=== PATIENT | male | born 1950 | race African-American/Black ===

== ENCOUNTER 2016-12-12 13:07 | Inpatient (IN) | payer OTHER ==
[2016-12-12 16:25] VITALS: BMI 21.7
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
[2016-12-12] MEDS ORDERED: P-EPHED 60MG/TRIPROLIDI 2.5MG TABLET PO PRN (17:59)
[2016-12-12] MEDS ORDERED: MAGNESIUM HYDROX 2400MG/30ML ORAL SUSPENSION 30 ML CUP PO PRN (17:59)
[2016-12-12] MEDS ORDERED: LOPERAMIDE HCL 2 MG CAPSULE PO PRN (17:59)
[2016-12-12] MEDS ORDERED: guaiFENesin/D-METHORPHAN HB 10 ML UNIT-DOSE CUPS PO PRN (17:59)
[2016-12-12] MEDS ORDERED: MAG HYDROX/AL HYDROX/SIMETH 30 ML UNIT-DOSE CUP PO PRN (17:59)
[2016-12-12] MEDS ORDERED: diphenhydrAMINE HCL 50 MG CAPSULE PO PRN (17:59)
[2016-12-12] MEDS ORDERED: MENTHOL/PHENOL 1 EACH UD MM PRN (17:59)
[2016-12-12] MEDS ORDERED: hydrOXYzine PAMOATE 50 MG CAPSULE (FP) PO PRN (17:59)
[2016-12-12] MEDS ORDERED: ACETAMINOPHEN 325 MG TABLET (FP) PO PRN (17:59)
[2016-12-12] MEDS ORDERED: IBUPROFEN 400 MG TABLET (FP) PO PRN (17:59)
[2016-12-12] MEDS ORDERED: MAGNESIUM CITRATE 300 ML BOTTLE PO PRN (17:59)
[2016-12-12] MEDS ORDERED: chlordiazePOXIDE HCL 25 MG CAPSULE PO ONE (18:30)
[2016-12-12] MEDS ORDERED: METHADONE HCL 10 MG TABLET (FOR DETOX USE ONLY) PO ONE ×2 (18:30→23:00)
[2016-12-12] MEDS: PANTOPRAZOLE 40 MG TABLET (FP) PO SCH (18:36)
[2016-12-12] MEDS: amLODIPine BESYLATE 10 MG TABLET (FP) PO SCH (18:36)
[2016-12-12] MEDS: LISINOPRIL 5 MG TABLET (FP) PO SCH (18:37)
[2016-12-12] MEDS: chlordiazePOXIDE HCL 25 MG CAPSULE PO SCH (22:46)
[2016-12-12] MEDS: PROPRANOLOL HCL 10 MG TABLET (FP) PO SCH (22:46)
[2016-12-12] MEDS: THIAMINE HCL 100 MG TABLET (FP) PO SCH (22:46)
[2016-12-12] MEDS: APIXABAN 5 MG TABLET PO SCH (22:47)
[2016-12-12 23:10] LABS: URINE APPEARANCE CLEAR; URINE BILIRUBIN NEGATIVE (NEGATIVE); URINE BLOOD NEGATIVE (NEGATIVE); URINE COLOR LT. YELLOW; URINE GLUCOSE (UA) NEGATIVE (NEGATIVE); URINE KETONE NEGATIVE (NEGATIVE); URINE LEUK ESTERASE NEGATIVE (NEGATIVE); URINE NITRITE NEGATIVE (NEGATIVE); URINE UROBILINOGEN 0.2 E.U/dl E.U./dl (0.2-1.0)
[2016-12-12 23:13] LABS: URINE PROTEIN 1+ (NEGATIVE)
[2016-12-12] MEDS: ATORVASTATIN CA 40 MG TABLET (FP) PO SCH (23:16)
[2016-12-13 00:09] LABS: URINE BACTERIA RARE /hpf (NONE SEEN); URINE MUCUS FEW; URINE RBC <1 /hpf (0-3); URINE WBC 2 /hpf (3-5)
[2016-12-13] MEDS: chlordiazePOXIDE HCL 25 MG CAPSULE PO SCH ×4 (05:48→22:35)
[2016-12-13] MEDS: PROPRANOLOL HCL 10 MG TABLET (FP) PO SCH ×3 (06:55→22:36)
[2016-12-13] MEDS ORDERED: METHADONE HCL 10 MG TABLET (FOR DETOX USE ONLY) PO SCH (10:00)
[2016-12-13] MEDS: PRENATAL VITAMINS W/ FOLIC ACID TABLET (FP) PO SCH (10:07)
[2016-12-13] MEDS: LISINOPRIL 5 MG TABLET (FP) PO SCH (10:08)
[2016-12-13] MEDS: APIXABAN 5 MG TABLET PO SCH ×2 (10:08→22:36)
[2016-12-13] MEDS: amLODIPine BESYLATE 10 MG TABLET (FP) PO SCH (10:08)
[2016-12-13] MEDS: PANTOPRAZOLE 40 MG TABLET (FP) PO SCH (10:08)
[2016-12-13 10:16] LABS: MCH 33.9 pg (25.7-33.7); MCHC 32.7 g/dl (32.0-35.9); MEAN CELL VOLUME 103.9 fl (80-96); MEAN PLT VOLUME 8.9 fl (7.5-11.1); PLATELET COUNT 175 K/MM3 (134-434); RDW 13.4 % (11.9-15.9)
[2016-12-13 10:44] LABS: ALBUMIN 4.1 g/dl (3.4-5.0); ALK PHOS 138 U/L (45-117); ANION GAP 10 (8-16); BILIRUBIN,TOTAL 0.5 mg/dL (0.2-1.0); CALCIUM 7.7 mg/dL (8.5-10.1); CO2 25 mmol/L (21-32); GLUCOSE,RANDOM 130 mg/dL (74-106); SGOT/AST 17 U/L (15-37); SGPT/ALT 14 U/L (12-78); TOT PROT 7.9 g/dl (6.4-8.2)
--- NOTE | 2016-12-13 12:30 | PN ---
[facility] CIWA - CIWA Score Nausea/Vomitin-No Nausea/No Vomiting Muscle Tremors: 4-Moderate,w/Arms Extend Anxiety: 3 Agitation: 4-Moderately Restless Paroxysmal Sweats: 3 Orientation: 0-Oriented Tacttile Disturbances: 0-None Auditory Disturbances: 0-None Visual Disturbances: 0-None Headache: 0-None Present CIWA-Ar Total Score: 14 S COWS - Scale Resting Pulse: 1= [place] 81-100 Sweatin=Flushed/Facial Moisture Restless Observation: 1= Difficult to Sit Still Pupil Size: 0= Normal to Room Light Bone or Joint Aches: 1= Mild Discomfort Runny Nose/ Eye Tearin= Runny Nose/Eyes GI Upset > 30mins: 1= Stomach Cramp Tremor Observation of Outstretched Hands: 2= Slight Tremor Visible Yawning Observation: 2= >3x During Session Anxiety or Irritability: 2=Irritable/Anxious Goose Flesh Skin: 0=Smooth Skin COWS Score: 14 S Progress Note (SOAP) Subjective: agitation anxiety irritable body aches sweats Objective: 12/13/16 12:29 Vital Signs Temperature 98.1 F 12/13/16 09:23 Pulse Rate 82 12/13/16 09:23 Respiratory Rate 20 12/13/16 09:23 Blood Pressure 123/77 12/13/16 09:23 O2 Sat by Pulse Oximetry (%) Laboratory Tests 12/12/16 12/13/16 12/13/16 22:05 06:00 06:00 WBC 5.0 D RBC 3.74 L Hgb 12.7 Hct 38.8 MCV 103.9 H MCHC 32.7 RDW 13.4 Plt Count 175 MPV 8.9 Sodium 141 Potassium 3.4 L Chloride 106 Carbon Dioxide 25 D Anion Gap 10 BUN 10 D Creatinine 1.0 Creat Clearance w eGFR > 60 Random Glucose 130 H D Calcium 7.7 L Total Bilirubin 0.5 AST 17 D ALT 14 Alkaline Phosphatase 138 H D Total Protein 7.9 D Albumin 4.1 D Urine Color Lt. yellow Urine Appearance Clear Urine pH 6.0 Ur Specific [place] 1.025 Urine Protein 1+ H Urine Glucose (UA) Negative Urine Ketones Negative Urine Blood Negative Urine Nitrite Negative Urine Bilirubin Negative Urine Urobilinogen 0.2 e.u/dl Ur Leukocyte Esterase Negative Urine RBC <1 Urine WBC 2 Ur Epithelial Cells Rare Urine Bacteria Rare Urine Mucus Few RPR Titer 12/13/16 06:00 WBC RBC Hgb Hct MCV MCHC RDW Plt Count MPV Sodium Potassium Chloride Carbon Dioxide Anion Gap BUN Creatinine Creat Clearance w eGFR Random Glucose Calcium Total Bilirubin AST ALT Alkaline Phosphatase Total Protein Albumin Urine Color Urine Appearance Urine pH Ur Specific [place] Urine Protein Urine Glucose (UA) Urine Ketones Urine Blood Urine Nitrite Urine Bilirubin Urine Urobilinogen Ur Leukocyte Esterase Urine RBC Urine WBC Ur Epithelial Cells Urine Bacteria Urine Mucus RPR Titer Nonreactive potassium 3.4; k-dur 40meq x 4 days awake/alert ambulating no acute distress Assessment: 12/13/16 12:30 withdrawal sx Plan: continue detox increase fluids k-dur 40meq
[2016-12-13] MEDS: POTASSIUM CHLORIDE TABS 20 MEQ TABLET.ER (FP) PO SCH (13:23)
[2016-12-13] MEDS: chlordiazePOXIDE HCL 25 MG CAPSULE PO PRN (13:25)
--- NOTE | 2016-12-13 16:17 | EKG ---
Test Reason : Blood Pressure : / mmHG Vent. Rate : 075 BPM Atrial Rate : 075 BPM P-R Int : 138 ms QRS Dur : 074 ms QT Int : 386 ms P-R-T Axes : 077 063 040 degrees QTc Int : 431 ms NORMAL SINUS RHYTHM POSSIBLE LEFT ATRIAL ENLARGEMENT LEFT VENTRICULAR HYPERTROPHY ABNORMAL ECG NO PREVIOUS ECGS AVAILABLE Confirmed by JANENE KHAN, CALLIE ([id number]) on 12/13/2016 4:17:07 PM Referred By: Confirmed By:CALLIE WATTERS MD
[2016-12-13] MEDS: ATORVASTATIN CA 40 MG TABLET (FP) PO SCH (22:36)
[2016-12-13] MEDS: QUEtiapine FUMARATE 100 MG TABLET (FP) PO SCH (22:36)
[2016-12-13] MEDS: THIAMINE HCL 100 MG TABLET (FP) PO SCH (22:36)
[2016-12-14] MEDS: chlordiazePOXIDE HCL 25 MG CAPSULE PO PRN (03:36)
[2016-12-14] MEDS: PROPRANOLOL HCL 10 MG TABLET (FP) PO SCH ×3 (05:32→22:25)
[2016-12-14] MEDS: chlordiazePOXIDE HCL 25 MG CAPSULE PO SCH ×3 (05:32→17:17)
[2016-12-14] MEDS: PRENATAL VITAMINS W/ FOLIC ACID TABLET (FP) PO SCH (10:17)
[2016-12-14] MEDS: APIXABAN 5 MG TABLET PO SCH ×2 (10:18→22:26)
[2016-12-14] MEDS: amLODIPine BESYLATE 10 MG TABLET (FP) PO SCH (10:18)
[2016-12-14] MEDS: POTASSIUM CHLORIDE TABS 20 MEQ TABLET.ER (FP) PO SCH (10:18)
[2016-12-14] MEDS: PANTOPRAZOLE 40 MG TABLET (FP) PO SCH (10:18)
[2016-12-14] MEDS: LISINOPRIL 5 MG TABLET (FP) PO SCH (10:20)
[2016-12-14] MEDS: METHADONE HCL 5 MG TABLET (FOR DETOX USE ONLY) PO SCH (10:23)
--- NOTE | 2016-12-14 10:55 | PN ---
S CIWA - CIWA Score Nausea/Vomitin-Mild Nausea/No Vomiting Muscle Tremors: 3 Anxiety: 3 Agitation: 2 Paroxysmal Sweats: 1-Minimal Palms Moist Orientation: 0-Oriented Tacttile Disturbances: 2-Mild Itch/Numbness/Burn Auditory Disturbances: 0-None Visual Disturbances: 2-Mild Sensitivity Headache: 1-Very Mild CIWA-Ar Total Score: 15 BHS COWS - Scale Resting Pulse: 1= [place] 81-100 Sweatin=Flushed/Facial Moisture Restless Observation: 1= Difficult to Sit Still Pupil Size: 2= Moderately Dilated Bone or Joint Aches: 1= Mild Discomfort Runny Nose/ Eye Tearin= Runny Nose/Eyes GI Upset > 30mins: 1= Stomach Cramp Tremor Observation of Outstretched Hands: 2= Slight Tremor Visible Yawning Observation: 0= None Anxiety or Irritability: 2=Irritable/Anxious Goose Flesh Skin: 0=Smooth Skin COWS Score: 14 S Progress Note (SOAP) Subjective: ACHY POOR SLEEP GI UPSET Objective: 12/14/16 10:54 Vital Signs - 24 hr 12/13/16 12/13/16 12/13/16 13:58 18:24 21:59 Temperature 99.3 F 97.6 F 96.3 F L Pulse Rate 82 76 70 Respiratory 18 18 18 Rate Blood Pressure 127/72 134/67 119/65 12/14/16 12/14/16 12/14/16 00:30 06:00 10:22 Temperature 97.5 F L 98 F Pulse Rate 90 80 Respiratory 18 18 20 Rate Blood Pressure 129/77 135/73 Laboratory Tests 12/12/16 12/13/16 12/13/16 22:05 06:00 06:00 WBC 5.0 D RBC 3.74 L Hgb 12.7 Hct 38.8 MCV 103.9 H MCHC 32.7 RDW 13.4 Plt Count 175 MPV 8.9 Sodium 141 Potassium 3.4 L Chloride 106 Carbon Dioxide 25 D Anion Gap 10 BUN 10 D Creatinine 1.0 Creat Clearance w eGFR > 60 Random Glucose 130 H D Calcium 7.7 L Total Bilirubin 0.5 AST 17 D ALT 14 Alkaline Phosphatase 138 H D Total Protein 7.9 D Albumin 4.1 D Urine Color Lt. yellow Urine Appearance Clear Urine pH 6.0 Ur Specific [place] 1.025 Urine Protein 1+ H Urine Glucose (UA) Negative Urine Ketones Negative Urine Blood Negative Urine Nitrite Negative Urine Bilirubin Negative Urine Urobilinogen 0.2 e.u/dl Ur Leukocyte Esterase Negative Urine RBC <1 Urine WBC 2 Ur Epithelial Cells Rare Urine Bacteria Rare Urine Mucus Few RPR Titer 12/13/16 06:00 WBC RBC Hgb Hct MCV MCHC RDW Plt Count MPV Sodium Potassium Chloride Carbon Dioxide Anion Gap BUN Creatinine Creat Clearance w eGFR Random Glucose Calcium Total Bilirubin AST ALT Alkaline Phosphatase Total Protein Albumin Urine Color Urine Appearance Urine pH Ur Specific [place] Urine Protein Urine Glucose (UA) Urine Ketones Urine Blood Urine Nitrite Urine Bilirubin Urine Urobilinogen Ur Leukocyte Esterase Urine RBC Urine WBC Ur Epithelial Cells Urine Bacteria Urine Mucus RPR Titer Nonreactive Assessment: 12/14/16 10:54 ONGOING WITHDRAWAL Plan: CONTINUE DETOX PROTOCOL
[2016-12-14] MEDS: THIAMINE HCL 100 MG TABLET (FP) PO SCH (22:25)
[2016-12-14] MEDS: QUEtiapine FUMARATE 100 MG TABLET (FP) PO SCH (22:26)
[2016-12-14] MEDS: chlordiazePOXIDE 5 MG CAPSULE PO SCH (22:26)
[2016-12-14] MEDS: ATORVASTATIN CA 40 MG TABLET (FP) PO SCH (22:26)
[2016-12-15] MEDS: chlordiazePOXIDE 5 MG CAPSULE PO SCH ×3 (05:25→17:44)
[2016-12-15] MEDS: PROPRANOLOL HCL 10 MG TABLET (FP) PO SCH ×3 (05:26→22:39)
[2016-12-15] MEDS: PRENATAL VITAMINS W/ FOLIC ACID TABLET (FP) PO SCH (10:15)
[2016-12-15] MEDS: METHADONE HCL 5 MG TABLET (FOR DETOX USE ONLY) PO SCH (10:15)
[2016-12-15] MEDS: LISINOPRIL 5 MG TABLET (FP) PO SCH (10:15)
[2016-12-15] MEDS: amLODIPine BESYLATE 10 MG TABLET (FP) PO SCH (10:15)
[2016-12-15] MEDS: POTASSIUM CHLORIDE TABS 20 MEQ TABLET.ER (FP) PO SCH (10:15)
[2016-12-15] MEDS: PANTOPRAZOLE 40 MG TABLET (FP) PO SCH (10:15)
[2016-12-15] MEDS: APIXABAN 5 MG TABLET PO SCH ×2 (10:16→22:39)
--- NOTE | 2016-12-15 11:06 | PN ---
S Progress Note (SOAP) Subjective: ALERT,IRRITABLE,INTERRUPTED SLEEP,TREMOR Objective: 12/15/16 11:05 Vital Signs Temperature 98.6 F 12/15/16 09:52 Pulse Rate 86 12/15/16 09:52 Respiratory Rate 18 12/15/16 09:52 Blood Pressure 127/71 12/15/16 09:52 O2 Sat by Pulse Oximetry (%) Assessment: 12/15/16 11:05 WITHDRAWAL SYMPTOM Plan: CONTINUE DETOX
[2016-12-15] MEDS: QUEtiapine FUMARATE 100 MG TABLET (FP) PO SCH (20:56)
[2016-12-15] MEDS: chlordiazePOXIDE HCL 10 MG CAPSULE PO SCH (22:39)
[2016-12-15] MEDS: THIAMINE HCL 100 MG TABLET (FP) PO SCH (22:39)
[2016-12-15] MEDS: ATORVASTATIN CA 40 MG TABLET (FP) PO SCH (22:39)
[2016-12-16] MEDS: PROPRANOLOL HCL 10 MG TABLET (FP) PO SCH ×3 (05:31→22:36)
[2016-12-16] MEDS: chlordiazePOXIDE HCL 10 MG CAPSULE PO SCH ×3 (05:31→17:51)
[2016-12-16] MEDS ORDERED: METHADONE HCL 10 MG TABLET (FOR DETOX USE ONLY) PO SCH (10:00)
[2016-12-16] MEDS: APIXABAN 5 MG TABLET PO SCH ×2 (10:08→22:36)
[2016-12-16] MEDS: PRENATAL VITAMINS W/ FOLIC ACID TABLET (FP) PO SCH (10:08)
[2016-12-16] MEDS: POTASSIUM CHLORIDE TABS 20 MEQ TABLET.ER (FP) PO SCH (10:08)
[2016-12-16] MEDS: PANTOPRAZOLE 40 MG TABLET (FP) PO SCH (10:08)
[2016-12-16] MEDS: amLODIPine BESYLATE 10 MG TABLET (FP) PO SCH (10:09)
[2016-12-16] MEDS: LISINOPRIL 5 MG TABLET (FP) PO SCH (10:09)
--- NOTE | 2016-12-16 11:35 | PN ---
S Progress Note (SOAP) Subjective: alert,irritable,anxious,interrupted sleep Objective: 12/16/16 11:34 Vital Signs Temperature 99.7 F H 12/16/16 09:30 Pulse Rate 98 H 12/16/16 09:30 Respiratory Rate 18 12/16/16 09:30 Blood Pressure 124/72 12/16/16 09:30 O2 Sat by Pulse Oximetry (%) Assessment: 12/16/16 11:34 withdrawal symptom Plan: continue detox,discharge in am
[2016-12-16] MEDS: QUEtiapine FUMARATE 100 MG TABLET (FP) PO SCH (19:54)
[2016-12-16] MEDS: THIAMINE HCL 100 MG TABLET (FP) PO SCH (22:36)
[2016-12-16] MEDS: ATORVASTATIN CA 40 MG TABLET (FP) PO SCH (22:36)
[2016-12-17] MEDS: PROPRANOLOL HCL 10 MG TABLET (FP) PO SCH (05:39)
[2016-12-17] MEDS ORDERED: METHADONE HCL 5 MG TABLET (FOR DETOX USE ONLY) PO SCH (06:00)
--- NOTE | 2016-12-17 08:14 | PN ---
S Progress Note (SOAP) Subjective: ALERT,NO COMPLAINT Objective: 12/17/16 08:13 Vital Signs Temperature 97.2 F L 12/17/16 06:36 Pulse Rate 88 12/17/16 06:36 Respiratory Rate 18 12/17/16 06:36 Blood Pressure 127/70 12/17/16 06:36 O2 Sat by Pulse Oximetry (%) Assessment: 12/17/16 08:14 DETOX COMPLETED,NO WITHDRAWAL SYMPTOM Plan: DISCHARGE TODAY,FOLLOW UP WITH AFTER CARE PROGRAM ARRANGEMENT AND PMD FOR MEDICAL PROBLEM
--- NOTE | 2016-12-17 08:21 | DS ---
[facility] Detox Discharge Summary Admission Date: 12/12/16 Discharge Date: 12/17/16 - History Present History: Alcohol Dependence, Opioid Dependence Additional Comments: FOLLOW UP WITH AFTER CARE PROGRAM ARRANGEMENT AND PMD FOR MEDICAL PROBLEM, PATIENT HAS ALL MEDICATIONS AT HOME Pertinent Past History: ESSENTIAL HYPERTENSION GERD DVT HISTORY OF PULMONARY EMBOLISM - Physical Exam Results Vital Signs: Vital Signs Temperature 97.2 F L 12/17/16 06:36 Pulse Rate 88 12/17/16 06:36 Respiratory Rate 18 12/17/16 06:36 Blood Pressure 127/70 12/17/16 06:36 O2 Sat by Pulse Oximetry (%) Pertinent Admission Physical Exam Findings: WITHDRAWAL SYMPTOM - Treatment Hospital Course: Detox Protocol Followed, Detoxed Safely, Responded well, Discharged Condition Good Patient has Accepted a Rehab Referral to: DECLINED - Medication Discharge Medications: Ambulatory Orders Esomeprazole Mag Trihydrate [Nexium] 40 mg PO DAILY 04/13/14 Amlodipine Besylate [Norvasc -] 10 mg PO DAILY #30 tablet 08/22/15 Atorvastatin Ca [Lipitor -] 40 mg PO HS 01/14/16 Lisinopril 5 mg PO DAILY 01/14/16 Apixaban [Eliquis -] 5 mg PO BID 12/12/16 Propranolol HCl [Inderal -] 10 mg PO TID 12/12/16 Quetiapine Fumarate [Seroquel] 100 mg PO HS #30 tablet 12/13/16 - Diagnosis (1) Alcohol dependence with uncomplicated withdrawal Current Visit: Yes Status: Acute (2) DVT (deep venous thrombosis) Current Visit: Yes Status: Acute (3) Essential hypertension Current Visit: Yes Status: Chronic (4) Gastroesophageal reflux disease Current Visit: Yes Status: Chronic Qualifiers: Esophagitis presence: without esophagitis Qualified Code(s): K21.9 - Gastro-esophageal reflux disease without esophagitis (5) Opioid dependence with withdrawal Current Visit: Yes Status: Chronic - AMA Did Patient Leave Against Medical Advice: No
[2016-12-17] MEDS: PRENATAL VITAMINS W/ FOLIC ACID TABLET (FP) PO SCH (09:16)
[2016-12-17] MEDS: POTASSIUM CHLORIDE TABS 20 MEQ TABLET.ER (FP) PO SCH (09:17)
[2016-12-17] MEDS: APIXABAN 5 MG TABLET PO SCH (09:17)
[2016-12-17] MEDS: PANTOPRAZOLE 40 MG TABLET (FP) PO SCH (09:17)
[2016-12-17] MEDS: LISINOPRIL 5 MG TABLET (FP) PO SCH (09:17)
[2016-12-17] MEDS: amLODIPine BESYLATE 10 MG TABLET (FP) PO SCH (09:17)
[2016-12-17 11:21] VITALS: BP 109/69; PULSE 96; TEMP 97.8
== END 2016-12-17 09:48 | disposition home or self-care (01) | DRG 897 ==
LOC: YASAS 13:07 → Y6N 17:52
PROVIDERS: ADMIT Internal Medicine Addiction Medicine; ATTEND Internal Medicine Addiction Medicine
PROC: HZ2ZZZZ Detoxification Services for Substance Abuse Treatment (ICD-10-PCS; principal; 2016-12-12)
DX: F11.23 Opioid dependence with withdrawal (principal); I82.409 Acute embolism and thrombosis of unspecified deep veins of unspecified lower extremity; F10.230 Alcohol dependence with withdrawal, uncomplicated; I10 Essential (primary) hypertension; K21.9 Gastro-esophageal reflux disease without esophagitis; Z79.01 Long term (current) use of anticoagulants; Z98.42 Cataract extraction status, left eye
CPT/HCPCS: 36415; 71020-TC; 80053; 81003; 81015; 85027; 86593; 93005; 93010

== ENCOUNTER 2017-01-20 12:21 | Inpatient (IN) | payer OTHER ==
[2017-01-20 12:56] VITALS: BMI 21.7
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
[2017-01-20] MEDS ORDERED: MAGNESIUM CITRATE 300 ML BOTTLE PO PRN (17:12)
[2017-01-20] MEDS ORDERED: chlordiazePOXIDE HCL 25 MG CAPSULE PO ONE (17:12)
[2017-01-20] MEDS ORDERED: METHADONE HCL 10 MG TABLET (FOR DETOX USE ONLY) PO ONE ×2 (17:12→23:00)
[2017-01-20] MEDS ORDERED: P-EPHED 60MG/TRIPROLIDI 2.5MG TABLET PO PRN (17:12)
[2017-01-20] MEDS ORDERED: guaiFENesin/D-METHORPHAN HB 10 ML UNIT-DOSE CUPS PO PRN (17:12)
[2017-01-20] MEDS ORDERED: MAGNESIUM HYDROX 2400MG/30ML ORAL SUSPENSION 30 ML CUP PO PRN (17:12)
[2017-01-20] MEDS ORDERED: ACETAMINOPHEN 325 MG TABLET (FP) PO PRN (17:12)
[2017-01-20] MEDS ORDERED: LOPERAMIDE HCL 2 MG CAPSULE PO PRN (17:12)
[2017-01-20] MEDS ORDERED: MENTHOL/PHENOL 1 EACH UD MM PRN (17:12)
[2017-01-20] MEDS ORDERED: hydrOXYzine PAMOATE 50 MG CAPSULE (FP) PO PRN (17:12)
[2017-01-20] MEDS ORDERED: chlordiazePOXIDE HCL 25 MG CAPSULE PO PRN (17:12)
[2017-01-20] MEDS ORDERED: IBUPROFEN 400 MG TABLET (FP) PO PRN (17:12)
[2017-01-20] MEDS ORDERED: MAG HYDROX/AL HYDROX/SIMETH 30 ML UNIT-DOSE CUP PO PRN (17:12)
[2017-01-20] MEDS ORDERED: PROPRANOLOL HCL 10 MG TABLET (FP) PO ONE (18:19)
[2017-01-20] MEDS: LISINOPRIL 10 MG TABLET (FP) PO SCH (18:59)
[2017-01-20] MEDS: chlordiazePOXIDE HCL 25 MG CAPSULE PO SCH (22:06)
[2017-01-20] MEDS: diphenhydrAMINE HCL 50 MG CAPSULE PO PRN (22:06)
[2017-01-20] MEDS: APIXABAN 5 MG TABLET PO SCH (22:06)
[2017-01-20] MEDS: PROPRANOLOL HCL 10 MG TABLET (FP) PO SCH (22:06)
[2017-01-20] MEDS: THIAMINE HCL 100 MG TABLET (FP) PO SCH (22:06)
[2017-01-21] MEDS: chlordiazePOXIDE HCL 25 MG CAPSULE PO SCH ×4 (05:28→22:22)
[2017-01-21] MEDS: PROPRANOLOL HCL 10 MG TABLET (FP) PO SCH ×3 (05:28→22:22)
[2017-01-21 09:59] LABS: MCH 33.7 pg (25.7-33.7); MCHC 32.5 g/dl (32.0-35.9); MEAN CELL VOLUME 103.7 fl (80-96); MEAN PLT VOLUME 8.5 fl (7.5-11.1); PLATELET COUNT 127 K/MM3 (134-434); RDW 14.5 % (11.9-15.9); WHITE BLOOD COUNT 3.1 K/mm3 (4.0-10.0)
[2017-01-21] MEDS ORDERED: METHADONE HCL 10 MG TABLET (FOR DETOX USE ONLY) PO SCH (10:00)
[2017-01-21] MEDS: APIXABAN 5 MG TABLET PO SCH ×2 (10:09→22:22)
[2017-01-21] MEDS: LISINOPRIL 10 MG TABLET (FP) PO SCH (10:09)
[2017-01-21] MEDS: PRENATAL VITAMINS W/ FOLIC ACID TABLET (FP) PO SCH (10:09)
[2017-01-21 10:31] LABS: ALBUMIN 3.4 g/dl (3.4-5.0); ALK PHOS 96 U/L (45-117); ANION GAP 9 (8-16); BILIRUBIN,TOTAL 0.7 mg/dL (0.2-1.0); CALCIUM 8.2 mg/dL (8.5-10.1); CO2 29 mmol/L (21-32); GLUCOSE,RANDOM 91 mg/dL (74-106); SGOT/AST 12 U/L (15-37); SGPT/ALT 13 U/L (12-78); TOT PROT 6.2 g/dl (6.4-8.2)
--- NOTE | 2017-01-21 10:42 | PN ---
[facility] CIWA - CIWA Score Nausea/Vomitin-Mild Nausea/No Vomiting Muscle Tremors: 4-Moderate,w/Arms Extend Anxiety: 4-Mod. Anxious/Guarded Agitation: 3 Paroxysmal Sweats: 3 Orientation: 0-Oriented Tacttile Disturbances: 1-Very Mild Itch/Numbness Auditory Disturbances: 0-None Visual Disturbances: 0-None Headache: 0-None Present CIWA-Ar Total Score: 16 BHS COWS - Scale Resting Pulse: 0= [place] 80 or Below Sweatin=Flushed/Facial Moisture Restless Observation: 1= Difficult to Sit Still Pupil Size: 0= Normal to Room Light Bone or Joint Aches: 2= Severe Diffuse Aches Runny Nose/ Eye Tearin= Runny Nose/Eyes GI Upset > 30mins: 2= Nausea/Diarrhea Tremor Observation of Outstretched Hands: 2= Slight Tremor Visible Yawning Observation: 1= 1-2x During Session Anxiety or Irritability: 2=Irritable/Anxious Goose Flesh Skin: 0=Smooth Skin COWS Score: 14 [facility] Progress Note (SOAP) Subjective: Anxiety,tremors,sweating,interrupted sleep,restless,muscle aches. Objective: 01/21/17 10:41 Vital Signs - 8 hr 01/21/17 01/21/17 01/21/17 03:30 06:19 10:31 Temperature 97.0 F L 98.1 F Pulse Rate 56 L 68 Respiratory 18 18 18 Rate Blood Pressure 157/79 148/83 Laboratory Last Values WBC 3.1 K/mm3 (4.0-10.0) L D 01/21/17 07:00 RBC 3.42 M/mm3 (4.00-5.60) L 01/21/17 07:00 Hgb 11.5 GM/dL (11.7-16.9) L 01/21/17 07:00 Hct 35.4 % (35.4-49) 01/21/17 07:00 MCV 103.7 fl (80-96) H 01/21/17 07:00 MCHC 32.5 g/dl (32.0-35.9) 01/21/17 07:00 RDW 14.5 % (11.9-15.9) 01/21/17 07:00 Plt Count 127 K/MM3 (134-434) L D 01/21/17 07:00 MPV 8.5 fl (7.5-11.1) 01/21/17 07:00 Sodium 144 mmol/L (136-145) 01/21/17 07:00 Potassium 3.6 mmol/L (3.5-5.1) 01/21/17 07:00 Chloride 106 mmol/L (98-107) 01/21/17 07:00 Carbon Dioxide 29 mmol/L (21-32) 01/21/17 07:00 Anion Gap 9 (8-16) 01/21/17 07:00 BUN 11 mg/dL (7-18) 01/21/17 07:00 Creatinine 1.0 mg/dL (0.7-1.3) 01/21/17 07:00 Creat Clearance w eGFR > 60 (>60) 01/21/17 07:00 Random Glucose 91 mg/dL (74-106) D 01/21/17 07:00 Calcium 8.2 mg/dL (8.5-10.1) L 01/21/17 07:00 Total Bilirubin 0.7 mg/dL (0.2-1.0) D 01/21/17 07:00 AST 12 U/L (15-37) L D 01/21/17 07:00 ALT 13 U/L (12-78) 01/21/17 07:00 Alkaline Phosphatase 96 U/L (45-117) D 01/21/17 07:00 Total Protein 6.2 g/dl (6.4-8.2) L D 01/21/17 07:00 Albumin 3.4 g/dl (3.4-5.0) 01/21/17 07:00 labs noted Assessment: 01/21/17 10:42 Withdrawal sx. DVT,chronic Plan: Continue detox
--- NOTE | 2017-01-21 12:42 | EKG ---
Test Reason : Blood Pressure : / mmHG Vent. Rate : 080 BPM Atrial Rate : 080 BPM P-R Int : 172 ms QRS Dur : 076 ms QT Int : 372 ms P-R-T Axes : 089 071 085 degrees QTc Int : 429 ms SINUS RHYTHM WITH PREMATURE SUPRAVENTRICULAR COMPLEXES BASELINE ARTIFACT VOLTAGE CRITERIA FOR LEFT VENTRICULAR HYPERTROPHY ST ELEVATION, CONSIDER EARLY REPOLARIZATION, PERICARDITIS, OR INJURY ABNORMAL ECG WHEN COMPARED WITH ECG OF 12-DEC-2016 18:27, PREMATURE SUPRAVENTRICULAR COMPLEXES ARE NOW PRESENT T WAVE VARIATION Confirmed by KEVIN MCCLAIN MD ([id number]) on 01/21/2017 12:42:07 PM Referred By: Confirmed By:KEVIN MCCLAIN MD
--- NOTE | 2017-01-21 13:07 | CONSULT ---
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 Substance Abuse History: - Smoking Cessation. Smoking history: Never smoked. Have you smoked in the past 12 months: No. Aproximately how many cigarettes per day: 0. Cigars Per Day: 0. Hx Chewing Tobacco Use: No. Initiated information on smoking cessation: No. - Substance & Tx. History. Hx Alcohol Use: Yes. Hx Substance Use: Yes. Substance Use Type: Alcohol, Heroin. Hx Substance Use Treatment: Yes (Detox). - Substances Abused. Heroin. Route: Inhalation. Frequency: Daily. Amount used: 4 bags. Age of first use: 21. Date of Last Use: 01/20/17. Alcohol. Route: Oral. Frequency: Daily. Amount used: janet/vodka 1/2 pint. Age of first use: 18. Date of Last Use: . Confirmed by patient. Medical History: Hypertension,DVT in the left leg,GERD.History of multiple surgeries (2013 : extraction of cataract in left eye and left inguinal herniorraphy in 2011). Psychiatric History: Patient denies. Physical/Sexual Abuse/Trauma History: Patient denies. Additional Comment: Urine Drug Screen Results: OPI-Opiates, BZO-Benzodiazepines , OXY-Oxycodone.Noted. Mental Status Exam - Mental Status Exam Alert and Oriented to: Time, Place, Person Cognitive Function: Good Patient Appearance: Well Groomed Mood: Hopeful, Euthymic Affect: Appropriate, Normal Range Patient Behavior: Fatigued, Appropriate, Cooperative Speech Pattern: Clear Voice Loudness: Normal Thought Process: Goal Oriented Hallucinations: Denies Suicidal Ideation: Denies Homicidal Ideation: Denies Insight/Judgement: Poor Sleep: Poorly, Difficulty falling asleep Appetite: Good Muscle strength/Tone: Normal Gait/Station: Normal Psychiatric Findings - Problem List ([place] 1, 2,3) (1) Alcohol dependence with uncomplicated withdrawal Current Visit: Yes Status: Acute (2) Opioid dependence with withdrawal Current Visit: Yes Status: Acute (3) Essential hypertension Current Visit: Yes Status: Chronic (4) DVT (deep venous thrombosis) Current Visit: Yes Status: Chronic (5) Gastroesophageal reflux disease Current Visit: Yes Status: Chronic Qualifiers: Esophagitis presence: without esophagitis Qualified Code(s): K21.9 - Gastro-esophageal reflux disease without esophagitis (6) Insomnia Current Visit: Yes Status: Acute - Initial Treatment Plan Initial Treatment Plan: Psychoeducation.Detoxification.Zolpidem 5 mg po hs prn.Patient is made aware of the risk for parasomnias.He consents to follow this careplan.Observation.
[2017-01-21 17:07] LABS: URINE APPEARANCE CLEAR; URINE BILIRUBIN NEGATIVE (NEGATIVE); URINE BLOOD NEGATIVE (NEGATIVE); URINE COLOR YELLOW; URINE GLUCOSE (UA) NEGATIVE (NEGATIVE); URINE KETONE NEGATIVE (NEGATIVE); URINE LEUK ESTERASE NEGATIVE (NEGATIVE); URINE NITRITE NEGATIVE (NEGATIVE); URINE PROTEIN NEGATIVE (NEGATIVE); URINE UROBILINOGEN NEGATIVE E.U./dl (0.2-1.0)
[2017-01-21] MEDS: THIAMINE HCL 100 MG TABLET (FP) PO SCH (22:22)
[2017-01-21] MEDS: ZOLPIDEM TARTRATE 5 MG TABLET PO PRN (22:28)
[2017-01-22] MEDS: chlordiazePOXIDE HCL 25 MG CAPSULE PO SCH ×3 (05:10→17:25)
[2017-01-22] MEDS: PROPRANOLOL HCL 10 MG TABLET (FP) PO SCH ×3 (05:10→22:16)
[2017-01-22] MEDS: METHADONE HCL 5 MG TABLET (FOR DETOX USE ONLY) PO SCH (10:11)
[2017-01-22] MEDS: LISINOPRIL 10 MG TABLET (FP) PO SCH (10:12)
[2017-01-22] MEDS: PRENATAL VITAMINS W/ FOLIC ACID TABLET (FP) PO SCH (10:12)
[2017-01-22] MEDS: APIXABAN 5 MG TABLET PO SCH ×2 (10:12→22:16)
--- NOTE | 2017-01-22 10:14 | PN ---
S CIWA - CIWA Score Nausea/Vomitin (DIARRHEA) Muscle Tremors: 4-Moderate,w/Arms Extend Anxiety: 4-Mod. Anxious/Guarded Agitation: 4-Moderately Restless Paroxysmal Sweats: 1-Minimal Palms Moist Orientation: 0-Oriented Tacttile Disturbances: 3-Moderate Itch/Numb/Burn Auditory Disturbances: 0-None Visual Disturbances: 0-None Headache: 0-None Present CIWA-Ar Total Score: 21 S COWS - Scale Resting Pulse: 0= [place] 80 or Below Sweatin= Chills/Flushing Restless Observation: 3= Extraneous Movement Pupil Size: 2= Moderately Dilated Bone or Joint Aches: 4=Acute Joint/Muscle Pain Runny Nose/ Eye Tearin= Nasal Congestion GI Upset > 30mins: 2= Nausea/Diarrhea Tremor Observation of Outstretched Hands: 2= Slight Tremor Visible Yawning Observation: 1= 1-2x During Session Anxiety or Irritability: 2=Irritable/Anxious Goose Flesh Skin: 0=Smooth Skin COWS Score: 18 S Progress Note (SOAP) Subjective: ANXIETY,TREMORS,BACKACHE/SPASMS,DIARRHEA. Objective: 01/22/17 10:13 Vital Signs Temperature 95.7 F L 01/22/17 06:08 Pulse Rate 79 01/22/17 06:08 Respiratory Rate 18 01/22/17 06:08 Blood Pressure 136/78 01/22/17 06:08 O2 Sat by Pulse Oximetry (%) Laboratory Last Values WBC 3.1 K/mm3 (4.0-10.0) L D 01/21/17 07:00 RBC 3.42 M/mm3 (4.00-5.60) L 01/21/17 07:00 Hgb 11.5 GM/dL (11.7-16.9) L 01/21/17 07:00 Hct 35.4 % (35.4-49) 01/21/17 07:00 MCV 103.7 fl (80-96) H 01/21/17 07:00 MCHC 32.5 g/dl (32.0-35.9) 01/21/17 07:00 RDW 14.5 % (11.9-15.9) 01/21/17 07:00 Plt Count 127 K/MM3 (134-434) L D 01/21/17 07:00 MPV 8.5 fl (7.5-11.1) 01/21/17 07:00 Sodium 144 mmol/L (136-145) 01/21/17 07:00 Potassium 3.6 mmol/L (3.5-5.1) 01/21/17 07:00 Chloride 106 mmol/L (98-107) 01/21/17 07:00 Carbon Dioxide 29 mmol/L (21-32) 01/21/17 07:00 Anion Gap 9 (8-16) 01/21/17 07:00 BUN 11 mg/dL (7-18) 01/21/17 07:00 Creatinine 1.0 mg/dL (0.7-1.3) 01/21/17 07:00 Creat Clearance w eGFR > 60 (>60) 01/21/17 07:00 Random Glucose 91 mg/dL (74-106) D 01/21/17 07:00 Calcium 8.2 mg/dL (8.5-10.1) L 01/21/17 07:00 Total Bilirubin 0.7 mg/dL (0.2-1.0) D 01/21/17 07:00 AST 12 U/L (15-37) L D 01/21/17 07:00 ALT 13 U/L (12-78) 01/21/17 07:00 Alkaline Phosphatase 96 U/L (45-117) D 01/21/17 07:00 Total Protein 6.2 g/dl (6.4-8.2) L D 01/21/17 07:00 Albumin 3.4 g/dl (3.4-5.0) 01/21/17 07:00 Urine Color Yellow 01/21/17 14:00 Urine Appearance Clear 01/21/17 14:00 Urine pH 5.0 (5.0-8.0) 01/21/17 14:00 Ur Specific [place] 1.017 (1.001-1.035) 01/21/17 14:00 Urine Protein Negative (NEGATIVE) 01/21/17 14:00 Urine Glucose (UA) Negative (NEGATIVE) 01/21/17 14:00 Urine Ketones Negative (NEGATIVE) 01/21/17 14:00 Urine Blood Negative (NEGATIVE) 01/21/17 14:00 Urine Nitrite Negative (NEGATIVE) 01/21/17 14:00 Urine Bilirubin Negative (NEGATIVE) 01/21/17 14:00 Urine Urobilinogen Negative E.U./dl (0.2-1.0) 01/21/17 14:00 Ur Leukocyte Esterase Negative (NEGATIVE) 01/21/17 14:00 RPR Titer Nonreactive (NONREACTIVE) 01/21/17 07:00 Assessment: 01/22/17 10:13 WITHDRAWAL SX Plan: CONTINUE DETOX
[2017-01-22] MEDS: CYCLOBENZAPRINE HCL 10 MG TABLET (FP) PO SCH ×2 (14:24→22:16)
[2017-01-22] MEDS: chlordiazePOXIDE 5 MG CAPSULE PO SCH (22:15)
[2017-01-22] MEDS: ZOLPIDEM TARTRATE 5 MG TABLET PO PRN (22:17)
[2017-01-22] MEDS: THIAMINE HCL 100 MG TABLET (FP) PO SCH (23:57)
[2017-01-23] MEDS: PROPRANOLOL HCL 10 MG TABLET (FP) PO SCH ×3 (05:42→22:13)
[2017-01-23] MEDS: chlordiazePOXIDE 5 MG CAPSULE PO SCH ×3 (05:42→17:31)
[2017-01-23] MEDS: CYCLOBENZAPRINE HCL 10 MG TABLET (FP) PO SCH ×3 (05:42→22:13)
[2017-01-23] MEDS: LISINOPRIL 10 MG TABLET (FP) PO SCH (10:23)
[2017-01-23] MEDS: APIXABAN 5 MG TABLET PO SCH ×2 (10:23→22:13)
[2017-01-23] MEDS: PRENATAL VITAMINS W/ FOLIC ACID TABLET (FP) PO SCH (10:23)
[2017-01-23] MEDS: METHADONE HCL 5 MG TABLET (FOR DETOX USE ONLY) PO SCH (10:24)
--- NOTE | 2017-01-23 11:35 | PN ---
S Progress Note (SOAP) Subjective: ANXIETY, SWEATS, FATIGUE. Objective: 01/23/17 11:34 Laboratory Last Values WBC 3.1 K/mm3 (4.0-10.0) L D 01/21/17 07:00 RBC 3.42 M/mm3 (4.00-5.60) L 01/21/17 07:00 Hgb 11.5 GM/dL (11.7-16.9) L 01/21/17 07:00 Hct 35.4 % (35.4-49) 01/21/17 07:00 MCV 103.7 fl (80-96) H 01/21/17 07:00 MCHC 32.5 g/dl (32.0-35.9) 01/21/17 07:00 RDW 14.5 % (11.9-15.9) 01/21/17 07:00 Plt Count 127 K/MM3 (134-434) L D 01/21/17 07:00 MPV 8.5 fl (7.5-11.1) 01/21/17 07:00 Sodium 144 mmol/L (136-145) 01/21/17 07:00 Potassium 3.6 mmol/L (3.5-5.1) 01/21/17 07:00 Chloride 106 mmol/L (98-107) 01/21/17 07:00 Carbon Dioxide 29 mmol/L (21-32) 01/21/17 07:00 Anion Gap 9 (8-16) 01/21/17 07:00 BUN 11 mg/dL (7-18) 01/21/17 07:00 Creatinine 1.0 mg/dL (0.7-1.3) 01/21/17 07:00 Creat Clearance w eGFR > 60 (>60) 01/21/17 07:00 Random Glucose 91 mg/dL (74-106) D 01/21/17 07:00 Calcium 8.2 mg/dL (8.5-10.1) L 01/21/17 07:00 Total Bilirubin 0.7 mg/dL (0.2-1.0) D 01/21/17 07:00 AST 12 U/L (15-37) L D 01/21/17 07:00 ALT 13 U/L (12-78) 01/21/17 07:00 Alkaline Phosphatase 96 U/L (45-117) D 01/21/17 07:00 Total Protein 6.2 g/dl (6.4-8.2) L D 01/21/17 07:00 Albumin 3.4 g/dl (3.4-5.0) 01/21/17 07:00 Urine Color Yellow 01/21/17 14:00 Urine Appearance Clear 01/21/17 14:00 Urine pH 5.0 (5.0-8.0) 01/21/17 14:00 Ur Specific [place] 1.017 (1.001-1.035) 01/21/17 14:00 Urine Protein Negative (NEGATIVE) 01/21/17 14:00 Urine Glucose (UA) Negative (NEGATIVE) 01/21/17 14:00 Urine Ketones Negative (NEGATIVE) 01/21/17 14:00 Urine Blood Negative (NEGATIVE) 01/21/17 14:00 Urine Nitrite Negative (NEGATIVE) 01/21/17 14:00 Urine Bilirubin Negative (NEGATIVE) 01/21/17 14:00 Urine Urobilinogen Negative E.U./dl (0.2-1.0) 01/21/17 14:00 Ur Leukocyte Esterase Negative (NEGATIVE) 01/21/17 14:00 RPR Titer Nonreactive (NONREACTIVE) 01/21/17 07:00 Assessment: 01/23/17 11:35 WITHDRAWAL SX Plan: CONTINUE DETOX
[2017-01-23] MEDS: THIAMINE HCL 100 MG TABLET (FP) PO SCH (22:13)
[2017-01-23] MEDS: chlordiazePOXIDE HCL 10 MG CAPSULE PO SCH (22:14)
[2017-01-23] MEDS: ZOLPIDEM TARTRATE 5 MG TABLET PO PRN (22:16)
[2017-01-24] MEDS: CYCLOBENZAPRINE HCL 10 MG TABLET (FP) PO SCH ×3 (05:40→22:26)
[2017-01-24] MEDS: chlordiazePOXIDE HCL 10 MG CAPSULE PO SCH ×3 (05:40→17:52)
[2017-01-24] MEDS: PROPRANOLOL HCL 10 MG TABLET (FP) PO SCH ×3 (05:40→22:26)
[2017-01-24] MEDS ORDERED: METHADONE HCL 10 MG TABLET (FOR DETOX USE ONLY) PO SCH (10:00)
[2017-01-24] MEDS: LISINOPRIL 10 MG TABLET (FP) PO SCH (10:14)
[2017-01-24] MEDS: PRENATAL VITAMINS W/ FOLIC ACID TABLET (FP) PO SCH (10:14)
[2017-01-24] MEDS: APIXABAN 5 MG TABLET PO SCH ×2 (10:14→22:26)
--- NOTE | 2017-01-24 10:53 | PN ---
B[facility] Progress Note (SOAP) Subjective: Sweating,interrupted sleep,restless Objective: 01/24/17 10:51 Vital Signs - 8 hr 01/24/17 01/24/17 01/24/17 03:56 06:37 09:23 Temperature 97.4 F L 95.6 F L Pulse Rate 89 88 Respiratory 18 18 18 Rate Blood Pressure 117/78 148/74 Laboratory Last Values WBC 3.1 K/mm3 (4.0-10.0) L D 01/21/17 07:00 RBC 3.42 M/mm3 (4.00-5.60) L 01/21/17 07:00 Hgb 11.5 GM/dL (11.7-16.9) L 01/21/17 07:00 Hct 35.4 % (35.4-49) 01/21/17 07:00 MCV 103.7 fl (80-96) H 01/21/17 07:00 MCHC 32.5 g/dl (32.0-35.9) 01/21/17 07:00 RDW 14.5 % (11.9-15.9) 01/21/17 07:00 Plt Count 127 K/MM3 (134-434) L D 01/21/17 07:00 MPV 8.5 fl (7.5-11.1) 01/21/17 07:00 Sodium 144 mmol/L (136-145) 01/21/17 07:00 Potassium 3.6 mmol/L (3.5-5.1) 01/21/17 07:00 Chloride 106 mmol/L (98-107) 01/21/17 07:00 Carbon Dioxide 29 mmol/L (21-32) 01/21/17 07:00 Anion Gap 9 (8-16) 01/21/17 07:00 BUN 11 mg/dL (7-18) 01/21/17 07:00 Creatinine 1.0 mg/dL (0.7-1.3) 01/21/17 07:00 Creat Clearance w eGFR > 60 (>60) 01/21/17 07:00 Random Glucose 91 mg/dL (74-106) D 01/21/17 07:00 Calcium 8.2 mg/dL (8.5-10.1) L 01/21/17 07:00 Total Bilirubin 0.7 mg/dL (0.2-1.0) D 01/21/17 07:00 AST 12 U/L (15-37) L D 01/21/17 07:00 ALT 13 U/L (12-78) 01/21/17 07:00 Alkaline Phosphatase 96 U/L (45-117) D 01/21/17 07:00 Total Protein 6.2 g/dl (6.4-8.2) L D 01/21/17 07:00 Albumin 3.4 g/dl (3.4-5.0) 01/21/17 07:00 Urine Color Yellow 01/21/17 14:00 Urine Appearance Clear 01/21/17 14:00 Urine pH 5.0 (5.0-8.0) 01/21/17 14:00 Ur Specific [place] 1.017 (1.001-1.035) 01/21/17 14:00 Urine Protein Negative (NEGATIVE) 01/21/17 14:00 Urine Glucose (UA) Negative (NEGATIVE) 01/21/17 14:00 Urine Ketones Negative (NEGATIVE) 01/21/17 14:00 Urine Blood Negative (NEGATIVE) 01/21/17 14:00 Urine Nitrite Negative (NEGATIVE) 01/21/17 14:00 Urine Bilirubin Negative (NEGATIVE) 01/21/17 14:00 Urine Urobilinogen Negative E.U./dl (0.2-1.0) 01/21/17 14:00 Ur Leukocyte Esterase Negative (NEGATIVE) 01/21/17 14:00 RPR Titer Nonreactive (NONREACTIVE) 01/21/17 07:00 labs noted Assessment: 01/24/17 10:53 Withdrawal sx. Plan: Continue detox
--- NOTE | 2017-01-24 12:34 | EKG ---
Test Reason : Blood Pressure : / mmHG Vent. Rate : 071 BPM Atrial Rate : 071 BPM P-R Int : 154 ms QRS Dur : 076 ms QT Int : 374 ms P-R-T Axes : 074 049 028 degrees QTc Int : 406 ms NORMAL SINUS RHYTHM MINIMAL VOLTAGE CRITERIA FOR LVH, MAY BE NORMAL VARIANT ST ELEVATION, CONSIDER EARLY REPOLARIZATION BORDERLINE ECG WHEN COMPARED WITH ECG OF 20-JAN-2017 17:16, PREMATURE SUPRAVENTRICULAR COMPLEXES ARE NO LONGER PRESENT NON-SPECIFIC CHANGE IN ST SEGMENT IN INFERIOR LEADS ST ELEVATION NOW PRESENT IN LATERAL LEADS NONSPECIFIC T WAVE ABNORMALITY HAS REPLACED INVERTED T WAVES IN INFERIOR LEADS NONSPECIFIC T WAVE ABNORMALITY, IMPROVED IN LATERAL LEADS Confirmed by CALLIE WATTERS MD ([id number]) on 01/24/2017 12:34:29 PM Referred By: Confirmed By:CALLIE WATTERS MD
[2017-01-24] MEDS: THIAMINE HCL 100 MG TABLET (FP) PO SCH (22:26)
[2017-01-24] MEDS: diphenhydrAMINE HCL 50 MG CAPSULE PO PRN (22:27)
[2017-01-25] MEDS: PROPRANOLOL HCL 10 MG TABLET (FP) PO SCH (05:19)
[2017-01-25] MEDS: CYCLOBENZAPRINE HCL 10 MG TABLET (FP) PO SCH (05:19)
[2017-01-25] MEDS ORDERED: METHADONE HCL 5 MG TABLET (FOR DETOX USE ONLY) PO SCH (06:00)
[2017-01-25 06:36] VITALS: BP 156/91; PULSE 84; TEMP 97.3
--- NOTE | 2017-01-25 13:27 | DS ---
[facility] Detox Discharge Summary Admission Date: 01/20/17 Discharge Date: 01/25/17 - History Present History: Alcohol Dependence, Opioid Dependence Additional Comments: ADVISED PATIENT TO FOLLOW-UP WITH [facility] / REHAB MEDICAL PROVIDER AFTER DISCHARGE FROM DETOX FOR GENERAL MEDICAL ASSESSMENT AND FOR ANY ABNORMAL ADMISSION LAB VALUES. Pertinent Past History: HTN, Depression. - Physical Exam Results Vital Signs: Vital Signs Temperature 97.3 F L 01/25/17 06:35 Pulse Rate 84 01/25/17 06:35 Respiratory Rate 18 01/25/17 06:35 Blood Pressure 156/91 01/25/17 06:35 O2 Sat by Pulse Oximetry (%) Pertinent Admission Physical Exam Findings: WITHDRAWAL SYMPTOMS. Laboratory Last Values WBC 3.1 K/mm3 (4.0-10.0) L D 01/21/17 07:00 RBC 3.42 M/mm3 (4.00-5.60) L 01/21/17 07:00 Hgb 11.5 GM/dL (11.7-16.9) L 01/21/17 07:00 Hct 35.4 % (35.4-49) 01/21/17 07:00 MCV 103.7 fl (80-96) H 01/21/17 07:00 MCHC 32.5 g/dl (32.0-35.9) 01/21/17 07:00 RDW 14.5 % (11.9-15.9) 01/21/17 07:00 Plt Count 127 K/MM3 (134-434) L D 01/21/17 07:00 MPV 8.5 fl (7.5-11.1) 01/21/17 07:00 Sodium 144 mmol/L (136-145) 01/21/17 07:00 Potassium 3.6 mmol/L (3.5-5.1) 01/21/17 07:00 Chloride 106 mmol/L (98-107) 01/21/17 07:00 Carbon Dioxide 29 mmol/L (21-32) 01/21/17 07:00 Anion Gap 9 (8-16) 01/21/17 07:00 BUN 11 mg/dL (7-18) 01/21/17 07:00 Creatinine 1.0 mg/dL (0.7-1.3) 01/21/17 07:00 Creat Clearance w eGFR > 60 (>60) 01/21/17 07:00 Random Glucose 91 mg/dL (74-106) D 01/21/17 07:00 Calcium 8.2 mg/dL (8.5-10.1) L 01/21/17 07:00 Total Bilirubin 0.7 mg/dL (0.2-1.0) D 01/21/17 07:00 AST 12 U/L (15-37) L D 01/21/17 07:00 ALT 13 U/L (12-78) 01/21/17 07:00 Alkaline Phosphatase 96 U/L (45-117) D 01/21/17 07:00 Total Protein 6.2 g/dl (6.4-8.2) L D 01/21/17 07:00 Albumin 3.4 g/dl (3.4-5.0) 01/21/17 07:00 Urine Color Yellow 01/21/17 14:00 Urine Appearance Clear 01/21/17 14:00 Urine pH 5.0 (5.0-8.0) 01/21/17 14:00 Ur Specific [place] 1.017 (1.001-1.035) 01/21/17 14:00 Urine Protein Negative (NEGATIVE) 01/21/17 14:00 Urine Glucose (UA) Negative (NEGATIVE) 01/21/17 14:00 Urine Ketones Negative (NEGATIVE) 01/21/17 14:00 Urine Blood Negative (NEGATIVE) 01/21/17 14:00 Urine Nitrite Negative (NEGATIVE) 01/21/17 14:00 Urine Bilirubin Negative (NEGATIVE) 01/21/17 14:00 Urine Urobilinogen Negative E.U./dl (0.2-1.0) 01/21/17 14:00 Ur Leukocyte Esterase Negative (NEGATIVE) 01/21/17 14:00 RPR Titer Nonreactive (NONREACTIVE) 01/21/17 07:00 LABS NOTED. - Treatment Hospital Course: Detox Protocol Followed, Detoxed Safely, Responded well, Discharged Condition Good Patient has Accepted a Rehab Referral to: NO- PT. ELECTING TO GO HOME AT THIS TIME. 12-STEP / AA PROGRAM RECOMMENDED. - Medication Discharge Medications: Ambulatory Orders Lisinopril 5 mg PO DAILY 01/14/16 Apixaban [Eliquis -] 5 mg PO BID 12/12/16 Propranolol HCl [Inderal -] 10 mg PO TID 12/12/16 Quetiapine Fumarate [Seroquel] 100 mg PO HS #30 tablet 12/13/16 - Diagnosis (1) Alcohol dependence with uncomplicated withdrawal Status: Acute (2) Insomnia Status: Acute Qualifiers: Insomnia type: unspecified Qualified Code(s): G47.00 - Insomnia, unspecified (3) Opioid dependence with withdrawal Status: Acute (4) DVT (deep venous thrombosis) Status: Chronic Qualifiers: DVT location: lower extremity Affected thrombotic vein of extremity: unspecified vein of extremity Laterality: unspecified laterality Chronicity: unspecified Qualified Code(s): I82.409 - Acute embolism and thrombosis of unspecified deep veins of unspecified lower extremity (5) Essential hypertension Status: Chronic (6) Gastroesophageal reflux disease Status: Chronic Qualifiers: Esophagitis presence: without esophagitis Qualified Code(s): K21.9 - Gastro-esophageal reflux disease without esophagitis - AMA Did Patient Leave Against Medical Advice: No
== END 2017-01-25 09:10 | disposition home or self-care (01) | DRG 897 ==
LOC: YASAS 12:21 → Y3N 15:43
PROVIDERS: ADMIT Internal Medicine; ATTEND Internal Medicine
PROC: HZ2ZZZZ Detoxification Services for Substance Abuse Treatment (ICD-10-PCS; principal; 2017-01-20)
DX: F11.23 Opioid dependence with withdrawal (principal); I82.409 Acute embolism and thrombosis of unspecified deep veins of unspecified lower extremity; F10.230 Alcohol dependence with withdrawal, uncomplicated; G47.00 Insomnia, unspecified; I10 Essential (primary) hypertension; K21.9 Gastro-esophageal reflux disease without esophagitis; Z79.01 Long term (current) use of anticoagulants; Z95.828 Presence of other vascular implants and grafts; Z98.42 Cataract extraction status, left eye
CPT/HCPCS: 36415; 80053; 81003; 85027; 86593; 93005; 93010

== ENCOUNTER 2017-04-07 10:20 | Inpatient (IN) | payer OTHER ==
[2017-04-07 10:54] VITALS: BMI 22.3
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
[2017-04-07] MEDS ORDERED: ACETAMINOPHEN 325 MG TABLET (FP) PO PRN (13:00)
[2017-04-07] MEDS ORDERED: MENTHOL/PHENOL 1 EACH UD MM PRN (13:00)
[2017-04-07] MEDS ORDERED: IBUPROFEN 400 MG TABLET (FP) PO PRN (13:00)
[2017-04-07] MEDS ORDERED: MAGNESIUM CITRATE 300 ML BOTTLE PO PRN (13:00)
[2017-04-07] MEDS ORDERED: MAG HYDROX/AL HYDROX/SIMETH 30 ML UNIT-DOSE CUP PO PRN (13:00)
[2017-04-07] MEDS ORDERED: guaiFENesin/D-METHORPHAN HB 10 ML UNIT-DOSE CUPS PO PRN (13:00)
[2017-04-07] MEDS ORDERED: MAGNESIUM HYDROX 2400MG/30ML ORAL SUSPENSION 30 ML CUP PO PRN (13:00)
[2017-04-07] MEDS ORDERED: P-EPHED 60MG/TRIPROLIDI 2.5MG TABLET PO PRN (13:00)
[2017-04-07] MEDS ORDERED: LOPERAMIDE HCL 2 MG CAPSULE PO PRN (13:00)
[2017-04-07] MEDS ORDERED: chlordiazePOXIDE HCL 25 MG CAPSULE PO PRN (13:03)
[2017-04-07] MEDS ORDERED: chlordiazePOXIDE HCL 25 MG CAPSULE PO ONE (13:03)
[2017-04-07] MEDS ORDERED: METHADONE HCL 10 MG TABLET (FOR DETOX USE ONLY) PO ONE ×2 (13:03→23:00)
[2017-04-07] MEDS: chlordiazePOXIDE HCL 25 MG CAPSULE PO SCH ×2 (17:25→22:31)
[2017-04-07 17:48] LABS: URINE APPEARANCE CLEAR; URINE BILIRUBIN NEGATIVE (NEGATIVE); URINE BLOOD NEGATIVE (NEGATIVE); URINE COLOR LTYELLOW; URINE GLUCOSE (UA) NEGATIVE (NEGATIVE); URINE KETONE NEGATIVE (NEGATIVE); URINE LEUK ESTERASE NEGATIVE (NEGATIVE); URINE NITRITE NEGATIVE (NEGATIVE); URINE PROTEIN NEGATIVE (NEGATIVE); URINE UROBILINOGEN NEGATIVE E.U./dl (0.2-1.0)
[2017-04-07] MEDS: diphenhydrAMINE HCL 50 MG CAPSULE PO PRN (22:32)
[2017-04-07] MEDS: PROPRANOLOL HCL 10 MG TABLET (FP) PO SCH (22:32)
[2017-04-07] MEDS: THIAMINE HCL 100 MG TABLET (FP) PO SCH (22:32)
[2017-04-07] MEDS: APIXABAN 5 MG TABLET PO SCH (22:32)
[2017-04-08] MEDS: chlordiazePOXIDE HCL 25 MG CAPSULE PO SCH ×4 (05:21→22:40)
[2017-04-08] MEDS ORDERED: METHADONE HCL 10 MG TABLET (FOR DETOX USE ONLY) PO SCH (10:00)
[2017-04-08 10:08] LABS: MCH 33.9 pg (25.7-33.7); MCHC 32.8 g/dl (32.0-35.9); MEAN CELL VOLUME 103.2 fl (80-96); MEAN PLT VOLUME 8.3 fl (7.5-11.1); PLATELET COUNT 147 K/MM3 (134-434); RDW 15.2 % (11.9-15.9); WHITE BLOOD COUNT 3.4 K/mm3 (4.0-10.0)
--- NOTE | 2017-04-08 10:15 | PN ---
S CIWA - CIWA Score Nausea/Vomitin Muscle Tremors: 3 Anxiety: 3 Agitation: 2 Paroxysmal Sweats: 2 Orientation: 0-Oriented Tacttile Disturbances: 1-Very Mild Itch/Numbness Auditory Disturbances: 1-Very Mild Visual Disturbances: 1-Very Mild Sensitivity Headache: 2-Mild CIWA-Ar Total Score: 18 BHS COWS - Scale Resting Pulse: 0= [place] 80 or Below Sweatin= Chills/Flushing Restless Observation: 3= Extraneous Movement Pupil Size: 1= Pupils >than Normal Bone or Joint Aches: 2= Severe Diffuse Aches Runny Nose/ Eye Tearin= Nasal Congestion GI Upset > 30mins: 2= Nausea/Diarrhea Tremor Observation of Outstretched Hands: 2= Slight Tremor Visible Yawning Observation: 1= 1-2x During Session Anxiety or Irritability: 2=Irritable/Anxious Goose Flesh Skin: 0=Smooth Skin COWS Score: 15 BHS Progress Note (SOAP) Subjective: ALERT,IRRITABLE,ANXIOUS,INTERRUPTED SLEEP,TREMOR,PAIN IN THE BODY AND BACK Objective: 04/08/17 10:14 Vital Signs Temperature 98.1 F 04/08/17 09:57 Pulse Rate 77 04/08/17 09:57 Respiratory Rate 16 04/08/17 09:57 Blood Pressure 135/75 04/08/17 09:57 O2 Sat by Pulse Oximetry (%) EKG NSR NO CHEST PAIN,NO SOB,NO DIZZINESS Laboratory Last Values Urine Color L[place] 04/07/17 17:24 Urine Appearance Clear 04/07/17 17:24 Urine pH 5.0 (5.0-8.0) 04/07/17 17:24 Ur Specific [place] 1.025 (1.005-1.025) 04/07/17 17:24 Urine Protein Negative (NEGATIVE) 04/07/17 17:24 Urine Glucose (UA) Negative (NEGATIVE) 04/07/17 17:24 Urine Ketones Negative (NEGATIVE) 04/07/17 17:24 Urine Blood Negative (NEGATIVE) 04/07/17 17:24 Urine Nitrite Negative (NEGATIVE) 04/07/17 17:24 Urine Bilirubin Negative (NEGATIVE) 04/07/17 17:24 Urine Urobilinogen Negative E.U./dl (0.2-1.0) 04/07/17 17:24 Ur Leukocyte Esterase Negative (NEGATIVE) 04/07/17 17:24 LABS PENDING Assessment: 04/08/17 10:15 WITHDRAWAL SYMPTOM Plan: CONTINUE DETOX
[2017-04-08 10:21] LABS: ALBUMIN 3.4 g/dl (3.4-5.0); ALK PHOS 104 U/L (45-117); ANION GAP 7 (8-16); BILIRUBIN,TOTAL 0.4 mg/dL (0.2-1.0); CALCIUM 8.1 mg/dL (8.5-10.1); CO2 32 mmol/L (21-32); COCKROFT - GAULT 82.87; CREATININE 0.9 mg/dL (0.7-1.3); GLUCOSE,RANDOM 97 mg/dL (74-106); SGOT/AST 41 U/L (15-37); SGPT/ALT 52 U/L (12-78); TOT PROT 6.2 g/dl (6.4-8.2)
[2017-04-08] MEDS: PROPRANOLOL HCL 10 MG TABLET (FP) PO SCH ×2 (10:45→22:40)
[2017-04-08] MEDS: LISINOPRIL 5 MG TABLET (FP) PO SCH (10:45)
[2017-04-08] MEDS: PRENATAL VITAMINS W/ FOLIC ACID TABLET (FP) PO SCH (10:45)
[2017-04-08] MEDS: APIXABAN 5 MG TABLET PO SCH ×2 (10:46→22:40)
--- NOTE | 2017-04-08 11:46 | CONSULT ---
[facility] Psychiatric Consult - Data Date of interview: 04/08/17 Admission source: [facility] Identifying data: This is 66 years old male with no psychiatric hospitalization history intoxicated with: Alvcohol and Opioids Substance Abuse History: - Smoking Cessation. Smoking history: Never smoked. Have you smoked in the past 12 months: No. Aproximately how many cigarettes per day: 0. Cigars Per Day: 0. Hx Chewing Tobacco Use: No. - Substance & Tx. History. Hx Alcohol Use: Yes. Hx Substance Use: Yes. Substance Use Type: Alcohol, Heroin. Hx Substance Use Treatment: Yes ([facility] 01/20/17 TO 01/25/17). - Substances Abused. Heroin. Route: Inhalation. Frequency: 3-6 times per week. Amount used: 3-4 bags. Age of first use: 21. Date of Last Use: . Alcohol. Route: Oral. Frequency: Daily. Amount used: rum(1/2pint) or vodka(1/2 pint). Age of first use: 18. Date of Last Use: 04/07/17 Medical History: HTN, DVT, PA, IVC, WQeight loss history, GERD Psychiatric History: PATOIENT REPROTS SEVERE INSOMNIA, ASKING FOR AMBIEN 120MG PO QHS Physical/Sexual Abuse/Trauma History: Denies Additional Comment: AMBIEN 120MG PO QHS Mental Status Exam - Mental Status Exam Alert and Oriented to: Person Cognitive Function: Fair Patient Appearance: Unkempt Mood: Sad Affect: Flat Patient Behavior: Sedated Speech Pattern: Delayed Voice Loudness: Mildly Soft/Quiet Thought Process: Circumstantial Thought Disorder: Being Controlled Hallucinations: Denies Suicidal Ideation: Denies Homicidal Ideation: Denies Insight/Judgement: Fair Sleep: Difficulty falling asleep Appetite: Weight loss Muscle strength/Tone: Mild Hypotonicity Gait/Station: Shuffling Additional Comments: AMBIEN 120MG PO QHS Psychiatric Findings - Problem List ([place] 1, 2,3) (1) Alcohol dependence with uncomplicated withdrawal Current Visit: No Status: Acute (2) Insomnia Current Visit: No Status: Acute Qualifiers: Insomnia type: unspecified Qualified Code(s): G47.00 - Insomnia, unspecified (3) Opioid dependence with withdrawal Current Visit: No Status: Acute (4) Alcohol induced insomnia Current Visit: Yes Status: Acute - Initial Treatment Plan Initial Treatment Plan: AMBIEN 120MG PO QHS
[2017-04-08 12:38] LABS: HIV 1 & 2 AB NEGATIVE; HIV 1 AGp24 NEGATIVE
--- NOTE | 2017-04-08 14:13 | EKG ---
Test Reason : Blood Pressure : / mmHG Vent. Rate : 067 BPM Atrial Rate : 067 BPM P-R Int : 138 ms QRS Dur : 076 ms QT Int : 402 ms P-R-T Axes : 084 061 057 degrees QTc Int : 424 ms NORMAL SINUS RHYTHM ST ELEVATION, CONSIDER EARLY REPOLARIZATION BORDERLINE ECG WHEN COMPARED WITH ECG OF 24-JAN-2017 10:13, Confirmed by KEVIN MCCLAIN MD ([id number]) on 04/08/2017 2:12:32 PM Referred By: Confirmed By:KEVIN MCCLAIN MD
[2017-04-08] MEDS: ZOLPIDEM TARTRATE 5 MG TABLET PO PRN (22:40)
[2017-04-08] MEDS: THIAMINE HCL 100 MG TABLET (FP) PO SCH (22:40)
[2017-04-09] MEDS: chlordiazePOXIDE HCL 25 MG CAPSULE PO SCH ×2 (05:43→10:35)
[2017-04-09] MEDS: PROPRANOLOL HCL 10 MG TABLET (FP) PO SCH ×2 (10:34→22:15)
[2017-04-09] MEDS: PRENATAL VITAMINS W/ FOLIC ACID TABLET (FP) PO SCH (10:34)
[2017-04-09] MEDS: APIXABAN 5 MG TABLET PO SCH ×2 (10:34→22:15)
[2017-04-09] MEDS: METHADONE HCL 5 MG TABLET (FOR DETOX USE ONLY) PO SCH (10:34)
[2017-04-09] MEDS: LISINOPRIL 5 MG TABLET (FP) PO SCH (10:36)
--- NOTE | 2017-04-09 10:51 | PN ---
[facility] CIWA - CIWA Score Nausea/Vomitin Muscle Tremors: 3 Anxiety: 3 Agitation: 2 Paroxysmal Sweats: 1-Minimal Palms Moist Orientation: 0-Oriented Tacttile Disturbances: 1-Very Mild Itch/Numbness Auditory Disturbances: 1-Very Mild Visual Disturbances: 1-Very Mild Sensitivity Headache: 2-Mild CIWA-Ar Total Score: 17 BHS COWS - Scale Resting Pulse: 0= [place] 80 or Below Sweatin= Chills/Flushing Restless Observation: 3= Extraneous Movement Pupil Size: 1= Pupils >than Normal Bone or Joint Aches: 2= Severe Diffuse Aches Runny Nose/ Eye Tearin= Runny Nose/Eyes GI Upset > 30mins: 2= Nausea/Diarrhea Tremor Observation of Outstretched Hands: 2= Slight Tremor Visible Yawning Observation: 1= 1-2x During Session Anxiety or Irritability: 2=Irritable/Anxious Goose Flesh Skin: 0=Smooth Skin COWS Score: 16 S Progress Note (SOAP) Subjective: ALERT,IRRITABLE,ANXIOUS,INTERRUPTED SLEEP,TREMOR,JEFFERS IN THE BODY AND BACK Objective: 04/09/17 10:50 Vital Signs Temperature 97.7 F 04/09/17 09:43 Pulse Rate 93 H 04/09/17 09:43 Respiratory Rate 20 04/09/17 09:43 Blood Pressure 134/75 04/09/17 09:43 O2 Sat by Pulse Oximetry (%) Laboratory Last Values WBC 3.4 K/mm3 (4.0-10.0) L 04/08/17 07:00 RBC 3.34 M/mm3 (4.00-5.60) L 04/08/17 07:00 Hgb 11.3 GM/dL (11.7-16.9) L 04/08/17 07:00 Hct 34.5 % (35.4-49) L 04/08/17 07:00 MCV 103.2 fl (80-96) H 04/08/17 07:00 MCHC 32.8 g/dl (32.0-35.9) 04/08/17 07:00 RDW 15.2 % (11.9-15.9) 04/08/17 07:00 Plt Count 147 K/MM3 (134-434) 04/08/17 07:00 MPV 8.3 fl (7.5-11.1) 04/08/17 07:00 Sodium 142 mmol/L (136-145) 04/08/17 07:00 Potassium 4.0 mmol/L (3.5-5.1) 04/08/17 07:00 Chloride 103 mmol/L (98-107) 04/08/17 07:00 Carbon Dioxide 32 mmol/L (21-32) 04/08/17 07:00 Anion Gap 7 (8-16) L 04/08/17 07:00 BUN 13 mg/dL (7-18) 04/08/17 07:00 Creatinine 0.9 mg/dL (0.7-1.3) 04/08/17 07:00 Creat Clearance w eGFR > 60 (>60) 04/08/17 07:00 Random Glucose 97 mg/dL (74-106) 04/08/17 07:00 Calcium 8.1 mg/dL (8.5-10.1) L 04/08/17 07:00 Total Bilirubin 0.4 mg/dL (0.2-1.0) D 04/08/17 07:00 AST 41 U/L (15-37) H D 04/08/17 07:00 ALT 52 U/L (12-78) D 04/08/17 07:00 Alkaline Phosphatase 104 U/L (45-117) 04/08/17 07:00 Total Protein 6.2 g/dl (6.4-8.2) L 04/08/17 07:00 Albumin 3.4 g/dl (3.4-5.0) 04/08/17 07:00 Urine Color Ltyellow 04/07/17 17:24 Urine Appearance Clear 04/07/17 17:24 Urine pH 5.0 (5.0-8.0) 04/07/17 17:24 Ur Specific [place] 1.025 (1.005-1.025) 04/07/17 17:24 Urine Protein Negative (NEGATIVE) 04/07/17 17:24 Urine Glucose (UA) Negative (NEGATIVE) 04/07/17 17:24 Urine Ketones Negative (NEGATIVE) 04/07/17 17:24 Urine Blood Negative (NEGATIVE) 04/07/17 17:24 Urine Nitrite Negative (NEGATIVE) 04/07/17 17:24 Urine Bilirubin Negative (NEGATIVE) 04/07/17 17:24 Urine Urobilinogen Negative E.U./dl (0.2-1.0) 04/07/17 17:24 Ur Leukocyte Esterase Negative (NEGATIVE) 04/07/17 17:24 RPR Titer Nonreactive (NONREACTIVE) 04/08/17 07:00 HIV 1&2 Antibody Screen Negative 04/08/17 07:00 HIV P24 Antigen Negative 04/08/17 07:00 Assessment: 04/09/17 10:51 WITHDRAWAL SYMPTOM Plan: CONTINUE DETOX
[2017-04-09] MEDS: chlordiazePOXIDE 5 MG CAPSULE PO SCH ×2 (17:21→22:15)
[2017-04-09] MEDS: THIAMINE HCL 100 MG TABLET (FP) PO SCH (22:15)
[2017-04-09] MEDS: ZOLPIDEM TARTRATE 5 MG TABLET PO PRN (22:15)
[2017-04-10] MEDS: diphenhydrAMINE HCL 50 MG CAPSULE PO PRN (00:53)
[2017-04-10] MEDS: chlordiazePOXIDE 5 MG CAPSULE PO SCH ×2 (05:39→10:50)
[2017-04-10] MEDS: PRENATAL VITAMINS W/ FOLIC ACID TABLET (FP) PO SCH (10:49)
[2017-04-10] MEDS: METHADONE HCL 5 MG TABLET (FOR DETOX USE ONLY) PO SCH (10:50)
[2017-04-10] MEDS: APIXABAN 5 MG TABLET PO SCH ×2 (10:50→22:17)
[2017-04-10] MEDS: PROPRANOLOL HCL 10 MG TABLET (FP) PO SCH ×2 (10:50→22:17)
[2017-04-10] MEDS: LISINOPRIL 5 MG TABLET (FP) PO SCH (10:50)
--- NOTE | 2017-04-10 11:33 | PN ---
S Progress Note (SOAP) Subjective: alert,irritable,anxious,interrupted sleep Objective: 04/10/17 11:32 Vital Signs Temperature 98.1 F 04/10/17 09:50 Pulse Rate 77 04/10/17 09:50 Respiratory Rate 18 04/10/17 09:50 Blood Pressure 136/77 04/10/17 09:50 O2 Sat by Pulse Oximetry (%) Assessment: 04/10/17 11:33 withdrawal symptom Plan: continue detox
[2017-04-10] MEDS: hydrOXYzine PAMOATE 25 MG CAPSULE (FP) PO PRN (14:40)
[2017-04-10] MEDS: chlordiazePOXIDE HCL 10 MG CAPSULE PO SCH ×2 (17:39→22:17)
[2017-04-10] MEDS: THIAMINE HCL 100 MG TABLET (FP) PO SCH (22:17)
[2017-04-10] MEDS: ZOLPIDEM TARTRATE 5 MG TABLET PO PRN (22:17)
[2017-04-11] MEDS: chlordiazePOXIDE HCL 10 MG CAPSULE PO SCH ×2 (05:23→10:34)
[2017-04-11] MEDS ORDERED: METHADONE HCL 10 MG TABLET (FOR DETOX USE ONLY) PO SCH (10:00)
[2017-04-11] MEDS: PRENATAL VITAMINS W/ FOLIC ACID TABLET (FP) PO SCH (10:34)
[2017-04-11] MEDS: APIXABAN 5 MG TABLET PO SCH ×2 (10:34→22:52)
[2017-04-11] MEDS: LISINOPRIL 5 MG TABLET (FP) PO SCH (10:34)
[2017-04-11] MEDS: PROPRANOLOL HCL 10 MG TABLET (FP) PO SCH ×2 (10:34→22:52)
[2017-04-11] MEDS: ZOLPIDEM TARTRATE 5 MG TABLET PO PRN (22:52)
[2017-04-11] MEDS: THIAMINE HCL 100 MG TABLET (FP) PO SCH (22:52)
[2017-04-12] MEDS: diphenhydrAMINE HCL 50 MG CAPSULE PO PRN (01:21)
[2017-04-12] MEDS: hydrOXYzine PAMOATE 25 MG CAPSULE (FP) PO PRN (05:46)
[2017-04-12] MEDS ORDERED: METHADONE HCL 5 MG TABLET (FOR DETOX USE ONLY) PO SCH (06:00)
--- NOTE | 2017-04-12 08:16 | PN ---
S Progress Note (SOAP) Subjective: alert,irritable,interrupted sleep Objective: 04/11/17 08:16 Vital Signs Temperature 97.5 F L 04/12/17 07:26 Pulse Rate 71 04/12/17 07:26 Respiratory Rate 18 04/12/17 07:26 Blood Pressure 148/78 04/12/17 07:26 O2 Sat by Pulse Oximetry (%) Assessment: 04/11/17 08:16 withdrawal symptom Plan: continue detox
--- NOTE | 2017-04-12 08:24 | PN ---
S Progress Note (SOAP) Subjective: alert,no complaint Objective: 04/12/17 08:22 Vital Signs Temperature 97.5 F L 04/12/17 07:26 Pulse Rate 71 04/12/17 07:26 Respiratory Rate 18 04/12/17 07:26 Blood Pressure 148/78 04/12/17 07:26 O2 Sat by Pulse Oximetry (%) Assessment: 04/12/17 08:22 detox completed,no withdrawal symptom Plan: discharge today,follow up with after care program as arrangement
--- NOTE | 2017-04-12 08:29 | DS ---
[facility] Detox Discharge Summary Admission Date: 04/07/17 Discharge Date: 04/12/17 - History Present History: Alcohol Dependence, Opioid Dependence Additional Comments: follow up with after [facility] program as arrangement and pmd for medical problem Pertinent Past History: essential hypertension gerd insomnia history of dvt left leg history of pulmonary embolism s/p ivc filter weight loss - Physical Exam Results Vital Signs: Vital Signs Temperature 97.5 F L 04/12/17 07:26 Pulse Rate 71 04/12/17 07:26 Respiratory Rate 18 04/12/17 07:26 Blood Pressure 148/78 04/12/17 07:26 O2 Sat by Pulse Oximetry (%) Pertinent Admission Physical Exam Findings: withdrawal symptom - Treatment Hospital Course: Detox Protocol Followed, Detoxed Safely, Responded well, Discharged Condition Good Patient has Accepted a Rehab Referral to: declined - Medication Discharge Medications: Ambulatory Orders Lisinopril 5 mg PO DAILY 01/14/16 Apixaban [Eliquis -] 5 mg PO BID 12/12/16 Propranolol HCl [Inderal -] 10 mg PO BID 04/07/17 - Diagnosis (1) Alcohol dependence with uncomplicated withdrawal Current Visit: No Status: Acute (2) Insomnia Current Visit: No Status: Acute Qualifiers: Insomnia type: unspecified Qualified Code(s): G47.00 - Insomnia, unspecified (3) Opioid dependence with withdrawal Current Visit: No Status: Acute (4) DVT (deep venous thrombosis) Current Visit: No Status: Chronic Qualifiers: DVT location: lower extremity Affected thrombotic vein of extremity: unspecified vein of extremity Chronicity: unspecified Laterality: unspecified laterality Qualified Code(s): I82.409 - Acute embolism and thrombosis of unspecified deep veins of unspecified lower extremity (5) Essential hypertension Current Visit: No Status: Chronic (6) Gastroesophageal reflux disease Current Visit: No Status: Chronic Qualifiers: Esophagitis presence: without esophagitis Qualified Code(s): K21.9 - Gastro-esophageal reflux disease without esophagitis (7) History of deep venous thrombosis (DVT) of distal vein of left lower extremity Current Visit: Yes Status: Acute (8) History of pulmonary embolism Current Visit: Yes Status: Acute (9) S/P IVC filter Current Visit: Yes Status: Acute (10) Weight loss Current Visit: Yes Status: Acute - AMA Did Patient Leave Against Medical Advice: No
[2017-04-12 10:56] VITALS: BP 124/62; PULSE 85; TEMP 97.7
== END 2017-04-12 09:32 | disposition home or self-care (01) | DRG 897 ==
LOC: YASAS 10:20 → Y6N 13:02
PROVIDERS: ADMIT Internal Medicine; ATTEND Internal Medicine
PROC: HZ2ZZZZ Detoxification Services for Substance Abuse Treatment (ICD-10-PCS; principal; 2017-04-07)
DX: F11.23 Opioid dependence with withdrawal (principal); I82.409 Acute embolism and thrombosis of unspecified deep veins of unspecified lower extremity; F10.230 Alcohol dependence with withdrawal, uncomplicated; F10.282 Alcohol dependence with alcohol-induced sleep disorder; G47.00 Insomnia, unspecified; I10 Essential (primary) hypertension; K21.9 Gastro-esophageal reflux disease without esophagitis; Z86.711 Personal history of pulmonary embolism; Z95.828 Presence of other vascular implants and grafts; Z87.898 Personal history of other specified conditions; Z79.01 Long term (current) use of anticoagulants
CPT/HCPCS: 36415; 80053; 81003; 85027; 86593; 87389; 93005; 93010

== ENCOUNTER 2017-11-18 11:17 | Inpatient (IN) | payer OTHER ==
[2017-11-18 13:57] VITALS: BMI 21.4
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
[2017-11-18] MEDS ORDERED: MAGNESIUM HYDROX 2400MG/30ML ORAL SUSPENSION 30 ML CUP PO PRN (17:36)
[2017-11-18] MEDS ORDERED: P-EPHED 60MG/TRIPROLIDI 2.5MG TABLET PO PRN (17:36)
[2017-11-18] MEDS ORDERED: MENTHOL/PHENOL 1 EACH UD MM PRN (17:36)
[2017-11-18] MEDS ORDERED: guaiFENesin/D-METHORPHAN HB 10 ML UNIT-DOSE CUPS PO PRN (17:36)
[2017-11-18] MEDS ORDERED: MAG HYDROX/AL HYDROX/SIMETH 30 ML UNIT-DOSE CUP PO PRN (17:36)
[2017-11-18] MEDS ORDERED: IBUPROFEN 400 MG TABLET (FP) PO PRN (17:36)
[2017-11-18] MEDS ORDERED: MAGNESIUM CITRATE 300 ML BOTTLE PO PRN (17:36)
[2017-11-18] MEDS ORDERED: METHADONE HCL 10 MG TABLET (FOR DETOX USE ONLY) PO ONE ×2 (18:30→23:00)
[2017-11-18] MEDS ORDERED: chlordiazePOXIDE HCL 25 MG CAPSULE PO ONE (18:30)
[2017-11-18] MEDS ORDERED: PROPRANOLOL HCL 10 MG TABLET (FP) PO SCH (22:00)
[2017-11-18] MEDS: APIXABAN 5 MG TABLET PO SCH (22:04)
[2017-11-18] MEDS: chlordiazePOXIDE HCL 25 MG CAPSULE PO SCH (22:04)
[2017-11-18] MEDS: THIAMINE HCL 100 MG TABLET (FP) PO SCH (22:04)
[2017-11-18] MEDS: hydrOXYzine PAMOATE 50 MG CAPSULE (FP) PO PRN (22:07)
[2017-11-18 22:56] LABS: URINE APPEARANCE CLEAR; URINE BILIRUBIN NEGATIVE (NEGATIVE); URINE BLOOD 1+ (NEGATIVE); URINE COLOR LTYELLOW; URINE GLUCOSE (UA) NEGATIVE (NEGATIVE); URINE KETONE NEGATIVE (NEGATIVE); URINE NITRITE NEGATIVE (NEGATIVE); URINE PROTEIN NEGATIVE (NEGATIVE); URINE UROBILINOGEN NEGATIVE mg/dL (0.2-1.0)
[2017-11-18 23:10] LABS: URINE LEUK ESTERASE 1+ (NEGATIVE)
[2017-11-18 23:13] LABS: EPI CELLS RARE /HPF (FEW)
[2017-11-18] MEDS: PROPRANOLOL HCL 10 MG TABLET (FP) PO SCH (23:25)
[2017-11-19] MEDS: chlordiazePOXIDE HCL 25 MG CAPSULE PO SCH ×4 (05:23→22:05)
[2017-11-19] MEDS: LOPERAMIDE HCL 2 MG CAPSULE PO PRN ×3 (05:24→20:25)
--- NOTE | 2017-11-19 09:14 | CONSULT ---
[facility] Psychiatric Consult - Data Date of interview: 11/19/17 Admission source: [facility] Identifying data: Pt. is a 67 year old male, single, father of five, and retired. This is one of multiple admissions for patient. Pt. admitted to for alcohol and heroin dependence. Substance Abuse History: - Substances Abused. Alcohol. Route: Oral. Frequency: Daily. Amount used: vodka(1 pint). Age of first use: 18. Date of Last Use: 11/18/17. Heroin. Route: Inhalation. Frequency: Daily. Amount used: 4-5 bags. Age of first use: 21. Date of Last Use: 11/18/17 Medical History: Hypertension, Cataract sx, left eye, 09/2014, right eye, 04/2017 Psychiatric History: Pt. denies h/o psychatric hospitalizations, OPC, and suicide attempts. Pt. reports h/o insomnia. Physical/Sexual Abuse/Trauma History: Denies. Mental Status Exam - Mental Status Exam Alert and Oriented to: Time, Place, Person Cognitive Function: Good Patient Appearance: Unkempt Mood: Sad Affect: Flat Patient Behavior: Appropriate, Cooperative Speech Pattern: Appropriate Voice Loudness: Normal Thought Process: Goal Oriented Thought Disorder: Not Present Hallucinations: Denies Suicidal Ideation: Denies Homicidal Ideation: Denies Insight/Judgement: Poor Sleep: Poorly Appetite: Fair Muscle strength/Tone: Normal Gait/Station: Normal Psychiatric Findings - Problem List ([place] 1, 2,3) (1) Alcohol dependence with uncomplicated withdrawal Current Visit: Yes Status: Acute (2) Opioid dependence with withdrawal Current Visit: Yes Status: Acute (3) Insomnia Current Visit: Yes Status: Acute Qualifiers: Insomnia type: unspecified Qualified Code(s): G47.00 - Insomnia, unspecified - Initial Treatment Plan Initial Treatment Plan: Psychoeducation provided. Detoxification in progress. Ambien 5mg qhs ordered for insomnia. Pt. reports favorable effect from previously taking ambien. Benefits and side effects (sleep walking) discussed. Will continue to monitor patient.
[2017-11-19] MEDS ORDERED: METHADONE HCL 10 MG TABLET (FOR DETOX USE ONLY) PO SCH (10:00)
[2017-11-19 10:02] LABS: HEMATOCRIT 37.6 % (35.4-49); HEMOGLOBIN 12.1 GM/dL (11.7-16.9); MCH 34.7 pg (25.7-33.7); MCHC 32.1 g/dl (32.0-35.9); MEAN CELL VOLUME 108.1 fl (80-96); MEAN PLT VOLUME 8.8 fl (7.5-11.1); PLATELET COUNT 162 K/MM3 (134-434); RBC 3.48 M/mm3 (4.00-5.60); RDW 14.8 % (11.9-15.9)
[2017-11-19] MEDS: APIXABAN 5 MG TABLET PO SCH ×2 (10:18→22:05)
[2017-11-19] MEDS: PROPRANOLOL HCL 10 MG TABLET (FP) PO SCH ×2 (10:18→22:04)
[2017-11-19] MEDS: PRENATAL VITAMINS W/ FOLIC ACID TABLET (FP) PO SCH (10:18)
[2017-11-19] MEDS: LISINOPRIL 10 MG TABLET (FP) PO SCH (10:18)
[2017-11-19] MEDS: ACETAMINOPHEN 325 MG TABLET (FP) PO PRN (10:22)
[2017-11-19 11:34] LABS: CHLORIDE 107 mmol/L (98-107); POTASSIUM 4.2 mmol/L (3.5-5.1); SODIUM 143 mmol/L (136-145)
[2017-11-19 11:55] LABS: ALBUMIN 3.8 g/dl (3.4-5.0); ALK PHOS 91 U/L (45-117); ANION GAP 12 (8-16); BILIRUBIN,TOTAL 0.4 mg/dL (0.2-1.0); BLOOD UREA NITROGEN 24 mg/dL (7-18); CALCIUM 8.6 mg/dL (8.5-10.1); CO2 24 mmol/L (21-32); CREATININE 1.2 mg/dL (0.7-1.3); GLUCOSE,RANDOM 80 mg/dL (74-106); SGOT/AST 27 U/L (15-37); SGPT/ALT 31 U/L (12-78); TOT PROT 7.3 g/dl (6.4-8.2)
[2017-11-19] MEDS ORDERED: FLU VACCINE QUAD 60 MCG/0.5 ML (MDV 17-18) IM ONE (12:00)
[2017-11-19] MEDS ORDERED: ZOLPIDEM TARTRATE 5 MG TABLET PO PRN ×2 (22:00)
[2017-11-19] MEDS: THIAMINE HCL 100 MG TABLET (FP) PO SCH (22:05)
[2017-11-20] MEDS: chlordiazePOXIDE HCL 25 MG CAPSULE PO SCH ×3 (05:54→17:32)
--- NOTE | 2017-11-20 07:56 | EKG ---
Test Reason : Blood Pressure : / mmHG Vent. Rate : 076 BPM Atrial Rate : 076 BPM P-R Int : 148 ms QRS Dur : 076 ms QT Int : 392 ms P-R-T Axes : 086 064 054 degrees QTc Int : 441 ms NORMAL SINUS RHYTHM POSSIBLE LEFT ATRIAL ENLARGEMENT LEFT VENTRICULAR HYPERTROPHY CANNOT RULE OUT SEPTAL INFARCT , AGE UNDETERMINED ABNORMAL ECG WHEN COMPARED WITH ECG OF 23-JUL-2017 18:15, MINIMAL CRITERIA FOR SEPTAL INFARCT ARE NOW PRESENT Confirmed by UBALDO GARCIA MD ([id number]) on 11/20/2017 7:55:57 AM Referred By: Confirmed By:UBALDO GARCIA MD
[2017-11-20] MEDS: APIXABAN 5 MG TABLET PO SCH ×2 (10:28→22:06)
[2017-11-20] MEDS: PROPRANOLOL HCL 10 MG TABLET (FP) PO SCH ×2 (10:28→22:06)
[2017-11-20] MEDS: PRENATAL VITAMINS W/ FOLIC ACID TABLET (FP) PO SCH (10:28)
[2017-11-20] MEDS: LISINOPRIL 10 MG TABLET (FP) PO SCH (10:28)
[2017-11-20] MEDS: METHADONE HCL 5 MG TABLET (FOR DETOX USE ONLY) PO SCH (10:30)
--- NOTE | 2017-11-20 12:09 | PN ---
[facility] CIWA - CIWA Score Nausea/Vomitin Muscle Tremors: 2 Anxiety: 2 Agitation: 2 Paroxysmal Sweats: 3 Orientation: 0-Oriented Tacttile Disturbances: 1-Very Mild Itch/Numbness Auditory Disturbances: 0-None Visual Disturbances: 0-None Headache: 0-None Present CIWA-Ar Total Score: 12 BHS COWS - Scale Resting Pulse: 1= [place] 81-100 Sweatin= Chills/Flushing Restless Observation: 1= Difficult to Sit Still Pupil Size: 1= Pupils >than Normal Bone or Joint Aches: 1= Mild Discomfort Runny Nose/ Eye Tearin= Nasal Congestion GI Upset > 30mins: 1= Stomach Cramp Tremor Observation of Outstretched Hands: 2= Slight Tremor Visible Yawning Observation: 0= None Anxiety or Irritability: 1=Feels Anxious/Irritable Goose Flesh Skin: 0=Smooth Skin COWS Score: 10 BHS Progress Note (SOAP) Subjective: interrupted sleep, sweats, shakes Objective: 11/20/17 12:07 Vital Signs Temperature 97.7 F 11/20/17 10:34 Pulse Rate 82 11/20/17 10:34 Respiratory Rate 18 11/20/17 10:34 Blood Pressure 129/77 11/20/17 10:34 O2 Sat by Pulse Oximetry (%) Laboratory Tests 11/18/17 11/18/17 11/19/17 15:30 22:40 06:00 WBC 4.0 RBC 3.48 L Hgb 12.1 Hct 37.6 MCV 108.1 H MCH 34.7 H MCHC 32.1 RDW 14.8 Plt Count 162 D MPV 8.8 Sodium Potassium Chloride Carbon Dioxide Anion Gap BUN Creatinine Creat Clearance w eGFR Random Glucose Calcium Total Bilirubin AST ALT Alkaline Phosphatase Total Protein Albumin Urine Color Ltyellow Urine Appearance Clear Urine pH 5.0 D Ur Specific [place] 1.012 Urine Protein Negative Urine Glucose (UA) Negative Urine Ketones Negative Urine Blood 1+ H Urine Nitrite Negative Urine Bilirubin Negative Urine Urobilinogen Negative Ur Leukocyte Esterase 1+ H Urine WBC (Auto) 4 Urine RBC (Auto) <1 Ur Epithelial Cells Rare RPR Titer HIV 1&2 Antibody Screen Negative HIV P24 Antigen Negative 11/19/17 11/19/17 06:00 06:00 WBC RBC Hgb Hct MCV MCH MCHC RDW Plt Count MPV Sodium 143 Potassium 4.2 Chloride 107 Carbon Dioxide 24 Anion Gap 12 BUN 24 H D Creatinine 1.2 D Creat Clearance w eGFR > 60 Random Glucose 80 D Calcium 8.6 Total Bilirubin 0.4 D AST 27 ALT 31 Alkaline Phosphatase 91 Total Protein 7.3 Albumin 3.8 Urine Color Urine Appearance Urine pH Ur Specific [place] Urine Protein Urine Glucose (UA) Urine Ketones Urine Blood Urine Nitrite Urine Bilirubin Urine Urobilinogen Ur Leukocyte Esterase Urine WBC (Auto) Urine RBC (Auto) Ur Epithelial Cells RPR Titer Nonreactive HIV 1&2 Antibody Screen HIV P24 Antigen pt aox3 in nad ambulating Assessment: 11/20/17 12:08 withdrawal sx;s Plan: cont. detox increase fluids
[2017-11-20] MEDS ORDERED: ZOLPIDEM TARTRATE 5 MG TABLET PO PRN (12:14)
[2017-11-20] MEDS: chlordiazePOXIDE HCL 25 MG CAPSULE PO PRN (14:07)
[2017-11-20] MEDS: chlordiazePOXIDE 5 MG CAPSULE PO SCH (22:06)
[2017-11-20] MEDS: THIAMINE HCL 100 MG TABLET (FP) PO SCH (22:06)
[2017-11-21] MEDS: chlordiazePOXIDE 5 MG CAPSULE PO SCH ×3 (05:46→17:27)
[2017-11-21] MEDS ORDERED: ZOLPIDEM TARTRATE 5 MG TABLET PO PRN (09:28)
[2017-11-21] MEDS: PROPRANOLOL HCL 10 MG TABLET (FP) PO SCH ×2 (10:39→22:07)
[2017-11-21] MEDS: LISINOPRIL 10 MG TABLET (FP) PO SCH (10:39)
[2017-11-21] MEDS: APIXABAN 5 MG TABLET PO SCH ×2 (10:39→22:07)
[2017-11-21] MEDS: PRENATAL VITAMINS W/ FOLIC ACID TABLET (FP) PO SCH (10:39)
[2017-11-21] MEDS: METHADONE HCL 5 MG TABLET (FOR DETOX USE ONLY) PO SCH (10:39)
[2017-11-21] MEDS: LIDOCAINE 5% TOPICAL PATCH TP SCH (13:37)
--- NOTE | 2017-11-21 14:17 | PN ---
[facility] CIWA - CIWA Score Nausea/Vomitin-No Nausea/No Vomiting Muscle Tremors: 2 Anxiety: 2 Agitation: 2 Paroxysmal Sweats: 1-Minimal Palms Moist Orientation: 0-Oriented Tacttile Disturbances: 1-Very Mild Itch/Numbness Auditory Disturbances: 0-None Visual Disturbances: 0-None Headache: 0-None Present CIWA-Ar Total Score: 8 [facility] COWS - Scale Resting Pulse: 1= [place] 81-100 Sweatin= Chills/Flushing Restless Observation: 1= Difficult to Sit Still Pupil Size: 0= Normal to Room Light Bone or Joint Aches: 1= Mild Discomfort Runny Nose/ Eye Tearin= Nasal Congestion GI Upset > 30mins: 1= Stomach Cramp Tremor Observation of Outstretched Hands: 1= Tremor [place], Not Seen Yawning Observation: 1= 1-2x During Session Anxiety or Irritability: 1=Feels Anxious/Irritable Goose Flesh Skin: 0=Smooth Skin COWS Score: 9 [facility] Progress Note (SOAP) Subjective: body ache joints pain GI distress sweat irritable anxiety Objective: 11/21/17 14:20 Vital Signs Temperature 97.9 F 11/21/17 13:43 Pulse Rate 84 11/21/17 13:43 Respiratory Rate 18 11/21/17 13:43 Blood Pressure 133/72 11/21/17 13:43 O2 Sat by Pulse Oximetry (%) Laboratory Last Values WBC 4.0 K/mm3 (4.0-10.0) 11/19/17 06:00 RBC 3.48 M/mm3 (4.00-5.60) L 11/19/17 06:00 Hgb 12.1 GM/dL (11.7-16.9) 11/19/17 06:00 Hct 37.6 % (35.4-49) 11/19/17 06:00 MCV 108.1 fl (80-96) H 11/19/17 06:00 MCH 34.7 pg (25.7-33.7) H 11/19/17 06:00 MCHC 32.1 g/dl (32.0-35.9) 11/19/17 06:00 RDW 14.8 % (11.9-15.9) 11/19/17 06:00 Plt Count 162 K/MM3 (134-434) D 11/19/17 06:00 MPV 8.8 fl (7.5-11.1) 11/19/17 06:00 Sodium 143 mmol/L (136-145) 11/19/17 06:00 Potassium 4.2 mmol/L (3.5-5.1) 11/19/17 06:00 Chloride 107 mmol/L (98-107) 11/19/17 06:00 Carbon Dioxide 24 mmol/L (21-32) 11/19/17 06:00 Anion Gap 12 (8-16) 11/19/17 06:00 BUN 24 mg/dL (7-18) H D 11/19/17 06:00 Creatinine 1.2 mg/dL (0.7-1.3) D 11/19/17 06:00 Creat Clearance w eGFR > 60 (>60) 11/19/17 06:00 Random Glucose 80 mg/dL (74-106) D 11/19/17 06:00 Calcium 8.6 mg/dL (8.5-10.1) 11/19/17 06:00 Total Bilirubin 0.4 mg/dL (0.2-1.0) D 11/19/17 06:00 AST 27 U/L (15-37) 11/19/17 06:00 ALT 31 U/L (12-78) 11/19/17 06:00 Alkaline Phosphatase 91 U/L (45-117) 11/19/17 06:00 Total Protein 7.3 g/dl (6.4-8.2) 11/19/17 06:00 Albumin 3.8 g/dl (3.4-5.0) 11/19/17 06:00 Urine Color Ltyellow 11/18/17 22:40 Urine Appearance Clear 11/18/17 22:40 Urine pH 5.0 (5.0-8.0) D 11/18/17 22:40 Ur Specific [place] 1.012 (1.001-1.035) 11/18/17 22:40 Urine Protein Negative (NEGATIVE) 11/18/17 22:40 Urine Glucose (UA) Negative (NEGATIVE) 11/18/17 22:40 Urine Ketones Negative (NEGATIVE) 11/18/17 22:40 Urine Blood 1+ (NEGATIVE) H 11/18/17 22:40 Urine Nitrite Negative (NEGATIVE) 11/18/17 22:40 Urine Bilirubin Negative (NEGATIVE) 11/18/17 22:40 Urine Urobilinogen Negative mg/dL (0.2-1.0) 11/18/17 22:40 Ur Leukocyte Esterase 1+ (NEGATIVE) H 11/18/17 22:40 Urine WBC (Auto) 4 /hpf (3-5) 11/18/17 22:40 Urine RBC (Auto) <1 /hpf (0-3) 11/18/17 22:40 Ur Epithelial Cells Rare /HPF (FEW) 11/18/17 22:40 RPR Titer Nonreactive (NONREACTIVE) 11/19/17 06:00 HIV 1&2 Antibody Screen Negative 11/18/17 15:30 HIV P24 Antigen Negative 11/18/17 15:30 lab noted Assessment: 11/21/17 14:20 withdrawal sx Plan: continue detox
[2017-11-21] MEDS: chlordiazePOXIDE HCL 25 MG CAPSULE PO PRN (14:48)
[2017-11-21] MEDS: QUEtiapine FUMARATE 50 MG TABLET PO SCH (22:07)
[2017-11-21] MEDS: THIAMINE HCL 100 MG TABLET (FP) PO SCH (22:07)
[2017-11-21] MEDS: chlordiazePOXIDE HCL 10 MG CAPSULE PO SCH (22:07)
[2017-11-21] MEDS: LIDOCAINE PATCH REMOVAL MC SCH (22:08)
[2017-11-22] MEDS: chlordiazePOXIDE HCL 10 MG CAPSULE PO SCH ×3 (05:17→18:25)
[2017-11-22] MEDS ORDERED: METHADONE HCL 10 MG TABLET (FOR DETOX USE ONLY) PO SCH (10:00)
[2017-11-22] MEDS: LISINOPRIL 10 MG TABLET (FP) PO SCH (10:23)
[2017-11-22] MEDS: PROPRANOLOL HCL 10 MG TABLET (FP) PO SCH ×2 (10:23→22:18)
[2017-11-22] MEDS: APIXABAN 5 MG TABLET PO SCH ×2 (10:23→22:18)
[2017-11-22] MEDS: PRENATAL VITAMINS W/ FOLIC ACID TABLET (FP) PO SCH (10:23)
[2017-11-22] MEDS: LIDOCAINE 5% TOPICAL PATCH TP SCH (10:25)
--- NOTE | 2017-11-22 11:58 | PN ---
[facility] Progress Note (SOAP) Subjective: Sweating,interrupted sleep,restless Objective: 11/22/17 11:57 Vital Signs - 8 hr 11/22/17 11/22/17 07:37 09:37 Temperature 97.7 F 96.8 F L Pulse Rate 74 102 H Respiratory 18 20 Rate Blood Pressure 125/69 135/75 Laboratory Tests 11/18/17 11/18/17 11/19/17 15:30 22:40 06:00 WBC 4.0 RBC 3.48 L Hgb 12.1 Hct 37.6 MCV 108.1 H MCH 34.7 H MCHC 32.1 RDW 14.8 Plt Count 162 D MPV 8.8 Sodium Potassium Chloride Carbon Dioxide Anion Gap BUN Creatinine Creat Clearance w eGFR Random Glucose Calcium Total Bilirubin AST ALT Alkaline Phosphatase Total Protein Albumin Urine Color Ltyellow Urine Appearance Clear Urine pH 5.0 D Ur Specific [place] 1.012 Urine Protein Negative Urine Glucose (UA) Negative Urine Ketones Negative Urine Blood 1+ H Urine Nitrite Negative Urine Bilirubin Negative Urine Urobilinogen Negative Ur Leukocyte Esterase 1+ H Urine WBC (Auto) 4 Urine RBC (Auto) <1 Ur Epithelial Cells Rare RPR Titer HIV 1&2 Antibody Screen Negative HIV P24 Antigen Negative 11/19/17 11/19/17 06:00 06:00 WBC RBC Hgb Hct MCV MCH MCHC RDW Plt Count MPV Sodium 143 Potassium 4.2 Chloride 107 Carbon Dioxide 24 Anion Gap 12 BUN 24 H D Creatinine 1.2 D Creat Clearance w eGFR > 60 Random Glucose 80 D Calcium 8.6 Total Bilirubin 0.4 D AST 27 ALT 31 Alkaline Phosphatase 91 Total Protein 7.3 Albumin 3.8 Urine Color Urine Appearance Urine pH Ur Specific [place] Urine Protein Urine Glucose (UA) Urine Ketones Urine Blood Urine Nitrite Urine Bilirubin Urine Urobilinogen Ur Leukocyte Esterase Urine WBC (Auto) Urine RBC (Auto) Ur Epithelial Cells RPR Titer Nonreactive HIV 1&2 Antibody Screen HIV P24 Antigen labs noted Assessment: 11/22/17 11:57 Withdrawal sx. Plan: Continue detox
[2017-11-22] MEDS: hydrOXYzine PAMOATE 50 MG CAPSULE (FP) PO PRN ×2 (14:42→22:19)
[2017-11-22] MEDS: QUEtiapine FUMARATE 50 MG TABLET PO SCH (22:18)
[2017-11-22] MEDS: THIAMINE HCL 100 MG TABLET (FP) PO SCH (22:18)
[2017-11-22] MEDS: LIDOCAINE PATCH REMOVAL MC SCH (23:21)
[2017-11-23] MEDS: ACETAMINOPHEN 325 MG TABLET (FP) PO PRN
[2017-11-23] MEDS ORDERED: METHADONE HCL 5 MG TABLET (FOR DETOX USE ONLY) PO SCH (06:00)
[2017-11-23 06:52] VITALS: BP 146/79; PULSE 78; TEMP 97.2
--- NOTE | 2017-11-23 09:07 | DS ---
[facility] Detox Discharge Summary Admission Date: 11/18/17 Discharge Date: 11/23/17 - History Present History: Alcohol Dependence, Opioid Dependence Pertinent Past History: HTN DVT & PE by hx. S/P IVC filter - Physical Exam Results Vital Signs: Vital Signs Temperature 97.2 F L 11/23/17 06:00 Pulse Rate 78 11/23/17 06:00 Respiratory Rate 16 11/23/17 06:00 Blood Pressure 146/79 11/23/17 06:00 O2 Sat by Pulse Oximetry (%) Pertinent Admission Physical Exam Findings: Withdrawal sx. Laboratory Last Values WBC 4.0 K/mm3 (4.0-10.0) 11/19/17 06:00 RBC 3.48 M/mm3 (4.00-5.60) L 11/19/17 06:00 Hgb 12.1 GM/dL (11.7-16.9) 11/19/17 06:00 Hct 37.6 % (35.4-49) 11/19/17 06:00 MCV 108.1 fl (80-96) H 11/19/17 06:00 MCH 34.7 pg (25.7-33.7) H 11/19/17 06:00 MCHC 32.1 g/dl (32.0-35.9) 11/19/17 06:00 RDW 14.8 % (11.9-15.9) 11/19/17 06:00 Plt Count 162 K/MM3 (134-434) D 11/19/17 06:00 MPV 8.8 fl (7.5-11.1) 11/19/17 06:00 Sodium 143 mmol/L (136-145) 11/19/17 06:00 Potassium 4.2 mmol/L (3.5-5.1) 11/19/17 06:00 Chloride 107 mmol/L (98-107) 11/19/17 06:00 Carbon Dioxide 24 mmol/L (21-32) 11/19/17 06:00 Anion Gap 12 (8-16) 11/19/17 06:00 BUN 24 mg/dL (7-18) H D 11/19/17 06:00 Creatinine 1.2 mg/dL (0.7-1.3) D 11/19/17 06:00 Creat Clearance w eGFR > 60 (>60) 11/19/17 06:00 Random Glucose 80 mg/dL (74-106) D 11/19/17 06:00 Calcium 8.6 mg/dL (8.5-10.1) 11/19/17 06:00 Total Bilirubin 0.4 mg/dL (0.2-1.0) D 11/19/17 06:00 AST 27 U/L (15-37) 11/19/17 06:00 ALT 31 U/L (12-78) 11/19/17 06:00 Alkaline Phosphatase 91 U/L (45-117) 11/19/17 06:00 Total Protein 7.3 g/dl (6.4-8.2) 11/19/17 06:00 Albumin 3.8 g/dl (3.4-5.0) 11/19/17 06:00 Urine Color Ltyellow 11/18/17 22:40 Urine Appearance Clear 11/18/17 22:40 Urine pH 5.0 (5.0-8.0) D 11/18/17 22:40 Ur Specific [place] 1.012 (1.001-1.035) 11/18/17 22:40 Urine Protein Negative (NEGATIVE) 11/18/17 22:40 Urine Glucose (UA) Negative (NEGATIVE) 11/18/17 22:40 Urine Ketones Negative (NEGATIVE) 11/18/17 22:40 Urine Blood 1+ (NEGATIVE) H 11/18/17 22:40 Urine Nitrite Negative (NEGATIVE) 11/18/17 22:40 Urine Bilirubin Negative (NEGATIVE) 11/18/17 22:40 Urine Urobilinogen Negative mg/dL (0.2-1.0) 11/18/17 22:40 Ur Leukocyte Esterase 1+ (NEGATIVE) H 11/18/17 22:40 Urine WBC (Auto) 4 /hpf (3-5) 11/18/17 22:40 Urine RBC (Auto) <1 /hpf (0-3) 11/18/17 22:40 Ur Epithelial Cells Rare /HPF (FEW) 11/18/17 22:40 RPR Titer Nonreactive (NONREACTIVE) 11/19/17 06:00 HIV 1&2 Antibody Screen Negative 11/18/17 15:30 HIV P24 Antigen Negative 11/18/17 15:30 labs noted - Treatment Hospital Course: Detox Protocol Followed, Detoxed Safely, Responded well, Discharged Condition Good, Rehab Referral Accepted Patient has Accepted a Rehab Referral to: [facility] Rehab in [place] after neurology clinic melissa't on 11/27/17 - Medication Discharge Medications: Ambulatory Orders Lisinopril 10 mg PO DAILY 01/14/16 Apixaban [Eliquis -] 5 mg PO BID 12/12/16 Propranolol HCl [Inderal -] 10 mg PO BID 04/07/17 Quetiapine Fumarate [Quetiapine Fumarate ER] 150 mg PO HS #30 tab.er.24h - Diagnosis (1) Alcohol dependence with uncomplicated withdrawal Current Visit: Yes Status: Chronic (2) Essential hypertension Current Visit: Yes Status: Chronic (3) History of deep venous thrombosis (DVT) of distal vein of left lower extremity Current Visit: Yes Status: Chronic (4) Opioid dependence with withdrawal Current Visit: Yes Status: Chronic (5) DVT (deep venous thrombosis) Current Visit: No Status: Chronic Qualifiers: DVT location: lower extremity Affected thrombotic vein of extremity: unspecified vein of extremity Chronicity: unspecified Laterality: unspecified laterality Qualified Code(s): I82.409 - Acute embolism and thrombosis of unspecified deep veins of unspecified lower extremity (6) Insomnia Current Visit: Yes Status: Acute Qualifiers: Insomnia type: unspecified Qualified Code(s): G47.00 - Insomnia, unspecified - AMA Did Patient Leave Against Medical Advice: No
== END 2017-11-23 09:52 | disposition home or self-care (01) | DRG 897 ==
LOC: YASAS 11:17 → Y6N 15:27
PROVIDERS: ADMIT Internal Medicine; ATTEND Internal Medicine
PROC: HZ2ZZZZ Detoxification Services for Substance Abuse Treatment (ICD-10-PCS; principal; 2017-11-18)
DX: F11.23 Opioid dependence with withdrawal (principal); I82.409 Acute embolism and thrombosis of unspecified deep veins of unspecified lower extremity; F10.230 Alcohol dependence with withdrawal, uncomplicated; G47.00 Insomnia, unspecified; I10 Essential (primary) hypertension; Z79.01 Long term (current) use of anticoagulants
CPT/HCPCS: 36415; 80053; 81003; 81015; 85027; 86593; 87389; 90688; 93005; 93010

== ENCOUNTER 2018-02-19 10:34 | Inpatient (IN) | payer OTHER | END 2018-02-24 09:29 | disposition home or self-care (01) | DRG 897 | LOC: YASAS 10:34 → Y3N 12:42 | PROVIDERS: ADMIT Internal Medicine | PROC: HZ2ZZZZ Detoxification Services for Substance Abuse Treatment (ICD-10-PCS; principal; 2018-02-19) | CPT/HCPCS: 36415; 71046-TC-FY; 80053; 81003; 81015; 85027; 86593; 93005; 93010; J0735 ==

== ENCOUNTER 2018-04-01 12:57 | Inpatient (IN) | payer OTHER ==
[2018-04-01 13:59] VITALS: BMI 20.9
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
[2018-04-01] MEDS ORDERED: MAG HYDROX/AL HYDROX/SIMETH 30 ML UNIT-DOSE CUP PO PRN (15:03)
[2018-04-01] MEDS ORDERED: ACETAMINOPHEN 325 MG TABLET (FP) PO PRN (15:03)
[2018-04-01] MEDS ORDERED: MAGNESIUM HYDROX 2400MG/30ML ORAL SUSPENSION 30 ML CUP PO PRN (15:03)
[2018-04-01] MEDS ORDERED: MAGNESIUM CITRATE 300 ML BOTTLE PO PRN (15:03)
[2018-04-01] MEDS ORDERED: LOPERAMIDE HCL 2 MG CAPSULE PO PRN (15:03)
[2018-04-01] MEDS ORDERED: chlordiazePOXIDE HCL 25 MG CAPSULE PO PRN (15:03)
[2018-04-01] MEDS ORDERED: P-EPHED 60MG/TRIPROLIDI 2.5MG TABLET PO PRN (15:03)
[2018-04-01] MEDS ORDERED: guaiFENesin/D-METHORPHAN HB 10 ML UNIT-DOSE CUPS PO PRN (15:03)
[2018-04-01] MEDS ORDERED: MENTHOL/PHENOL 1 EACH UD MM PRN (15:03)
[2018-04-01] MEDS ORDERED: cloNIDine HCL 0.1 MG TABLET PO PRN (15:06)
[2018-04-01] MEDS ORDERED: METHADONE HCL 10 MG TABLET (FOR DETOX USE ONLY) PO ONE ×2 (15:35→23:00)
[2018-04-01] MEDS ORDERED: METHADONE HCL 10 MG TABLET (FOR DETOX USE ONLY) ONE (18:30)
[2018-04-01] MEDS: chlordiazePOXIDE HCL 25 MG CAPSULE PO SCH ×2 (18:36→22:24)
[2018-04-01] MEDS ORDERED: MELATONIN 5 MG TABLETS PO PRN (22:00)
[2018-04-01] MEDS: THIAMINE HCL 100 MG TABLET (FP) PO SCH (22:23)
[2018-04-01] MEDS: APIXABAN 5 MG TABLET PO SCH (22:23)
[2018-04-02] MEDS: chlordiazePOXIDE HCL 25 MG CAPSULE PO SCH ×4 (05:27→22:14)
--- NOTE | 2018-04-02 07:38 | CONSULT ---
[facility] Psychiatric Consult - Data Date of interview: 04/02/18 Admission source: [facility] Identifying data: This is 67 years old male, , father of three, living with family, on pension, with no psychiatric hospitalization history, with long history of Alcohol dependence, opioids, cocaine abuse /dependence as well, is here for detox reporting withdrawal symptoms. Substance Abuse History: Urine Drug Screen Results: [place]ORD-Cocaine, OPI-Opiates, BZO-Benzodiazepines, MTD-Methadone. Smoking history: Current every day smoker. Have you smoked in the past 12 months: Yes. Aproximately how many cigarettes per day: 7. Cigars Per Day: 0. Hx Chewing Tobacco Use: No. Initiated information on smoking cessation: Yes. 'Breaking Loose' booklet given: . - Substance & Tx. History. Hx Alcohol Use: Yes. Hx Substance Use: Yes. Substance Use Type: Alcohol. Hx Substance Use Treatment: Yes ([facility] 01/14/18 -). - Substances Abused. Cocaine. Route: Inhalation. Frequency: 1-2 times per week. Amount used: $100-150. Age of first use: 16. Date of Last Use : 03/31/18. Alcohol-vodka/beer. Route: Oral. Frequency: Daily. Amount used: 2 pts./2-6 pks. Age of first use: 16. Date of Last Use: 04/01/18 Medical History: HTN, DVT, Weight loss, history of PPD+, history of MMTP 80mg per day d'c on about 1,5 years ago. Psychiatric History: Patient reports history of anxiety and depression, reports taking prior to admission: Seroquel 150mg po qhs Physical/Sexual Abuse/Trauma History: Denies Additional Comment: Urine Drug Screen Results: SANFORD-Cocaine, OPI-Opiates, BZO- Benzodiazepines, MTD-Methadone. Seroquel 150mg po qhs Mental Status Exam - Mental Status Exam Alert and Oriented to: Person Cognitive Function: Fair Patient Appearance: Unkempt Mood: Anxious Patient Behavior: Cooperative Speech Pattern: Appropriate Voice Loudness: Mildly Soft/Quiet Thought Process: Goal Oriented Thought Disorder: Being Controlled Hallucinations: Denies Suicidal Ideation: Denies Homicidal Ideation: Denies Insight/Judgement: Fair Sleep: Difficulty falling asleep Appetite: Weight loss Muscle strength/Tone: Mild Hypotonicity Gait/Station: Shuffling Additional Comments: Seroquel 150mg po qhs Psychiatric Findings - Problem List ([place] 1, 2,3) (1) Drug-induced mood disorder Current Visit: Yes Status: Acute (2) Alcohol dependence with uncomplicated withdrawal Current Visit: Yes Status: Acute (3) Opioid dependence with withdrawal Current Visit: Yes Status: Acute (4) Anxiety with depression Current Visit: Yes Status: Suspected (5) Alcohol induced insomnia Current Visit: No Status: Acute - Initial Treatment Plan Initial Treatment Plan: Seroquel 150mg po qhs
--- NOTE | 2018-04-02 09:46 | PN ---
[facility] CIWA - CIWA Score Nausea/Vomitin-Mild Nausea/No Vomiting Muscle Tremors: 3 Anxiety: 2 Agitation: 2 Paroxysmal Sweats: 1-Minimal Palms Moist Orientation: 0-Oriented Tacttile Disturbances: 1-Very Mild Itch/Numbness Auditory Disturbances: 0-None Visual Disturbances: 0-None Headache: 2-Mild CIWA-Ar Total Score: 12 [facility] COWS - Scale Resting Pulse: 0= [place] 80 or Below Sweatin= Chills/Flushing Restless Observation: 1= Difficult to Sit Still Pupil Size: 0= Normal to Room Light Bone or Joint Aches: 1= Mild Discomfort Runny Nose/ Eye Tearin= Runny Nose/Eyes GI Upset > 30mins: 2= Nausea/Diarrhea Tremor Observation of Outstretched Hands: 2= Slight Tremor Visible Yawning Observation: 1= 1-2x During Session Anxiety or Irritability: 2=Irritable/Anxious Goose Flesh Skin: 0=Smooth Skin COWS Score: 12 [facility] Progress Note (SOAP) Subjective: running nose headache tremor sweat restlessness anxiety Objective: 04/02/18 09:49 Vital Signs Temperature 97.9 F 04/02/18 06:25 Pulse Rate 61 04/02/18 06:25 Respiratory Rate 16 04/02/18 06:25 Blood Pressure 143/80 04/02/18 06:25 O2 Sat by Pulse Oximetry (%) lab not available at this time 04/02/18 09:49 admission lab / us routine ordered Assessment: 04/02/18 09:50 withdrawal sx hypertension Plan: continue detox amlodopine + propanolol tid
[2018-04-02] MEDS ORDERED: METHADONE HCL 10 MG TABLET (FOR DETOX USE ONLY) PO SCH (10:00)
--- NOTE | 2018-04-02 10:07 | CONSULT ---
[facility] Psychiatric Consult - Data Date of interview: 04/02/18 Admission source: [facility] Identifying data: 67 YEARS OLD MALE WITH LONG HISTORY OF ALCOHOL OPIATE DEPENDENCE HAS HYPERTENSION TREMOR. BLOOD CLOT FILTER RIGHT JAGULAR 2011 PLACEMENT, FILTER REMOVED 2017
[2018-04-02] MEDS: LISINOPRIL 10 MG TABLET (FP) PO SCH (10:13)
[2018-04-02] MEDS: APIXABAN 5 MG TABLET PO SCH ×2 (10:13→22:14)
[2018-04-02] MEDS: PRENATAL VITAMINS W/ FOLIC ACID TABLET (FP) PO SCH (10:13)
[2018-04-02] MEDS: amLODIPine BESYLATE 10 MG TABLET (FP) PO SCH (10:14)
[2018-04-02 10:16] LABS: HEMATOCRIT 38.3 % (35.4-49); HEMOGLOBIN 12.7 GM/dL (11.7-16.9); MCH 33.9 pg (25.7-33.7); MEAN CELL VOLUME 102.7 fl (80-96); MEAN PLT VOLUME 9.1 fl (7.5-11.1); PLATELET COUNT 191 K/MM3 (134-434); RBC 3.73 M/mm3 (4.00-5.60); RDW 15.7 % (11.9-15.9); WHITE BLOOD COUNT 5.3 K/mm3 (4.0-10.0)
[2018-04-02 10:54] LABS: CHLORIDE 108 mmol/L (98-107); POTASSIUM 4.1 mmol/L (3.5-5.1); SODIUM 144 mmol/L (136-145)
[2018-04-02 11:15] LABS: ALBUMIN 3.9 g/dl (3.4-5.0); ALK PHOS 117 U/L (45-117); ANION GAP 9 (8-16); BILIRUBIN,TOTAL 0.3 mg/dL (0.2-1.0); BLOOD UREA NITROGEN 14 mg/dL (7-18); CO2 27 mmol/L (21-32); CREATININE 1.1 mg/dL (0.7-1.3); GLUCOSE,RANDOM 104 mg/dL (74-106); SGOT/AST 19 U/L (15-37); SGPT/ALT 15 U/L (12-78); TOT PROT 7.9 g/dl (6.4-8.2)
--- NOTE | 2018-04-02 11:54 | EKG ---
Test Reason : Blood Pressure : / mmHG Vent. Rate : 098 BPM Atrial Rate : 098 BPM P-R Int : 136 ms QRS Dur : 070 ms QT Int : 332 ms P-R-T Axes : 080 073 070 degrees QTc Int : 423 ms NORMAL SINUS RHYTHM POSSIBLE LEFT ATRIAL ENLARGEMENT BORDERLINE ECG WHEN COMPARED WITH ECG OF 19-FEB-2018 14:37, NO SIGNIFICANT CHANGE WAS FOUND Confirmed by JOSE KHAN, UBALDO ([id number]) on 04/02/2018 11:54:22 AM Referred By: Confirmed By:UBALDO GARCIA MD
[2018-04-02] MEDS: SODIUM CHLORIDE NASAL SPRAY 44 ML BOTTLE NS SCH ×2 (14:53→22:15)
[2018-04-02] MEDS: THIAMINE HCL 100 MG TABLET (FP) PO SCH (22:14)
[2018-04-03] MEDS: chlordiazePOXIDE HCL 25 MG CAPSULE PO SCH ×2 (05:23→10:05)
[2018-04-03] MEDS: SODIUM CHLORIDE NASAL SPRAY 44 ML BOTTLE NS SCH ×3 (07:35→22:23)
[2018-04-03] MEDS: LISINOPRIL 10 MG TABLET (FP) PO SCH (10:04)
[2018-04-03] MEDS: METHADONE HCL 5 MG TABLET (FOR DETOX USE ONLY) PO SCH (10:04)
[2018-04-03] MEDS: amLODIPine BESYLATE 10 MG TABLET (FP) PO SCH (10:05)
[2018-04-03] MEDS: PRENATAL VITAMINS W/ FOLIC ACID TABLET (FP) PO SCH (10:05)
[2018-04-03] MEDS: APIXABAN 5 MG TABLET PO SCH ×2 (11:09→22:23)
--- NOTE | 2018-04-03 11:55 | PN ---
[facility] CIWA - CIWA Score Nausea/Vomitin-Mild Nausea/No Vomiting Muscle Tremors: 4-Moderate,w/Arms Extend Anxiety: 2 Agitation: 2 Paroxysmal Sweats: 1-Minimal Palms Moist Orientation: 0-Oriented Tacttile Disturbances: 0-None Auditory Disturbances: 0-None Visual Disturbances: 0-None Headache: 0-None Present CIWA-Ar Total Score: 10 S COWS - Scale Resting Pulse: 0= [place] 80 or Below Sweatin= Chills/Flushing Restless Observation: 3= Extraneous Movement Pupil Size: 0= Normal to Room Light Bone or Joint Aches: 1= Mild Discomfort Runny Nose/ Eye Tearin= Nasal Congestion GI Upset > 30mins: 1= Stomach Cramp Tremor Observation of Outstretched Hands: 2= Slight Tremor Visible Yawning Observation: 1= 1-2x During Session Anxiety or Irritability: 2=Irritable/Anxious Goose Flesh Skin: 0=Smooth Skin COWS Score: 12 S Progress Note (SOAP) Subjective: joint pain body ache tremor sweat trouble sleep at night report tremor since "child" treated with propranolol Objective: 04/03/18 11:52 Vital Signs Temperature 97.5 F L 04/03/18 09:04 Pulse Rate 91 H 04/03/18 09:04 Respiratory Rate 18 04/03/18 09:04 Blood Pressure 142/86 04/03/18 09:04 O2 Sat by Pulse Oximetry (%) Laboratory Last Values WBC 5.3 K/mm3 (4.0-10.0) D 04/02/18 06:00 RBC 3.73 M/mm3 (4.00-5.60) L 04/02/18 06:00 Hgb 12.7 GM/dL (11.7-16.9) 04/02/18 06:00 Hct 38.3 % (35.4-49) 04/02/18 06:00 MCV 102.7 fl (80-96) H 04/02/18 06:00 MCH 33.9 pg (25.7-33.7) H 04/02/18 06:00 MCHC 33.0 g/dl (32.0-35.9) 04/02/18 06:00 RDW 15.7 % (11.9-15.9) D 04/02/18 06:00 Plt Count 191 K/MM3 (134-434) D 04/02/18 06:00 MPV 9.1 fl (7.5-11.1) 04/02/18 06:00 Sodium 144 mmol/L (136-145) 04/02/18 06:00 Potassium 4.1 mmol/L (3.5-5.1) 04/02/18 06:00 Chloride 108 mmol/L (98-107) H 04/02/18 06:00 Carbon Dioxide 27 mmol/L (21-32) 04/02/18 06:00 Anion Gap 9 (8-16) 04/02/18 06:00 BUN 14 mg/dL (7-18) 04/02/18 06:00 Creatinine 1.1 mg/dL (0.7-1.3) 04/02/18 06:00 Creat Clearance w eGFR > 60 (>60) 04/02/18 06:00 Random Glucose 104 mg/dL (74-106) 04/02/18 06:00 Calcium 9.0 mg/dL (8.5-10.1) 04/02/18 06:00 Total Bilirubin 0.3 mg/dL (0.2-1.0) D 04/02/18 06:00 AST 19 U/L (15-37) D 04/02/18 06:00 ALT 15 U/L (12-78) D 04/02/18 06:00 Alkaline Phosphatase 117 U/L (45-117) D 04/02/18 06:00 Total Protein 7.9 g/dl (6.4-8.2) 04/02/18 06:00 Albumin 3.9 g/dl (3.4-5.0) 04/02/18 06:00 RPR Titer Nonreactive (NONREACTIVE) 04/02/18 06:00 lab noted alert oriented x 3 CN II-VII grossly intact steady gait 04/03/18 11:54 Assessment: 04/03/18 11:53 withdrawal sx tremor unknown origin Plan: continue detox encourage discuss with neurologist for further tremor evaluation that as per patient "getting more frequent"
[2018-04-03] MEDS: chlordiazePOXIDE 5 MG CAPSULE PO SCH ×2 (17:20→22:23)
[2018-04-03] MEDS: THIAMINE HCL 100 MG TABLET (FP) PO SCH (22:23)
[2018-04-04] MEDS: chlordiazePOXIDE 5 MG CAPSULE PO SCH ×2 (05:45→10:57)
[2018-04-04] MEDS: SODIUM CHLORIDE NASAL SPRAY 44 ML BOTTLE NS SCH ×3 (06:11→22:29)
[2018-04-04] MEDS: METHADONE HCL 5 MG TABLET (FOR DETOX USE ONLY) PO SCH (10:57)
[2018-04-04] MEDS: amLODIPine BESYLATE 10 MG TABLET (FP) PO SCH (10:57)
[2018-04-04] MEDS: PRENATAL VITAMINS W/ FOLIC ACID TABLET (FP) PO SCH (10:57)
[2018-04-04] MEDS: APIXABAN 5 MG TABLET PO SCH ×2 (10:57→22:29)
[2018-04-04] MEDS: LISINOPRIL 10 MG TABLET (FP) PO SCH (10:58)
--- NOTE | 2018-04-04 13:33 | PN ---
S Progress Note (SOAP) Subjective: alert,irritable,anxious,interrupted sleep,tremor Objective: 04/04/18 13:30 Vital Signs Temperature 98.1 F 04/04/18 11:21 Pulse Rate 90 04/04/18 11:21 Respiratory Rate 16 04/04/18 11:21 Blood Pressure 139/76 04/04/18 11:21 O2 Sat by Pulse Oximetry (%) Laboratory Last Values WBC 5.3 K/mm3 (4.0-10.0) D 04/02/18 06:00 RBC 3.73 M/mm3 (4.00-5.60) L 04/02/18 06:00 Hgb 12.7 GM/dL (11.7-16.9) 04/02/18 06:00 Hct 38.3 % (35.4-49) 04/02/18 06:00 MCV 102.7 fl (80-96) H 04/02/18 06:00 MCH 33.9 pg (25.7-33.7) H 04/02/18 06:00 MCHC 33.0 g/dl (32.0-35.9) 04/02/18 06:00 RDW 15.7 % (11.9-15.9) D 04/02/18 06:00 Plt Count 191 K/MM3 (134-434) D 04/02/18 06:00 MPV 9.1 fl (7.5-11.1) 04/02/18 06:00 Sodium 144 mmol/L (136-145) 04/02/18 06:00 Potassium 4.1 mmol/L (3.5-5.1) 04/02/18 06:00 Chloride 108 mmol/L (98-107) H 04/02/18 06:00 Carbon Dioxide 27 mmol/L (21-32) 04/02/18 06:00 Anion Gap 9 (8-16) 04/02/18 06:00 BUN 14 mg/dL (7-18) 04/02/18 06:00 Creatinine 1.1 mg/dL (0.7-1.3) 04/02/18 06:00 Creat Clearance w eGFR > 60 (>60) 04/02/18 06:00 Random Glucose 104 mg/dL (74-106) 04/02/18 06:00 Calcium 9.0 mg/dL (8.5-10.1) 04/02/18 06:00 Total Bilirubin 0.3 mg/dL (0.2-1.0) D 04/02/18 06:00 AST 19 U/L (15-37) D 04/02/18 06:00 ALT 15 U/L (12-78) D 04/02/18 06:00 Alkaline Phosphatase 117 U/L (45-117) D 04/02/18 06:00 Total Protein 7.9 g/dl (6.4-8.2) 04/02/18 06:00 Albumin 3.9 g/dl (3.4-5.0) 04/02/18 06:00 RPR Titer Nonreactive (NONREACTIVE) 04/02/18 06:00 Assessment: 04/04/18 13:32 withdrawal symptom Plan: continue detox
[2018-04-04 14:54] LABS: URINE APPEARANCE CLEAR; URINE BILIRUBIN NEGATIVE (<2.0 mg/dL); URINE BLOOD NEGATIVE (NEGATIVE); URINE COLOR STRAW; URINE GLUCOSE (UA) NEGATIVE (NEGATIVE); URINE KETONE NEGATIVE (NEGATIVE); URINE LEUK ESTERASE NEGATIVE (NEGATIVE); URINE NITRITE NEGATIVE (NEGATIVE); URINE PROTEIN NEGATIVE (NEGATIVE); URINE UROBILINOGEN NEGATIVE mg/dL (0.2-1.0)
[2018-04-04] MEDS: chlordiazePOXIDE HCL 10 MG CAPSULE PO SCH ×2 (17:57→22:28)
[2018-04-04] MEDS: THIAMINE HCL 100 MG TABLET (FP) PO SCH (22:29)
[2018-04-05] MEDS: chlordiazePOXIDE HCL 10 MG CAPSULE PO SCH ×2 (05:40→10:07)
[2018-04-05] MEDS: SODIUM CHLORIDE NASAL SPRAY 44 ML BOTTLE NS SCH ×3 (05:41→22:14)
[2018-04-05] MEDS ORDERED: METHADONE HCL 10 MG TABLET (FOR DETOX USE ONLY) PO SCH (10:00)
[2018-04-05] MEDS: PRENATAL VITAMINS W/ FOLIC ACID TABLET (FP) PO SCH (10:07)
[2018-04-05] MEDS: LISINOPRIL 10 MG TABLET (FP) PO SCH (10:07)
[2018-04-05] MEDS: APIXABAN 5 MG TABLET PO SCH ×2 (10:07→22:12)
[2018-04-05] MEDS: amLODIPine BESYLATE 10 MG TABLET (FP) PO SCH (10:07)
--- NOTE | 2018-04-05 13:23 | PN ---
S Progress Note (SOAP) Subjective: alert,irritable,anxious,interrupted sleep Objective: 04/05/18 13:22 Vital Signs Temperature 97.7 F 04/05/18 10:44 Pulse Rate 91 H 04/05/18 10:44 Respiratory Rate 18 04/05/18 10:44 Blood Pressure 144/86 04/05/18 10:44 O2 Sat by Pulse Oximetry (%) Assessment: 04/05/18 13:23 withdrawal symptom Plan: continue detox,discharge in am
[2018-04-05] MEDS: THIAMINE HCL 100 MG TABLET (FP) PO SCH (22:12)
[2018-04-06] MEDS: SODIUM CHLORIDE NASAL SPRAY 44 ML BOTTLE NS SCH (05:08)
[2018-04-06] MEDS ORDERED: METHADONE HCL 5 MG TABLET (FOR DETOX USE ONLY) PO SCH (06:00)
[2018-04-06 07:21] VITALS: BP 112/57; PULSE 87; TEMP 97.5
--- NOTE | 2018-04-06 09:19 | DS ---
[facility] Detox Discharge Summary Admission Date: 04/01/18 Discharge Date: 04/06/18 - History Present History: Alcohol Dependence, Opioid Dependence Additional Comments: 67 years old male admitted 04/01/18 for alcohol and opiate withdrawal sx completed alcohol and opiate detox regimen tolerate well denies alcohol and opiate withdrawal sx anxious about the next step or recovery toward recovery - Physical Exam Results Vital Signs: Vital Signs Temperature 97.5 F L 04/06/18 07:19 Pulse Rate 87 04/06/18 07:19 Respiratory Rate 18 04/06/18 07:19 Blood Pressure 112/57 04/06/18 07:19 O2 Sat by Pulse Oximetry (%) Pertinent Admission Physical Exam Findings: opiate and alcohol withdrawal sx Vital Signs Temperature 97.5 F L 04/06/18 07:19 Pulse Rate 87 04/06/18 07:19 Respiratory Rate 18 04/06/18 07:19 Blood Pressure 112/57 04/06/18 07:19 O2 Sat by Pulse Oximetry (%) Laboratory Last Values WBC 5.3 K/mm3 (4.0-10.0) D 04/02/18 06:00 RBC 3.73 M/mm3 (4.00-5.60) L 04/02/18 06:00 Hgb 12.7 GM/dL (11.7-16.9) 04/02/18 06:00 Hct 38.3 % (35.4-49) 04/02/18 06:00 MCV 102.7 fl (80-96) H 04/02/18 06:00 MCH 33.9 pg (25.7-33.7) H 04/02/18 06:00 MCHC 33.0 g/dl (32.0-35.9) 04/02/18 06:00 RDW 15.7 % (11.9-15.9) D 04/02/18 06:00 Plt Count 191 K/MM3 (134-434) D 04/02/18 06:00 MPV 9.1 fl (7.5-11.1) 04/02/18 06:00 Sodium 144 mmol/L (136-145) 04/02/18 06:00 Potassium 4.1 mmol/L (3.5-5.1) 04/02/18 06:00 Chloride 108 mmol/L (98-107) H 04/02/18 06:00 Carbon Dioxide 27 mmol/L (21-32) 04/02/18 06:00 Anion Gap 9 (8-16) 04/02/18 06:00 BUN 14 mg/dL (7-18) 04/02/18 06:00 Creatinine 1.1 mg/dL (0.7-1.3) 04/02/18 06:00 Creat Clearance w eGFR > 60 (>60) 04/02/18 06:00 Random Glucose 104 mg/dL (74-106) 04/02/18 06:00 Calcium 9.0 mg/dL (8.5-10.1) 04/02/18 06:00 Total Bilirubin 0.3 mg/dL (0.2-1.0) D 04/02/18 06:00 AST 19 U/L (15-37) D 04/02/18 06:00 ALT 15 U/L (12-78) D 04/02/18 06:00 Alkaline Phosphatase 117 U/L (45-117) D 04/02/18 06:00 Total Protein 7.9 g/dl (6.4-8.2) 04/02/18 06:00 Albumin 3.9 g/dl (3.4-5.0) 04/02/18 06:00 Urine Color Straw 04/04/18 10:15 Urine Appearance Clear 04/04/18 10:15 Urine pH 5.0 (5.0-8.0) 04/04/18 10:15 Ur Specific [place] 1.011 (1.001-1.035) 04/04/18 10:15 Urine Protein Negative (NEGATIVE) 04/04/18 10:15 Urine Glucose (UA) Negative (NEGATIVE) 04/04/18 10:15 Urine Ketones Negative (NEGATIVE) 04/04/18 10:15 Urine Blood Negative (NEGATIVE) 04/04/18 10:15 Urine Nitrite Negative (NEGATIVE) 04/04/18 10:15 Urine Bilirubin Negative (<2.0 mg/dL) 04/04/18 10:15 Urine Urobilinogen Negative mg/dL (0.2-1.0) 04/04/18 10:15 Ur Leukocyte Esterase Negative (NEGATIVE) 04/04/18 10:15 RPR Titer Nonreactive (NONREACTIVE) 04/02/18 06:00 lab noted - Treatment Hospital Course: Detox Protocol Followed, Detoxed Safely, Responded well, Discharged Condition Good, Rehab Referral Accepted Patient has Accepted a Rehab Referral to: [facility] - Medication Discharge Medications: Ambulatory Orders Quetiapine Fumarate "Xr" [Seroquel XR] 150 mg PO HS #30 tablet 04/02/18 Apixaban [Eliquis -] 5 mg PO BID 15 Days #20 tablet 04/06/18 Lisinopril 10 mg PO DAILY 30 Days #30 tablet 04/06/18 propRANOLol HCL [Inderal -] 10 mg PO BID 15 Days #30 tablet 04/06/18 - Diagnosis (1) Anxiety with depression Current Visit: Yes Status: Suspected (2) Essential hypertension Current Visit: Yes Status: Chronic (3) Alcohol dependence with uncomplicated withdrawal Current Visit: Yes Status: Acute (4) Opioid dependence with withdrawal Current Visit: Yes Status: Acute (5) DVT (deep venous thrombosis) Current Visit: Yes Status: Chronic Qualifiers: DVT location: lower extremity Affected thrombotic vein of extremity: unspecified vein of extremity Chronicity: unspecified Laterality: unspecified laterality Qualified Code(s): I82.409 - Acute embolism and thrombosis of unspecified deep veins of unspecified lower extremity (6) Weight loss Current Visit: Yes Status: Acute (7) PPD positive Current Visit: No Status: Resolved (8) Involuntary trembling Current Visit: Yes Status: Chronic - AMA Did Patient Leave Against Medical Advice: No
[2018-04-06] MEDS ORDERED: hydrOXYzine PAMOATE 50 MG CAPSULE (FP) PO ONE (09:50)
[2018-04-06] MEDS: amLODIPine BESYLATE 10 MG TABLET (FP) PO SCH (10:16)
[2018-04-06] MEDS: PRENATAL VITAMINS W/ FOLIC ACID TABLET (FP) PO SCH (10:16)
[2018-04-06] MEDS: LISINOPRIL 10 MG TABLET (FP) PO SCH (10:16)
[2018-04-06] MEDS: APIXABAN 5 MG TABLET PO SCH (10:16)
== END 2018-04-06 10:22 | disposition home or self-care (01) | DRG 897 ==
LOC: YASAS 12:57 → Y6N 15:20
PROVIDERS: ADMIT Surgery; ATTEND Surgery
PROC: HZ2ZZZZ Detoxification Services for Substance Abuse Treatment (ICD-10-PCS; principal; 2018-04-01)
DX: F11.23 Opioid dependence with withdrawal (principal); I82.409 Acute embolism and thrombosis of unspecified deep veins of unspecified lower extremity; F10.230 Alcohol dependence with withdrawal, uncomplicated; F10.282 Alcohol dependence with alcohol-induced sleep disorder; F41.8 Other specified anxiety disorders; F19.24 Other psychoactive substance dependence with psychoactive substance-induced mood disorder; I10 Essential (primary) hypertension; R01.1 Cardiac murmur, unspecified; R00.0 Tachycardia, unspecified; R76.11 Nonspecific reaction to tuberculin skin test without active tuberculosis; R26.81 Unsteadiness on feet; R25.1 Tremor, unspecified; Z86.69 Personal history of other diseases of the nervous system and sense organs; Z79.01 Long term (current) use of anticoagulants; Z87.898 Personal history of other specified conditions
CPT/HCPCS: 36415; 80053; 81003; 85027; 86593; 93005; 93010; J0735

== ENCOUNTER 2018-04-07 10:31 | Inpatient (IN) | payer OTHER ==
[2018-04-07 10:54] VITALS: BMI 21.7
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
[2018-04-07] MEDS ORDERED: ACETAMINOPHEN 325 MG TABLET (FP) PO PRN (11:32)
[2018-04-07] MEDS ORDERED: MAGNESIUM CITRATE 300 ML BOTTLE PO PRN (11:32)
[2018-04-07] MEDS ORDERED: MAGNESIUM HYDROX 2400MG/30ML ORAL SUSPENSION 30 ML CUP PO PRN (11:32)
[2018-04-07] MEDS ORDERED: LOPERAMIDE HCL 2 MG CAPSULE PO PRN (11:32)
[2018-04-07] MEDS ORDERED: guaiFENesin/D-METHORPHAN HB 10 ML UNIT-DOSE CUPS PO PRN (11:32)
[2018-04-07] MEDS ORDERED: MENTHOL/PHENOL 1 EACH UD MM PRN (11:32)
[2018-04-07] MEDS ORDERED: IBUPROFEN 400 MG TABLET (FP) PO PRN (11:32)
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
[2018-04-07] MEDS: hydrOXYzine PAMOATE 50 MG CAPSULE (FP) PO PRN ×2 (14:46→21:44)
[2018-04-07] MEDS: MELATONIN 5 MG TABLETS PO PRN (21:43)
[2018-04-07] MEDS: THIAMINE HCL 100 MG TABLET (FP) PO SCH (21:43)
[2018-04-07] MEDS: APIXABAN 5 MG TABLET PO SCH (21:43)
[2018-04-07] MEDS ORDERED: SUVOREXANT 10 MG TABLET PO PRN (22:00)
[2018-04-08] MEDS: APIXABAN 5 MG TABLET PO SCH ×2 (09:24→21:35)
[2018-04-08] MEDS: PRENATAL VITAMINS W/ FOLIC ACID TABLET (FP) PO SCH (09:24)
[2018-04-08] MEDS: LISINOPRIL 10 MG TABLET (FP) PO SCH (09:24)
--- NOTE | 2018-04-08 12:23 | EKG ---
Test Reason : Blood Pressure : / mmHG Vent. Rate : 085 BPM Atrial Rate : 085 BPM P-R Int : 150 ms QRS Dur : 072 ms QT Int : 380 ms P-R-T Axes : 075 071 062 degrees QTc Int : 452 ms NORMAL SINUS RHYTHM POSSIBLE LEFT ATRIAL ENLARGEMENT ST ELEVATION, CONSIDER EARLY REPOLARIZATION, PERICARDITIS, OR INJURY BORDERLINE ECG Confirmed by MD ZACARIAS, MARY GRACE ([id number]) on 04/08/2018 12:23:06 PM Referred By: Confirmed By:MARY GRACE ADAMES MD
--- NOTE | 2018-04-08 14:29 | PN ---
S Progress Note Note: 67 yo with chronic alcohol dependence. C/O tremors on both upper extremities x 15 years, improves with librium, worsen with alcohol withdrawal. Reports causes difficulty with writing. Vital Signs Temperature 98.0 F 04/08/18 06:46 Pulse Rate 91 H 04/08/18 10:00 Respiratory Rate 18 04/08/18 10:00 Blood Pressure 130/70 04/08/18 10:00 O2 Sat by Pulse Oximetry (%) A/P Patient AOx3 no distress s1, s2, no JVD no adventitious breath sounds + tremors upper extremities - Tremors secondary to chronic alcoholism, but patient should follow up with neuro Plan: Baclofen BID continue to monitor Follow up with PCP and Neuro upon d/c
[2018-04-08] MEDS: P-EPHED 60MG/TRIPROLIDI 2.5MG TABLET PO PRN ×2 (14:32→21:36)
[2018-04-08] MEDS: BACLOFEN 10 MG TABLET (FP) PO SCH (21:35)
[2018-04-08] MEDS: THIAMINE HCL 100 MG TABLET (FP) PO SCH (21:35)
[2018-04-08] MEDS: MELATONIN 5 MG TABLETS PO PRN (21:37)
[2018-04-09] MEDS: LISINOPRIL 10 MG TABLET (FP) PO SCH (09:26)
[2018-04-09] MEDS: BACLOFEN 10 MG TABLET (FP) PO SCH ×2 (09:26→21:05)
[2018-04-09] MEDS: PRENATAL VITAMINS W/ FOLIC ACID TABLET (FP) PO SCH (09:26)
[2018-04-09] MEDS: APIXABAN 5 MG TABLET PO SCH ×2 (09:27→21:05)
[2018-04-09] MEDS: hydrOXYzine PAMOATE 50 MG CAPSULE (FP) PO PRN ×2 (09:28→21:04)
--- NOTE | 2018-04-09 14:02 | PN ---
[facility] Progress Note Note: PATIENT C/O NASAL CONGESTION NOT RELIEVED WITH ACTIFED. PATIENT DENIES FEVER, COUGH AND SORE THROAT. MEDICALLY STABLE. ALERT AND ORIENTED X 3. WILL D/C ACTIFED AND ORDER CLARITIN 10MG DAILY AND CONTINUE TO MONITOR. Vital Signs Temperature 97.9 F 04/09/18 06:54 Pulse Rate 105 H 04/09/18 10:00 Respiratory Rate 18 04/09/18 10:00 Blood Pressure 116/73 04/09/18 10:00 O2 Sat by Pulse Oximetry (%)
[2018-04-09] MEDS ORDERED: LORATADINE 10 MG TABLET PO ONE (15:34)
[2018-04-09] MEDS: MELATONIN 5 MG TABLETS PO PRN (21:04)
[2018-04-09] MEDS: THIAMINE HCL 100 MG TABLET (FP) PO SCH (21:04)
[2018-04-10] MEDS: LISINOPRIL 10 MG TABLET (FP) PO SCH (09:48)
[2018-04-10] MEDS: PRENATAL VITAMINS W/ FOLIC ACID TABLET (FP) PO SCH (09:48)
[2018-04-10] MEDS: LORATADINE 10 MG TABLET PO SCH (09:48)
[2018-04-10] MEDS: hydrOXYzine PAMOATE 50 MG CAPSULE (FP) PO PRN ×2 (09:48→21:26)
[2018-04-10] MEDS: BACLOFEN 10 MG TABLET (FP) PO SCH ×2 (09:48→21:24)
[2018-04-10] MEDS: APIXABAN 5 MG TABLET PO SCH ×2 (09:48→21:24)
--- NOTE | 2018-04-10 12:37 | PN ---
Psychiatric Progress Note Vital Signs: Vital Signs Period Temp Pulse Resp BP Sys/Mejias Pulse Ox Last 24 Hr 99-103 18-18 126-128/68-73 Date of Session: 04/10/18 Chief Complaint:: Insomnia HPI: Patient addessing Alcohol and Opioid Dependence comorbid with Substance- Induced Sleep Disorder ROS: GERD, DVT Current Medications: Active Medications Generic Name Dose Route Start Last Admin Trade Name Freq PRN Reason Stop Dose Admin Acetaminophen 650 mg 04/07/18 11:32 Tylenol - PO Q4H PRN FEVER Al Hydroxide/Mg Hydroxide 30 ml 04/07/18 11:32 Mylanta Oral Suspension - PO Q6H PRN DYSPEPSIA Apixaban 5 mg 04/07/18 22:00 04/10/18 09:48 Eliquis - PO 5 mg BID DI Administration Baclofen 10 mg 04/08/18 22:00 04/10/18 09:48 Lioresal - PO 10 mg BID DI Administration Eucalyptus/Menthol/Phenol/Sorbitol 1 each 04/07/18 11:32 Cepastat Lozenge - MM Q4H PRN SORE THROAT Guaifenesin 10 ml 04/07/18 11:32 Robitussin Dm - PO Q6H PRN COUGH Hydroxyzine Pamoate 50 mg 04/07/18 11:32 04/10/18 09:48 Vistaril - PO 50 mg Q4H PRN Administration AGITATION Lisinopril 10 mg 04/08/18 10:00 04/10/18 09:48 Prinivil PO 10 mg DAILY DI Administration Loperamide HCl 4 mg 04/07/18 11:32 Imodium - PO Q6H PRN DIARRHEA Loratadine 10 mg 04/10/18 10:00 04/10/18 09:48 Claritin - PO 10 mg DAILY DI Administration Magnesium Citrate 300 ml 04/07/18 11:32 Citroma - PO Q48H PRN CONSTIPATION Magnesium Hydroxide 30 ml 04/07/18 11:32 Milk Of Magnesia - PO DAILY PRN CONSTIPATION Melatonin 5 mg 04/07/18 22:00 04/09/18 21:04 Melatonin PO 5 mg HS PRN Administration INSOMNIA Multivit/Folic Acid/Iron 1 tab 04/08/18 10:00 04/10/18 09:48 Vitamins (Sjr) - PO 1 tab DAILY ID Administration Propranolol HCl 10 mg 04/07/18 22:00 04/10/18 09:48 Inderal - PO 10 mg BID DI Administration Suvorexant 15 mg 04/10/18 22:00 Belsomra PO HS PRN INSOMNIA Thiamine HCl 100 mg 04/07/18 22:00 04/09/18 21:04 Vitamin B1 - PO 100 mg HS DI Administration GERD, DVT Medication(s) Change(s): Increase Belsomra dosage to 15 mg po HS prn for insomnia Current Side Effect: No Lab tests ordered: Yes Lab tests reviewed: Yes Provider note:: Patient reports experiencing difficulty to sleep despite taking Belsomra 10 mg at bedtime. Requests that medication dosage be increased Total face to face time:: 15 Mental Status Exam - Mental Status Exam Alert and Oriented to: Time, Place, Person Cognitive Function: Fair Patient Appearance: Well Groomed Mood: Hopeful, Euthymic Affect: Appropriate Patient Behavior: Cooperative Speech Pattern: Clear Voice Loudness: Normal Thought Process: Intact, Goal Oriented Thought Disorder: Not Present Hallucinations: Denies Suicidal Ideation: Denies Homicidal Ideation: Denies Insight/Judgement: Fair Sleep: Poorly Appetite: Good Muscle strength/Tone: Normal Gait/Station: Normal Psychiatric Treatment Plan - Problem List (1) Alcohol dependence Current Visit: Yes Qualifiers: Substance use status: uncomplicated Qualified Code(s): F10.20 - Alcohol dependence, uncomplicated (2) Opioid dependence Current Visit: Yes Qualifiers: Substance use status: uncomplicated Qualified Code(s): F11.20 - Opioid dependence, uncomplicated (3) Substance-induced sleep disorder Current Visit: Yes (4) Gastroesophageal reflux disease Current Visit: Yes Qualifiers: Esophagitis presence: esophagitis presence not specified Qualified Code(s) : K21.9 - Gastro-esophageal reflux disease without esophagitis (5) DVT (deep venous thrombosis) Current Visit: No Qualifiers: DVT location: lower extremity Affected thrombotic vein of extremity: unspecified vein of extremity Chronicity: unspecified Laterality: unspecified laterality Qualified Code(s): I82.409 - Acute embolism and thrombosis of unspecified deep veins of unspecified lower extremity Comment: FILTER REMOVAL 2018 [place] (6) Essential hypertension Current Visit: No (7) PPD positive Current Visit: Yes Initial treatment plan: 1) Discontinue Belsomra as currently ordered. 2) Start Belsomra 15 mg po HS prn for insomnia. 3) Monitor progress
[2018-04-10] MEDS: THIAMINE HCL 100 MG TABLET (FP) PO SCH (21:24)
[2018-04-10] MEDS ORDERED: SUVOREXANT 10 MG TABLET PO PRN (22:00)
[2018-04-10] MEDS ORDERED: SUVOREXANT 15 MG TABLET PO PRN (22:00)
[2018-04-11] MEDS: PRENATAL VITAMINS W/ FOLIC ACID TABLET (FP) PO SCH (09:21)
[2018-04-11] MEDS: BACLOFEN 10 MG TABLET (FP) PO SCH ×2 (09:21→21:06)
[2018-04-11] MEDS: LORATADINE 10 MG TABLET PO SCH (09:21)
[2018-04-11] MEDS: LISINOPRIL 10 MG TABLET (FP) PO SCH (09:21)
[2018-04-11] MEDS: APIXABAN 5 MG TABLET PO SCH ×2 (09:21→21:06)
[2018-04-11] MEDS: hydrOXYzine PAMOATE 50 MG CAPSULE (FP) PO PRN ×2 (09:22→21:09)
[2018-04-11] MEDS: THIAMINE HCL 100 MG TABLET (FP) PO SCH (21:06)
[2018-04-11] MEDS: MELATONIN 5 MG TABLETS PO PRN (21:10)
[2018-04-12] MEDS: PRENATAL VITAMINS W/ FOLIC ACID TABLET (FP) PO SCH (09:13)
[2018-04-12] MEDS: APIXABAN 5 MG TABLET PO SCH ×2 (09:13→23:10)
[2018-04-12] MEDS: BACLOFEN 10 MG TABLET (FP) PO SCH ×2 (09:13→21:02)
[2018-04-12] MEDS: LORATADINE 10 MG TABLET PO SCH (09:13)
[2018-04-12] MEDS: LISINOPRIL 10 MG TABLET (FP) PO SCH (09:13)
[2018-04-12] MEDS: hydrOXYzine PAMOATE 50 MG CAPSULE (FP) PO PRN ×2 (09:16→21:02)
[2018-04-12] MEDS: THIAMINE HCL 100 MG TABLET (FP) PO SCH (21:02)
[2018-04-13] MEDS: hydrOXYzine PAMOATE 50 MG CAPSULE (FP) PO PRN ×3 (06:53→21:19)
[2018-04-13] MEDS: LISINOPRIL 10 MG TABLET (FP) PO SCH (09:31)
[2018-04-13] MEDS: APIXABAN 5 MG TABLET PO SCH ×2 (09:31→21:18)
[2018-04-13] MEDS: LORATADINE 10 MG TABLET PO SCH (09:31)
[2018-04-13] MEDS: PRENATAL VITAMINS W/ FOLIC ACID TABLET (FP) PO SCH (09:32)
[2018-04-13] MEDS: BACLOFEN 10 MG TABLET (FP) PO SCH ×2 (09:32→21:18)
[2018-04-13] MEDS ORDERED: PT OWN MED DRAWER 7, Y5N ONE ×2 (14:39→14:40)
[2018-04-13] MEDS: THIAMINE HCL 100 MG TABLET (FP) PO SCH (21:18)
[2018-04-13] MEDS ORDERED: SUVOREXANT 10 MG TABLET PO PRN (22:00)
[2018-04-14] MEDS: hydrOXYzine PAMOATE 50 MG CAPSULE (FP) PO PRN ×3 (06:15→17:04)
[2018-04-14] MEDS: LORATADINE 10 MG TABLET PO SCH (09:50)
[2018-04-14] MEDS: BACLOFEN 10 MG TABLET (FP) PO SCH ×2 (09:50→21:05)
[2018-04-14] MEDS: LISINOPRIL 10 MG TABLET (FP) PO SCH (09:50)
[2018-04-14] MEDS: APIXABAN 5 MG TABLET PO SCH ×2 (09:50→21:05)
[2018-04-14] MEDS: PRENATAL VITAMINS W/ FOLIC ACID TABLET (FP) PO SCH (09:51)
--- NOTE | 2018-04-14 14:46 | PN ---
[facility] Progress Note Note: PATIENT PRESENTS WITH C/O FREQUENT URINATION AT NIGHT. DENIES BURNING UPON URINATION. AFEBRILE. MEDICALLY STABLE. Vital Signs Temperature 98.2 F 04/14/18 09:30 Pulse Rate 100 H 04/14/18 09:30 Respiratory Rate 20 04/14/18 09:30 Blood Pressure 138/75 04/14/18 09:30 O2 Sat by Pulse Oximetry (%) PATIENT CONCERNED ABOUT PROSTATE AND WOULD LIKE TO HAVE PSA CHECKED.WILL ORDER PSA LEVEL AND CONTINUE TO MONITOR CLINICALLY.
--- NOTE | 2018-04-14 19:54 | PN ---
Psychiatric Progress Note Vital Signs: Vital Signs Period Temp Pulse Resp BP Sys/Mejias Pulse Ox Last 24 Hr 97.8 F-98.2 F 90-100 18-20 138-143/70-75 Date of Session: 04/14/18 Chief Complaint:: Discharge Note HPI: Patient addressing Alcohol and Opioid Dependence comorbid with Substance- Induced Sleep Disorder ROS: GERD, HTN, DVT, PPD+ were medically managed Current Medications: Active Medications Generic Name Dose Route Start Last Admin Trade Name Freq PRN Reason Stop Dose Admin Acetaminophen 650 mg 04/07/18 11:32 Tylenol - PO Q4H PRN FEVER Al Hydroxide/Mg Hydroxide 30 ml 04/07/18 11:32 Mylanta Oral Suspension - PO Q6H PRN DYSPEPSIA Apixaban 5 mg 04/07/18 22:00 04/14/18 09:50 Eliquis - PO 5 mg BID DI Administration Baclofen 10 mg 04/08/18 22:00 04/14/18 09:50 Lioresal - PO 10 mg BID DI Administration Eucalyptus/Menthol/Phenol/Sorbitol 1 each 04/07/18 11:32 Cepastat Lozenge - MM Q4H PRN SORE THROAT Guaifenesin 10 ml 04/07/18 11:32 Robitussin Dm - PO Q6H PRN COUGH Hydroxyzine Pamoate 50 mg 04/07/18 11:32 04/14/18 17:04 Vistaril - PO 50 mg Q4H PRN Administration AGITATION Lisinopril 10 mg 04/08/18 10:00 04/14/18 09:50 Prinivil PO 10 mg DAILY DI Administration Loperamide HCl 4 mg 04/07/18 11:32 Imodium - PO Q6H PRN DIARRHEA Loratadine 10 mg 04/10/18 10:00 04/14/18 09:50 Claritin - PO 10 mg DAILY DI Administration Magnesium Citrate 300 ml 04/07/18 11:32 Citroma - PO Q48H PRN CONSTIPATION Magnesium Hydroxide 30 ml 04/07/18 11:32 Milk Of Magnesia - PO DAILY PRN CONSTIPATION Melatonin 5 mg 04/07/18 22:00 04/11/18 21:10 Melatonin PO 5 mg HS PRN Administration INSOMNIA Multivit/Folic Acid/Iron 1 tab 04/08/18 10:00 04/14/18 09:51 Vitamins (Sjr) - PO 1 tab DAILY DI Administration Propranolol HCl 10 mg 04/07/18 22:00 04/14/18 09:50 Inderal - PO 10 mg BID DI Administration Suvorexant 15 mg 04/13/18 22:00 Belsomra PO HS PRN INSOMNIA Thiamine HCl 100 mg 04/07/18 22:00 04/13/18 21:18 Vitamin B1 - PO 100 mg HS DI Administration Current Side Effect: No Lab tests ordered: Yes Lab tests reviewed: Yes Provider note:: Patient will complete this program on 04/15/18. He has met his treatment goals and will continue to address his issues in outpatient [facility] at. He responded well to Belsomra for sleep. He is stable for dischage on 04/15/18 Total face to face time:: 35 Mental Status Exam - Mental Status Exam Alert and Oriented to: Time, Place, Person Cognitive Function: Fair Patient Appearance: Well Groomed Mood: Hopeful, Euthymic Affect: Appropriate Patient Behavior: Cooperative Speech Pattern: Clear Voice Loudness: Normal Thought Process: Intact Thought Disorder: Not Present Hallucinations: Denies Suicidal Ideation: Denies Homicidal Ideation: Denies Insight/Judgement: Fair Sleep: Fair Appetite: Good Muscle strength/Tone: Normal Gait/Station: Normal Psychiatric Treatment Plan - Problem List (1) Alcohol dependence Current Visit: Yes Qualifiers: Substance use status: uncomplicated Qualified Code(s): F10.20 - Alcohol dependence, uncomplicated (2) Opioid dependence Current Visit: Yes Qualifiers: Substance use status: uncomplicated Qualified Code(s): F11.20 - Opioid dependence, uncomplicated (3) Substance-induced sleep disorder Current Visit: Yes (4) Gastroesophageal reflux disease Current Visit: Yes Qualifiers: Esophagitis presence: esophagitis presence not specified Qualified Code(s) : K21.9 - Gastro-esophageal reflux disease without esophagitis (5) DVT (deep venous thrombosis) Current Visit: No Qualifiers: DVT location: lower extremity Affected thrombotic vein of extremity: unspecified vein of extremity Chronicity: unspecified Laterality: unspecified laterality Qualified Code(s): I82.409 - Acute embolism and thrombosis of unspecified deep veins of unspecified lower extremity Comment: FILTER REMOVAL 2018 [place] (6) Essential hypertension Current Visit: No (7) PPD positive Current Visit: Yes Initial treatment plan: Patient will be discharged tomorrow and referred to for outpatient treatment
[2018-04-14] MEDS: THIAMINE HCL 100 MG TABLET (FP) PO SCH (21:05)
[2018-04-14] MEDS: MAG HYDROX/AL HYDROX/SIMETH 30 ML UNIT-DOSE CUP PO PRN (21:06)
[2018-04-15] MEDS: hydrOXYzine PAMOATE 50 MG CAPSULE (FP) PO PRN ×4 (03:16→21:02)
[2018-04-15] MEDS: LORATADINE 10 MG TABLET PO SCH (09:45)
[2018-04-15] MEDS: APIXABAN 5 MG TABLET PO SCH ×2 (09:45→21:02)
[2018-04-15] MEDS: PRENATAL VITAMINS W/ FOLIC ACID TABLET (FP) PO SCH (09:45)
[2018-04-15] MEDS: BACLOFEN 10 MG TABLET (FP) PO SCH ×2 (09:45→21:02)
[2018-04-15] MEDS: MAG HYDROX/AL HYDROX/SIMETH 30 ML UNIT-DOSE CUP PO PRN ×2 (09:46→14:49)
[2018-04-15] MEDS: LISINOPRIL 10 MG TABLET (FP) PO SCH (10:56)
[2018-04-15] MEDS: THIAMINE HCL 100 MG TABLET (FP) PO SCH (21:02)
[2018-04-15] MEDS ORDERED: SUVOREXANT 15 MG TABLET PO PRN (22:00)
[2018-04-16] MEDS: hydrOXYzine PAMOATE 50 MG CAPSULE (FP) PO PRN ×3 (06:25→21:14)
[2018-04-16] MEDS: APIXABAN 5 MG TABLET PO SCH ×2 (09:33→21:14)
[2018-04-16] MEDS: LORATADINE 10 MG TABLET PO SCH (09:34)
[2018-04-16] MEDS: PRENATAL VITAMINS W/ FOLIC ACID TABLET (FP) PO SCH (09:34)
[2018-04-16] MEDS: BACLOFEN 10 MG TABLET (FP) PO SCH ×2 (09:34→21:14)
[2018-04-16] MEDS: LISINOPRIL 10 MG TABLET (FP) PO SCH (09:35)
[2018-04-16] MEDS: THIAMINE HCL 100 MG TABLET (FP) PO SCH (21:14)
[2018-04-16] MEDS: MELATONIN 5 MG TABLETS PO PRN (21:15)
[2018-04-16] MEDS ORDERED: SUVOREXANT 15 MG TABLET PO PRN (22:00)
[2018-04-17] MEDS: hydrOXYzine PAMOATE 50 MG CAPSULE (FP) PO PRN (06:43)
[2018-04-17 06:44] VITALS: BP 140/79; PULSE 90; TEMP 98
[2018-04-17] MEDS ORDERED: TAMSULOSIN HCL 0.4 MG CAP.ER.24H (FP) PO SCH (08:30)
[2018-04-17] MEDS: APIXABAN 5 MG TABLET PO SCH (09:23)
[2018-04-17] MEDS: BACLOFEN 10 MG TABLET (FP) PO SCH (09:23)
[2018-04-17] MEDS: LORATADINE 10 MG TABLET PO SCH (09:23)
[2018-04-17] MEDS: LISINOPRIL 10 MG TABLET (FP) PO SCH (09:24)
[2018-04-17] MEDS: PRENATAL VITAMINS W/ FOLIC ACID TABLET (FP) PO SCH (09:24)
--- NOTE | 2018-04-17 09:43 | PN ---
Psychiatric Progress Note Vital Signs: Vital Signs Period Temp Pulse Resp BP Sys/Mejias Pulse Ox Last 24 Hr 98.0 F 90-118 18-18 132-147/71-89 Date of Session: 04/17/18 Chief Complaint:: Discharge Note HPI: Patient addressing Alcohol and Opioid Dependence comorbid with Substance- Induced Sleep Disorder ROS: GERD, HTN, DVT, PPD+ were medically managed Current Medications: Active Medications Generic Name Dose Route Start Last Admin Trade Name Freq PRN Reason Stop Dose Admin Acetaminophen 650 mg 04/07/18 11:32 Tylenol - PO Q4H PRN FEVER Al Hydroxide/Mg Hydroxide 30 ml 04/07/18 11:32 04/15/18 14:49 Mylanta Oral Suspension - PO 30 ml Q6H PRN Administration DYSPEPSIA Apixaban 5 mg 04/07/18 22:00 04/17/18 09:23 Eliquis - PO 5 mg BID DI Administration Baclofen 10 mg 04/08/18 22:00 04/17/18 09:23 Lioresal - PO 10 mg BID DI Administration Eucalyptus/Menthol/Phenol/Sorbitol 1 each 04/07/18 11:32 Cepastat Lozenge - MM Q4H PRN SORE THROAT Guaifenesin 10 ml 04/07/18 11:32 Robitussin Dm - PO Q6H PRN COUGH Hydroxyzine Pamoate 50 mg 04/07/18 11:32 04/17/18 06:43 Vistaril - PO 50 mg Q4H PRN Administration AGITATION Lisinopril 10 mg 04/08/18 10:00 04/17/18 09:24 Prinivil PO 10 mg DAILY DI Administration Loperamide HCl 4 mg 04/07/18 11:32 Imodium - PO Q6H PRN DIARRHEA Loratadine 10 mg 04/10/18 10:00 04/17/18 09:23 Claritin - PO 10 mg DAILY DI Administration Magnesium Citrate 300 ml 04/07/18 11:32 Citroma - PO Q48H PRN CONSTIPATION Magnesium Hydroxide 30 ml 04/07/18 11:32 Milk Of Magnesia - PO DAILY PRN CONSTIPATION Melatonin 5 mg 04/07/18 22:00 04/16/18 21:15 Melatonin PO 5 mg HS PRN Administration INSOMNIA Multivit/Folic Acid/Iron 1 tab 04/08/18 10:00 04/17/18 09:24 Vitamins (Sjr) - PO 1 tab DAILY DI Administration Propranolol HCl 10 mg 04/07/18 22:00 04/17/18 09:23 Inderal - PO 10 mg BID DI Administration Suvorexant 15 mg 04/16/18 22:00 04/16/18 21:16 Belsomra PO 04/19/18 21:59 15 mg HS PRN Administration INSOMNIA Tamsulosin HCl 0.4 mg 04/17/18 08:30 04/17/18 07:56 Flomax - PO 0.4 mg DAILY@0830 DI Administration Thiamine HCl 100 mg 04/07/18 22:00 04/16/18 21:14 Vitamin B1 - PO 100 mg HS DI Administration Current Side Effect: No Lab tests ordered: Yes Lab tests reviewed: Yes Provider note:: Patient has completed this program today. He has met his treatment goals and will continue to address his issues in outpatient treatment at [facility]. Told development writer that from his participation in this program, he has learned to manage his anger and his medical issues. He responded well to Belsomra for sleep. He is stable for dischage today Total face to face time:: 35 Mental Status Exam - Mental Status Exam Alert and Oriented to: Time, Place, Person Cognitive Function: Fair Patient Appearance: Well Groomed Mood: Hopeful, Euthymic Affect: Appropriate Patient Behavior: Cooperative Speech Pattern: Clear Voice Loudness: Normal Thought Process: Intact, Goal Oriented Thought Disorder: Not Present Hallucinations: Denies Suicidal Ideation: Denies Homicidal Ideation: Denies Insight/Judgement: Fair Sleep: Fair Appetite: Good Muscle strength/Tone: Normal Gait/Station: Normal Psychiatric Treatment Plan - Problem List (1) Alcohol dependence Current Visit: Yes Qualifiers: Substance use status: uncomplicated Qualified Code(s): F10.20 - Alcohol dependence, uncomplicated (2) Opioid dependence Current Visit: Yes Qualifiers: Substance use status: uncomplicated Qualified Code(s): F11.20 - Opioid dependence, uncomplicated (3) Substance-induced sleep disorder Current Visit: Yes (4) Gastroesophageal reflux disease Current Visit: Yes Qualifiers: Esophagitis presence: esophagitis presence not specified Qualified Code(s) : K21.9 - Gastro-esophageal reflux disease without esophagitis (5) DVT (deep venous thrombosis) Current Visit: No Qualifiers: DVT location: lower extremity Affected thrombotic vein of extremity: unspecified vein of extremity Chronicity: unspecified Laterality: unspecified laterality Qualified Code(s): I82.409 - Acute embolism and thrombosis of unspecified deep veins of unspecified lower extremity Comment: FILTER REMOVAL 2018 [place] (6) Essential hypertension Current Visit: No (7) PPD positive Current Visit: Yes Initial treatment plan: Patient is discharged today and referred to [facility] for outpatient treatment
== END 2018-04-17 10:03 | disposition home or self-care (01) | DRG 895 ==
LOC: YASAS 10:31 → Y3W 11:14
PROVIDERS: ADMIT Psychiatry & Neurology Psychiatry; ATTEND Psychiatry & Neurology Psychiatry
PROC: HZ42ZZZ Group Counseling for Substance Abuse Treatment, Cognitive-Behavioral (ICD-10-PCS; principal; 2018-04-07)
DX: F10.20 Alcohol dependence, uncomplicated (principal); F19.282 Other psychoactive substance dependence with psychoactive substance-induced sleep disorder; I82.401 Acute embolism and thrombosis of unspecified deep veins of right lower extremity; F41.8 Other specified anxiety disorders; I10 Essential (primary) hypertension; K21.9 Gastro-esophageal reflux disease without esophagitis; Z79.01 Long term (current) use of anticoagulants; R76.11 Nonspecific reaction to tuberculin skin test without active tuberculosis; R35.0 Frequency of micturition; R25.1 Tremor, unspecified; R01.1 Cardiac murmur, unspecified
CPT/HCPCS: 36415; 84153; 93005; 93010; J0475

== ENCOUNTER 2018-07-19 10:21 | Inpatient (IN) | payer OTHER ==
[2018-07-19 10:52] VITALS: BMI 21.4
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
[2018-07-19] MEDS ORDERED: P-EPHED 60MG/TRIPROLIDI 2.5MG TABLET PO PRN (11:23)
[2018-07-19] MEDS ORDERED: MAG HYDROX/AL HYDROX/SIMETH 30 ML UNIT-DOSE CUP PO PRN (11:23)
[2018-07-19] MEDS ORDERED: guaiFENesin/D-METHORPHAN HB 10 ML UNIT-DOSE CUPS PO PRN (11:23)
[2018-07-19] MEDS ORDERED: METHADONE HCL 10 MG TABLET (FOR DETOX USE ONLY) PO ONE ×2 (11:23→23:00)
[2018-07-19] MEDS ORDERED: ACETAMINOPHEN 325 MG TABLET (FP) PO PRN (11:23)
[2018-07-19] MEDS ORDERED: MAGNESIUM CITRATE 300 ML BOTTLE PO PRN (11:23)
[2018-07-19] MEDS ORDERED: LOPERAMIDE HCL 2 MG CAPSULE PO PRN (11:23)
[2018-07-19] MEDS ORDERED: MAGNESIUM HYDROX 2400MG/30ML ORAL SUSPENSION 30 ML CUP PO PRN (11:23)
[2018-07-19] MEDS ORDERED: MENTHOL/PHENOL 1 EACH UD MM PRN (11:23)
[2018-07-19] MEDS ORDERED: chlordiazePOXIDE HCL 25 MG CAPSULE PO ONE (11:30)
--- NOTE | 2018-07-19 15:41 | EKG ---
Test Reason : Blood Pressure : / mmHG Vent. Rate : 080 BPM Atrial Rate : 080 BPM P-R Int : 144 ms QRS Dur : 074 ms QT Int : 368 ms P-R-T Axes : 080 065 069 degrees QTc Int : 424 ms NORMAL SINUS RHYTHM POSSIBLE LEFT ATRIAL ENLARGEMENT LEFT VENTRICULAR HYPERTROPHY ABNORMAL ECG WHEN COMPARED WITH ECG OF 07-APR-2018 23:23, NO SIGNIFICANT CHANGE WAS FOUND Confirmed by MD Costa, Elian ([id number]) on 07/19/2018 3:40:43 PM Referred By: Confirmed By:Elian Skelton MD
[2018-07-19] MEDS: chlordiazePOXIDE HCL 25 MG CAPSULE PO SCH ×2 (17:08→22:07)
[2018-07-19 18:32] LABS: URINE APPEARANCE SLCLOUDY; URINE BILIRUBIN NEGATIVE (<2.0 mg/dL); URINE COLOR YELLOW; URINE GLUCOSE (UA) NEGATIVE (NEGATIVE); URINE KETONE NEGATIVE (NEGATIVE); URINE NITRITE NEGATIVE (NEGATIVE); URINE PROTEIN NEGATIVE (NEGATIVE); URINE UROBILINOGEN NEGATIVE mg/dL (0.2-1.0)
[2018-07-19 18:42] LABS: URINE LEUK ESTERASE 2+ (NEGATIVE)
[2018-07-19 18:45] LABS: EPI CELLS RARE /HPF (FEW); URINE BACTERIA MANY /hpf (NONE SEEN); URINE HYALINE CAST 3 /lpf; URINE MUCUS RARE
[2018-07-19] MEDS ORDERED: MELATONIN 5 MG TABLETS PO PRN (22:00)
[2018-07-19] MEDS: THIAMINE HCL 100 MG TABLET (FP) PO SCH (22:06)
[2018-07-19] MEDS: APIXABAN 5 MG TABLET PO SCH (22:07)
[2018-07-20] MEDS: chlordiazePOXIDE HCL 25 MG CAPSULE PO SCH ×4 (05:11→22:02)
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
[2018-07-20] MEDS ORDERED: amLODIPine BESYLATE 2.5 MG TABLET (FP) PO SCH ×2 (10:00→11:25)
[2018-07-20] MEDS ORDERED: METHADONE HCL 10 MG TABLET (FOR DETOX USE ONLY) PO SCH (10:00)
[2018-07-20] MEDS: APIXABAN 5 MG TABLET PO SCH ×2 (10:11→22:02)
[2018-07-20] MEDS: PRENATAL VITAMINS W/ FOLIC ACID TABLET (FP) PO SCH (10:11)
[2018-07-20 10:18] LABS: HEMATOCRIT 34.3 % (35.4-49); HEMOGLOBIN 11.4 GM/dL (11.7-16.9); MCH 33.2 pg (25.7-33.7); MCHC 33.1 g/dl (32.0-35.9); MEAN CELL VOLUME 100.4 fl (80-96); PLATELET COUNT 155 K/MM3 (134-434); RBC 3.42 M/mm3 (4.00-5.60); RDW 17.1 % (11.9-15.9); WHITE BLOOD COUNT 2.8 K/mm3 (4.0-10.0)
[2018-07-20 10:37] LABS: ALBUMIN 3.2 g/dl (3.4-5.0); ALK PHOS 112 U/L (45-117); ANION GAP 7 MMOL/L (8-16); BILIRUBIN,TOTAL 0.6 mg/dL (0.2-1); BLOOD UREA NITROGEN 17 mg/dL (7-18); CALCIUM 8.9 mg/dL (8.5-10.1); CHLORIDE 106 mmol/L (98-107); CO2 30 mmol/L (21-32); CREATININE 0.8 mg/dL (0.55-1.3); GLUCOSE,RANDOM 93 mg/dL (74-106); POTASSIUM 4.1 mmol/L (3.5-5.1); SGOT/AST 16 U/L (15-37); SGPT/ALT 14 U/L (13-61); SODIUM 143 mmol/L (136-145); TOT PROT 6.7 g/dl (6.4-8.2)
[2018-07-20] MEDS: amLODIPine BESYLATE 2.5 MG TABLET (FP) PO SCH (11:54)
[2018-07-20] MEDS: chlordiazePOXIDE HCL 25 MG CAPSULE PO PRN (14:14)
--- NOTE | 2018-07-20 14:48 | PN ---
[facility] CIWA - CIWA Score Nausea/Vomitin Muscle Tremors: 4-Moderate,w/Arms Extend Anxiety: 4-Mod. Anxious/Guarded Agitation: 3 Paroxysmal Sweats: 3 Orientation: 0-Oriented Tacttile Disturbances: 0-None Auditory Disturbances: 0-None Visual Disturbances: 0-None Headache: 1-Very Mild CIWA-Ar Total Score: 17 BHS COWS - Scale Resting Pulse: 0= [place] 80 or Below Sweatin= Chills/Flushing Restless Observation: 3= Extraneous Movement Pupil Size: 1= Pupils >than Normal Bone or Joint Aches: 2= Severe Diffuse Aches Runny Nose/ Eye Tearin= Runny Nose/Eyes GI Upset > 30mins: 3= Vomiting/Diarrhea Tremor Observation of Outstretched Hands: 2= Slight Tremor Visible Yawning Observation: 1= 1-2x During Session Anxiety or Irritability: 2=Irritable/Anxious Goose Flesh Skin: 0=Smooth Skin COWS Score: 17 [facility] Progress Note (SOAP) Subjective: Sweating, diarrhea, interrupted sleep Objective: 07/20/18 14:45 Last Vital Signs Temp Pulse Resp BP Pulse Ox 97.4 F L 80 18 140/72 07/20/18 13:16 07/20/18 14:19 07/20/18 14:19 07/20/18 14:19 Laboratory Tests 07/19/18 07/20/18 07/20/18 12:03 07:30 07:30 WBC 2.8 L RBC 3.42 L Hgb 11.4 L Hct 34.3 L MCV 100.4 H MCH 33.2 MCHC 33.1 RDW 17.1 H Plt Count 155 MPV 8.0 D Sodium 143 Potassium 4.1 Chloride 106 Carbon Dioxide 30 Anion Gap 7 L BUN 17 Creatinine 0.8 Creat Clearance w eGFR > 60 Random Glucose 93 Calcium 8.9 Total Bilirubin 0.6 AST 16 ALT 14 Alkaline Phosphatase 112 Total Protein 6.7 Albumin 3.2 L Urine Color Yellow Urine Appearance Slcloudy Urine pH 5.0 Ur Specific [place] 1.017 Urine Protein Negative Urine Glucose (UA) Negative Urine Ketones Negative Urine Blood 1+ H Urine Nitrite Negative Urine Bilirubin Negative Urine Urobilinogen Negative Ur Leukocyte Esterase 2+ H Urine WBC (Auto) 37 Urine RBC (Auto) 2 Ur Epithelial Cells Rare Urine Bacteria Many Hyaline Casts 3 Urine Mucus Rare RPR Titer 07/20/18 07:30 WBC RBC Hgb Hct MCV MCH MCHC RDW Plt Count MPV Sodium Potassium Chloride Carbon Dioxide Anion Gap BUN Creatinine Creat Clearance w eGFR Random Glucose Calcium Total Bilirubin AST ALT Alkaline Phosphatase Total Protein Albumin Urine Color Urine Appearance Urine pH Ur Specific [place] Urine Protein Urine Glucose (UA) Urine Ketones Urine Blood Urine Nitrite Urine Bilirubin Urine Urobilinogen Ur Leukocyte Esterase Urine WBC (Auto) Urine RBC (Auto) Ur Epithelial Cells Urine Bacteria Hyaline Casts Urine Mucus RPR Titer Nonreactive Labs reviewed: abnormal UA Assessment: 07/20/18 14:46 Withdrawal symptoms Noted with abnormal UA Plan: Continue detox Abnormal UA: encouraged PO water hydration, repeat UA
[2018-07-20] MEDS: THIAMINE HCL 100 MG TABLET (FP) PO SCH (22:03)
[2018-07-20] MEDS: ZOLPIDEM TARTRATE 5 MG TABLET PO PRN (22:10)
[2018-07-21] MEDS: chlordiazePOXIDE HCL 25 MG CAPSULE PO SCH ×2 (05:36→10:06)
[2018-07-21] MEDS: METHADONE HCL 5 MG TABLET (FOR DETOX USE ONLY) PO SCH (10:05)
[2018-07-21] MEDS: amLODIPine BESYLATE 2.5 MG TABLET (FP) PO SCH (10:05)
[2018-07-21] MEDS: APIXABAN 5 MG TABLET PO SCH ×2 (10:05→22:21)
[2018-07-21] MEDS: PRENATAL VITAMINS W/ FOLIC ACID TABLET (FP) PO SCH (10:06)
--- NOTE | 2018-07-21 11:36 | PN ---
[facility] CIWA - CIWA Score Nausea/Vomitin-Mild Nausea/No Vomiting Muscle Tremors: 3 Anxiety: 3 Agitation: 3 Paroxysmal Sweats: 2 Orientation: 0-Oriented Tacttile Disturbances: 1-Very Mild Itch/Numbness Auditory Disturbances: 0-None Visual Disturbances: 0-None Headache: 1-Very Mild CIWA-Ar Total Score: 14 BHS COWS - Scale Resting Pulse: 1= [place] 81-100 Sweatin= Chills/Flushing Restless Observation: 3= Extraneous Movement Pupil Size: 0= Normal to Room Light Bone or Joint Aches: 2= Severe Diffuse Aches Runny Nose/ Eye Tearin= Runny Nose/Eyes GI Upset > 30mins: 1= Stomach Cramp Tremor Observation of Outstretched Hands: 2= Slight Tremor Visible Yawning Observation: 1= 1-2x During Session Anxiety or Irritability: 2=Irritable/Anxious Goose Flesh Skin: 0=Smooth Skin COWS Score: 15 [facility] Progress Note (SOAP) Subjective: Tremor, sweating, interrupted sleep Objective: 07/21/18 11:21 Last Vital Signs Temp Pulse Resp BP Pulse Ox 97.6 F 81 18 146/79 07/21/18 09:53 07/21/18 09:53 07/21/18 09:53 07/21/18 09:53 Laboratory Tests 07/19/18 07/20/18 07/20/18 12:03 07:30 07:30 WBC 2.8 L RBC 3.42 L Hgb 11.4 L Hct 34.3 L MCV 100.4 H MCH 33.2 MCHC 33.1 RDW 17.1 H Plt Count 155 MPV 8.0 D Sodium 143 Potassium 4.1 Chloride 106 Carbon Dioxide 30 Anion Gap 7 L BUN 17 Creatinine 0.8 Creat Clearance w eGFR > 60 Random Glucose 93 Calcium 8.9 Total Bilirubin 0.6 AST 16 ALT 14 Alkaline Phosphatase 112 Total Protein 6.7 Albumin 3.2 L Urine Color Yellow Urine Appearance Slcloudy Urine pH 5.0 Ur Specific [place] 1.017 Urine Protein Negative Urine Glucose (UA) Negative Urine Ketones Negative Urine Blood 1+ H Urine Nitrite Negative Urine Bilirubin Negative Urine Urobilinogen Negative Ur Leukocyte Esterase 2+ H Urine WBC (Auto) 37 Urine RBC (Auto) 2 Ur Epithelial Cells Rare Urine Bacteria Many Hyaline Casts 3 Urine Mucus Rare RPR Titer 07/20/18 07:30 WBC RBC Hgb Hct MCV MCH MCHC RDW Plt Count MPV Sodium Potassium Chloride Carbon Dioxide Anion Gap BUN Creatinine Creat Clearance w eGFR Random Glucose Calcium Total Bilirubin AST ALT Alkaline Phosphatase Total Protein Albumin Urine Color Urine Appearance Urine pH Ur Specific [place] Urine Protein Urine Glucose (UA) Urine Ketones Urine Blood Urine Nitrite Urine Bilirubin Urine Urobilinogen Ur Leukocyte Esterase Urine WBC (Auto) Urine RBC (Auto) Ur Epithelial Cells Urine Bacteria Hyaline Casts Urine Mucus RPR Titer Nonreactive Labs reviewed: abnormal UA (repeated UA result pending) Assessment: 07/21/18 11:37 Withdrawal symptoms Noted with abnormal UA Plan: Continue detox Abnormal UA: encouraged to drink lots of water for hydration, follow up on repeated UA result
[2018-07-21] MEDS: chlordiazePOXIDE HCL 25 MG CAPSULE PO PRN (14:44)
[2018-07-21 15:18] LABS: URINE APPEARANCE SLCLOUDY; URINE BILIRUBIN NEGATIVE (<2.0 mg/dL); URINE COLOR YELLOW; URINE GLUCOSE (UA) NEGATIVE (NEGATIVE); URINE KETONE NEGATIVE (NEGATIVE); URINE NITRITE POSITIVE (NEGATIVE); URINE PROTEIN NEGATIVE (NEGATIVE); URINE UROBILINOGEN NEGATIVE mg/dL (0.2-1.0)
[2018-07-21 15:24] LABS: URINE LEUK ESTERASE 3+ (NEGATIVE)
[2018-07-21 16:41] LABS: EPI CELLS RARE /HPF (FEW); URINE BACTERIA MANY /hpf (NONE SEEN); URINE MUCUS RARE
[2018-07-21] MEDS: chlordiazePOXIDE 5 MG CAPSULE PO SCH ×2 (17:18→22:20)
[2018-07-21] MEDS: THIAMINE HCL 100 MG TABLET (FP) PO SCH (22:21)
[2018-07-21] MEDS: ZOLPIDEM TARTRATE 5 MG TABLET PO PRN (22:24)
[2018-07-22] MEDS: chlordiazePOXIDE 5 MG CAPSULE PO SCH ×2 (05:34→10:04)
[2018-07-22] MEDS: PRENATAL VITAMINS W/ FOLIC ACID TABLET (FP) PO SCH (10:04)
[2018-07-22] MEDS: METHADONE HCL 5 MG TABLET (FOR DETOX USE ONLY) PO SCH (10:04)
[2018-07-22] MEDS: amLODIPine BESYLATE 5 MG TABLET (FP) PO SCH (10:05)
[2018-07-22] MEDS: APIXABAN 5 MG TABLET PO SCH ×2 (10:06→22:28)
--- NOTE | 2018-07-22 11:25 | PN ---
S Progress Note (SOAP) Subjective: Diarrhea, tremor Objective: 07/22/18 11:20 Last Vital Signs Temp Pulse Resp BP Pulse Ox 98.5 F 89 16 122/66 07/22/18 09:16 07/22/18 09:16 07/22/18 09:16 07/22/18 09:16 Laboratory Tests 07/19/18 07/20/18 07/20/18 12:03 07:30 07:30 WBC 2.8 L RBC 3.42 L Hgb 11.4 L Hct 34.3 L MCV 100.4 H MCH 33.2 MCHC 33.1 RDW 17.1 H Plt Count 155 MPV 8.0 D Sodium 143 Potassium 4.1 Chloride 106 Carbon Dioxide 30 Anion Gap 7 L BUN 17 Creatinine 0.8 Creat Clearance w eGFR > 60 Random Glucose 93 Calcium 8.9 Total Bilirubin 0.6 AST 16 ALT 14 Alkaline Phosphatase 112 Total Protein 6.7 Albumin 3.2 L Urine Color Yellow Urine Appearance Slcloudy Urine pH 5.0 Ur Specific [place] 1.017 Urine Protein Negative Urine Glucose (UA) Negative Urine Ketones Negative Urine Blood 1+ H Urine Nitrite Negative Urine Bilirubin Negative Urine Urobilinogen Negative Ur Leukocyte Esterase 2+ H Urine WBC (Auto) 37 Urine RBC (Auto) 2 Ur Epithelial Cells Rare Urine Bacteria Many Hyaline Casts 3 Urine Mucus Rare RPR Titer 07/20/18 07/21/18 07:30 09:50 WBC RBC Hgb Hct MCV MCH MCHC RDW Plt Count MPV Sodium Potassium Chloride Carbon Dioxide Anion Gap BUN Creatinine Creat Clearance w eGFR Random Glucose Calcium Total Bilirubin AST ALT Alkaline Phosphatase Total Protein Albumin Urine Color Yellow Urine Appearance Slcloudy Urine pH 5.0 Ur Specific [place] 1.013 Urine Protein Negative Urine Glucose (UA) Negative Urine Ketones Negative Urine Blood Negative Urine Nitrite Positive Urine Bilirubin Negative Urine Urobilinogen Negative Ur Leukocyte Esterase 3+ H Urine WBC (Auto) 41 Urine RBC (Auto) <1 Ur Epithelial Cells Rare Urine Bacteria Many Hyaline Casts Urine Mucus Rare RPR Titer Nonreactive Labs reviewed: UA shows nitrite positive Assessment: 07/22/18 11:21 Withdrawal symptoms Noted with gram negative UTI Plan: Continue detox Gram negative UTI: urine cx stat, start ciprofloxacin 500mg PO q12hr x 10 days, follow up with PCP post treatment for further evaluation
[2018-07-22] MEDS: chlordiazePOXIDE HCL 10 MG CAPSULE PO SCH ×2 (16:49→22:28)
[2018-07-22] MEDS ORDERED: CIPROFLOXACIN 500 MG TABLET (RESTRICTED TO ID) PO SCH (22:00)
[2018-07-22] MEDS: THIAMINE HCL 100 MG TABLET (FP) PO SCH (22:29)
[2018-07-22] MEDS: ZOLPIDEM TARTRATE 5 MG TABLET PO PRN (22:31)
[2018-07-22] MEDS: hydrOXYzine PAMOATE 25 MG CAPSULE (FP) PO PRN (23:46)
[2018-07-23] MEDS: chlordiazePOXIDE HCL 10 MG CAPSULE PO SCH ×2 (05:41→10:15)
[2018-07-23] MEDS ORDERED: METHADONE HCL 10 MG TABLET (FOR DETOX USE ONLY) PO SCH (10:00)
[2018-07-23] MEDS: PRENATAL VITAMINS W/ FOLIC ACID TABLET (FP) PO SCH (10:15)
[2018-07-23] MEDS: amLODIPine BESYLATE 5 MG TABLET (FP) PO SCH (10:15)
[2018-07-23] MEDS: APIXABAN 5 MG TABLET PO SCH ×2 (10:15→22:28)
--- NOTE | 2018-07-23 11:57 | PN ---
[facility] Progress Note (SOAP) Subjective: Tremor, interrupted sleep Objective: 07/23/18 11:53 Last Vital Signs Temp Pulse Resp BP Pulse Ox 98.0 F 92 H 20 119/70 07/23/18 09:26 07/23/18 09:26 07/23/18 09:26 07/23/18 09:26 Laboratory Tests 07/19/18 07/20/18 07/20/18 12:03 07:30 07:30 WBC 2.8 L RBC 3.42 L Hgb 11.4 L Hct 34.3 L MCV 100.4 H MCH 33.2 MCHC 33.1 RDW 17.1 H Plt Count 155 MPV 8.0 D Sodium 143 Potassium 4.1 Chloride 106 Carbon Dioxide 30 Anion Gap 7 L BUN 17 Creatinine 0.8 Creat Clearance w eGFR > 60 Random Glucose 93 Calcium 8.9 Total Bilirubin 0.6 AST 16 ALT 14 Alkaline Phosphatase 112 Total Protein 6.7 Albumin 3.2 L Urine Color Yellow Urine Appearance Slcloudy Urine pH 5.0 Ur Specific [place] 1.017 Urine Protein Negative Urine Glucose (UA) Negative Urine Ketones Negative Urine Blood 1+ H Urine Nitrite Negative Urine Bilirubin Negative Urine Urobilinogen Negative Ur Leukocyte Esterase 2+ H Urine WBC (Auto) 37 Urine RBC (Auto) 2 Ur Epithelial Cells Rare Urine Bacteria Many Hyaline Casts 3 Urine Mucus Rare RPR Titer 07/20/18 07/21/18 07:30 09:50 WBC RBC Hgb Hct MCV MCH MCHC RDW Plt Count MPV Sodium Potassium Chloride Carbon Dioxide Anion Gap BUN Creatinine Creat Clearance w eGFR Random Glucose Calcium Total Bilirubin AST ALT Alkaline Phosphatase Total Protein Albumin Urine Color Yellow Urine Appearance Slcloudy Urine pH 5.0 Ur Specific [place] 1.013 Urine Protein Negative Urine Glucose (UA) Negative Urine Ketones Negative Urine Blood Negative Urine Nitrite Positive Urine Bilirubin Negative Urine Urobilinogen Negative Ur Leukocyte Esterase 3+ H Urine WBC (Auto) 41 Urine RBC (Auto) <1 Ur Epithelial Cells Rare Urine Bacteria Many Hyaline Casts Urine Mucus Rare RPR Titer Nonreactive Labs reviewed: UA shows nitrite positive (gram negative UTI) Assessment: 07/23/18 11:56 Withdrawal symptoms Noted with Acute UTI Plan: Continue detox Acute UTI: encouraged PO water hydration, continue levaquin 500mg PO daily, follow up on urine C&S
[2018-07-23] MEDS: hydrOXYzine PAMOATE 25 MG CAPSULE (FP) PO PRN ×2 (15:36→19:49)
[2018-07-23] MEDS: ZOLPIDEM TARTRATE 5 MG TABLET PO PRN (22:27)
[2018-07-23] MEDS: THIAMINE HCL 100 MG TABLET (FP) PO SCH (22:27)
[2018-07-24] MEDS: hydrOXYzine PAMOATE 25 MG CAPSULE (FP) PO PRN (05:42)
[2018-07-24] MEDS ORDERED: METHADONE HCL 5 MG TABLET (FOR DETOX USE ONLY) PO SCH (06:00)
[2018-07-24 09:10] VITALS: BP 130/74; PULSE 101; TEMP 97.9
--- NOTE | 2018-07-24 11:00 | DS ---
[facility] Detox Discharge Summary Admission Date: 07/19/18 Discharge Date: 07/24/18 - History Present History: Alcohol Dependence, Opioid Dependence Additional Comments: Clinical Data Abstractor spoke with patient regarding UTI and his treatment with levaquin and to follow up with his PCP. Patient made aware that medical writer will contact him at [phone] if urine C&S result warrants any change in treatment (if levaquin needs to be changed to another antibiotic). Patient verbalized understanding. Pertinent Past History: HTN GERD PPD Positive DVT - Physical Exam Results Vital Signs: Vital Signs Temperature 97.9 F 07/24/18 09:08 Pulse Rate 101 H 07/24/18 09:08 Respiratory Rate 20 07/24/18 09:08 Blood Pressure 130/74 07/24/18 09:08 O2 Sat by Pulse Oximetry (%) Pertinent Admission Physical Exam Findings: Withdrawal symptoms Laboratory Tests 07/19/18 07/20/18 07/20/18 12:03 07:30 07:30 WBC 2.8 L RBC 3.42 L Hgb 11.4 L Hct 34.3 L MCV 100.4 H MCH 33.2 MCHC 33.1 RDW 17.1 H Plt Count 155 MPV 8.0 D Sodium 143 Potassium 4.1 Chloride 106 Carbon Dioxide 30 Anion Gap 7 L BUN 17 Creatinine 0.8 Creat Clearance w eGFR > 60 Random Glucose 93 Calcium 8.9 Total Bilirubin 0.6 AST 16 ALT 14 Alkaline Phosphatase 112 Total Protein 6.7 Albumin 3.2 L Urine Color Yellow Urine Appearance Slcloudy Urine pH 5.0 Ur Specific [place] 1.017 Urine Protein Negative Urine Glucose (UA) Negative Urine Ketones Negative Urine Blood 1+ H Urine Nitrite Negative Urine Bilirubin Negative Urine Urobilinogen Negative Ur Leukocyte Esterase 2+ H Urine WBC (Auto) 37 Urine RBC (Auto) 2 Ur Epithelial Cells Rare Urine Bacteria Many Hyaline Casts 3 Urine Mucus Rare RPR Titer 07/20/18 07/21/18 07:30 09:50 WBC RBC Hgb Hct MCV MCH MCHC RDW Plt Count MPV Sodium Potassium Chloride Carbon Dioxide Anion Gap BUN Creatinine Creat Clearance w eGFR Random Glucose Calcium Total Bilirubin AST ALT Alkaline Phosphatase Total Protein Albumin Urine Color Yellow Urine Appearance Slcloudy Urine pH 5.0 Ur Specific [place] 1.013 Urine Protein Negative Urine Glucose (UA) Negative Urine Ketones Negative Urine Blood Negative Urine Nitrite Positive Urine Bilirubin Negative Urine Urobilinogen Negative Ur Leukocyte Esterase 3+ H Urine WBC (Auto) 41 Urine RBC (Auto) <1 Ur Epithelial Cells Rare Urine Bacteria Many Hyaline Casts Urine Mucus Rare RPR Titer Nonreactive Labs reviewed: UA nitrite positive (started on levaquin 500mg PO daily x 10 days , already received 3 days, eRx sent for 7 days, encouraged to drink lots of water and to follow up with his PCP within 1-2 weeks for further evaluation). Urine Cx preliminary result shows lactose fermenting negative bacilli, 40,000-50 ,000 cfu/ml - Treatment Hospital Course: Detox Protocol Followed, Detoxed Safely, Responded well, Discharged Condition Good - Medication Discharge Medications: Ambulatory Orders Apixaban [Eliquis -] 5 mg PO BID 15 Days #20 tablet 04/06/18 propRANOLol HCL [Inderal -] 10 mg PO BID 15 Days #30 tablet 04/17/18 Amlodipine Besylate [Norvasc -] 2.5 mg PO DAILY 07/19/18 Amlodipine Besylate [Norvasc -] 5 mg PO DAILY #30 tablet 07/24/18 Levofloxacin [Levaquin] 500 mg PO DAILY #7 tablet 07/24/18 - Diagnosis (1) Alcohol dependence with uncomplicated withdrawal Status: Acute (2) Opioid dependence with withdrawal Status: Acute (3) Essential hypertension Status: Chronic (4) Gastroesophageal reflux disease Status: Chronic Qualifiers: Esophagitis presence: esophagitis presence not specified Qualified Code(s) : K21.9 - Gastro-esophageal reflux disease without esophagitis (5) History of deep venous thrombosis (DVT) of distal vein of left lower extremity Status: Chronic (6) PPD positive, treated Status: Chronic (7) Substance-induced sleep disorder Status: Acute (8) UTI (urinary tract infection) Status: Acute - AMA Did Patient Leave Against Medical Advice: No (F/U with your PCP within 1-2 weeks )
== END 2018-07-24 09:13 | disposition home or self-care (01) | DRG 897 ==
LOC: YASAS 10:21 → Y3N 11:25
PROC: HZ2ZZZZ Detoxification Services for Substance Abuse Treatment (ICD-10-PCS; principal; 2018-07-19)
DX: F11.23 Opioid dependence with withdrawal (principal); F19.282 Other psychoactive substance dependence with psychoactive substance-induced sleep disorder; N39.0 Urinary tract infection, site not specified; F10.230 Alcohol dependence with withdrawal, uncomplicated; I10 Essential (primary) hypertension; K21.9 Gastro-esophageal reflux disease without esophagitis; R82.90 Unspecified abnormal findings in urine; Z86.718 Personal history of other venous thrombosis and embolism; Z79.01 Long term (current) use of anticoagulants; R76.11 Nonspecific reaction to tuberculin skin test without active tuberculosis
CPT/HCPCS: 36415; 80053; 81003; 81015; 85027; 86593; 87086; 87186; 93005; 93010

== ENCOUNTER 2018-12-03 13:00 | Inpatient (IN) | payer OTHER ==
[2018-12-03 14:46] VITALS: BMI 21.7
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
[2018-12-03] MEDS ORDERED: METHADONE HCL 10 MG TABLET (FOR DETOX USE ONLY) PO ONE ×2 (18:37→23:00)
[2018-12-03] MEDS ORDERED: MENTHOL/PHENOL 1 EACH UD MM PRN (18:37)
[2018-12-03] MEDS ORDERED: chlordiazePOXIDE HCL 25 MG CAPSULE PO PRN (18:37)
[2018-12-03] MEDS ORDERED: LOPERAMIDE HCL 2 MG CAPSULE PO PRN (18:37)
[2018-12-03] MEDS ORDERED: MAG HYDROX/AL HYDROX/SIMETH 30 ML UNIT-DOSE CUP PO PRN (18:37)
[2018-12-03] MEDS ORDERED: P-EPHED 60MG/TRIPROLIDI 2.5MG TABLET PO PRN (18:37)
[2018-12-03] MEDS ORDERED: MAGNESIUM CITRATE 300 ML BOTTLE PO PRN (18:37)
[2018-12-03] MEDS ORDERED: ACETAMINOPHEN 325 MG TABLET (FP) PO PRN (18:37)
[2018-12-03] MEDS ORDERED: chlordiazePOXIDE HCL 25 MG CAPSULE PO ONE (18:37)
[2018-12-03] MEDS ORDERED: MAGNESIUM HYDROX 2400MG/30ML ORAL SUSPENSION 30 ML CUP PO PRN (18:37)
[2018-12-03] MEDS ORDERED: cloNIDine HCL 0.1 MG TABLET PO ONE (18:40)
[2018-12-03] MEDS ORDERED: guaiFENesin 200 MG/10 ML 10 ML UNIT-DOSE CUPS PO PRN (18:42)
[2018-12-03] MEDS: APIXABAN 5 MG TABLET PO SCH (22:02)
[2018-12-03] MEDS: chlordiazePOXIDE HCL 25 MG CAPSULE PO SCH (22:02)
[2018-12-03] MEDS: THIAMINE HCL 100 MG TABLET (FP) PO SCH (22:02)
[2018-12-03 23:12] LABS: URINE APPEARANCE CLEAR; URINE BILIRUBIN NEGATIVE (<2.0 mg/dL); URINE COLOR AMBER; URINE GLUCOSE (UA) NEGATIVE (NEGATIVE); URINE KETONE NEGATIVE (NEGATIVE); URINE LEUK ESTERASE NEGATIVE (NEGATIVE); URINE NITRITE NEGATIVE (NEGATIVE); URINE PROTEIN NEGATIVE (NEGATIVE); URINE UROBILINOGEN NEGATIVE mg/dL (0.2-1.0)
[2018-12-04] MEDS: chlordiazePOXIDE HCL 25 MG CAPSULE PO SCH ×4 (05:18→22:25)
[2018-12-04] MEDS ORDERED: METHADONE HCL 10 MG TABLET (FOR DETOX USE ONLY) PO SCH (10:00)
[2018-12-04] MEDS: PRENATAL VITAMINS W/ FOLIC ACID TABLET (FP) PO SCH (10:10)
[2018-12-04] MEDS: APIXABAN 5 MG TABLET PO SCH ×2 (10:12→22:25)
[2018-12-04] MEDS: amLODIPine BESYLATE 10 MG TABLET (FP) PO SCH (10:12)
[2018-12-04 10:30] LABS: HEMOGLOBIN 12.6 GM/dL (11.7-16.9); MCH 36.3 pg (25.7-33.7); MEAN CELL VOLUME 106.8 fl (80-96); MEAN PLT VOLUME 8.3 fl (7.5-11.1); PLATELET COUNT 138 K/MM3 (134-434); RBC 3.47 M/mm3 (4.00-5.60); RDW 15.1 % (11.9-15.9); WHITE BLOOD COUNT 3.6 K/mm3 (4.0-10.0)
[2018-12-04 11:00] LABS: ALBUMIN 3.7 g/dl (3.4-5.0); ALK PHOS 101 U/L (45-117); ANION GAP 7 MMOL/L (8-16); BILIRUBIN,TOTAL 0.9 mg/dL (0.2-1); BLOOD UREA NITROGEN 13 mg/dL (7-18); CALCIUM 8.7 mg/dL (8.5-10.1); CHLORIDE 103 mmol/L (98-107); CO2 30 mmol/L (21-32); CREATININE 0.9 mg/dL (0.55-1.3); GLUCOSE,RANDOM 113 mg/dL (74-106); POTASSIUM 3.4 mmol/L (3.5-5.1); SGOT/AST 34 U/L (15-37); SGPT/ALT 26 U/L (13-61); SODIUM 140 mmol/L (136-145)
[2018-12-04] MEDS ORDERED: traZODone HCL 50 MG TABLET (FP) PO ONE ×2 (11:38→22:00)
--- NOTE | 2018-12-04 11:39 | PN ---
[facility] CIWA - CIWA Score Nausea/Vomitin-Mild Nausea/No Vomiting Muscle Tremors: 3 Anxiety: 4-Mod. Anxious/Guarded Agitation: 3 Paroxysmal Sweats: 1-Minimal Palms Moist Orientation: 1-Uncertain about Date Tacttile Disturbances: 0-None Auditory Disturbances: 0-None Visual Disturbances: 0-None Headache: 1-Very Mild CIWA-Ar Total Score: 14 S COWS - Scale Resting Pulse: 1= MD 81-100 Sweatin= Chills/Flushing Restless Observation: 0= Sits Still Pupil Size: 0= Normal to Room Light Bone or Joint Aches: 1= Mild Discomfort Runny Nose/ Eye Tearin= Nasal Congestion GI Upset > 30mins: 2= Nausea/Diarrhea Tremor Observation of Outstretched Hands: 1= Tremor [place], Not Seen Yawning Observation: 1= 1-2x During Session Anxiety or Irritability: 2=Irritable/Anxious Goose Flesh Skin: 0=Smooth Skin COWS Score: 10 [facility] Progress Note (SOAP) Subjective: body aches muscle pain tremor sweating Objective: 12/04/18 11:36 Vital Signs Temperature 97.2 F L 12/04/18 09:16 Pulse Rate 84 12/04/18 09:16 Respiratory Rate 20 12/04/18 09:16 Blood Pressure 150/81 12/04/18 09:16 O2 Sat by Pulse Oximetry (%) Laboratory Last Values WBC 3.6 K/mm3 (4.0-10.0) L 12/04/18 07:00 RBC 3.47 M/mm3 (4.00-5.60) L 12/04/18 07:00 Hgb 12.6 GM/dL (11.7-16.9) 12/04/18 07:00 Hct 37.0 % (35.4-49) 12/04/18 07:00 MCV 106.8 fl (80-96) H 12/04/18 07:00 MCH 36.3 pg (25.7-33.7) H 12/04/18 07:00 MCHC 34.0 g/dl (32.0-35.9) 12/04/18 07:00 RDW 15.1 % (11.9-15.9) D 12/04/18 07:00 Plt Count 138 K/MM3 (134-434) 12/04/18 07:00 MPV 8.3 fl (7.5-11.1) 12/04/18 07:00 Sodium 140 mmol/L (136-145) 12/04/18 07:00 Potassium 3.4 mmol/L (3.5-5.1) L 12/04/18 07:00 Chloride 103 mmol/L (98-107) 12/04/18 07:00 Carbon Dioxide 30 mmol/L (21-32) 12/04/18 07:00 Anion Gap 7 MMOL/L (8-16) L 12/04/18 07:00 BUN 13 mg/dL (7-18) 12/04/18 07:00 Creatinine 0.9 mg/dL (0.55-1.3) 12/04/18 07:00 Creat Clearance w eGFR > 60 (>60) 12/04/18 07:00 Random Glucose 113 mg/dL (74-106) H 12/04/18 07:00 Calcium 8.7 mg/dL (8.5-10.1) 12/04/18 07:00 Total Bilirubin 0.9 mg/dL (0.2-1) 12/04/18 07:00 AST 34 U/L (15-37) 12/04/18 07:00 ALT 26 U/L (13-61) 12/04/18 07:00 Alkaline Phosphatase 101 U/L (45-117) 12/04/18 07:00 Total Protein 7.0 g/dl (6.4-8.2) 12/04/18 07:00 Albumin 3.7 g/dl (3.4-5.0) 12/04/18 07:00 Urine Color [place] 12/03/18 22:00 Urine Appearance Clear 12/03/18 22:00 Urine pH 5.0 (5.0-8.0) 12/03/18 22:00 Ur Specific [place] 1.016 (1.010-1.035) 12/03/18 22:00 Urine Protein Negative (NEGATIVE) 12/03/18 22:00 Urine Glucose (UA) Negative (NEGATIVE) 12/03/18 22:00 Urine Ketones Negative (NEGATIVE) 12/03/18 22:00 Urine Blood Negative (NEGATIVE) 12/03/18 22:00 Urine Nitrite Negative (NEGATIVE) 12/03/18 22:00 Urine Bilirubin Negative (<2.0 mg/dL) 12/03/18 22:00 Urine Urobilinogen Negative mg/dL (0.2-1.0) 12/03/18 22:00 Ur Leukocyte Esterase Negative (NEGATIVE) 12/03/18 22:00 lab noted low potassium Assessment: 12/04/18 11:38 alcohol and opiate withdrawal sx insomnia treated with trazodone by history encourage requesting melantoion Plan: continue detox trazodone 50 mg x 1 hs
[2018-12-04] MEDS ORDERED: cloNIDine HCL 0.1 MG TABLET PO PRN (11:41)
[2018-12-04] MEDS: POTASSIUM CHLORIDE TABS 20 MEQ TABLET.ER (FP) PO SCH (11:59)
--- NOTE | 2018-12-04 16:47 | EKG ---
Test Reason : Blood Pressure : / mmHG Vent. Rate : 070 BPM Atrial Rate : 070 BPM P-R Int : 138 ms QRS Dur : 074 ms QT Int : 398 ms P-R-T Axes : 073 057 048 degrees QTc Int : 429 ms NORMAL SINUS RHYTHM POSSIBLE LEFT ATRIAL ENLARGEMENT LEFT VENTRICULAR HYPERTROPHY ABNORMAL ECG WHEN COMPARED WITH ECG OF 03-DEC-2018 20:07, ST NO LONGER DEPRESSED IN INFERIOR LEADS Confirmed by JANENE KHAN, CALLIE ([id number]) on 12/04/2018 4:47:32 PM Referred By: LAMBERTO RINCON Confirmed By:CALLIE WATTERS MD
--- NOTE | 2018-12-04 16:47 | EKG ---
Test Reason : Blood Pressure : / mmHG Vent. Rate : 096 BPM Atrial Rate : 096 BPM P-R Int : 134 ms QRS Dur : 070 ms QT Int : 336 ms P-R-T Axes : 079 069 042 degrees QTc Int : 424 ms NORMAL SINUS RHYTHM VOLTAGE CRITERIA FOR LEFT VENTRICULAR HYPERTROPHY NONSPECIFIC ST ABNORMALITY ABNORMAL ECG WHEN COMPARED WITH ECG OF 19-JUL-2018 12:55, ST NOW DEPRESSED IN INFERIOR LEADS Confirmed by JANENE KHAN, CALLIE ([id number]) on 12/04/2018 4:47:41 PM Referred By: Confirmed By:CALLIE WATTERS MD
[2018-12-04] MEDS: THIAMINE HCL 100 MG TABLET (FP) PO SCH (22:25)
[2018-12-05] MEDS: chlordiazePOXIDE HCL 25 MG CAPSULE PO SCH ×3 (05:48→17:11)
[2018-12-05] MEDS: PRENATAL VITAMINS W/ FOLIC ACID TABLET (FP) PO SCH (10:06)
[2018-12-05] MEDS: METHADONE HCL 5 MG TABLET (FOR DETOX USE ONLY) PO SCH (10:06)
[2018-12-05] MEDS: POTASSIUM CHLORIDE TABS 20 MEQ TABLET.ER (FP) PO SCH (10:07)
[2018-12-05] MEDS: amLODIPine BESYLATE 10 MG TABLET (FP) PO SCH (10:07)
[2018-12-05] MEDS: APIXABAN 5 MG TABLET PO SCH ×2 (10:29→22:37)
--- NOTE | 2018-12-05 17:03 | PN ---
[facility] CIWA - CIWA Score Nausea/Vomitin-No Nausea/No Vomiting Muscle Tremors: 3 Anxiety: 3 Agitation: 1-Slight > Activity Paroxysmal Sweats: No Perspiration Orientation: 0-Oriented Tacttile Disturbances: 2-Mild Itch/Numbness/Burn Auditory Disturbances: 0-None Visual Disturbances: 2-Mild Sensitivity Headache: 0-None Present CIWA-Ar Total Score: 11 S COWS - Scale Resting Pulse: 1= SD 81-100 Sweatin= No chills or Flushing Restless Observation: 1= Difficult to Sit Still Pupil Size: 0= Normal to Room Light Bone or Joint Aches: 2= Severe Diffuse Aches Runny Nose/ Eye Tearin= Nasal Congestion GI Upset > 30mins: 0= None Tremor Observation of Outstretched Hands: 2= Slight Tremor Visible Yawning Observation: 1= 1-2x During Session Anxiety or Irritability: 2=Irritable/Anxious Goose Flesh Skin: 0=Smooth Skin COWS Score: 10 S Progress Note (SOAP) Subjective: Interrupted Sleep, Tremors, Body aches. Objective: PATIENT A & O X 3, OBSERVED AMBULATING ON UNIT. IN NO ACUTE DISTRESS. 12/05/18 17:00 Vital Signs Temperature 97.4 F L 12/05/18 13:13 Pulse Rate 88 12/05/18 13:13 Respiratory Rate 18 12/05/18 13:13 Blood Pressure 137/83 12/05/18 13:13 O2 Sat by Pulse Oximetry (%) Laboratory Tests 12/03/18 12/04/18 12/04/18 22:00 07:00 07:00 WBC 3.6 L RBC 3.47 L Hgb 12.6 Hct 37.0 MCV 106.8 H MCH 36.3 H MCHC 34.0 RDW 15.1 D Plt Count 138 MPV 8.3 Sodium 140 Potassium 3.4 L Chloride 103 Carbon Dioxide 30 Anion Gap 7 L BUN 13 Creatinine 0.9 Creat Clearance w eGFR > 60 Random Glucose 113 H Calcium 8.7 Total Bilirubin 0.9 AST 34 ALT 26 Alkaline Phosphatase 101 Total Protein 7.0 Albumin 3.7 Urine Color [place] Urine Appearance Clear Urine pH 5.0 Ur Specific [place] 1.016 Urine Protein Negative Urine Glucose (UA) Negative Urine Ketones Negative Urine Blood Negative Urine Nitrite Negative Urine Bilirubin Negative Urine Urobilinogen Negative Ur Leukocyte Esterase Negative RPR Titer 12/04/18 12/05/18 07:00 15:09 WBC RBC Hgb Hct MCV MCH MCHC RDW Plt Count MPV Sodium Potassium 4.2 Chloride Carbon Dioxide Anion Gap BUN Creatinine Creat Clearance w eGFR Random Glucose Calcium Total Bilirubin AST ALT Alkaline Phosphatase Total Protein Albumin Urine Color Urine Appearance Urine pH Ur Specific [place] Urine Protein Urine Glucose (UA) Urine Ketones Urine Blood Urine Nitrite Urine Bilirubin Urine Urobilinogen Ur Leukocyte Esterase RPR Titer Nonreactive LABS NOTED. RESULT OF REPEAT POTASSIUM LEVEL NOTED. POTASSIUM LEVEL NOW NOTED TO BE WITH NORMAL RANGE. PATIENT HAS HAD LOW WBC LEVELS ON PREVIOUS ADMISSIONS. 12/05/18 17:01 Assessment: 12/05/18 17:00 WITHDRAWAL SYMPTOMS. LEUKOPENIA. 12/05/18 17:02 Plan: CONTINUE DETOX. PRN FLEXERIL PO FOR BODY ACHES / MUSCLE SPASMS.
[2018-12-05] MEDS: CYCLOBENZAPRINE HCL 10 MG TABLET (FP) PO PRN (17:12)
[2018-12-05] MEDS: THIAMINE HCL 100 MG TABLET (FP) PO SCH (22:37)
[2018-12-05] MEDS: MELATONIN 5 MG TABLETS PO PRN (22:38)
[2018-12-05] MEDS: chlordiazePOXIDE 5 MG CAPSULE PO SCH (22:38)
[2018-12-06] MEDS: chlordiazePOXIDE 5 MG CAPSULE PO SCH ×3 (05:46→17:16)
[2018-12-06] MEDS: METHADONE HCL 5 MG TABLET (FOR DETOX USE ONLY) PO SCH (10:22)
[2018-12-06] MEDS: PRENATAL VITAMINS W/ FOLIC ACID TABLET (FP) PO SCH (10:22)
[2018-12-06] MEDS: POTASSIUM CHLORIDE TABS 20 MEQ TABLET.ER (FP) PO SCH (10:23)
[2018-12-06] MEDS: amLODIPine BESYLATE 10 MG TABLET (FP) PO SCH (10:23)
[2018-12-06] MEDS: APIXABAN 5 MG TABLET PO SCH ×2 (10:23→22:02)
[2018-12-06] MEDS: LIDOCAINE 5% TOPICAL PATCH TP SCH (14:30)
--- NOTE | 2018-12-06 14:56 | PN ---
[facility] Progress Note (SOAP) Subjective: Sweating, Tremors, Body Aches, Diarrhea. Objective: PATIENT A & O X 3, OBSERVED AMBULATING ON UNIT. IN NO ACUTE DISTRESS. 12/06/18 14:55 Vital Signs Temperature 98 F 12/06/18 13:19 Pulse Rate 85 12/06/18 13:19 Respiratory Rate 18 12/06/18 13:19 Blood Pressure 124/69 12/06/18 13:19 O2 Sat by Pulse Oximetry (%) Laboratory Tests 12/03/18 12/04/18 12/04/18 22:00 07:00 07:00 WBC 3.6 L RBC 3.47 L Hgb 12.6 Hct 37.0 MCV 106.8 H MCH 36.3 H MCHC 34.0 RDW 15.1 D Plt Count 138 MPV 8.3 Sodium 140 Potassium 3.4 L Chloride 103 Carbon Dioxide 30 Anion Gap 7 L BUN 13 Creatinine 0.9 Creat Clearance w eGFR > 60 Random Glucose 113 H Calcium 8.7 Total Bilirubin 0.9 AST 34 ALT 26 Alkaline Phosphatase 101 Total Protein 7.0 Albumin 3.7 Urine Color Capri Urine Appearance Clear Urine pH 5.0 Ur Specific [place] 1.016 Urine Protein Negative Urine Glucose (UA) Negative Urine Ketones Negative Urine Blood Negative Urine Nitrite Negative Urine Bilirubin Negative Urine Urobilinogen Negative Ur Leukocyte Esterase Negative RPR Titer 12/04/18 12/05/18 07:00 15:09 WBC RBC Hgb Hct MCV MCH MCHC RDW Plt Count MPV Sodium Potassium 4.2 Chloride Carbon Dioxide Anion Gap BUN Creatinine Creat Clearance w eGFR Random Glucose Calcium Total Bilirubin AST ALT Alkaline Phosphatase Total Protein Albumin Urine Color Urine Appearance Urine pH Ur Specific [place] Urine Protein Urine Glucose (UA) Urine Ketones Urine Blood Urine Nitrite Urine Bilirubin Urine Urobilinogen Ur Leukocyte Esterase RPR Titer Nonreactive LABS NOTED. Assessment: 12/06/18 14:56 WITHDRAWAL SYMPTOMS. LEUKOPENIA. Plan: CONTINUE DETOX. LIDODERM PATCH FOR LOWER BACK PAIN.
[2018-12-06] MEDS: chlordiazePOXIDE HCL 10 MG CAPSULE PO SCH (22:02)
[2018-12-06] MEDS: CYCLOBENZAPRINE HCL 10 MG TABLET (FP) PO PRN (22:02)
[2018-12-06] MEDS: THIAMINE HCL 100 MG TABLET (FP) PO SCH (22:02)
[2018-12-06] MEDS: LIDOCAINE PATCH REMOVAL MC SCH (22:03)
[2018-12-06] MEDS: MELATONIN 5 MG TABLETS PO PRN (22:15)
[2018-12-07] MEDS: chlordiazePOXIDE HCL 10 MG CAPSULE PO SCH ×3 (05:51→17:13)
[2018-12-07] MEDS ORDERED: METHADONE HCL 10 MG TABLET (FOR DETOX USE ONLY) PO SCH (10:00)
[2018-12-07] MEDS: amLODIPine BESYLATE 10 MG TABLET (FP) PO SCH (10:10)
[2018-12-07] MEDS: LIDOCAINE 5% TOPICAL PATCH TP SCH (10:10)
[2018-12-07] MEDS: PRENATAL VITAMINS W/ FOLIC ACID TABLET (FP) PO SCH (10:10)
[2018-12-07] MEDS: APIXABAN 5 MG TABLET PO SCH (10:12)
--- NOTE | 2018-12-07 15:56 | PN ---
[facility] CIWA - CIWA Score Nausea/Vomitin-No Nausea/No Vomiting Muscle Tremors: 1-None Visible, but [place] Anxiety: 0-No Anxiety, at Ease Agitation: 0-Normal Activity Paroxysmal Sweats: 1-Minimal Palms Moist Orientation: 0-Oriented Tacttile Disturbances: 0-None Auditory Disturbances: 0-None Visual Disturbances: 0-None Headache: 0-None Present CIWA-Ar Total Score: 2 BHS COWS - Scale Resting Pulse: 1= [place] 81-100 Sweatin= Chills/Flushing Restless Observation: 0= Sits Still Pupil Size: 0= Normal to Room Light Bone or Joint Aches: 1= Mild Discomfort Runny Nose/ Eye Tearin= None GI Upset > 30mins: 0= None Tremor Observation of Outstretched Hands: 1= Tremor [place], Not Seen Yawning Observation: 1= 1-2x During Session Anxiety or Irritability: 1=Feels Anxious/Irritable Goose Flesh Skin: 0=Smooth Skin COWS Score: 6 S Progress Note (SOAP) Subjective: feeling better mild tremor less body aches little sweating sleep better at night report taking eliquis last dose 04/2018 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 [phone] verified that last filled 04/2018 Objective: 12/07/18 15:58 Vital Signs Temperature 97.0 F L 12/07/18 13:37 Pulse Rate 90 12/07/18 13:37 Respiratory Rate 20 12/07/18 13:37 Blood Pressure 117/76 12/07/18 13:37 O2 Sat by Pulse Oximetry (%) Laboratory Last Values WBC 3.6 K/mm3 (4.0-10.0) L 12/04/18 07:00 RBC 3.47 M/mm3 (4.00-5.60) L 12/04/18 07:00 Hgb 12.6 GM/dL (11.7-16.9) 12/04/18 07:00 Hct 37.0 % (35.4-49) 12/04/18 07:00 MCV 106.8 fl (80-96) H 12/04/18 07:00 MCH 36.3 pg (25.7-33.7) H 12/04/18 07:00 MCHC 34.0 g/dl (32.0-35.9) 12/04/18 07:00 RDW 15.1 % (11.9-15.9) D 12/04/18 07:00 Plt Count 138 K/MM3 (134-434) 12/04/18 07:00 MPV 8.3 fl (7.5-11.1) 12/04/18 07:00 Sodium 140 mmol/L (136-145) 12/04/18 07:00 Potassium 4.2 mmol/L (3.5-5.1) 12/05/18 15:09 Chloride 103 mmol/L (98-107) 12/04/18 07:00 Carbon Dioxide 30 mmol/L (21-32) 12/04/18 07:00 Anion Gap 7 MMOL/L (8-16) L 12/04/18 07:00 BUN 13 mg/dL (7-18) 12/04/18 07:00 Creatinine 0.9 mg/dL (0.55-1.3) 12/04/18 07:00 Creat Clearance w eGFR > 60 (>60) 12/04/18 07:00 Random Glucose 113 mg/dL (74-106) H 12/04/18 07:00 Calcium 8.7 mg/dL (8.5-10.1) 12/04/18 07:00 Total Bilirubin 0.9 mg/dL (0.2-1) 12/04/18 07:00 AST 34 U/L (15-37) 12/04/18 07:00 ALT 26 U/L (13-61) 12/04/18 07:00 Alkaline Phosphatase 101 U/L (45-117) 12/04/18 07:00 Total Protein 7.0 g/dl (6.4-8.2) 12/04/18 07:00 Albumin 3.7 g/dl (3.4-5.0) 12/04/18 07:00 Urine Color Capri 12/03/18 22:00 Urine Appearance Clear 12/03/18 22:00 Urine pH 5.0 (5.0-8.0) 12/03/18 22:00 Ur Specific [place] 1.016 (1.010-1.035) 12/03/18 22:00 Urine Protein Negative (NEGATIVE) 12/03/18 22:00 Urine Glucose (UA) Negative (NEGATIVE) 12/03/18 22:00 Urine Ketones Negative (NEGATIVE) 12/03/18 22:00 Urine Blood Negative (NEGATIVE) 12/03/18 22:00 Urine Nitrite Negative (NEGATIVE) 12/03/18 22:00 Urine Bilirubin Negative (<2.0 mg/dL) 12/03/18 22:00 Urine Urobilinogen Negative mg/dL (0.2-1.0) 12/03/18 22:00 Ur Leukocyte Esterase Negative (NEGATIVE) 12/03/18 22:00 RPR Titer Nonreactive (NONREACTIVE) 12/04/18 07:00 lab noted Assessment: 12/07/18 15:58 mild withdrawal sx Plan: continue detox discontinue eliquis
[2018-12-07] MEDS: THIAMINE HCL 100 MG TABLET (FP) PO SCH (22:02)
[2018-12-07] MEDS: LIDOCAINE PATCH REMOVAL MC SCH (22:02)
[2018-12-07] MEDS: CYCLOBENZAPRINE HCL 10 MG TABLET (FP) PO PRN (22:05)
[2018-12-07] MEDS: MELATONIN 5 MG TABLETS PO PRN (22:05)
[2018-12-07] MEDS ORDERED: APIXABAN 5 MG TABLET PO SCH (23:00)
[2018-12-07] MEDS: hydrOXYzine PAMOATE 25 MG CAPSULE (FP) PO PRN (23:02)
[2018-12-08] MEDS: hydrOXYzine PAMOATE 25 MG CAPSULE (FP) PO PRN (05:59)
[2018-12-08] MEDS ORDERED: METHADONE HCL 5 MG TABLET (FOR DETOX USE ONLY) PO SCH (06:00)
[2018-12-08 06:25] VITALS: BP 98/62; PULSE 89; TEMP 97.7
--- NOTE | 2018-12-08 10:13 | DS ---
[facility] Detox Discharge Summary Admission Date: 12/03/18 Discharge Date: 12/08/18 - History Present History: Alcohol Dependence, Opioid Dependence Additional Comments: 68 years old male admitted on 12/03/18 for alcohol and opiate withdrawal stabilization completed detox regimen aftercare [facility] Pertinent Past History: encourage keep medication list in wallet update when medication changed bring bottles of medication to follow up / aftercare appointments strong recommend 12 step community self help group - Physical Exam Results Vital Signs: Vital Signs Temperature 97.7 F 12/08/18 06:00 Pulse Rate 89 12/08/18 06:00 Respiratory Rate 16 12/08/18 06:00 Blood Pressure 98/62 12/08/18 06:00 O2 Sat by Pulse Oximetry (%) Pertinent Admission Physical Exam Findings: alcohol and opiate withdrawal sx Laboratory Last Values WBC 3.6 K/mm3 (4.0-10.0) L 12/04/18 07:00 RBC 3.47 M/mm3 (4.00-5.60) L 12/04/18 07:00 Hgb 12.6 GM/dL (11.7-16.9) 12/04/18 07:00 Hct 37.0 % (35.4-49) 12/04/18 07:00 MCV 106.8 fl (80-96) H 12/04/18 07:00 MCH 36.3 pg (25.7-33.7) H 12/04/18 07:00 MCHC 34.0 g/dl (32.0-35.9) 12/04/18 07:00 RDW 15.1 % (11.9-15.9) D 12/04/18 07:00 Plt Count 138 K/MM3 (134-434) 12/04/18 07:00 MPV 8.3 fl (7.5-11.1) 12/04/18 07:00 Sodium 140 mmol/L (136-145) 12/04/18 07:00 Potassium 4.2 mmol/L (3.5-5.1) 12/05/18 15:09 Chloride 103 mmol/L (98-107) 12/04/18 07:00 Carbon Dioxide 30 mmol/L (21-32) 12/04/18 07:00 Anion Gap 7 MMOL/L (8-16) L 12/04/18 07:00 BUN 13 mg/dL (7-18) 12/04/18 07:00 Creatinine 0.9 mg/dL (0.55-1.3) 12/04/18 07:00 Creat Clearance w eGFR > 60 (>60) 12/04/18 07:00 Random Glucose 113 mg/dL (74-106) H 12/04/18 07:00 Calcium 8.7 mg/dL (8.5-10.1) 12/04/18 07:00 Total Bilirubin 0.9 mg/dL (0.2-1) 12/04/18 07:00 AST 34 U/L (15-37) 12/04/18 07:00 ALT 26 U/L (13-61) 12/04/18 07:00 Alkaline Phosphatase 101 U/L (45-117) 12/04/18 07:00 Total Protein 7.0 g/dl (6.4-8.2) 12/04/18 07:00 Albumin 3.7 g/dl (3.4-5.0) 12/04/18 07:00 Urine Color Capri 12/03/18 22:00 Urine Appearance Clear 12/03/18 22:00 Urine pH 5.0 (5.0-8.0) 12/03/18 22:00 Ur Specific [place] 1.016 (1.010-1.035) 12/03/18 22:00 Urine Protein Negative (NEGATIVE) 12/03/18 22:00 Urine Glucose (UA) Negative (NEGATIVE) 12/03/18 22:00 Urine Ketones Negative (NEGATIVE) 12/03/18 22:00 Urine Blood Negative (NEGATIVE) 12/03/18 22:00 Urine Nitrite Negative (NEGATIVE) 12/03/18 22:00 Urine Bilirubin Negative (<2.0 mg/dL) 12/03/18 22:00 Urine Urobilinogen Negative mg/dL (0.2-1.0) 12/03/18 22:00 Ur Leukocyte Esterase Negative (NEGATIVE) 12/03/18 22:00 RPR Titer Nonreactive (NONREACTIVE) 12/04/18 07:00 lab noted 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 the pharmacy discuss medication assisted treatment program - Treatment Hospital Course: Detox Protocol Followed, Detoxed Safely, Responded well, Discharged Condition Good, Rehab Referral Accepted Patient has Accepted a Rehab Referral to: 12 step self help meeting - Medication Discharge Medications: Ambulatory Orders Amlodipine Besylate [Norvasc -] 10 mg PO DAILY #14 tablet 12/07/18 Apixaban [Eliquis -] 5 mg PO BID 15 Days #20 tablet 12/07/18 propRANOLol HCL [Inderal -] 10 mg PO BID 15 Days #30 tablet 12/07/18 - Diagnosis (1) Alcohol dependence with uncomplicated withdrawal Status: Acute (2) Drug-induced mood disorder Status: Suspected (3) Opioid dependence with withdrawal Status: Acute (4) Weight loss Status: Acute (5) Essential hypertension Status: Chronic (6) Gastroesophageal reflux disease Status: Chronic Qualifiers: Esophagitis presence: esophagitis presence not specified Qualified Code(s) : K21.9 - Gastro-esophageal reflux disease without esophagitis (7) History of deep venous thrombosis (DVT) of distal vein of left lower extremity Status: Chronic (8) PPD positive, treated Status: Resolved - AMA Did Patient Leave Against Medical Advice: No
== END 2018-12-08 09:30 | disposition home or self-care (01) | DRG 897 ==
LOC: YASAS 13:00 → Y3N 19:19
PROVIDERS: ADMIT Surgery; ATTEND Surgery
PROC: HZ2ZZZZ Detoxification Services for Substance Abuse Treatment (ICD-10-PCS; principal; 2018-12-03)
DX: F11.23 Opioid dependence with withdrawal (principal); F10.230 Alcohol dependence with withdrawal, uncomplicated; F19.24 Other psychoactive substance dependence with psychoactive substance-induced mood disorder; I10 Essential (primary) hypertension; K21.9 Gastro-esophageal reflux disease without esophagitis; R76.11 Nonspecific reaction to tuberculin skin test without active tuberculosis; D72.819 Decreased white blood cell count, unspecified; G47.00 Insomnia, unspecified; R01.1 Cardiac murmur, unspecified; R94.31 Abnormal electrocardiogram [ECG] [EKG]; Z86.718 Personal history of other venous thrombosis and embolism; Z79.01 Long term (current) use of anticoagulants
CPT/HCPCS: 36415; 80053; 81003; 84132; 85027; 86593; 93005; 93010; J0735

== ENCOUNTER 2018-12-28 09:17 | Inpatient (IN) | payer OTHER ==
[2018-12-28 09:33] VITALS: BMI 22.3
--- NOTE | 2018-12-28 09:52 | HP ---
COWS - Scale Resting Pulse: 1= [place] 81-100 Sweatin= Chills/Flushing Restless Observation: 3= Extraneous Movement Pupil Size: 1= Pupils >than Normal Bone or Joint Aches: 2= Severe Diffuse Aches Runny Nose/ Eye Tearin= Runny Nose/Eyes GI Upset > 30mins: 2= Nausea/Diarrhea Tremor Observation: 2= Slight Tremor Visible Yawning Observation: 1= 1-2x During Session Anxiety or Irritability: 2=Irritable/Anxious Goose Flesh Skin: 0=Smooth Skin COWS Score: 17 CIWA Score Nausea/Vomitin Muscle Tremors: 2 Anxiety: 2 Agitation: 2 Paroxysmal Sweats: 1-Minimal Palms Moist Orientation: 0-Oriented Tacttile Disturbances: 1-Very Mild Itch/Numbness Auditory Disturbances: 1-Very Mild Visual Disturbances: 0-None Headache: 2-Mild CIWA-Ar Total Score: 13 - Admission Criteria [facility] Guidelines: Admission for Medically Managed Detox: Requires at least one of the followin. CIWA greater than 12 2. Seizures within the past 24 hours 3. Delirium tremens within the past 24 hours 4. Hallucinations within the past 24 hours 5. Acute intervention needed for co occurring medical disorder 6. Acute intervention needed for co occurring psychiatric disorder 7. Severe withdrawal that cannot be handled at a lower level of care (continued vomiting, continued diarrhea, abnormal vital signs) requiring intravenous medication and/or fluids 8. Patient presents the following: CIWA greater than 12 Admission Criteria Met: Admission criteria met Admission ROS [facility] Chief Complaint: i need help to stop using heroin,alcohol Allergies/Adverse Reactions: Allergies Allergy/AdvReac Type Severity Reaction Status Date / Time morphine Allergy Severe Itching Verified 12/28/18 10:21 History of Present Illness: this 68 years old male with heroin,alcohol dependence,withdrawal symptom, seeking detox, multiple admissions in detox but keep on relapsing last detox 12/03/18 to 12/08/18 history of dvt left leg essential hypertension longest period of sobriety 20 years for rehab after detox - Ebola screening Have you traveled outside of the country in the last 21 days: No (N) Have you had contact with anyone from an Ebola affected area: No Have you been sick,other than usual withdrawal symptoms: No Do you have a fever: No - Review of Systems Constitutional: Chills, Loss of Appetite, Malaise, Night Sweats, Changes in sleep, Weakness, Unintentional Wgt. Loss EENT: reports: Tearing, Nose Congestion Respiratory: reports: No Symptoms reported Cardiac: reports: No Symptoms Reported GI: reports: Diarrhea, Nausea, Vomiting, Abdominal cramping : reports: No Symptoms Reported Musculoskeletal: reports: Back Pain, Joint Pain, Muscle Pain, Joint Stiffness Integumentary: reports: Dryness Neuro: reports: Headache, Tremors Endocrine: reports: No Symptoms Reported Hematology: reports: No Symptoms Reported Psychiatric: reports: No Sypmtoms Reported, Judgement Intact, Mood/Affect Appropiate, Orientated x3, other (insomnia) Other Systems: Reviewed and Negative Patient History - Patient Medical History Hx Anemia: No Hx Asthma: No Hx Chronic Obstructive Pulmonary Disease (COPD): No Hx Cancer: No Hx Cardiac Disorders: Yes (MURMUR) Hx Congestive Heart Failure: No Hx Hypertension: Yes (on med) Hx Hypercholesterolemia: No Hx Pacemaker: No HX Cerebrovascular Accident: No Hx Seizures: No Hx Dementia: No Hx Diabetes: No Hx Gastrointestinal Disorders: No Hx Liver Disease: No Hx Genitourinary Disorders: No Hx Sexually Transmitted Disorders: No Hx Renal Disease (ESRD): No Hx Thyroid Disease: No Hx Human Immunodeficiency Virus (HIV): No (LAST 04/13 NEGATIVE.) Hx Hepatitis C: No Hx Depression: Yes (with insomnia) Hx Suicide Attempt: No Hx Bipolar Disorder: No Hx Schizophrenia: No Other Medical History: no suicidal,no homicidal - Patient Surgical History Past Surgical History: Yes Hx Neurologic Surgery: No Hx Cataract Extraction: Yes (cataract sx, left eye, 09/2014, right eye, 04/2017.) Hx Cardiac Surgery: Yes (11/2017 removal of ivc filter in back at [facility]) Hx Lung Surgery: No Hx Breast Surgery: No Hx Breast Biopsy: No Hx Abdominal Surgery: Yes (VASCULAR ABDOMINAL SX NOV 2017) Hx Appendectomy: No Hx Cholecystectomy: No Hx Genitourinary Surgery: No Hx Section: No Hx Orthopedic Surgery: Yes (-right knee fx -surgery after [facility]) Other Surgical History: 1.IVC RT jugular filter 02/06 [facility]. 2.) left inguinal hernia repair Anesthesia Reaction: No (Dizziness, nausea, after surgery in .) - PPD History Previous Implant?: Yes Documented Results: Positive w/proof Implanted On Prior [facility] Admission?: No Date: 03/28/15 Results: CXR(-)02/19/18 PPD to be Administered?: No - Smoking Cessation Smoking history: Never smoked Have you smoked in the past 12 months: No Aproximately how many cigarettes per day: 0 Cigars Per Day: 0 Hx Chewing Tobacco Use: No - Substance & Tx. History Hx Alcohol Use: Yes Hx Substance Use: Yes Substance Use Type: Alcohol, Heroin Hx Substance Use Treatment: Yes ([facility] 12/03/18 to 12/08/18) - Substances Abused Heroin Route: Inhalation Frequency: Daily Amount used: 3 to 5 bags Age of first use: 21 Date of Last Use: 12/27/18 Alcohol Route: Oral Frequency: Daily Amount used: 2pints of vodka/9 of 16 ozs of beer Age of first use: 18 Date of Last Use: 12/27/18 Family Disease History - Family Disease History Family Disease History: Diabetes: Father (HTN--, hx etoh), Heart Disease : Mother (CVA, .), Respiratory: Son (four - one with Asthma.), Other: Father, Brother (dsa and alcohol), Sister (Uses Alcohol.), Son, Daughter (one) Admission Physical Exam S - Vital Signs Vital Signs: Vital Signs - 24 hr 12/28/18 09:31 Temperature 98.3 F Pulse Rate 89 Respiratory 18 Rate Blood Pressure 131/80 - Physical General Appearance: Yes: Moderate Distress, Tremorous, Irritable, Sweating, Anxious HEENTM: Yes: Normal ENT Inspection, SHAN, Pharynx Normal Respiratory: Yes: Within Normal Limits, Lungs Clear, Normal Breath Sounds Neck: Yes: Within Normal Limits, Supple, Trachea in good position Breast: Yes: Within Normal Limits Cardiology: Yes: Within Normal Limits, Regular Rhythm, Regular Rate, S1, S2 Abdominal: Yes: Within Normal Limits, Normal Bowel Sounds, Non Tender, Flat, Soft, Surgical Scar Genitourinary: Yes: Within Normal Limits Back: Yes: Muscle Spasm Musculoskeletal: Yes: Back pain, Muscle Pain Extremities: Yes: Within Normal Limits, Normal Range of Motion, Tremors Neurological: Yes: Fully Oriented, Alert Integumentary: Yes: Dry Lymphatic: Yes: Within Normal Limits - Diagnostic (1) Opioid dependence with withdrawal Current Visit: No Status: Acute (2) Alcohol dependence with uncomplicated withdrawal Current Visit: No Status: Acute (3) Weight loss Current Visit: No Status: Acute (4) History of deep venous thrombosis (DVT) of distal vein of left lower extremity Current Visit: No Status: Chronic (5) History of positive PPD Current Visit: No Status: Chronic (6) Essential hypertension Current Visit: Yes Status: Acute (7) History of left knee surgery Current Visit: Yes Status: Acute (8) S/P IVC filter Current Visit: Yes Status: Acute Cleared for Admission [facility] - Detox or Rehab [facility] Level of Care: Medically Managed Detox Regimen/Protocol: Methadone/Librium [facility] Breath Alcohol Content Breath Alcohol Content: 0.063 Urine Drug Screen - Results Drug Screen Negative: No Urine Drug Screen Results: [place]-Cocaine, OPI-Opiates, BZO-Benzodiazepines, MTD- Methadone, FEN-Fentanyl Inpatient Rehab Admission - Rehab Decision to Admit Inpatient rehab admission?: No
[2018-12-28] MEDS ORDERED: P-EPHED 60MG/TRIPROLIDI 2.5MG TABLET PO PRN (10:08)
[2018-12-28] MEDS ORDERED: MAGNESIUM HYDROX 2400MG/30ML ORAL SUSPENSION 30 ML CUP PO PRN (10:08)
[2018-12-28] MEDS ORDERED: ACETAMINOPHEN 325 MG TABLET (FP) PO PRN (10:08)
[2018-12-28] MEDS ORDERED: METHADONE HCL 10 MG TABLET (FOR DETOX USE ONLY) PO ONE ×2 (10:08→23:00)
[2018-12-28] MEDS ORDERED: chlordiazePOXIDE HCL 25 MG CAPSULE PO PRN (10:08)
[2018-12-28] MEDS ORDERED: IBUPROFEN 400 MG TABLET (FP) PO PRN (10:08)
[2018-12-28] MEDS ORDERED: guaiFENesin/D-METHORPHAN HB 10 ML UNIT-DOSE CUPS PO PRN (10:08)
[2018-12-28] MEDS ORDERED: LOPERAMIDE HCL 2 MG CAPSULE PO PRN (10:08)
[2018-12-28] MEDS ORDERED: MAG HYDROX/AL HYDROX/SIMETH 30 ML UNIT-DOSE CUP PO PRN (10:08)
[2018-12-28] MEDS ORDERED: MAGNESIUM CITRATE 300 ML BOTTLE PO PRN (10:08)
[2018-12-28] MEDS ORDERED: MENTHOL/PHENOL 1 EACH UD MM PRN (10:08)
[2018-12-28] MEDS: chlordiazePOXIDE HCL 25 MG CAPSULE PO SCH ×2 (17:09→22:10)
[2018-12-28] MEDS: THIAMINE HCL 100 MG TABLET (FP) PO SCH (22:10)
[2018-12-28] MEDS: APIXABAN 5 MG TABLET PO SCH (22:11)
[2018-12-28] MEDS: MELATONIN 5 MG TABLETS PO PRN (22:11)
[2018-12-29] MEDS: chlordiazePOXIDE HCL 25 MG CAPSULE PO SCH ×4 (05:13→22:06)
[2018-12-29] MEDS ORDERED: METHADONE HCL 10 MG TABLET (FOR DETOX USE ONLY) PO SCH (10:00)
[2018-12-29] MEDS: amLODIPine BESYLATE 5 MG TABLET (FP) PO SCH (10:14)
[2018-12-29] MEDS: PRENATAL VITAMINS W/ FOLIC ACID TABLET (FP) PO SCH (10:14)
[2018-12-29 10:18] LABS: ALK PHOS 106 U/L (45-117); ANION GAP 8 MMOL/L (8-16); BILIRUBIN,TOTAL 0.5 mg/dL (0.2-1); BLOOD UREA NITROGEN 13 mg/dL (7-18); CALCIUM 8.7 mg/dL (8.5-10.1); CHLORIDE 109 mmol/L (98-107); CO2 28 mmol/L (21-32); CREATININE 0.8 mg/dL (0.55-1.3); GLUCOSE,RANDOM 103 mg/dL (74-106); POTASSIUM 3.9 mmol/L (3.5-5.1); SGOT/AST 14 U/L (15-37); SGPT/ALT 11 U/L (13-61); SODIUM 145 mmol/L (136-145); TOT PROT 6.1 g/dl (6.4-8.2)
[2018-12-29 10:28] LABS: HEMATOCRIT 31.9 % (35.4-49); HEMOGLOBIN 10.9 GM/dL (11.7-16.9); MCH 35.9 pg (25.7-33.7); MCHC 34.1 g/dl (32.0-35.9); MEAN CELL VOLUME 105.2 fl (80-96); MEAN PLT VOLUME 8.3 fl (7.5-11.1); PLATELET COUNT 152 K/MM3 (134-434); RBC 3.03 M/mm3 (4.00-5.60); WHITE BLOOD COUNT 3.5 K/mm3 (4.0-10.0)
[2018-12-29] MEDS: APIXABAN 5 MG TABLET PO SCH ×2 (13:00→22:06)
--- NOTE | 2018-12-29 13:04 | PN ---
S CIWA - CIWA Score Nausea/Vomitin Muscle Tremors: 4-Moderate,w/Arms Extend Anxiety: 3 Agitation: 0-Normal Activity Paroxysmal Sweats: No Perspiration Orientation: 0-Oriented Tacttile Disturbances: 2-Mild Itch/Numbness/Burn Auditory Disturbances: 2-Mild Harshness/Frighten Visual Disturbances: 0-None Headache: 0-None Present CIWA-Ar Total Score: 14 S COWS - Scale Resting Pulse: 0= [place] 80 or Below Sweatin= Chills/Flushing Restless Observation: 1= Difficult to Sit Still Pupil Size: 0= Normal to Room Light Bone or Joint Aches: 0= None Runny Nose/ Eye Tearin= Nasal Congestion GI Upset > 30mins: 2= Nausea/Diarrhea Tremor Observation of Outstretched Hands: 2= Slight Tremor Visible Yawning Observation: 1= 1-2x During Session Anxiety or Irritability: 2=Irritable/Anxious Goose Flesh Skin: 0=Smooth Skin COWS Score: 10 S Progress Note (SOAP) Subjective: Interrupted Sleep, Diarrhea, Tremors, Stomach Cramping. Objective: PATIENT A & O X 3, OBSERVED AMBULATING ON UNIT. IN NO ACUTE DISTRESS. PATIENT DENIES CHEST PAIN. 12/29/18 13:01 Vital Signs Temperature 97.5 F L 12/29/18 09:20 Pulse Rate 76 12/29/18 09:20 Respiratory Rate 18 12/29/18 09:20 Blood Pressure 154/87 12/29/18 09:20 O2 Sat by Pulse Oximetry (%) Laboratory Tests 12/29/18 12/29/18 12/29/18 07:00 07:00 07:00 WBC 3.5 L RBC 3.03 L Hgb 10.9 L Hct 31.9 L MCV 105.2 H MCH 35.9 H MCHC 34.1 RDW 14.0 Plt Count 152 MPV 8.3 Sodium 145 Potassium 3.9 Chloride 109 H Carbon Dioxide 28 Anion Gap 8 BUN 13 Creatinine 0.8 Creat Clearance w eGFR > 60 Random Glucose 103 Calcium 8.7 Total Bilirubin 0.5 AST 14 L ALT 11 L Alkaline Phosphatase 106 Total Protein 6.1 L Albumin 3.0 L RPR Titer Nonreactive HIV 1&2 Antibody Screen HIV P24 Antigen 12/29/18 07:00 WBC RBC Hgb Hct MCV MCH MCHC RDW Plt Count MPV Sodium Potassium Chloride Carbon Dioxide Anion Gap BUN Creatinine Creat Clearance w eGFR Random Glucose Calcium Total Bilirubin AST ALT Alkaline Phosphatase Total Protein Albumin RPR Titer HIV 1&2 Antibody Screen Negative HIV P24 Antigen Negative LABS NOTED. PATIENT HAS BEEN ANEMIA AND HAS HAD LOW WBC COUNT ON SEVERAL PREVIOUS ADMISSIONS. 12/29/18 13:04 Assessment: 12/29/18 13:02 WITHDRAWAL SYMPTOMS. ANEMIA (MACROCYTIC). LEUKOPENIA. 12/29/18 13:04 12/29/18 13:06 Plan: CONTINUE DETOX. INCREASE DAILY PO FLUID INTAKE. PRN IMMODIUM FOR DIARRHEA. PATIENT IS CURRENTLY RECEIVING DAILY MVI CONTAINING B VITAMINS AND IRON WHILE ADMITTED FOR DETOX. REPEAT CBC ON 12/31/2018 TO SEE IF ANY CHANGE IN WBC, HGB, HCT, RBC LEVELS.
--- NOTE | 2018-12-29 13:59 | EKG ---
Test Reason : Blood Pressure : / mmHG Vent. Rate : 073 BPM Atrial Rate : 073 BPM P-R Int : 162 ms QRS Dur : 074 ms QT Int : 390 ms P-R-T Axes : 071 062 032 degrees QTc Int : 429 ms NORMAL SINUS RHYTHM WITH SINUS ARRHYTHMIA NORMAL ECG WHEN COMPARED WITH ECG OF 04-DEC-2018 11:42, T WAVE VARIATION Confirmed by KEVIN MCCLAIN MD ([id number]) on 12/29/2018 1:59:10 PM Referred By: ASHLEY HEARD Confirmed By:KEVIN MCCLAIN MD
[2018-12-29] MEDS: THIAMINE HCL 100 MG TABLET (FP) PO SCH (22:06)
[2018-12-29] MEDS: MELATONIN 5 MG TABLETS PO PRN (22:06)
[2018-12-30] MEDS: chlordiazePOXIDE HCL 25 MG CAPSULE PO SCH ×2 (05:29→10:35)
--- NOTE | 2018-12-30 09:43 | PN ---
S CIWA - CIWA Score Nausea/Vomitin Muscle Tremors: 2 Anxiety: 2 Agitation: 2 Paroxysmal Sweats: 1-Minimal Palms Moist Orientation: 0-Oriented Tacttile Disturbances: 1-Very Mild Itch/Numbness Auditory Disturbances: 1-Very Mild Visual Disturbances: 0-None Headache: 2-Mild CIWA-Ar Total Score: 13 BHS COWS - Scale Resting Pulse: 0= [place] 80 or Below Sweatin= Chills/Flushing Restless Observation: 3= Extraneous Movement Pupil Size: 1= Pupils >than Normal Bone or Joint Aches: 2= Severe Diffuse Aches Runny Nose/ Eye Tearin= Nasal Congestion GI Upset > 30mins: 2= Nausea/Diarrhea Tremor Observation of Outstretched Hands: 2= Slight Tremor Visible Yawning Observation: 1= 1-2x During Session Anxiety or Irritability: 2=Irritable/Anxious Goose Flesh Skin: 0=Smooth Skin COWS Score: 15 BHS Progress Note (SOAP) Subjective: alert,irritable,anxious,interrupted sleep,pain in body and back, Objective: 12/30/18 09:42 Vital Signs Temperature 97.9 F 12/30/18 09:24 Pulse Rate 65 12/30/18 09:24 Respiratory Rate 18 12/30/18 09:24 Blood Pressure 155/76 12/30/18 09:24 O2 Sat by Pulse Oximetry (%) Assessment: 12/30/18 09:43 withdrawal symptom Plan: continue detox,patient has borderlined anemia,no evidence of any source of bleeding,awaiting for repeat cbc
[2018-12-30 10:22] LABS: URINE APPEARANCE CLEAR; URINE BILIRUBIN NEGATIVE (<2.0 mg/dL); URINE COLOR STRAW; URINE GLUCOSE (UA) 1+ (NEGATIVE); URINE KETONE NEGATIVE (NEGATIVE); URINE LEUK ESTERASE NEGATIVE (NEGATIVE); URINE NITRITE NEGATIVE (NEGATIVE); URINE PROTEIN NEGATIVE (NEGATIVE); URINE UROBILINOGEN NEGATIVE mg/dL (0.2-1.0)
[2018-12-30] MEDS: APIXABAN 5 MG TABLET PO SCH ×2 (10:35→22:17)
[2018-12-30] MEDS: PRENATAL VITAMINS W/ FOLIC ACID TABLET (FP) PO SCH (10:35)
[2018-12-30] MEDS: amLODIPine BESYLATE 5 MG TABLET (FP) PO SCH (10:35)
[2018-12-30] MEDS: METHADONE HCL 5 MG TABLET (FOR DETOX USE ONLY) PO SCH (10:36)
[2018-12-30 16:17] LABS: HEMATOCRIT 33.7 % (35.4-49); HEMOGLOBIN 11.6 GM/dL (11.7-16.9); MCH 36.5 pg (25.7-33.7); MCHC 34.5 g/dl (32.0-35.9); MEAN CELL VOLUME 105.8 fl (80-96); MEAN PLT VOLUME 8.6 fl (7.5-11.1); PLATELET COUNT 173 K/MM3 (134-434); RBC 3.19 M/mm3 (4.00-5.60); RDW 14.4 % (11.9-15.9); WHITE BLOOD COUNT 4.2 K/mm3 (4.0-10.0)
[2018-12-30] MEDS: chlordiazePOXIDE 5 MG CAPSULE PO SCH ×2 (17:46→22:16)
[2018-12-30] MEDS: THIAMINE HCL 100 MG TABLET (FP) PO SCH (22:17)
[2018-12-30] MEDS: MELATONIN 5 MG TABLETS PO PRN (22:17)
[2018-12-31] MEDS: chlordiazePOXIDE 5 MG CAPSULE PO SCH ×2 (05:22→10:24)
[2018-12-31] MEDS: amLODIPine BESYLATE 5 MG TABLET (FP) PO SCH (10:22)
[2018-12-31] MEDS: PRENATAL VITAMINS W/ FOLIC ACID TABLET (FP) PO SCH (10:23)
[2018-12-31] MEDS: METHADONE HCL 5 MG TABLET (FOR DETOX USE ONLY) PO SCH (10:24)
[2018-12-31] MEDS: APIXABAN 5 MG TABLET PO SCH ×2 (10:25→22:09)
[2018-12-31 10:32] LABS: BASO % 0.6 % (0-2.0); EOS % 5.8 % (0-4.5); HEMATOCRIT 31.4 % (35.4-49); HEMOGLOBIN 10.8 GM/dL (11.7-16.9); LYMPH % 36.3 % (8-40); MCHC 34.4 g/dl (32.0-35.9); MEAN CELL VOLUME 104.5 fl (80-96); MEAN PLT VOLUME 8.3 fl (7.5-11.1); MONO % 11.1 % (3.8-10.2); NEUT % 46.2 % (42.8-82.8); PLATELET COUNT 153 K/MM3 (134-434); WHITE BLOOD COUNT 3.2 K/mm3 (4.0-10.0)
--- NOTE | 2018-12-31 14:18 | PN ---
[facility] Progress Note (SOAP) Subjective: pt here for a alcohol and heroin detox- continue detox protocols O: Vital Signs - 24 hr 12/30/18 12/30/18 12/31/18 17:10 21:16 00:30 Temperature 98.1 F 98.1 F Pulse Rate 81 72 Respiratory 18 18 18 Rate Blood Pressure 125/69 128/73 12/31/18 12/31/18 12/31/18 03:30 07:45 09:12 Temperature 97.3 F L 97.2 F L Pulse Rate 68 74 Respiratory 18 18 18 Rate Blood Pressure 133/70 125/57 L 12/31/18 12:55 Temperature 99.3 F Pulse Rate 82 Respiratory 18 Rate Blood Pressure 137/97 Laboratory Tests 12/29/18 12/29/18 12/29/18 07:00 07:00 07:00 WBC 3.5 L RBC 3.03 L Hgb 10.9 L Hct 31.9 L MCV 105.2 H MCH 35.9 H MCHC 34.1 RDW 14.0 Plt Count 152 MPV 8.3 Absolute Neuts (auto) Neutrophils % Lymphocytes % Monocytes % Eosinophils % Basophils % Nucleated RBC % Sodium 145 Potassium 3.9 Chloride 109 H Carbon Dioxide 28 Anion Gap 8 BUN 13 Creatinine 0.8 Creat Clearance w eGFR > 60 Random Glucose 103 Calcium 8.7 Total Bilirubin 0.5 AST 14 L ALT 11 L Alkaline Phosphatase 106 Total Protein 6.1 L Albumin 3.0 L Urine Color Urine Appearance Urine pH Ur Specific [place] Urine Protein Urine Glucose (UA) Urine Ketones Urine Blood Urine Nitrite Urine Bilirubin Urine Urobilinogen Ur Leukocyte Esterase RPR Titer Nonreactive HIV 1&2 Antibody Screen HIV P24 Antigen a/p: pt doing well on alcohol and heroin detox protocols: pt states would consider MAT suboxone/methadone post d/c
[2018-12-31] MEDS: chlordiazePOXIDE HCL 10 MG CAPSULE PO SCH ×2 (17:52→22:09)
[2018-12-31] MEDS: MELATONIN 5 MG TABLETS PO PRN (22:09)
[2018-12-31] MEDS: THIAMINE HCL 100 MG TABLET (FP) PO SCH (22:09)
[2019-01-01] MEDS: chlordiazePOXIDE HCL 10 MG CAPSULE PO SCH ×2 (06:27→10:33)
--- NOTE | 2019-01-01 09:37 | PN ---
S Progress Note (SOAP) Subjective: alert,irritable,interrupted sleep,no evidence of bleeding,no bleeding from gum, normal bowel movement,no hematuria history of borderlined anemia Objective: 01/01/19 09:35 Vital Signs Temperature 97.7 F 01/01/19 09:34 Pulse Rate 78 01/01/19 09:34 Respiratory Rate 18 01/01/19 09:34 Blood Pressure 119/69 01/01/19 09:34 O2 Sat by Pulse Oximetry (%) Assessment: 01/01/19 09:35 withdrawal symptom Plan: continue detox,advise nutritional support,ensure plus 120 mls po bid,follow up with pmd for medical problem, discharge in am
[2019-01-01] MEDS ORDERED: METHADONE HCL 10 MG TABLET (FOR DETOX USE ONLY) PO SCH (10:00)
[2019-01-01] MEDS: APIXABAN 5 MG TABLET PO SCH ×2 (10:33→21:59)
[2019-01-01] MEDS: amLODIPine BESYLATE 5 MG TABLET (FP) PO SCH (10:33)
[2019-01-01] MEDS: PRENATAL VITAMINS W/ FOLIC ACID TABLET (FP) PO SCH (10:33)
[2019-01-01] MEDS: hydrOXYzine PAMOATE 25 MG CAPSULE (FP) PO PRN ×3 (11:38→22:01)
[2019-01-01 20:59] VITALS: TEMP 97.9
[2019-01-01] MEDS: THIAMINE HCL 100 MG TABLET (FP) PO SCH (21:59)
[2019-01-01] MEDS: MELATONIN 5 MG TABLETS PO PRN (22:01)
[2019-01-02] MEDS: hydrOXYzine PAMOATE 25 MG CAPSULE (FP) PO PRN ×2 (05:27→09:34)
[2019-01-02] MEDS ORDERED: METHADONE HCL 5 MG TABLET (FOR DETOX USE ONLY) PO SCH (06:00)
--- NOTE | 2019-01-02 08:35 | DS ---
[facility] Detox Discharge Summary Admission Date: 12/28/18 Discharge Date: 01/02/19 - History Present History: Alcohol Dependence, Opioid Dependence - Physical Exam Results Vital Signs: Vital Signs Temperature 97.9 F 01/02/19 06:13 Pulse Rate 73 01/02/19 06:13 Respiratory Rate 18 01/02/19 06:13 Blood Pressure 110/60 01/02/19 06:13 O2 Sat by Pulse Oximetry (%) - Treatment Hospital Course: Detox Protocol Followed, Detoxed Safely, Responded well, Discharged Condition Good, Rehab Referral Accepted - Medication Discharge Medications: Ambulatory Orders Amlodipine Besylate [Norvasc -] 10 mg PO DAILY #14 tablet 12/07/18 Apixaban [Eliquis -] 5 mg PO BID 15 Days #20 tablet 12/07/18 propRANOLol HCL [Inderal -] 10 mg PO BID 15 Days #30 tablet 12/07/18 - Diagnosis (1) Essential hypertension Current Visit: Yes Status: Chronic (2) History of left knee surgery Current Visit: No Status: Chronic (3) S/P IVC filter Current Visit: No Status: Chronic (4) Alcohol dependence with uncomplicated withdrawal Current Visit: Yes Status: Chronic (5) Opioid dependence with withdrawal Current Visit: Yes Status: Chronic (6) Abnormal EKG Current Visit: No Status: Chronic (7) Anticoagulant long-term use Current Visit: Yes Status: Chronic (8) Essential hypertension Current Visit: Yes Status: Chronic (9) Gastroesophageal reflux disease Current Visit: Yes Status: Chronic Qualifiers: Esophagitis presence: without esophagitis Qualified Code(s): K21.9 - Gastro -esophageal reflux disease without esophagitis (10) History of deep venous thrombosis (DVT) of distal vein of left lower extremity Current Visit: No Status: Chronic (11) History of positive PPD Current Visit: No Status: Chronic (12) Involuntary trembling Current Visit: No Status: Chronic (13) Murmur, cardiac Current Visit: No Status: Chronic (14) Anxiety with depression Current Visit: No Status: Suspected (15) Drug-induced mood disorder Current Visit: No Status: Suspected (16) PPD positive, treated Current Visit: No Status: Resolved - AMA Did Patient Leave Against Medical Advice: No (pt referred to inpatient rehab [facility])
[2019-01-02 09:05] VITALS: BP 123/71; PULSE 80
[2019-01-02] MEDS: PRENATAL VITAMINS W/ FOLIC ACID TABLET (FP) PO SCH (09:34)
[2019-01-02] MEDS: APIXABAN 5 MG TABLET PO SCH (09:34)
[2019-01-02] MEDS: amLODIPine BESYLATE 5 MG TABLET (FP) PO SCH (09:34)
== END 2019-01-02 12:01 | disposition home or self-care (01) | DRG 897 ==
LOC: YASAS 09:17 → Y6N 10:15
PROVIDERS: ADMIT Surgery; ATTEND Surgery
PROC: HZ2ZZZZ Detoxification Services for Substance Abuse Treatment (ICD-10-PCS; principal; 2018-12-28)
PROC: HZ2ZZZZ Detoxification Services for Substance Abuse Treatment (ICD-10-PCS; 2018-12-28)
DX: F11.23 Opioid dependence with withdrawal (principal); F10.230 Alcohol dependence with withdrawal, uncomplicated; F41.8 Other specified anxiety disorders; F32.9 Major depressive disorder, single episode, unspecified; F19.24 Other psychoactive substance dependence with psychoactive substance-induced mood disorder; I10 Essential (primary) hypertension; K21.9 Gastro-esophageal reflux disease without esophagitis; R01.1 Cardiac murmur, unspecified; R94.31 Abnormal electrocardiogram [ECG] [EKG]; R25.1 Tremor, unspecified; R76.11 Nonspecific reaction to tuberculin skin test without active tuberculosis; Z86.718 Personal history of other venous thrombosis and embolism; Z79.01 Long term (current) use of anticoagulants; Z98.890 Other specified postprocedural states; Z95.828 Presence of other vascular implants and grafts
CPT/HCPCS: 36415; 80053; 81003; 85025; 85027; 86593; 87389; 93005; 93010

== ENCOUNTER 2019-05-18 18:30 | Inpatient (IN) | payer OTHER | END 2019-05-24 09:13 | disposition home or self-care (01) | LOC: YASAS 18:30 → Y6N 23:53 ==

== ENCOUNTER 2019-08-10 15:48 | Inpatient (IN) | payer OTHER ==
[2019-08-10 17:32] VITALS: BMI 21.7
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
--- NOTE | 2019-08-10 19:47 | PN ---
Teaching Attending Note Name of Resident: Maynor Dewey ATTENDING PHYSICIAN STATEMENT I saw and evaluated the patient. I reviewed the resident's note and discussed the case with the resident. I agree with the resident's findings and plan as documented. SUBJECTIVE: 69 yo with alcohol use disorder and opioid use disorder OBJECTIVE: Vital Signs - 24 hr 08/10/19 08/10/19 17:18 19:12 Temperature 98.2 F 98.2 F Pulse Rate 77 77 Respiratory 20 20 Rate Blood Pressure 128/77 128/77 ASSESSMENT AND PLAN: Alcohol use disorder- librium detox Opioid use disorder- methadone detox
[2019-08-10] MEDS ORDERED: MENTHOL/PHENOL 1 EACH UD MM PRN (19:51)
[2019-08-10] MEDS ORDERED: MAG HYDROX/AL HYDROX/SIMETH 30 ML UNIT-DOSE CUP PO PRN (19:51)
[2019-08-10] MEDS ORDERED: METHADONE HCL 10 MG TABLET (FOR DETOX USE ONLY) PO ONE (19:51)
[2019-08-10] MEDS ORDERED: MAGNESIUM CITRATE 300 ML BOTTLE PO PRN (19:51)
[2019-08-10] MEDS ORDERED: MAGNESIUM HYDROX 2400MG/30ML ORAL SUSPENSION 30 ML CUP PO PRN (19:51)
[2019-08-10] MEDS ORDERED: BISMUTH SUBSALICYLATE 524 MG/30 ML UD PO PRN (19:51)
[2019-08-10] MEDS ORDERED: cloNIDine HCL 0.1 MG TABLET PO PRN (19:51)
[2019-08-10] MEDS ORDERED: ACETAMINOPHEN 325 MG TABLET (FP) PO PRN ×3 (19:51→19:56)
[2019-08-10] MEDS ORDERED: chlordiazePOXIDE HCL 25 MG CAPSULE PO ONE (19:53)
[2019-08-10] MEDS: APIXABAN 5 MG TABLET PO SCH (21:29)
[2019-08-10] MEDS: THIAMINE HCL 100 MG TABLET (FP) PO SCH (21:29)
[2019-08-10] MEDS: MELATONIN 5 MG TABLETS PO PRN (21:32)
[2019-08-11] MEDS ORDERED: chlordiazePOXIDE HCL 10 MG CAPSULE PO PRN (05:00)
[2019-08-11] MEDS: chlordiazePOXIDE HCL 25 MG CAPSULE PO SCH ×3 (05:50→22:09)
[2019-08-11 09:33] LABS: HEMATOCRIT 34.9 % (35.4-49); HEMOGLOBIN 11.5 GM/dL (11.7-16.9); MCH 34.7 pg (25.7-33.7); MEAN CELL VOLUME 105.2 fl (80-96); MEAN PLT VOLUME 8.4 fl (7.5-11.1); PLATELET COUNT 122 K/MM3 (134-434); RBC 3.32 M/mm3 (4.00-5.60); RDW 14.4 % (11.9-15.9); WHITE BLOOD COUNT 3.1 K/mm3 (4.0-10.0)
[2019-08-11 09:55] LABS: ALBUMIN 3.7 g/dl (3.4-5.0); BILIRUBIN,TOTAL 0.9 mg/dL (0.2-1); BLOOD UREA NITROGEN 12.7 mg/dL (7-18); CALCIUM 8.3 mg/dL (8.5-10.1); CREATININE 0.8 mg/dL (0.55-1.3); POTASSIUM 3.6 mmol/L (3.5-5.1); TOT PROT 6.8 g/dl (6.4-8.2)
[2019-08-11] MEDS ORDERED: PRENATAL VITAMINS W/ FOLIC ACID TABLET (FP) PO SCH (10:00)
[2019-08-11] MEDS ORDERED: METHADONE HCL 5 MG TABLET (FOR DETOX USE ONLY) PO ONE (10:00)
[2019-08-11] MEDS: amLODIPine BESYLATE 10 MG TABLET (FP) PO SCH (10:20)
[2019-08-11] MEDS: MULTIVIT-MINERALS ORAL LIQUID PO SCH (12:19)
[2019-08-11] MEDS: APIXABAN 5 MG TABLET PO SCH ×2 (12:20→22:09)
[2019-08-11] MEDS: METHOCARBAMOL 500 MG TABLET PO PRN (12:23)
--- NOTE | 2019-08-11 14:54 | PN ---
[facility] CIWA - CIWA Score Nausea/Vomitin-No Nausea/No Vomiting Muscle Tremors: 3 Anxiety: 3 Agitation: 3 Paroxysmal Sweats: No Perspiration Orientation: 0-Oriented Tacttile Disturbances: 2-Mild Itch/Numbness/Burn Auditory Disturbances: 0-None Visual Disturbances: 2-Mild Sensitivity Headache: 0-None Present CIWA-Ar Total Score: 13 S COWS - Scale Resting Pulse: 1= [place] 81-100 Sweatin= No chills or Flushing Restless Observation: 1= Difficult to Sit Still Pupil Size: 0= Normal to Room Light Bone or Joint Aches: 2= Severe Diffuse Aches Runny Nose/ Eye Tearin= None GI Upset > 30mins: 0= None Tremor Observation of Outstretched Hands: 2= Slight Tremor Visible Yawning Observation: 1= 1-2x During Session Anxiety or Irritability: 2=Irritable/Anxious Goose Flesh Skin: 3=Piloerection COWS Score: 12 S Progress Note (SOAP) Subjective: Interrupted Sleep, Body Aches, Tremors. Objective: PATIENT A & O X 3, OBSERVED AMBULATING ON DETOX UNIT UNASSISTED. IN NO ACUTE DISTRESS. 08/11/19 14:52 Vital Signs Temperature 99.2 F 08/11/19 13:08 Pulse Rate 83 08/11/19 13:08 Respiratory Rate 18 08/11/19 13:08 Blood Pressure 128/75 08/11/19 13:08 O2 Sat by Pulse Oximetry (%) Laboratory Tests 08/11/19 08/11/19 08/11/19 07:50 07:50 07:50 WBC 3.1 L RBC 3.32 L Hgb 11.5 L Hct 34.9 L MCV 105.2 H MCH 34.7 H MCHC 33.0 RDW 14.4 Plt Count 122 L MPV 8.4 Sodium 144 Potassium 3.6 Chloride 104 Carbon Dioxide 32 Anion Gap 7 L BUN 12.7 Creatinine 0.8 Est GFR (CKD-EPI)AfAm 105.64 Est GFR (CKD-EPI)NonAf 91.15 Random Glucose 104 Calcium 8.3 L Total Bilirubin 0.9 AST 46 H ALT 49 Alkaline Phosphatase 93 Total Protein 6.8 Albumin 3.7 RPR Titer Nonreactive LABS NOTED. Assessment: 08/11/19 14:53 WITHDRAWAL SYMPTOMS. PANCYTOPENIA. ELEVATED AST LEVEL. Plan: CONTINUE DETOX. INCREASE DAILY PO WATER INTAKE. PATIENT IS CURRENTLY RECEIVING DAILY MVI CONTAINING B VITAMINS AND IRON WHILE ADMITTED FOR DETOX.
[2019-08-11] MEDS: MELATONIN 5 MG TABLETS PO PRN (22:09)
[2019-08-11] MEDS: THIAMINE HCL 100 MG TABLET (FP) PO SCH (22:09)
[2019-08-12] MEDS: hydrOXYzine PAMOATE 25 MG CAPSULE (FP) PO PRN (01:16)
[2019-08-12] MEDS: chlordiazePOXIDE 5 MG CAPSULE PO SCH ×3 (05:19→22:08)
[2019-08-12] MEDS ORDERED: METHADONE HCL 10 MG TABLET (FOR DETOX USE ONLY) PO ONE (10:00)
[2019-08-12] MEDS: amLODIPine BESYLATE 10 MG TABLET (FP) PO SCH (10:17)
[2019-08-12] MEDS: APIXABAN 5 MG TABLET PO SCH ×2 (10:17→22:08)
[2019-08-12] MEDS: METHOCARBAMOL 500 MG TABLET PO PRN (10:17)
[2019-08-12] MEDS: MULTIVIT-MINERALS ORAL LIQUID PO SCH (10:18)
[2019-08-12] MEDS ORDERED: chlordiazePOXIDE HCL 25 MG CAPSULE PO ONE (15:07)
--- NOTE | 2019-08-12 15:09 | PN ---
S CIWA - CIWA Score Nausea/Vomitin Muscle Tremors: 4-Moderate,w/Arms Extend Anxiety: 3 Agitation: 1-Slight > Activity Paroxysmal Sweats: 2 Orientation: 0-Oriented Tacttile Disturbances: 1-Very Mild Itch/Numbness Auditory Disturbances: 0-None Visual Disturbances: 0-None Headache: 1-Very Mild CIWA-Ar Total Score: 14 S COWS - Scale Resting Pulse: 1= [place] 81-100 Sweatin= Chills/Flushing Restless Observation: 1= Difficult to Sit Still Pupil Size: 0= Normal to Room Light Bone or Joint Aches: 1= Mild Discomfort Runny Nose/ Eye Tearin= Runny Nose/Eyes GI Upset > 30mins: 2= Nausea/Diarrhea Tremor Observation of Outstretched Hands: 2= Slight Tremor Visible Yawning Observation: 0= None Anxiety or Irritability: 1=Feels Anxious/Irritable Goose Flesh Skin: 0=Smooth Skin COWS Score: 11 S Progress Note (SOAP) Subjective: c/o of chills, shakes, interrupted sleep Objective: 08/12/19 15:08 Vital Signs Temperature 97.6 F 08/12/19 13:04 Pulse Rate 89 08/12/19 13:04 Respiratory Rate 16 08/12/19 13:04 Blood Pressure 130/78 08/12/19 13:04 O2 Sat by Pulse Oximetry (%) Laboratory Last Values WBC 3.1 K/mm3 (4.0-10.0) L 08/11/19 07:50 RBC 3.32 M/mm3 (4.00-5.60) L 08/11/19 07:50 Hgb 11.5 GM/dL (11.7-16.9) L 08/11/19 07:50 Hct 34.9 % (35.4-49) L 08/11/19 07:50 MCV 105.2 fl (80-96) H 08/11/19 07:50 MCH 34.7 pg (25.7-33.7) H 08/11/19 07:50 MCHC 33.0 g/dl (32.0-35.9) 08/11/19 07:50 RDW 14.4 % (11.9-15.9) 08/11/19 07:50 Plt Count 122 K/MM3 (134-434) L 08/11/19 07:50 MPV 8.4 fl (7.5-11.1) 08/11/19 07:50 Sodium 144 mmol/L (136-145) 08/11/19 07:50 Potassium 3.6 mmol/L (3.5-5.1) 08/11/19 07:50 Chloride 104 mmol/L (98-107) 08/11/19 07:50 Carbon Dioxide 32 mmol/L (21-32) 08/11/19 07:50 Anion Gap 7 MMOL/L (8-16) L 08/11/19 07:50 BUN 12.7 mg/dL (7-18) 08/11/19 07:50 Creatinine 0.8 mg/dL (0.55-1.3) 08/11/19 07:50 Est GFR (CKD-EPI)AfAm 105.64 08/11/19 07:50 Est GFR (CKD-EPI)NonAf 91.15 08/11/19 07:50 Random Glucose 104 mg/dL (74-106) 08/11/19 07:50 Calcium 8.3 mg/dL (8.5-10.1) L 08/11/19 07:50 Total Bilirubin 0.9 mg/dL (0.2-1) 08/11/19 07:50 AST 46 U/L (15-37) H 08/11/19 07:50 ALT 49 U/L (13-61) 08/11/19 07:50 Alkaline Phosphatase 93 U/L (45-117) 08/11/19 07:50 Total Protein 6.8 g/dl (6.4-8.2) 08/11/19 07:50 Albumin 3.7 g/dl (3.4-5.0) 08/11/19 07:50 RPR Titer Nonreactive (NONREACTIVE) 08/11/19 07:50 Assessment: 08/12/19 15:08 Aox3 anxious mild hand tremors full ROM ambulating in the unit withdrawal sx Plan: one time dose shady 25 mg for withdrawals increase fluids continue to monitor continue detox
[2019-08-12] MEDS: THIAMINE HCL 100 MG TABLET (FP) PO SCH (22:08)
[2019-08-12] MEDS: MELATONIN 5 MG TABLETS PO PRN (22:08)
[2019-08-13] MEDS: hydrOXYzine PAMOATE 25 MG CAPSULE (FP) PO PRN (00:27)
[2019-08-13] MEDS: METHOCARBAMOL 500 MG TABLET PO PRN ×3 (00:27→22:15)
[2019-08-13] MEDS ORDERED: chlordiazePOXIDE HCL 10 MG CAPSULE PO PRN (05:00)
[2019-08-13] MEDS: chlordiazePOXIDE HCL 10 MG CAPSULE PO SCH ×3 (05:37→22:14)
[2019-08-13] MEDS ORDERED: METHADONE HCL 5 MG TABLET (FOR DETOX USE ONLY) PO ONE (06:00)
[2019-08-13] MEDS: MULTIVIT-MINERALS ORAL LIQUID PO SCH (10:13)
[2019-08-13] MEDS: APIXABAN 5 MG TABLET PO SCH ×2 (10:13→22:14)
[2019-08-13] MEDS: amLODIPine BESYLATE 10 MG TABLET (FP) PO SCH (10:13)
[2019-08-13] MEDS ORDERED: LOPERAMIDE HCL 2 MG CAPSULE PO ONE (10:44)
--- NOTE | 2019-08-13 10:49 | PN ---
[facility] CIWA - CIWA Score Nausea/Vomitin-Mild Nausea/No Vomiting Muscle Tremors: 2 Anxiety: 2 Agitation: 2 Paroxysmal Sweats: 1-Minimal Palms Moist Orientation: 0-Oriented Tacttile Disturbances: 0-None Auditory Disturbances: 1-Very Mild Visual Disturbances: 0-None Headache: 0-None Present CIWA-Ar Total Score: 9 S COWS - Scale Resting Pulse: 1= [place] 81-100 Sweatin= Chills/Flushing Restless Observation: 0= Sits Still Pupil Size: 0= Normal to Room Light Bone or Joint Aches: 1= Mild Discomfort Runny Nose/ Eye Tearin= None GI Upset > 30mins: 2= Nausea/Diarrhea Tremor Observation of Outstretched Hands: 1= Tremor [place], Not Seen Yawning Observation: 1= 1-2x During Session Anxiety or Irritability: 1=Feels Anxious/Irritable Goose Flesh Skin: 0=Smooth Skin COWS Score: 8 [facility] Progress Note (SOAP) Subjective: diarrhea x 1 imodium 4 mg po x 1 doing well with librium and methadone detox regimen resting on bed ate breakfast tolerate food and fluid well Objective: 08/13/19 10:48 Vital Signs Temperature 97.2 F L 08/13/19 09:09 Pulse Rate 86 08/13/19 09:09 Respiratory Rate 18 08/13/19 09:09 Blood Pressure 128/76 08/13/19 09:09 O2 Sat by Pulse Oximetry (%) Laboratory Last Values WBC 3.1 K/mm3 (4.0-10.0) L 08/11/19 07:50 RBC 3.32 M/mm3 (4.00-5.60) L 08/11/19 07:50 Hgb 11.5 GM/dL (11.7-16.9) L 08/11/19 07:50 Hct 34.9 % (35.4-49) L 08/11/19 07:50 MCV 105.2 fl (80-96) H 08/11/19 07:50 MCH 34.7 pg (25.7-33.7) H 08/11/19 07:50 MCHC 33.0 g/dl (32.0-35.9) 08/11/19 07:50 RDW 14.4 % (11.9-15.9) 08/11/19 07:50 Plt Count 122 K/MM3 (134-434) L 08/11/19 07:50 MPV 8.4 fl (7.5-11.1) 08/11/19 07:50 Sodium 144 mmol/L (136-145) 08/11/19 07:50 Potassium 3.6 mmol/L (3.5-5.1) 08/11/19 07:50 Chloride 104 mmol/L (98-107) 08/11/19 07:50 Carbon Dioxide 32 mmol/L (21-32) 08/11/19 07:50 Anion Gap 7 MMOL/L (8-16) L 08/11/19 07:50 BUN 12.7 mg/dL (7-18) 08/11/19 07:50 Creatinine 0.8 mg/dL (0.55-1.3) 08/11/19 07:50 Est GFR (CKD-EPI)AfAm 105.64 08/11/19 07:50 Est GFR (CKD-EPI)NonAf 91.15 08/11/19 07:50 Random Glucose 104 mg/dL (74-106) 08/11/19 07:50 Calcium 8.3 mg/dL (8.5-10.1) L 08/11/19 07:50 Total Bilirubin 0.9 mg/dL (0.2-1) 08/11/19 07:50 AST 46 U/L (15-37) H 08/11/19 07:50 ALT 49 U/L (13-61) 08/11/19 07:50 Alkaline Phosphatase 93 U/L (45-117) 08/11/19 07:50 Total Protein 6.8 g/dl (6.4-8.2) 08/11/19 07:50 Albumin 3.7 g/dl (3.4-5.0) 08/11/19 07:50 RPR Titer Nonreactive (NONREACTIVE) 08/11/19 07:50 lab noted Assessment: 08/13/19 10:48 alcohol and opiate withdrawal sx Plan: continue librium and methadone detox regimen 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
[2019-08-13] MEDS: MELATONIN 5 MG TABLETS PO PRN (22:14)
[2019-08-13] MEDS: THIAMINE HCL 100 MG TABLET (FP) PO SCH (22:14)
[2019-08-14] MEDS ORDERED: chlordiazePOXIDE HCL 10 MG CAPSULE PO ONE (05:00)
[2019-08-14] MEDS: METHOCARBAMOL 500 MG TABLET PO PRN (05:18)
--- NOTE | 2019-08-14 08:32 | DS ---
[facility] Detox Discharge Summary Admission Date: 08/10/19 Discharge Date: 08/14/19 - History Present History: Alcohol Dependence, Opioid Dependence Additional Comments: tolerate detox well. Follow up with PCP. Follow up with out patient referrals. - Physical Exam Results Vital Signs: Vital Signs Temperature 98.1 F 08/14/19 06:18 Pulse Rate 76 08/14/19 06:18 Respiratory Rate 18 08/14/19 06:18 Blood Pressure 116/70 08/14/19 06:18 O2 Sat by Pulse Oximetry (%) - Treatment Hospital Course: Detox Protocol Followed, Detoxed Safely, Responded well, Discharged Condition Good, Rehab Referral Accepted Patient has Accepted a Rehab Referral to: out patientprograms - Medication Discharge Medications: Ambulatory Orders Amlodipine Besylate [Norvasc -] 10 mg PO DAILY #14 tablet 12/07/18 Apixaban [Eliquis -] 5 mg PO BID 15 Days #20 tablet 12/07/18 propRANOLol HCL [Inderal -] 10 mg PO BID 15 Days #30 tablet 12/07/18 Naloxone HCl [Narcan] 4 mg NS ASDIR PRN #1 spray 08/13/19 - Diagnosis (1) Alcohol dependence with uncomplicated withdrawal Status: Acute (2) Opioid dependence with withdrawal Status: Acute (3) Abnormal EKG Status: Chronic (4) Essential hypertension Status: Chronic (5) Gastroesophageal reflux disease Status: Chronic Qualifiers: Esophagitis presence: without esophagitis Qualified Code(s): K21.9 - Gastro -esophageal reflux disease without esophagitis (6) History of deep venous thrombosis (DVT) of distal vein of left lower extremity Status: Chronic (7) Murmur, cardiac Status: Chronic - AMA Did Patient Leave Against Medical Advice: No
[2019-08-14 09:06] VITALS: BP 137/85; PULSE 103; TEMP 97.8
== END 2019-08-14 09:04 | disposition home or self-care (01) | DRG 897 ==
LOC: YASAS 15:48 → Y3N 20:28
PROVIDERS: ADMIT Allergy & Immunology; ATTEND Allergy & Immunology
PROC: HZ2ZZZZ Detoxification Services for Substance Abuse Treatment (ICD-10-PCS; principal; 2019-08-10)
DX: F10.230 Alcohol dependence with withdrawal, uncomplicated (principal); D61.818 Other pancytopenia; F11.23 Opioid dependence with withdrawal; F41.8 Other specified anxiety disorders; F32.9 Major depressive disorder, single episode, unspecified; K21.9 Gastro-esophageal reflux disease without esophagitis; I10 Essential (primary) hypertension; R74.0 Nonspecific elevation of levels of transaminase and lactic acid dehydrogenase [LDH]; R76.11 Nonspecific reaction to tuberculin skin test without active tuberculosis; Z86.718 Personal history of other venous thrombosis and embolism; Z86.711 Personal history of pulmonary embolism; Z79.01 Long term (current) use of anticoagulants; Z88.5 Allergy status to narcotic agent
CPT/HCPCS: 36415; 71046-TC-FY; 80053; 85027; 86593; J0735

== ENCOUNTER 2019-12-13 12:08 | Inpatient (IN) | payer OTHER ==
--- NOTE | 2019-12-13 16:37 | BHS.RME ---
Substance Use & Tx History - Substance Use History Opiates (Heroin) Substance amount: 4 bags/day Frequency of use: Daily Substance route: Inhalation (ex: sniffing or snorting) Date of Last Use: 12/12/19 Alcohol Substance amount: 1-2 pints vodka Frequency of use: Daily Substance route: Oral - Last Treatment Date of last treatment: 07/2019 Where was last treatment: Detox Physical/Psych/Mental Status - Behavior Eye Contact: Normal - Cooperativeness Cooperativeness: Cooperative - Physical Health Problems Is patient presently having any pain?: No Does patient presently have any injuries (include location): No Does patient currently have a fever: No Is patient : No COWS - Scale Resting Pulse: 1= [place] 81-100 Sweatin= Chills/Flushing Restless Observation: 1= Difficult to Sit Still Pupil Size: 1= Pupils >than Normal Bone or Joint Aches: 1= Mild Discomfort Runny Nose/ Eye Tearin= Nasal Congestion GI Upset > 30mins: 1= Stomach Cramp Tremor Observation: 1= Tremor [place], Not Seen Yawning Observation: 1= 1-2x During Session Anxiety or Irritability: 1=Feels Anxious/Irritable Goose Flesh Skin: 0=Smooth Skin COWS Score: 10 CIWA Nausea/Vomitin-Mild Nausea/No Vomiting Muscle Tremors: 3 Anxiety: 2 Agitation: 2 Paroxysmal Sweats: 2 Orientation: 0-Oriented Tacttile Disturbances: 0-None Auditory Disturbances: 0-None Visual Disturbances: 0-None Headache: 2-Mild CIWA-Ar Total Score: 12 Treatment Recommendation - Level of Care Level of Care: Acute Medical (admit for alcohol and opioid detox)
[2019-12-13 17:44] VITALS: BMI 21.7
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
[2019-12-13] MEDS ORDERED: MENTHOL/PHENOL 1 EACH UD MM PRN (17:59)
[2019-12-13] MEDS ORDERED: MAGNESIUM CITRATE 300 ML BOTTLE PO PRN (17:59)
[2019-12-13] MEDS ORDERED: chlordiazePOXIDE HCL 25 MG CAPSULE PO PRN (17:59)
[2019-12-13] MEDS ORDERED: BISMUTH SUBSALICYLATE 524 MG/30 ML UD PO PRN (17:59)
[2019-12-13] MEDS ORDERED: ACETAMINOPHEN 325 MG TABLET (FP) PO PRN ×2 (17:59)
[2019-12-13] MEDS ORDERED: METHADONE HCL 10 MG TABLET (FOR DETOX USE ONLY) PO ONE (17:59)
[2019-12-13] MEDS ORDERED: MAGNESIUM HYDROX 2400MG/30ML ORAL SUSPENSION 30 ML CUP PO PRN (17:59)
[2019-12-13] MEDS ORDERED: MAG HYDROX/AL HYDROX/SIMETH 30 ML UNIT-DOSE CUP PO PRN (17:59)
[2019-12-13] MEDS ORDERED: hydrOXYzine PAMOATE 25 MG CAPSULE (FP) PO PRN (17:59)
[2019-12-13] MEDS ORDERED: cloNIDine HCL 0.1 MG TABLET PO PRN (17:59)
[2019-12-13] MEDS ORDERED: IBUPROFEN 400 MG TABLET (FP) PO PRN (17:59)
[2019-12-13] MEDS: chlordiazePOXIDE HCL 25 MG CAPSULE PO SCH ×2 (18:41→22:26)
[2019-12-13] MEDS: METHOCARBAMOL 500 MG TABLET PO PRN (19:52)
[2019-12-13] MEDS: THIAMINE HCL 100 MG TABLET (FP) PO SCH (22:26)
[2019-12-13] MEDS: MELATONIN 5 MG TABLETS PO PRN (22:26)
[2019-12-13] MEDS: APIXABAN 5 MG TABLET PO SCH (22:26)
[2019-12-14] MEDS ORDERED: METHADONE HCL 5 MG TABLET (FOR DETOX USE ONLY) PO ONE (10:00)
[2019-12-14 10:19] LABS: ALBUMIN 3.2 g/dl (3.4-5.0); BILIRUBIN,TOTAL 0.7 mg/dL (0.2-1); BLOOD UREA NITROGEN 14.4 mg/dL (7-18); CALCIUM 8.4 mg/dL (8.5-10.1); POTASSIUM 3.6 mmol/L (3.5-5.1); TOT PROT 6.8 g/dl (6.4-8.2)
[2019-12-14 10:29] LABS: HEMATOCRIT 34.6 % (35.4-49); HEMOGLOBIN 11.7 GM/dL (11.7-16.9); MCH 34.5 pg (25.7-33.7); MCHC 33.8 g/dl (32.0-35.9); MEAN CELL VOLUME 101.9 fl (80-96); MEAN PLT VOLUME 8.3 fl (7.5-11.1); PLATELET COUNT 180 K/MM3 (134-434); RBC 3.39 M/mm3 (4.00-5.60); RDW 13.8 % (11.9-15.9); WHITE BLOOD COUNT 5.2 K/mm3 (4.0-10.0)
[2019-12-14] MEDS: amLODIPine BESYLATE 10 MG TABLET (FP) PO SCH (10:34)
[2019-12-14] MEDS: chlordiazePOXIDE HCL 25 MG CAPSULE PO SCH ×4 (10:34→22:22)
[2019-12-14] MEDS: PRENATAL VITAMINS W/ FOLIC ACID TABLET (FP) PO SCH (10:37)
[2019-12-14] MEDS: APIXABAN 5 MG TABLET PO SCH ×2 (11:59→22:21)
--- NOTE | 2019-12-14 15:19 | PN ---
[facility] CIWA - CIWA Score Nausea/Vomitin-Mild Nausea/No Vomiting Muscle Tremors: 2 Anxiety: 2 Agitation: 2 Paroxysmal Sweats: No Perspiration Orientation: 0-Oriented Tacttile Disturbances: 1-Very Mild Itch/Numbness Auditory Disturbances: 0-None Visual Disturbances: 0-None Headache: 2-Mild CIWA-Ar Total Score: 10 [facility] COWS - Scale Resting Pulse: 1= [place] 81-100 Sweatin= No chills or Flushing Restless Observation: 1= Difficult to Sit Still Pupil Size: 1= Pupils >than Normal Bone or Joint Aches: 1= Mild Discomfort Runny Nose/ Eye Tearin= Runny Nose/Eyes GI Upset > 30mins: 1= Stomach Cramp Tremor Observation of Outstretched Hands: 1= Tremor [place], Not Seen Yawning Observation: 1= 1-2x During Session Anxiety or Irritability: 2=Irritable/Anxious Goose Flesh Skin: 0=Smooth Skin COWS Score: 11 [facility] Progress Note (SOAP) Subjective: alert,irritable,anxious,interrupted sleep,pain in the body and back Objective: 12/14/19 15:18 Vital Signs Temperature 98.1 F 12/14/19 14:42 Pulse Rate 86 12/14/19 14:42 Respiratory Rate 18 12/14/19 14:42 Blood Pressure 129/73 12/14/19 14:42 O2 Sat by Pulse Oximetry (%) Laboratory Last Values WBC 5.2 K/mm3 (4.0-10.0) 12/14/19 07:30 RBC 3.39 M/mm3 (4.00-5.60) L 12/14/19 07:30 Hgb 11.7 GM/dL (11.7-16.9) 12/14/19 07:30 Hct 34.6 % (35.4-49) L 12/14/19 07:30 MCV 101.9 fl (80-96) H 12/14/19 07:30 MCH 34.5 pg (25.7-33.7) H 12/14/19 07:30 MCHC 33.8 g/dl (32.0-35.9) 12/14/19 07:30 RDW 13.8 % (11.9-15.9) 12/14/19 07:30 Plt Count 180 K/MM3 (134-434) D 12/14/19 07:30 MPV 8.3 fl (7.5-11.1) 12/14/19 07:30 Sodium 140 mmol/L (136-145) 12/14/19 07:30 Potassium 3.6 mmol/L (3.5-5.1) 12/14/19 07:30 Chloride 103 mmol/L (98-107) 12/14/19 07:30 Carbon Dioxide 30 mmol/L (21-32) 12/14/19 07:30 Anion Gap 8 MMOL/L (8-16) 12/14/19 07:30 BUN 14.4 mg/dL (7-18) 12/14/19 07:30 Creatinine 1.0 mg/dL (0.55-1.3) 12/14/19 07:30 Est GFR (CKD-EPI)AfAm 88.61 12/14/19 07:30 Est GFR (CKD-EPI)NonAf 76.45 12/14/19 07:30 Random Glucose 173 mg/dL (74-106) H 12/14/19 07:30 Calcium 8.4 mg/dL (8.5-10.1) L 12/14/19 07:30 Total Bilirubin 0.7 mg/dL (0.2-1) 12/14/19 07:30 AST 17 U/L (15-37) 12/14/19 07:30 ALT 17 U/L (13-61) 12/14/19 07:30 Alkaline Phosphatase 105 U/L (45-117) 12/14/19 07:30 Total Protein 6.8 g/dl (6.4-8.2) 12/14/19 07:30 Albumin 3.2 g/dl (3.4-5.0) L 12/14/19 07:30 RPR Titer Nonreactive (NONREACTIVE) 12/14/19 07:30 Assessment: 12/14/19 15:18 withdrawal symptom Plan: continue detox methadone and librium regimen,fasting glucose in am
[2019-12-14] MEDS: METHOCARBAMOL 500 MG TABLET PO PRN (16:49)
[2019-12-14] MEDS: MELATONIN 5 MG TABLETS PO PRN (22:22)
[2019-12-14] MEDS: THIAMINE HCL 100 MG TABLET (FP) PO SCH (22:22)
[2019-12-15] MEDS: chlordiazePOXIDE HCL 25 MG CAPSULE PO SCH ×4 (05:37→22:07)
--- NOTE | 2019-12-15 09:11 | PN ---
S CIWA - CIWA Score Nausea/Vomitin-Mild Nausea/No Vomiting Muscle Tremors: 1-None Visible, but [place] Anxiety: 1-Mildly Anxious Agitation: 0-Normal Activity Paroxysmal Sweats: No Perspiration Orientation: 0-Oriented Tacttile Disturbances: 0-None Auditory Disturbances: 0-None Visual Disturbances: 0-None Headache: 3-Moderate CIWA-Ar Total Score: 6 [facility] Progress Note (SOAP) Subjective: pt states bridge of nose is hurting from his eyeglasses- put bandaid, detox is going well O: Vital Signs - 24 hr 12/14/19 12/15/19 12/15/19 14:42 00:11 03:39 Temperature 98.1 F Pulse Rate 86 Respiratory 18 18 18 Rate Blood Pressure 129/73 12/15/19 12/15/19 05:40 06:41 Temperature 98.2 F Pulse Rate 85 Respiratory 18 18 Rate Blood Pressure 125/60 Laboratory Tests 12/14/19 12/14/19 12/14/19 07:30 07:30 07:30 WBC 5.2 RBC 3.39 L Hgb 11.7 Hct 34.6 L MCV 101.9 H MCH 34.5 H MCHC 33.8 RDW 13.8 Plt Count 180 D MPV 8.3 Sodium 140 Potassium 3.6 Chloride 103 Carbon Dioxide 30 Anion Gap 8 BUN 14.4 Creatinine 1.0 Est GFR (CKD-EPI)AfAm 88.61 Est GFR (CKD-EPI)NonAf 76.45 Random Glucose 173 H Calcium 8.4 L Total Bilirubin 0.7 AST 17 ALT 17 Alkaline Phosphatase 105 Total Protein 6.8 Albumin 3.2 L RPR Titer Nonreactive mild anemia a/p: alcohol detox- continue protocol. pt without complaints
[2019-12-15] MEDS ORDERED: METHADONE HCL 10 MG TABLET (FOR DETOX USE ONLY) PO ONE (10:00)
[2019-12-15] MEDS: amLODIPine BESYLATE 10 MG TABLET (FP) PO SCH (10:14)
[2019-12-15] MEDS: PRENATAL VITAMINS W/ FOLIC ACID TABLET (FP) PO SCH (10:14)
[2019-12-15] MEDS: APIXABAN 5 MG TABLET PO SCH ×2 (10:15→22:07)
[2019-12-15] MEDS: METHOCARBAMOL 500 MG TABLET PO PRN (10:21)
[2019-12-15] MEDS: MELATONIN 5 MG TABLETS PO PRN (22:07)
[2019-12-15] MEDS: THIAMINE HCL 100 MG TABLET (FP) PO SCH (22:07)
[2019-12-16] MEDS ORDERED: chlordiazePOXIDE HCL 10 MG CAPSULE PO PRN
[2019-12-16] MEDS: chlordiazePOXIDE HCL 10 MG CAPSULE PO SCH ×4 (05:35→22:20)
[2019-12-16] MEDS ORDERED: METHADONE HCL 5 MG TABLET (FOR DETOX USE ONLY) PO ONE (06:00)
[2019-12-16] MEDS: PRENATAL VITAMINS W/ FOLIC ACID TABLET (FP) PO SCH (10:21)
[2019-12-16] MEDS: APIXABAN 5 MG TABLET PO SCH ×2 (10:21→22:19)
--- NOTE | 2019-12-16 11:53 | PN ---
S CIWA - CIWA Score Nausea/Vomitin-Mild Nausea/No Vomiting Muscle Tremors: 1-None Visible, but [place] Anxiety: 1-Mildly Anxious Agitation: 0-Normal Activity Paroxysmal Sweats: 2 Orientation: 0-Oriented Tacttile Disturbances: 1-Very Mild Itch/Numbness Auditory Disturbances: 0-None Visual Disturbances: 0-None Headache: 1-Very Mild CIWA-Ar Total Score: 7 S COWS - Scale Resting Pulse: 1= [place] 81-100 Sweatin= Chills/Flushing Restless Observation: 0= Sits Still Pupil Size: 1= Pupils >than Normal Bone or Joint Aches: 1= Mild Discomfort Runny Nose/ Eye Tearin= Nasal Congestion GI Upset > 30mins: 0= None Tremor Observation of Outstretched Hands: 0= None Yawning Observation: 0= None Anxiety or Irritability: 1=Feels Anxious/Irritable Goose Flesh Skin: 0=Smooth Skin COWS Score: 6 S Progress Note (SOAP) Subjective: interrupted sleep, sweats, lbp Objective: 12/16/19 11:56 Vital Signs Temperature 98.1 F 12/16/19 08:39 Pulse Rate 83 12/16/19 08:39 Respiratory Rate 18 12/16/19 08:39 Blood Pressure 126/59 L 12/16/19 08:39 O2 Sat by Pulse Oximetry (%) Laboratory Tests 12/14/19 12/14/19 12/14/19 07:30 07:30 07:30 WBC 5.2 RBC 3.39 L Hgb 11.7 Hct 34.6 L MCV 101.9 H MCH 34.5 H MCHC 33.8 RDW 13.8 Plt Count 180 D MPV 8.3 Sodium 140 Potassium 3.6 Chloride 103 Carbon Dioxide 30 Anion Gap 8 BUN 14.4 Creatinine 1.0 Est GFR (CKD-EPI)AfAm 88.61 Est GFR (CKD-EPI)NonAf 76.45 Random Glucose 173 H Calcium 8.4 L Total Bilirubin 0.7 AST 17 ALT 17 Alkaline Phosphatase 105 Total Protein 6.8 Albumin 3.2 L RPR Titer Nonreactive pt aox3 in nad ambulating Assessment: 12/16/19 11:57 withdrawal sx;s hyperglycemia Plan: cont. detox increase fluids basic metabolic hga1c methadone 5mg one dose on 12/17/19 am.
[2019-12-16] MEDS: amLODIPine BESYLATE 10 MG TABLET (FP) PO SCH (12:24)
--- NOTE | 2019-12-16 12:51 | PN ---
S CIWA - CIWA Score Nausea/Vomitin-Mild Nausea/No Vomiting Muscle Tremors: 1-None Visible, but [place] Anxiety: 2 Agitation: 0-Normal Activity Paroxysmal Sweats: 2 Orientation: 0-Oriented Tacttile Disturbances: 1-Very Mild Itch/Numbness Auditory Disturbances: 0-None Visual Disturbances: 0-None Headache: 0-None Present CIWA-Ar Total Score: 7 [facility] COWS - Scale Resting Pulse: 1= [place] 81-100 Sweatin= Chills/Flushing Restless Observation: 1= Difficult to Sit Still Pupil Size: 1= Pupils >than Normal Bone or Joint Aches: 1= Mild Discomfort Runny Nose/ Eye Tearin= Nasal Congestion GI Upset > 30mins: 0= None Tremor Observation of Outstretched Hands: 1= Tremor [place], Not Seen Yawning Observation: 0= None Anxiety or Irritability: 1=Feels Anxious/Irritable Goose Flesh Skin: 0=Smooth Skin COWS Score: 8 S Progress Note (SOAP) Subjective: interrupted sleep, sweats, , lbp, Objective: 12/16/19 11:49 Vital Signs Temperature 98.1 F 12/16/19 08:39 Pulse Rate 83 12/16/19 08:39 Respiratory Rate 18 12/16/19 08:39 Blood Pressure 126/59 L 12/16/19 08:39 O2 Sat by Pulse Oximetry (%) Laboratory Tests 12/14/19 12/14/19 12/14/19 07:30 07:30 07:30 WBC 5.2 RBC 3.39 L Hgb 11.7 Hct 34.6 L MCV 101.9 H MCH 34.5 H MCHC 33.8 RDW 13.8 Plt Count 180 D MPV 8.3 Sodium 140 Potassium 3.6 Chloride 103 Carbon Dioxide 30 Anion Gap 8 BUN 14.4 Creatinine 1.0 Est GFR (CKD-EPI)AfAm 88.61 Est GFR (CKD-EPI)NonAf 76.45 Random Glucose 173 H Calcium 8.4 L Total Bilirubin 0.7 AST 17 ALT 17 Alkaline Phosphatase 105 Total Protein 6.8 Albumin 3.2 L RPR Titer Nonreactive pt aox3 in nad Assessment: 12/16/19 11:49 withdrawal sx's hyperglycemia r/o DM
[2019-12-16] MEDS: THIAMINE HCL 100 MG TABLET (FP) PO SCH (22:20)
[2019-12-16] MEDS: MELATONIN 5 MG TABLETS PO PRN (22:20)
[2019-12-17] MEDS: METHADONE HCL 5 MG TABLET (FOR DETOX USE ONLY) PO SCH ×2 (05:52→10:51)
[2019-12-17] MEDS: chlordiazePOXIDE HCL 10 MG CAPSULE PO SCH ×2 (05:52→17:44)
[2019-12-17] MEDS ORDERED: METHADONE HCL 10 MG TABLET PO ONE (06:00)
[2019-12-17 10:06] LABS: BLOOD UREA NITROGEN 14.2 mg/dL (7-18); CALCIUM 9.5 mg/dL (8.5-10.1); POTASSIUM 4.3 mmol/L (3.5-5.1)
--- NOTE | 2019-12-17 10:32 | PN ---
[facility] CIWA - CIWA Score Nausea/Vomitin-No Nausea/No Vomiting Muscle Tremors: 1-None Visible, but [place] Anxiety: 1-Mildly Anxious Agitation: 1-Slight > Activity Paroxysmal Sweats: No Perspiration Orientation: 0-Oriented Tacttile Disturbances: 7Continuous Hallucination Visual Disturbances: 0-None Headache: 1-Very Mild [facility] COWS - Scale Resting Pulse: 0= ID 80 or Below Sweatin= No chills or Flushing Restless Observation: 1= Difficult to Sit Still Pupil Size: 0= Normal to Room Light Bone or Joint Aches: 1= Mild Discomfort Runny Nose/ Eye Tearin= Nasal Congestion GI Upset > 30mins: 1= Stomach Cramp Tremor Observation of Outstretched Hands: 1= Tremor [place], Not Seen Yawning Observation: 0= None Anxiety or Irritability: 1=Feels Anxious/Irritable Goose Flesh Skin: 0=Smooth Skin COWS Score: 6 [facility] Progress Note (SOAP) Subjective: Pt completing OUD and AUD detox protocols. Receiving methadone 5mg qam until he finishes alcohol detox tomorrow. anticipate d/c in AM. Pt would like to go onto MAT suboxone O: Vital Signs - 24 hr 12/16/19 12/16/19 12/16/19 12:22 12:25 16:15 Temperature 98.2 F 98.2 F 98.2 F Pulse Rate 87 87 79 Respiratory 16 18 17 Rate Blood Pressure 122/63 122/63 125/67 12/16/19 12/17/19 12/17/19 21:10 00:38 03:14 Temperature 98.2 F Pulse Rate 88 Respiratory 17 18 18 Rate Blood Pressure 137/77 12/17/19 05:50 Temperature 97.5 F L Pulse Rate 81 Respiratory 18 Rate Blood Pressure 140/78 Laboratory Tests 12/14/19 12/14/19 12/14/19 07:30 07:30 07:30 WBC 5.2 RBC 3.39 L Hgb 11.7 Hct 34.6 L MCV 101.9 H MCH 34.5 H MCHC 33.8 RDW 13.8 Plt Count 180 D MPV 8.3 Sodium 140 Potassium 3.6 Chloride 103 Carbon Dioxide 30 Anion Gap 8 BUN 14.4 Creatinine 1.0 Est GFR (CKD-EPI)AfAm 88.61 Est GFR (CKD-EPI)NonAf 76.45 Random Glucose 173 H Hemoglobin A1c % Calcium 8.4 L Total Bilirubin 0.7 AST 17 ALT 17 Alkaline Phosphatase 105 Total Protein 6.8 Albumin 3.2 L RPR Titer Nonreactive 12/17/19 12/17/19 07:30 07:30 WBC RBC Hgb Hct MCV MCH MCHC RDW Plt Count MPV Sodium 141 Potassium 4.3 Chloride 105 Carbon Dioxide 32 Anion Gap 3 L BUN 14.2 Creatinine 1.0 Est GFR (CKD-EPI)AfAm 88.61 Est GFR (CKD-EPI)NonAf 76.45 Random Glucose 122 H Hemoglobin A1c % 5.4 Calcium 9.5 Total Bilirubin AST ALT Alkaline Phosphatase Total Protein Albumin RPR Titer a/p AUD- continue detox protocol, pt has prn meds for Sx treatment pt going to rehab tomorrow, has all meds at home- does not need new prescriptions from here
[2019-12-17] MEDS: APIXABAN 5 MG TABLET PO SCH ×2 (10:50→22:06)
[2019-12-17] MEDS: PRENATAL VITAMINS W/ FOLIC ACID TABLET (FP) PO SCH (10:50)
[2019-12-17] MEDS: amLODIPine BESYLATE 10 MG TABLET (FP) PO SCH (10:50)
[2019-12-17] MEDS: METHOCARBAMOL 500 MG TABLET PO PRN (10:51)
[2019-12-17] MEDS: MELATONIN 5 MG TABLETS PO PRN (22:06)
[2019-12-17] MEDS: THIAMINE HCL 100 MG TABLET (FP) PO SCH (23:26)
[2019-12-18] MEDS ORDERED: chlordiazePOXIDE HCL 10 MG CAPSULE PO ONE (05:00)
[2019-12-18 06:29] VITALS: BP 115/72; PULSE 79; TEMP 98.1
--- NOTE | 2019-12-18 08:29 | DS ---
[facility] Detox Discharge Summary Admission Date: 12/13/19 Discharge Date: 12/18/19 - History Present History: Alcohol Dependence, Opioid Dependence Additional Comments: Vital Signs Temperature 98.1 F 12/18/19 06:29 Pulse Rate 79 12/18/19 06:29 Respiratory Rate 18 12/18/19 06:29 Blood Pressure 115/72 12/18/19 06:29 O2 Sat by Pulse Oximetry (%) pt aox3 in nad , ambulating well Neuro , no deficits - Physical Exam Results Vital Signs: Vital Signs Temperature 98.1 F 12/18/19 06:29 Pulse Rate 79 12/18/19 06:29 Respiratory Rate 18 12/18/19 06:29 Blood Pressure 115/72 12/18/19 06:29 O2 Sat by Pulse Oximetry (%) - Treatment Hospital Course: Detox Protocol Followed, Detoxed Safely, Responded well, Discharged Condition Good - Medication Discharge Medications: Ambulatory Orders Amlodipine Besylate [Norvasc -] 10 mg PO DAILY #14 tablet 12/07/18 Apixaban [Eliquis -] 5 mg PO BID 15 Days #20 tablet 12/07/18 propRANOLol HCL [Inderal -] 10 mg PO BID 15 Days #30 tablet 12/07/18 - Diagnosis (1) History of pulmonary embolism Current Visit: Yes Status: Chronic (2) Alcohol dependence with uncomplicated withdrawal Current Visit: Yes Status: Chronic (3) Opioid dependence with withdrawal Current Visit: Yes Status: Chronic (4) Anticoagulant long-term use Current Visit: Yes Status: Chronic (5) Anxiety with depression Current Visit: No Status: Chronic (6) Essential hypertension Current Visit: No Status: Chronic (7) Gastroesophageal reflux disease Current Visit: Yes Status: Chronic Qualifiers: Esophagitis presence: without esophagitis Qualified Code(s): K21.9 - Gastro -esophageal reflux disease without esophagitis - AMA Did Patient Leave Against Medical Advice: No
--- NOTE | 2019-12-18 08:47 | PN ---
[facility] Progress Note Note: Pt stable at d/c Vital Signs Temperature 98.1 F 12/18/19 06:29 Pulse Rate 79 12/18/19 06:29 Respiratory Rate 18 12/18/19 06:29 Blood Pressure 115/72 12/18/19 06:29 O2 Sat by Pulse Oximetry (%) pt aox3 in nad lungs clear to a/p abdomen soft, nontender, bs+ neuro intact w/o deficits time spent on d/c 35minutes
== END 2019-12-18 09:00 | disposition home or self-care (01) | DRG 897 ==
LOC: YASAS 12:08 → Y6N 18:03
PROVIDERS: ADMIT Allergy & Immunology; ATTEND Allergy & Immunology
PROC: HZ2ZZZZ Detoxification Services for Substance Abuse Treatment (ICD-10-PCS; principal; 2019-12-13)
DX: F10.230 Alcohol dependence with withdrawal, uncomplicated (principal); F11.23 Opioid dependence with withdrawal; F41.8 Other specified anxiety disorders; F32.9 Major depressive disorder, single episode, unspecified; I10 Essential (primary) hypertension; K21.9 Gastro-esophageal reflux disease without esophagitis; E78.5 Hyperlipidemia, unspecified; R73.9 Hyperglycemia, unspecified; Z86.711 Personal history of pulmonary embolism; Z86.718 Personal history of other venous thrombosis and embolism; Z79.01 Long term (current) use of anticoagulants; Z88.5 Allergy status to narcotic agent; Z98.890 Other specified postprocedural states
CPT/HCPCS: 36415; 80048; 80053; 83036; 85027; 86593

== ENCOUNTER 2020-07-16 16:11 | Inpatient (IN) | payer OTHER ==
--- OUTSIDE RECORDS SUMMARY | 2020-07-16 16:15 | XMS ---
:1950 Author Organization [facility] Support Name Relationship Address Phone RE Unavailable Unavailable Unavailable UE Unavailable Unavailable Unavailable MARIA E BELTRAN JR SON [address] [phone] [place] [address] IRENE BELTRAN [address] [phone] [place] [address] Re-disclosure Warning The records that you are about to access may contain information from federally- assisted alcohol or drug abuse programs. If such information is present, then the following federally mandated warning applies: This information has been disclosed to you from records protected by federal confidentiality rules (42 CFR part 2). The federal rules prohibit you from making any further disclosure of this information unless further disclosure is expressly permitted by the written consent of the person to whom it pertains or as otherwise permitted by 42 CFR part 2. A general authorization for the release of medical or other information is NOT sufficient for this purpose. The Federal rules restrict any use of the information to criminally investigate or prosecute any alcohol or drug abuse patient.The records that you are about to access may contain highly sensitive health information, the redisclosure of which is protected by Article 27-F of the [place] Public Health law. If you continue you may haveaccess to information: Regarding HIV / AIDS; Provided by facilities licensed or operated by the [place] Office of Mental Health; or Provided by the [place] [facility] Office for People With Developmental Disabilities. If such information is present, then the following [place] [facility] mandated warning applies: This information has been disclosed to you from confidential records which are protected by state law. State law prohibits you from making any further disclosure of this information without the specific written consent of the person to whom it pertains, or as otherwise permitted by law. Any unauthorized further disclosure in violation of state law may result in a fine or mcc sentence or both. A general authorization for the release of medical or other information is NOT sufficient authorization for further disclosure. Insurance Providers Payer name Policy type Policy ID Covered Covered libertarian's Policy P thomas / Coverage libertarian ID relationship to [place] Inf ormation type ruiz AETNA MEBRNKCM SP MEBRNKCM MEDICARE [place]ANDO MEDICARE [id number] SP [id number] RAMANDO MEDICARE [id number] SP [id number] AETNA MEBRNKCM SP MEBRNKCM MEDICARE VALUE [id number] SP [id number] [facility] CARE AETNA MEBRNKCM SP MEBRNKCM MEDICARE MEDICARE [id number] SP [id number] A AETNA AKBRNKCM SP MEBRNKCM MEDICARE Results ID Date Data Source [id number] 03/27/2020 11:17:00 AM EDT [facility] Name Value Range Interpretation Code Description Data Swetha rce(s) Supporting Document(s ) COV2 [facility] This lab was ordered by MORIAH tiwari reported by [facility]. Procedure
[2020-07-16 17:07] VITALS: BMI 21.7
--- NOTE | 2020-07-16 18:19 | BHS.RME ---
Substance Use & Tx History - Substance Use History Heroin Substance amount: 4-5bags Frequency of use: Daily Substance route: Inhalation (ex: sniffing or snorting) Date of Last Use: 07/15/20 Alcohol Substance amount: 2 pints vodka Frequency of use: Daily Substance route: Oral Date of Last Use: 07/15/20 - Last Treatment Date of last treatment: 12/13/2019 Where was last treatment: Detox Physical/Psych/Mental Status - Behavior General Behavior: Increased activity (restlessness, agitation) Eye Contact: Normal Other Behaviors: Mannerisms - Cooperativeness Cooperativeness: Cooperative - Thinking Thought Processes: Tight, Logical, Goal Directed Thought content: Future oriented - Physical Health Problems Is patient presently having any pain?: No Does patient presently have any injuries (include location): No Does patient currently have a fever: No COWS - Scale Resting Pulse: 1= [place] 81-100 Sweatin= Chills/Flushing Restless Observation: 1= Difficult to Sit Still Pupil Size: 0= Normal to Room Light Bone or Joint Aches: 2= Severe Diffuse Aches Runny Nose/ Eye Tearin= Nasal Congestion GI Upset > 30mins: 1= Stomach Cramp Tremor Observation: 1= Tremor [place], Not Seen Yawning Observation: 1= 1-2x During Session Anxiety or Irritability: 1=Feels Anxious/Irritable Goose Flesh Skin: 3=Piloerection COWS Score: 13 CIWA Nausea/Vomitin Muscle Tremors: 2 Anxiety: 2 Agitation: 2 Paroxysmal Sweats: 2 Orientation: 0-Oriented Tacttile Disturbances: 1-Very Mild Itch/Numbness Auditory Disturbances: 0-None Visual Disturbances: 0-None Headache: 2-Mild CIWA-Ar Total Score: 13
--- NOTE | 2020-07-16 18:26 | HP ---
COWS - Scale Resting Pulse: 1= [place] 81-100 Sweatin= Chills/Flushing Restless Observation: 1= Difficult to Sit Still Pupil Size: 0= Normal to Room Light Bone or Joint Aches: 2= Severe Diffuse Aches Runny Nose/ Eye Tearin= Nasal Congestion GI Upset > 30mins: 1= Stomach Cramp Tremor Observation: 1= Tremor [place], Not Seen Yawning Observation: 1= 1-2x During Session Anxiety or Irritability: 1=Feels Anxious/Irritable Goose Flesh Skin: 3=Piloerection COWS Score: 13 CIWA Score Nausea/Vomitin Muscle Tremors: 2 Anxiety: 2 Agitation: 2 Paroxysmal Sweats: 2 Orientation: 0-Oriented Tacttile Disturbances: 1-Very Mild Itch/Numbness Auditory Disturbances: 0-None Visual Disturbances: 0-None Headache: 2-Mild CIWA-Ar Total Score: 13 - Admission Criteria OASAS Guidelines: Admission for Medically Managed Detox: Requires at least one of the followin. CIWA greater than 12 2. Seizures within the past 24 hours 3. Delirium tremens within the past 24 hours 4. Hallucinations within the past 24 hours 5. Acute intervention needed for co occurring medical disorder 6. Acute intervention needed for co occurring psychiatric disorder 7. Severe withdrawal that cannot be handled at a lower level of care (continued vomiting, continued diarrhea, abnormal vital signs) requiring intravenous medication and/or fluids 8. Patient presents the following: CIWA greater than 12 Admission Criteria Met: Admission criteria met Admitting History and Physical - Past Medical History Cardiovascular: Yes: HTN, Hyperlipdemia Pulmonary: Yes: Pulmonary Embolus (history) Psych: Yes: Addictions - Smoking History Smoking history: Never smoked Have you smoked in the past 12 months: No Aproximately how many cigarettes per day: 0 - Alcohol/Substance Use Hx Alcohol Use: Yes History of Substance Use: reports: Heroin - Social History Occupation: retired History of Recent Travel: No Admission ROS [facility] - HPI Chief Complaint: I am trying to get myself clean Allergies/Adverse Reactions: Allergies Allergy/AdvReac Type Severity Reaction Status Date / Time morphine Allergy Severe Itching Verified 12/13/19 17:30 History of Present Illness: Patient is a 70 years old man with alcohol and heroin dependence who presents for detox. He denies blackout, seizure or overdose. Patient has requested to be on librium regimen for alcohol detox. Exam Limitations: No Limitations - Ebola screening Have you traveled outside of the country in the last 21 days: No Have you had contact with anyone from an Ebola affected area: No Have you been sick,other than usual withdrawal symptoms: No Do you have a fever: No - Review of Systems Constitutional: Changes in sleep EENT: reports: Blurred Vision, Recent change in vision, Nose Congestion, Dental Problems (full upper dentures) Respiratory: reports: No Symptoms reported Cardiac: reports: No Symptoms Reported GI: reports: Nausea, Indigestion, Abdominal cramping : reports: No Symptoms Reported Musculoskeletal: reports: Back Pain, Muscle Weakness Integumentary: reports: Dryness Neuro: reports: Headache, Numbness, Tremors Endocrine: reports: No Symptoms Reported Hematology: reports: No Symptoms Reported Psychiatric: reports: No Sypmtoms Reported Other Systems: Reviewed and Negative Patient History - Patient Medical History Hx Anemia: No Hx Asthma: No Hx Chronic Obstructive Pulmonary Disease (COPD): No Hx Cancer: No Hx Cardiac Disorders: Yes (h/o PE & LE ) Hx Congestive Heart Failure: No Hx Hypertension: No Hx Hypercholesterolemia: No Hx Pacemaker: No HX Cerebrovascular Accident: No Hx Seizures: No Hx Dementia: No Hx Diabetes: No Hx Gastrointestinal Disorders: No Hx Liver Disease: No Hx Genitourinary Disorders: No Hx Sexually Transmitted Disorders: No Hx Renal Disease (ESRD): No Hx Thyroid Disease: No Hx Human Immunodeficiency Virus (HIV): No Hx Hepatitis C: No Hx Depression: No Hx Suicide Attempt: No Hx Bipolar Disorder: No Hx Schizophrenia: No - Patient Surgical History Past Surgical History: Yes Hx Neurologic Surgery: No Hx Cataract Extraction: Yes (cataract sx, left eye, 09/2014, right eye, 04/2017.) Hx Cardiac Surgery: Yes (11/2017 removal of ivc filter in back at [facility]) Hx Lung Surgery: No Hx Breast Surgery: No Hx Breast Biopsy: No Hx Abdominal Surgery: Yes (vascular abdominal surgery in 2018 ) Hx Appendectomy: No Hx Cholecystectomy: No Hx Genitourinary Surgery: No Hx Section: No Hx Orthopedic Surgery: Yes (-right knee fx -surgery after [facility]) Other Surgical History: 1.IVC RT jugular filter 02/06 [facility]. 2.) left inguinal hernia repair Anesthesia Reaction: No (Dizziness, nausea, after surgery in .) - PPD History Previous Implant?: No Documented Results: Positive w/o proof Implanted On Prior [facility] Admission?: No Date: 03/28/15 Results: cxr 04/15/19 PPD to be Administered?: No - Smoking Cessation Smoking history: Never smoked Have you smoked in the past 12 months: No Aproximately how many cigarettes per day: 0 Cigars Per Day: 0 Hx Chewing Tobacco Use: No Initiated information on smoking cessation: No - Substance & Tx. History Hx Alcohol Use: Yes Hx Substance Use: Yes Substance Use Type: Alcohol, Heroin Hx Substance Use Treatment: Yes - Substances abused Heroin Substance route: Inhalation Frequency: Daily Amount used: 4-5 bags Age of first use: 21 Date of last use: 07/15/20 Alcohol Other (specify): vodka Substance route: Oral Frequency: Daily Amount used: 2 pints Age of first use: 18 Date of last use: 07/16/20 Admission Physical Exam [facility] - Vital Signs Vital Signs: Vital Signs - 24 hr 07/16/20 17:05 Temperature 98.1 F Pulse Rate 85 Respiratory 18 Rate Blood Pressure 188/88 H - Physical General Appearance: Yes: No Apparent Distress HEENTM: Yes: Normocephalic, Normal Voice, Pharynx Normal Respiratory: Yes: Chest Non-Tender, Lungs Clear, Normal Breath Sounds, No Respiratory Distress, No Accessory Muscle Use Neck: Yes: No masses,lesions,Nodules, Supple Breast: Yes: Breast Exam Deferred Cardiology: Yes: Regular Rhythm, Regular Rate Abdominal: Yes: Normal Bowel Sounds, Soft, Surgical Scar Genitourinary: Yes: Within Normal Limits Back: Yes: Normal Inspection Musculoskeletal: Yes: Muscle Pain, Muscle weakness, Other (LLE edema) Extremities: Yes: Normal Range of Motion, Tremors Neurological: Yes: Fully Oriented, Alert, Normal Mood/Affect, Normal Response Integumentary: Yes: Normal Color, Cold Lymphatic: Yes: Within Normal Limits - Diagnostic (1) Alcohol dependence with uncomplicated withdrawal Current Visit: Yes Status: Acute (2) Essential hypertension Current Visit: Yes Status: Chronic (3) Opioid dependence with withdrawal Current Visit: Yes Status: Acute (4) History of pulmonary embolism Current Visit: Yes Status: Chronic Cleared for Admission [facility] - Detox or Rehab [facility] Level of Care: Medically Managed Detox Regimen/Protocol: Methadone/Librium Claeared for Rehab Admission: No Breathalyzer - Breathalyzer Breathalyzer: 0.132 Urine Drug Screen - Test Device Lot number: [id number] Expiration date: 02/02/22 - Control Is test valid?: Yes - Results Drug screen NEGATIVE: No Urine drug screen results: FEN-Fentanyl, MOP-Opiates Inpatient Rehab Admission - Rehab Decision to Admit Inpatient rehab admission?: No
[2020-07-16] MEDS ORDERED: BISMUTH SUBSALICYLATE 524 MG/30 ML UD PO PRN (18:41)
[2020-07-16] MEDS ORDERED: MAG HYDROX/AL HYDROX/SIMETH 30 ML UNIT-DOSE CUP PO PRN (18:41)
[2020-07-16] MEDS ORDERED: METHADONE HCL 10 MG TABLET (FOR DETOX USE ONLY) PO ONE (18:41)
[2020-07-16] MEDS ORDERED: MENTHOL/PHENOL 1 EACH UD MM PRN (18:41)
[2020-07-16] MEDS ORDERED: cloNIDine HCL 0.1 MG TABLET PO PRN (18:41)
[2020-07-16] MEDS ORDERED: MAGNESIUM HYDROX 2400MG/30ML ORAL SUSPENSION 30 ML CUP PO PRN (18:41)
[2020-07-16] MEDS ORDERED: NALOXONE HCL 0.4 MG/ML VIAL IM PRN (18:41)
[2020-07-16] MEDS ORDERED: ACETAMINOPHEN 325 MG TABLET (FP) PO PRN ×2 (18:41)
[2020-07-16] MEDS ORDERED: IBUPROFEN 400 MG TABLET (FP) PO PRN (18:41)
[2020-07-16] MEDS ORDERED: MAGNESIUM CITRATE 300 ML BOTTLE PO PRN (18:41)
--- OUTSIDE RECORDS SUMMARY | 2020-07-16 18:57 | XMS ---
:1950 Author Organization [facility] Support Name Relationship Address Phone RE Unavailable Unavailable Unavailable UE Unavailable Unavailable Unavailable MARIA E BELTRAN JR SON [address] [phone] [place] [address] IRENE BELTRAN [address] [address] Re-disclosure Warning The records that you are [...] is protected by Article 27-F of the [facility] Public Health law. If you continue you may haveaccess to information: Regarding HIV / AIDS; Provided by facilities licensed or operated by the [facility] Office of Mental Health; or Provided by the [facility] Office for People With Developmental Disabilities. If such information is present, then the following [facility] mandated warning applies: This information has been [...] law may result in a fine or correction sentence or both. A general authorization for the release of medical or other information is NOT sufficient authorization for further disclosure. Insurance Providers Payer name Policy type Policy ID Covered Covered republican's Policy P thomas / Coverage republican ID relationship to Ruiz Inf ormation type ruiz AETNA MEBRNKCM SP MEBRNKCM MEDICARE ARMANDO MEDICARE [id number] SP [id number] ARMANDO MEDICARE [id number] SP [id number] AETNA MEBRNKCM SP MEBRNKCM MEDICARE VALUE [id number] SP [id number] [facility] C[facility] AETNA MEBRNKCM SP MEBRNKCM MEDICARE MEDICARE [id number] SP [id number] A AETNA [place] SP MEBRNKCM MEDICARE Results ID Date Data Source [id number] 03/27/2020 11:17:00 AM EDT [facility] Name Value Range Interpretation Code Description Data Swetha rce(s) Supporting Document(s ) COV2 [facility] This lab was ordered by MORIAH tiwari reported by [facility]. Procedure
[2020-07-16] MEDS: chlordiazePOXIDE HCL 25 MG CAPSULE PO PRN (19:52)
[2020-07-16] MEDS: THIAMINE HCL 100 MG TABLET (FP) PO SCH (22:22)
[2020-07-16] MEDS: APIXABAN 5 MG TABLET PO SCH (22:22)
[2020-07-16] MEDS: MELATONIN 5 MG TABLETS PO SCH (22:22)
[2020-07-16] MEDS: chlordiazePOXIDE HCL 25 MG CAPSULE PO SCH (22:22)
[2020-07-17] MEDS: chlordiazePOXIDE HCL 25 MG CAPSULE PO SCH ×4 (05:12→22:22)
[2020-07-17] MEDS ORDERED: METHADONE HCL 5 MG TABLET (FOR DETOX USE ONLY) ONE (09:30)
[2020-07-17] MEDS ORDERED: METHADONE HCL 10 MG TABLET (FOR DETOX USE ONLY) ONE (09:31)
--- NOTE | 2020-07-17 09:34 | EKG ---
Test Reason : Blood Pressure : / mmHG Vent. Rate : 078 BPM Atrial Rate : 078 BPM P-R Int : 130 ms QRS Dur : 070 ms QT Int : 380 ms P-R-T Axes : 076 061 049 degrees QTc Int : 433 ms NORMAL SINUS RHYTHM WITH SINUS ARRHYTHMIA POSSIBLE LEFT ATRIAL ENLARGEMENT LEFT VENTRICULAR HYPERTROPHY ABNORMAL ECG WHEN COMPARED WITH ECG OF 29-DEC-2018 13:39, NO SIGNIFICANT CHANGE WAS FOUND Confirmed by Cici Moses ([id number]) on 07/17/2020 9:34:02 AM Referred By: Confirmed By:Cici Moses
[2020-07-17] MEDS ORDERED: METHADONE (DETOX) 20 MG, METHADONE (DETOX) 5 MG PO ONE (10:00)
[2020-07-17] MEDS: amLODIPine BESYLATE 5 MG TABLET (FP) PO SCH (10:16)
[2020-07-17] MEDS: PRENATAL VITAMINS W/ FOLIC ACID TABLET (FP) PO SCH (10:17)
[2020-07-17] MEDS: APIXABAN 5 MG TABLET PO SCH ×2 (10:17→22:22)
[2020-07-17] MEDS: METHOCARBAMOL 500 MG TABLET PO PRN (10:20)
[2020-07-17 11:25] LABS: ALBUMIN 3.1 g/dl (3.4-5.0); BILIRUBIN,TOTAL 0.6 mg/dL (0.2-1); CALCIUM 8.2 mg/dL (8.5-10.1); HEMATOCRIT 32.9 % (35.4-49); HEMOGLOBIN 10.7 GM/dL (11.7-16.9); MCH 33.9 pg (25.7-33.7); MCHC 32.4 g/dl (32.0-35.9); MEAN CELL VOLUME 104.8 fl (80-96); MEAN PLT VOLUME 8.2 fl (7.5-11.1); PLATELET COUNT 137 K/MM3 (134-434); RBC 3.14 M/mm3 (4.00-5.60); RDW 13.4 % (11.9-15.9); TOT PROT 6.2 g/dl (6.4-8.2); WHITE BLOOD COUNT 2.8 K/mm3 (4.0-10.0)
--- NOTE | 2020-07-17 14:45 | PN ---
[facility] CIWA - CIWA Score Nausea/Vomitin-Mild Nausea/No Vomiting Muscle Tremors: 2 Anxiety: 3 Agitation: 2 Paroxysmal Sweats: 3 Orientation: 0-Oriented Tacttile Disturbances: 0-None Auditory Disturbances: 0-None Visual Disturbances: 0-None Headache: 0-None Present CIWA-Ar Total Score: 11 S COWS - Scale Resting Pulse: 1= [place] 81-100 Sweatin= Chills/Flushing Restless Observation: 0= Sits Still Pupil Size: 0= Normal to Room Light Bone or Joint Aches: 1= Mild Discomfort Runny Nose/ Eye Tearin= Runny Nose/Eyes GI Upset > 30mins: 2= Nausea/Diarrhea Tremor Observation of Outstretched Hands: 2= Slight Tremor Visible Yawning Observation: 0= None Anxiety or Irritability: 2=Irritable/Anxious Goose Flesh Skin: 0=Smooth Skin COWS Score: 11 S Progress Note (SOAP) Subjective: Sweating, left leg cramps, sneezing Objective: 07/17/20 14:40 Last Vital Signs Temp Pulse Resp BP Pulse Ox 98.0 F 86 19 144/92 100 07/17/20 12:25 07/17/20 12:25 07/17/20 12:25 07/17/20 12:25 07/17/20 12:25 Elevated b/p: has htn, on med Laboratory Tests 07/16/20 07/17/20 07/17/20 19:51 07:30 07:30 WBC 2.8 L RBC 3.14 L Hgb 10.7 L Hct 32.9 L MCV 104.8 H MCH 33.9 H MCHC 32.4 RDW 13.4 Plt Count 137 D MPV 8.2 Sodium Potassium Chloride Carbon Dioxide Anion Gap BUN Creatinine Est GFR (CKD-EPI)AfAm Est GFR (CKD-EPI)NonAf Random Glucose Calcium Total Bilirubin AST ALT Alkaline Phosphatase Total Protein Albumin Syphilis Serology Non-reactive COVID-19 (YOLI) Not detected 07/17/20 07:30 WBC RBC Hgb Hct MCV MCH MCHC RDW Plt Count MPV Sodium 141 Potassium 4.0 Chloride 103 Carbon Dioxide 34 H Anion Gap 4 L BUN 11.0 Creatinine 1.0 Est GFR (CKD-EPI)AfAm 87.99 Est GFR (CKD-EPI)NonAf 75.92 Random Glucose 125 H Calcium 8.2 L Total Bilirubin 0.6 AST 26 ALT 24 Alkaline Phosphatase 82 Total Protein 6.2 L Albumin 3.1 L Syphilis Serology COVID-19 (YOLI) Labs reviewed: pancytopenia, elevated glucose level, low calcium, low albumin and total protein Assessment: 07/17/20 14:43 Withdrawal sxs Noted with elevated b/p, pancytopenia, hyperglycemia, hypocalcemia and hypoalbuminemia and low total protein Plan: Continue detox Encourage PO water intake HTN: continue antihypertensive medication, monitor b/p Pancytopenia: most likely due to alcoholism, follow up with PCP for management Hyperglycemia: denies dm, repeat fasting glucose, check A1c Hypocalcemia: start calcium carbonate 650mg PO bid x 4 days Hypoalbuminemia and low total protein: encourage diet
--- NOTE | 2020-07-17 20:44 | HP ---
COWS - Scale Resting Pulse: 1= [place] 81-100 Sweatin= Chills/Flushing Restless Observation: 1= Difficult to Sit Still Pupil Size: 0= Normal to Room Light Bone or Joint Aches: 2= Severe Diffuse Aches Runny Nose/ Eye Tearin= Nasal Congestion GI Upset > 30mins: 1= Stomach Cramp Tremor Observation: 1= Tremor [place], Not Seen Yawning Observation: 1= 1-2x During Session Anxiety or Irritability: 1=Feels Anxious/Irritable Goose Flesh Skin: 3=Piloerection COWS Score: 13 CIWA Score Nausea/Vomitin-Mild Nausea/No Vomiting Muscle Tremors: 2 Anxiety: 3 Agitation: 2 Paroxysmal Sweats: 3 Orientation: 0-Oriented Tacttile Disturbances: 0-None Auditory Disturbances: 0-None Visual Disturbances: 0-None Headache: 0-None Present CIWA-Ar Total Score: 11 - Admission Criteria OASAS Guidelines: Admission for Medically Managed Detox: Requires at least one of the followin. CIWA greater than 12 2. Seizures within the past 24 hours 3. Delirium tremens within the past 24 hours 4. Hallucinations within the past 24 hours 5. Acute intervention needed for co occurring medical disorder 6. Acute intervention needed for co occurring psychiatric disorder 7. Severe withdrawal that cannot be handled at a lower level of care (continued vomiting, continued diarrhea, abnormal vital signs) requiring intravenous medication and/or fluids 8. Admitting History and Physical - Past Medical History Cardiovascular: Yes: HTN, Hyperlipdemia Pulmonary: Yes: Pulmonary Embolus (history) Psych: Yes: Addictions - Smoking History Smoking history: Never smoked Have you smoked in the past 12 months: No Aproximately how many cigarettes per day: 0 - Alcohol/Substance Use Hx Alcohol Use: Yes History of Substance Use: reports: Heroin - Social History Occupation: retired History of Recent Travel: No Admission ROS [facility] - HPI Allergies/Adverse Reactions: Allergies Allergy/AdvReac Type Severity Reaction Status Date / Time morphine Allergy Severe Itching Verified 12/13/19 17:30 - Ebola screening Have you traveled outside of the country in the last 21 days: No Have you had contact with anyone from an Ebola affected area: No Have you been sick,other than usual withdrawal symptoms: No Do you have a fever: No Patient History - Patient Medical History Hx Anemia: No Hx Asthma: No Hx Chronic Obstructive Pulmonary Disease (COPD): No Hx Cancer: No Hx Cardiac Disorders: No Hx Congestive Heart Failure: No Hx Hypertension: Yes Hx Hypercholesterolemia: No Hx Pacemaker: No HX Cerebrovascular Accident: No Hx Seizures: No Hx Dementia: No Hx Diabetes: No Hx Gastrointestinal Disorders: No Hx Liver Disease: No Hx Genitourinary Disorders: No Hx Sexually Transmitted Disorders: No Hx Renal Disease (ESRD): No Hx Thyroid Disease: No Hx Human Immunodeficiency Virus (HIV): No Hx Hepatitis C: No Hx Depression: Yes Hx Suicide Attempt: No Hx Bipolar Disorder: No Hx Schizophrenia: No - Patient Surgical History Past Surgical History: Yes Hx Neurologic Surgery: No Hx Cataract Extraction: Yes (cataract sx, left eye, 09/2014, right eye, 04/2017.) Hx Cardiac Surgery: Yes (11/2017 removal of ivc filter in back at [facility]) Hx Lung Surgery: No Hx Breast Surgery: No Hx Breast Biopsy: No Hx Abdominal Surgery: Yes (vascular abdominal surgery in 2017 ) Hx Appendectomy: No Hx Cholecystectomy: No Hx Genitourinary Surgery: No Hx Section: No Hx Orthopedic Surgery: Yes (-right knee fx -surgery after [facility]) Other Surgical History: 1.IVC RT jugular filter 02/06 [facility]. 2.) left inguinal hernia repair Anesthesia Reaction: No (Dizziness, nausea, after surgery in .) - PPD History Previous Implant?: No Documented Results: Positive w/o proof Implanted On Prior R Admission?: No Date: 03/28/15 Results: cxr 04/15/19 - Smoking Cessation Smoking history: Never smoked Have you smoked in the past 12 months: No Aproximately how many cigarettes per day: 0 Cigars Per Day: 0 Hx Chewing Tobacco Use: No Initiated information on smoking cessation: No - Substances abused Heroin Substance route: Inhalation Frequency: Daily Amount used: 4-5 bags Age of first use: 21 Date of last use: 07/15/20 Alcohol Other (specify): vodka Substance route: Oral Frequency: Daily Amount used: 2 pints Age of first use: 18 Date of last use: 07/16/20 Admission Physical Exam [facility] - Vital Signs Vital Signs: Vital Signs - 24 hr 07/17/20 07/17/20 07/17/20 05:10 09:15 12:25 Temperature 97.1 F L 97.5 F L 98.0 F Pulse Rate 70 87 86 Respiratory 20 18 19 Rate Blood Pressure 140/84 138/78 144/92 O2 Sat by Pulse 98 100 100 Oximetry (%) 07/17/20 16:58 Temperature 97.3 F L Pulse Rate 84 Respiratory 19 Rate Blood Pressure 116/68 O2 Sat by Pulse Oximetry (%) Breathalyzer - Breathalyzer Breathalyzer: 0.132 Urine Drug Screen - Test Device Lot number: [id number] Expiration date: 02/02/22 - Control Is test valid?: Yes - Results Drug screen NEGATIVE: No Urine drug screen results: FEN-Fentanyl, MOP-Opiates
[2020-07-17] MEDS: CALCIUM CARBONATE 650 MG TABLET PO SCH (22:21)
[2020-07-17] MEDS: THIAMINE HCL 100 MG TABLET (FP) PO SCH (22:22)
[2020-07-17] MEDS: MELATONIN 5 MG TABLETS PO SCH (22:22)
[2020-07-18] MEDS: chlordiazePOXIDE HCL 25 MG CAPSULE PO SCH ×4 (05:25→22:24)
[2020-07-18] MEDS ORDERED: METHADONE HCL 10 MG TABLET (FOR DETOX USE ONLY) PO ONE (10:00)
--- NOTE | 2020-07-18 10:13 | PN ---
[facility] CIWA - CIWA Score Nausea/Vomitin-Mild Nausea/No Vomiting Muscle Tremors: 2 Anxiety: 2 Agitation: 2 Paroxysmal Sweats: No Perspiration Orientation: 0-Oriented Tacttile Disturbances: 0-None Auditory Disturbances: 0-None Visual Disturbances: 0-None Headache: 1-Very Mild CIWA-Ar Total Score: 8 [facility] COWS - Scale Resting Pulse: 0= [place] 80 or Below Sweatin= No chills or Flushing Restless Observation: 0= Sits Still Pupil Size: 1= Pupils >than Normal Bone or Joint Aches: 2= Severe Diffuse Aches Runny Nose/ Eye Tearin= Runny Nose/Eyes GI Upset > 30mins: 1= Stomach Cramp Tremor Observation of Outstretched Hands: 2= Slight Tremor Visible Yawning Observation: 1= 1-2x During Session Anxiety or Irritability: 2=Irritable/Anxious Goose Flesh Skin: 0=Smooth Skin COWS Score: 11 S Progress Note (SOAP) Subjective: alert,irritable,anxious,interrupted sleep,tremor,pain in the body and back Objective: 07/18/20 12:27 Vital Signs Temperature 97.1 F L 07/18/20 08:31 Pulse Rate 80 07/18/20 08:31 Respiratory Rate 17 07/18/20 08:31 Blood Pressure 128/76 07/18/20 08:31 O2 Sat by Pulse Oximetry (%) 100 07/18/20 08:31 Laboratory Last Values WBC 2.8 K/mm3 (4.0-10.0) L 07/17/20 07:30 RBC 3.14 M/mm3 (4.00-5.60) L 07/17/20 07:30 Hgb 10.7 GM/dL (11.7-16.9) L 07/17/20 07:30 Hct 32.9 % (35.4-49) L 07/17/20 07:30 MCV 104.8 fl (80-96) H 07/17/20 07:30 MCH 33.9 pg (25.7-33.7) H 07/17/20 07:30 MCHC 32.4 g/dl (32.0-35.9) 07/17/20 07:30 RDW 13.4 % (11.9-15.9) 07/17/20 07:30 Plt Count 137 K/MM3 (134-434) D 07/17/20 07:30 MPV 8.2 fl (7.5-11.1) 07/17/20 07:30 Sodium 141 mmol/L (136-145) 07/17/20 07:30 Potassium 4.0 mmol/L (3.5-5.1) 07/17/20 07:30 Chloride 103 mmol/L (98-107) 07/17/20 07:30 Carbon Dioxide 34 mmol/L (21-32) H 07/17/20 07:30 Anion Gap 4 MMOL/L (8-16) L 07/17/20 07:30 BUN 11.0 mg/dL (7-18) 07/17/20 07:30 Creatinine 1.0 mg/dL (0.55-1.3) 07/17/20 07:30 Est GFR (CKD-EPI)AfAm 87.99 07/17/20 07:30 Est GFR (CKD-EPI)NonAf 75.92 07/17/20 07:30 Random Glucose 125 mg/dL (74-106) H 07/17/20 07:30 Calcium 8.2 mg/dL (8.5-10.1) L 07/17/20 07:30 Total Bilirubin 0.6 mg/dL (0.2-1) 07/17/20 07:30 AST 26 U/L (15-37) 07/17/20 07:30 ALT 24 U/L (13-61) 07/17/20 07:30 Alkaline Phosphatase 82 U/L (45-117) 07/17/20 07:30 Total Protein 6.2 g/dl (6.4-8.2) L 07/17/20 07:30 Albumin 3.1 g/dl (3.4-5.0) L 07/17/20 07:30 Syphilis Serology Non-reactive (NONREACTIVE) 07/17/20 07:30 COVID-19 (YOLI) Not detected (Not Detected) 07/16/20 19:51 Assessment: 07/18/20 12:28 withdrawal symptom Plan: continue detox methadone and librium regimen
[2020-07-18] MEDS: amLODIPine BESYLATE 5 MG TABLET (FP) PO SCH (10:39)
[2020-07-18] MEDS: CALCIUM CARBONATE 650 MG TABLET PO SCH ×2 (10:39→22:59)
[2020-07-18] MEDS: APIXABAN 5 MG TABLET PO SCH ×2 (10:39→22:24)
[2020-07-18] MEDS: PRENATAL VITAMINS W/ FOLIC ACID TABLET (FP) PO SCH (10:40)
[2020-07-18] MEDS: METHOCARBAMOL 500 MG TABLET PO PRN ×2 (10:41→22:24)
[2020-07-18] MEDS: chlordiazePOXIDE HCL 25 MG CAPSULE PO PRN (13:28)
[2020-07-18] MEDS: THIAMINE HCL 100 MG TABLET (FP) PO SCH (22:24)
[2020-07-18] MEDS: MELATONIN 5 MG TABLETS PO SCH (22:25)
[2020-07-19] MEDS ORDERED: chlordiazePOXIDE HCL 10 MG CAPSULE PO PRN
[2020-07-19] MEDS: chlordiazePOXIDE HCL 10 MG CAPSULE PO SCH ×4 (05:44→22:22)
[2020-07-19] MEDS ORDERED: METHADONE HCL 10 MG TABLET (FOR DETOX USE ONLY) ONE (09:25)
[2020-07-19] MEDS ORDERED: METHADONE HCL 5 MG TABLET (FOR DETOX USE ONLY) ONE (09:25)
[2020-07-19] MEDS ORDERED: METHADONE (DETOX) 10 MG, METHADONE (DETOX) 5 MG PO ONE (10:00)
[2020-07-19] MEDS ORDERED: amLODIPine BESYLATE 10 MG TABLET (FP) PO SCH (10:00)
[2020-07-19] MEDS: CALCIUM CARBONATE 650 MG TABLET PO SCH ×2 (10:23→23:19)
[2020-07-19] MEDS: APIXABAN 5 MG TABLET PO SCH ×2 (10:23→22:22)
[2020-07-19] MEDS: PRENATAL VITAMINS W/ FOLIC ACID TABLET (FP) PO SCH (10:24)
[2020-07-19] MEDS: METHOCARBAMOL 500 MG TABLET PO PRN ×2 (10:24→22:24)
--- NOTE | 2020-07-19 10:25 | PN ---
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
--- NOTE | 2020-07-19 10:26 | DS ---
[facility] Detox Discharge Summary Admission Date: 07/16/20 - Physical Exam Results Vital Signs: Vital Signs Temperature 97.1 F L 07/19/20 08:28 Pulse Rate 77 07/19/20 08:28 Respiratory Rate 17 07/19/20 08:28 Blood Pressure 112/57 L 07/19/20 08:28 O2 Sat by Pulse Oximetry (%) 100 07/19/20 08:28 - Medication Discharge Medications: Ambulatory Orders Amlodipine Besylate [Norvasc -] 10 mg PO DAILY #14 tablet 12/07/18 Apixaban [Eliquis -] 5 mg PO BID 15 Days #20 tablet 12/07/18 propRANOLol HCL [Inderal -] 10 mg PO BID 15 Days #30 tablet 12/07/18
--- NOTE | 2020-07-19 10:30 | PN ---
S Progress Note Note: please disregard the note on this patient on 07/19/20 1t 10.21am
--- NOTE | 2020-07-19 12:56 | PN ---
[facility] CIWA - CIWA Score Nausea/Vomitin-Mild Nausea/No Vomiting Muscle Tremors: 2 Anxiety: 2 Agitation: 1-Slight > Activity Paroxysmal Sweats: No Perspiration Orientation: 0-Oriented Tacttile Disturbances: 0-None Auditory Disturbances: 0-None Visual Disturbances: 0-None Headache: 1-Very Mild CIWA-Ar Total Score: 7 [facility] COWS - Scale Resting Pulse: 0= [place] 80 or Below Sweatin= No chills or Flushing Restless Observation: 0= Sits Still Pupil Size: 0= Normal to Room Light Bone or Joint Aches: 1= Mild Discomfort Runny Nose/ Eye Tearin= Nasal Congestion GI Upset > 30mins: 1= Stomach Cramp Tremor Observation of Outstretched Hands: 1= Tremor [place], Not Seen Yawning Observation: 0= None Anxiety or Irritability: 2=Irritable/Anxious Goose Flesh Skin: 0=Smooth Skin COWS Score: 6 S Progress Note (SOAP) Subjective: alert,irritable,anxious,interrupted sleep,aching pain Objective: 07/19/20 12:53 Vital Signs Temperature 97.1 F L 07/19/20 08:28 Pulse Rate 77 07/19/20 08:28 Respiratory Rate 17 07/19/20 08:28 Blood Pressure 112/57 L 07/19/20 08:28 O2 Sat by Pulse Oximetry (%) 100 07/19/20 08:28 07/19/20 12:55 glucose is 104,hba1c 5.6 Assessment: 07/19/20 12:55 withdrawal symptom Plan: continue detox methadone and librium regimen,discharge in am
[2020-07-19 21:31] VITALS: PULSE 81
[2020-07-19] MEDS: THIAMINE HCL 100 MG TABLET (FP) PO SCH (22:22)
[2020-07-19] MEDS: MELATONIN 5 MG TABLETS PO SCH (22:22)
[2020-07-20] MEDS ORDERED: chlordiazePOXIDE HCL 10 MG CAPSULE PO SCH (05:00)
[2020-07-20 07:32] VITALS: BP 115/64; TEMP 98
--- NOTE | 2020-07-20 09:01 | DS ---
[facility] Detox Discharge Summary Admission Date: 07/16/20 Discharge Date: 07/20/20 - History Present History: Alcohol Dependence, Opioid Dependence Additional Comments: alert,oriented x 3 ambulation on the unit lung clear on auscultation bilaterally abdomen soft,no distension,no pain,no tenderness no swelling of the leg no withdrawal symptom stable for discharge today follow up with after care program as arrangement and medical provider for medical issue follow up has medications at home declined rehab total time of discharge 35 minutes left the unit in good and stable condition Pertinent Past History: essential hypertension history of pulmonary embolism gerd - Physical Exam Results Vital Signs: Vital Signs Temperature 98 F 07/20/20 05:11 Pulse Rate 81 07/20/20 05:11 Respiratory Rate 20 07/20/20 05:11 Blood Pressure 115/64 07/20/20 05:11 O2 Sat by Pulse Oximetry (%) 96 07/20/20 05:11 Pertinent Admission Physical Exam Findings: withdrawal signs and symptom Laboratory Last Values WBC 2.8 K/mm3 (4.0-10.0) L 07/17/20 07:30 RBC 3.14 M/mm3 (4.00-5.60) L 07/17/20 07:30 Hgb 10.7 GM/dL (11.7-16.9) L 07/17/20 07:30 Hct 32.9 % (35.4-49) L 07/17/20 07:30 MCV 104.8 fl (80-96) H 07/17/20 07:30 MCH 33.9 pg (25.7-33.7) H 07/17/20 07:30 MCHC 32.4 g/dl (32.0-35.9) 07/17/20 07:30 RDW 13.4 % (11.9-15.9) 07/17/20 07:30 Plt Count 137 K/MM3 (134-434) D 07/17/20 07:30 MPV 8.2 fl (7.5-11.1) 07/17/20 07:30 Sodium 141 mmol/L (136-145) 07/17/20 07:30 Potassium 4.0 mmol/L (3.5-5.1) 07/17/20 07:30 Chloride 103 mmol/L (98-107) 07/17/20 07:30 Carbon Dioxide 34 mmol/L (21-32) H 07/17/20 07:30 Anion Gap 4 MMOL/L (8-16) L 07/17/20 07:30 BUN 11.0 mg/dL (7-18) 07/17/20 07:30 Creatinine 1.0 mg/dL (0.55-1.3) 07/17/20 07:30 Est GFR (CKD-EPI)AfAm 87.99 07/17/20 07:30 Est GFR (CKD-EPI)NonAf 75.92 07/17/20 07:30 Random Glucose 125 mg/dL (74-106) H 07/17/20 07:30 Fasting Glucose 104 mg/dL (74-106) 07/18/20 08:30 Hemoglobin A1c % 5.6 % (4.2-6.3) 07/18/20 08:30 Calcium 8.2 mg/dL (8.5-10.1) L 07/17/20 07:30 Total Bilirubin 0.6 mg/dL (0.2-1) 07/17/20 07:30 AST 26 U/L (15-37) 07/17/20 07:30 ALT 24 U/L (13-61) 07/17/20 07:30 Alkaline Phosphatase 82 U/L (45-117) 07/17/20 07:30 Total Protein 6.2 g/dl (6.4-8.2) L 07/17/20 07:30 Albumin 3.1 g/dl (3.4-5.0) L 07/17/20 07:30 Syphilis Serology Non-reactive (NONREACTIVE) 07/17/20 07:30 COVID-19 (YOLI) Not detected (Not Detected) 07/16/20 19:51 Vital Signs Temperature 98 F 07/20/20 05:11 Pulse Rate 81 07/20/20 05:11 Respiratory Rate 20 07/20/20 05:11 Blood Pressure 115/64 07/20/20 05:11 O2 Sat by Pulse Oximetry (%) 96 07/20/20 05:11 - Treatment Hospital Course: Detox Protocol Followed, Detoxed Safely, Responded well, Discharged Condition Good Patient has Accepted a Rehab Referral to: declined - Medication Discharge Medications: Ambulatory Orders Amlodipine Besylate [Norvasc -] 10 mg PO DAILY #14 tablet 12/07/18 Apixaban [Eliquis -] 5 mg PO BID 15 Days #20 tablet 12/07/18 propRANOLol HCL [Inderal -] 10 mg PO BID 15 Days #30 tablet 12/07/18 - Diagnosis (1) Opioid dependence with withdrawal Status: Acute (2) Alcohol dependence with uncomplicated withdrawal Status: Acute (3) Essential hypertension Status: Chronic (4) Gastroesophageal reflux disease Status: Chronic Qualifiers: Esophagitis presence: without esophagitis Qualified Code(s): K21.9 - Gastro-esophageal reflux disease without esophagitis (5) History of pulmonary embolism Status: Chronic (6) PPD positive, treated Status: Chronic - AMA Did Patient Leave Against Medical Advice: No
--- NOTE | 2020-07-20 09:01 | PN ---
[facility] CIWA - CIWA Score Nausea/Vomitin-No Nausea/No Vomiting Muscle Tremors: None Anxiety: 1-Mildly Anxious Agitation: 0-Normal Activity Paroxysmal Sweats: No Perspiration Orientation: 0-Oriented Tacttile Disturbances: 0-None Auditory Disturbances: 0-None Visual Disturbances: 0-None Headache: 0-None Present CIWA-Ar Total Score: 1 [facility] COWS - Scale Resting Pulse: 1= [place] 81-100 Sweatin= No chills or Flushing Restless Observation: 0= Sits Still Pupil Size: 0= Normal to Room Light Bone or Joint Aches: 0= None Runny Nose/ Eye Tearin= None GI Upset > 30mins: 0= None Tremor Observation of Outstretched Hands: 0= None Yawning Observation: 0= None Anxiety or Irritability: 0= None Goose Flesh Skin: 0=Smooth Skin COWS Score: 1 [facility] Progress Note (SOAP) Subjective: alert,no complaint Objective: 07/21/20 12:10 Vital Signs Temperature 98 F 07/20/20 05:11 Pulse Rate 81 07/20/20 05:11 Respiratory Rate 20 07/20/20 05:11 Blood Pressure 115/64 07/20/20 05:11 O2 Sat by Pulse Oximetry (%) 96 07/20/20 05:11 Assessment: 07/21/20 12:10 no withdrawal symptom Plan: stable for discharge today,denied rehab,follow up with after care program as arrangement
[2020-07-20] MEDS ORDERED: METHADONE HCL 10 MG TABLET (FOR DETOX USE ONLY) PO ONE (10:00)
[2020-07-21] MEDS ORDERED: chlordiazePOXIDE HCL 10 MG CAPSULE PO ONE (05:00)
[2020-07-21] MEDS ORDERED: METHADONE HCL 5 MG TABLET (FOR DETOX USE ONLY) PO ONE (06:00)
== END 2020-07-20 08:50 | disposition home or self-care (01) | DRG 897 ==
LOC: YASAS 16:11 → Y6N 18:53
PROVIDERS: ADMIT Allergy & Immunology; ATTEND Allergy & Immunology
PROC: HZ2ZZZZ Detoxification Services for Substance Abuse Treatment (ICD-10-PCS; principal; 2020-07-16)
DX: F11.23 Opioid dependence with withdrawal (principal); D61.818 Other pancytopenia; F10.230 Alcohol dependence with withdrawal, uncomplicated; E83.51 Hypocalcemia; E88.09 Other disorders of plasma-protein metabolism, not elsewhere classified; I10 Essential (primary) hypertension; R76.11 Nonspecific reaction to tuberculin skin test without active tuberculosis; Z86.711 Personal history of pulmonary embolism; Z79.01 Long term (current) use of anticoagulants; Z88.5 Allergy status to narcotic agent; Z98.890 Other specified postprocedural states
CPT/HCPCS: 36415; 80053; 82947; 83036; 85027; 86780; 93005; 93010; J0735; U0003

== ENCOUNTER 2021-11-01 16:07 | Inpatient (IN) | payer OTHER ==
[2021-11-01 19:03] VITALS: BMI 21.2
[2021-11-01] MEDS ORDERED: MAGNESIUM HYDROX 2400MG/30ML ORAL SUSPENSION 30 ML CUP PO PRN (20:30)
[2021-11-01] MEDS ORDERED: MAGNESIUM CITRATE 300 ML BOTTLE PO PRN (20:30)
[2021-11-01] MEDS ORDERED: guaiFENesin 200 MG/10 ML 10 ML UNIT-DOSE CUPS PO PRN (20:30)
[2021-11-01] MEDS ORDERED: LOPERAMIDE HCL 2 MG CAPSULE PO PRN (20:30)
[2021-11-01] MEDS ORDERED: P-EPHED 60MG/TRIPROLIDI 2.5MG TABLET PO PRN (20:30)
[2021-11-01] MEDS ORDERED: IBUPROFEN 400 MG TABLET (FP) PO PRN (20:30)
[2021-11-01] MEDS ORDERED: ACETAMINOPHEN 325 MG TABLET (FP) PO PRN (20:30)
[2021-11-01] MEDS ORDERED: MAG HYDROX/AL HYDROX/SIMETH 30 ML UNIT-DOSE CUP PO PRN (20:30)
[2021-11-02] MEDS ORDERED: TUBERCULIN PPD 5 TU/0.1ML VIAL ID ONE (02:57)
[2021-11-02] MEDS: THIAMINE HCL 100 MG TABLET (FP) PO SCH ×2 (03:26→21:37)
[2021-11-02] MEDS: MELATONIN 5 MG TABLETS PO SCH ×2 (03:26→21:38)
[2021-11-02] MEDS: PRENATAL VITAMINS W/ FOLIC ACID TABLET (FP) PO SCH (09:44)
[2021-11-02 11:28] LABS: URINE APPEARANCE CLEAR; URINE BILIRUBIN NEGATIVE (NEGATIVE); URINE COLOR YELLOW; URINE GLUCOSE (UA) NEGATIVE (NEGATIVE); URINE KETONE NEGATIVE (NEGATIVE); URINE LEUK ESTERASE NEGATIVE (NEGATIVE); URINE NITRITE NEGATIVE (NEGATIVE); URINE PROTEIN NEGATIVE (NEGATIVE); URINE UROBILINOGEN 0.2 mg/dL (0.2-1.0)
[2021-11-02 11:43] LABS: HEMATOCRIT 32.7 % (35.4-49); HEMOGLOBIN 10.8 GM/dL (11.7-16.9); MCHC 33.1 g/dl (32.0-35.9); MEAN CELL VOLUME 105.9 fl (80-96); MEAN PLT VOLUME 8.7 fl (7.5-11.1); PLATELET COUNT 166 10^3/uL (134-434); RBC 3.09 M/mm3 (4.00-5.60); WHITE BLOOD COUNT 3.7 K/mm3 (4.0-10.0)
[2021-11-02 12:31] LABS: BLOOD UREA NITROGEN 31.9 mg/dL (7-18); CALCIUM 9.1 mg/dL (8.5-10.1)
[2021-11-02 12:32] LABS: ALBUMIN 3.1 g/dl (3.4-5.0)
[2021-11-02 12:36] LABS: BILIRUBIN,TOTAL 0.5 mg/dL (0.2-1); TOT PROT 6.5 g/dl (6.4-8.2)
[2021-11-02] MEDS ORDERED: PT OWN MED DRAWER 7, Y5N ONE (21:27)
[2021-11-02] MEDS: APIXABAN 5 MG TABLET PO SCH (21:37)
[2021-11-02] MEDS: propRANOLol HCL 10 MG TABLET PO SCH (21:37)
[2021-11-02] MEDS: FERROUS SO4 325 MG TABLET (FP) PO SCH (21:38)
[2021-11-03] MEDS: FERROUS SO4 325 MG TABLET (FP) PO SCH ×2 (09:56→21:26)
[2021-11-03] MEDS: PRENATAL VITAMINS W/ FOLIC ACID TABLET (FP) PO SCH (09:56)
[2021-11-03] MEDS: propRANOLol HCL 10 MG TABLET PO SCH ×2 (09:56→21:26)
[2021-11-03] MEDS: APIXABAN 5 MG TABLET PO SCH ×2 (09:56→21:26)
[2021-11-03] MEDS: THIAMINE HCL 100 MG TABLET (FP) PO SCH (21:26)
[2021-11-03] MEDS: MELATONIN 5 MG TABLETS PO SCH (21:26)
[2021-11-04] MEDS: PRENATAL VITAMINS W/ FOLIC ACID TABLET (FP) PO SCH (09:46)
[2021-11-04] MEDS: propRANOLol HCL 10 MG TABLET PO SCH ×2 (09:46→21:18)
[2021-11-04] MEDS: FERROUS SO4 325 MG TABLET (FP) PO SCH ×2 (09:46→21:18)
[2021-11-04] MEDS: APIXABAN 5 MG TABLET PO SCH ×2 (09:46→21:18)
[2021-11-04 13:28] LABS: HIV INTERPRETATION NEGATIVE (NEGATIVE)
[2021-11-04] MEDS: MELATONIN 5 MG TABLETS PO SCH (21:18)
[2021-11-04] MEDS: THIAMINE HCL 100 MG TABLET (FP) PO SCH (21:18)
[2021-11-05 04:40] VITALS: BP 157/94; PULSE 78
[2021-11-05 04:58] VITALS: TEMP 96.8
== END 2021-11-05 05:08 | disposition left against medical advice (07) | DRG 894 ==
LOC: YASAS 16:07 → Y3W 11-02 02:12
PROVIDERS: ADMIT Allergy & Immunology; ATTEND Allergy & Immunology
PROC: HZ42ZZZ Group Counseling for Substance Abuse Treatment, Cognitive-Behavioral (ICD-10-PCS; principal; 2021-11-02)
DX: F11.20 Opioid dependence, uncomplicated (principal); F10.20 Alcohol dependence, uncomplicated; D64.9 Anemia, unspecified; Z87.01 Personal history of pneumonia (recurrent); Z86.711 Personal history of pulmonary embolism; Z79.01 Long term (current) use of anticoagulants; Z88.5 Allergy status to narcotic agent
CPT/HCPCS: 36415; 71046-TC-FY; 80053; 81003; 85027; 86780; 87389; C9803-CS; U0003; U0005

== ENCOUNTER 2023-01-05 12:08 | Inpatient (IN) | payer OTHER ==
[2023-01-05 12:28] VITALS: BMI 20.2
[2023-01-05] MEDS ORDERED: POLYETHYLENE GLYCOL (HEALTHYLAX) 3350 17 GM PACKET PO PRN (16:09)
[2023-01-05] MEDS ORDERED: BENZOCAINE/MENTHOL (CHLORASEPTIC ) LOZENGE MM PRN (16:09)
[2023-01-05] MEDS ORDERED: ONDANSETRON *ODT* 4 MG TABLET SL PRN (16:09)
[2023-01-05] MEDS ORDERED: METHOCARBAMOL 500 MG TABLET PO PRN (16:09)
[2023-01-05] MEDS ORDERED: chlordiazePOXIDE HCL 25 MG CAPSULE PO PRN (16:09)
[2023-01-05] MEDS ORDERED: BISMUTH SUBSALICYLATE 524 MG/30 ML PO PRN (16:09)
[2023-01-05] MEDS ORDERED: DICYCLOMINE HCL 10 MG CAPSULE PO PRN (16:09)
[2023-01-05] MEDS ORDERED: ACETAMINOPHEN 325 MG TABLET (FP) PO PRN ×2 (16:09)
[2023-01-05] MEDS ORDERED: methaDONE HCL 10 MG TABLET (FOR DETOX USE ONLY) PO ONE (16:09)
[2023-01-05] MEDS ORDERED: NICOTINE 10 MG CARTRIDGE (INHALER) IH PRN (16:09)
[2023-01-05] MEDS ORDERED: MAG HYDROX/AL HYDROX/SIMETH 30 ML UNIT-DOSE CUP PO PRN (16:09)
[2023-01-05] MEDS ORDERED: NALOXONE HCL (KLOXXADO) 8 MG SPRAY NS PRN (16:09)
[2023-01-05] MEDS ORDERED: MAGNESIUM HYDROX 2400MG/30ML ORAL SUSPENSION 30 ML CUP PO PRN (16:09)
[2023-01-05] MEDS ORDERED: LOPERAMIDE HCL 2 MG CAPSULE PO PRN (16:09)
[2023-01-05] MEDS ORDERED: cloNIDine HCL 0.1 MG TABLET PO PRN (16:09)
[2023-01-05] MEDS: APIXABAN 5 MG TABLET PO SCH (22:07)
[2023-01-05] MEDS: chlordiazePOXIDE HCL 25 MG CAPSULE PO SCH (22:07)
[2023-01-05] MEDS: THIAMINE HCL 100 MG TABLET (FP) PO SCH (22:07)
[2023-01-05] MEDS: MELATONIN 5 MG TABLETS PO SCH (22:07)
[2023-01-05] MEDS ORDERED: chlordiazePOXIDE HCL 25 MG CAPSULE PO SCH (23:00)
[2023-01-05] MEDS: propRANOLol HCL 10 MG TABLET PO SCH (23:33)
[2023-01-06] MEDS: chlordiazePOXIDE HCL 25 MG CAPSULE PO SCH ×4 (06:01→22:13)
[2023-01-06 09:30] LABS: CALCIUM 8.8 mg/dL (8.5-10.1)
[2023-01-06 09:31] LABS: ALBUMIN 3.2 g/dl (3.4-5.0); BLOOD UREA NITROGEN 29.3 mg/dL (7-18)
[2023-01-06 09:34] LABS: CREATININE 1.4 mg/dL (0.55-1.3)
[2023-01-06 09:35] LABS: BILIRUBIN,TOTAL 0.4 mg/dL (0.2-1); TOT PROT 6.7 g/dl (6.4-8.2)
[2023-01-06 09:44] LABS: HEMATOCRIT 31.4 % (35.4-49); HEMOGLOBIN 10.2 GM/dL (11.7-16.9); MCH 35.4 pg (25.7-33.7); MCHC 32.6 g/dl (32.0-35.9); MEAN CELL VOLUME 108.6 fl (80-96); PLATELET COUNT 201 10^3/uL (134-434); RBC 2.89 M/mm3 (4.00-5.60); WHITE BLOOD COUNT 5.9 K/mm3 (4.0-10.0)
[2023-01-06] MEDS: PRENATAL VITAMINS W/ FOLIC ACID TABLET (FP) PO SCH (10:05)
[2023-01-06] MEDS: propRANOLol HCL 10 MG TABLET PO SCH ×2 (10:05→22:10)
[2023-01-06] MEDS: APIXABAN 5 MG TABLET PO SCH ×2 (10:05→22:10)
[2023-01-06] MEDS: amLODIPine BESYLATE 10 MG TABLET (FP) PO SCH (10:10)
[2023-01-06] MEDS: hydrOXYzine PAMOATE 25 MG CAPSULE (FP) PO PRN (17:49)
[2023-01-06] MEDS: THIAMINE HCL 100 MG TABLET (FP) PO SCH (22:10)
[2023-01-06] MEDS: MELATONIN 5 MG TABLETS PO SCH (22:10)
[2023-01-07] MEDS: chlordiazePOXIDE HCL 25 MG CAPSULE PO SCH ×4 (05:52→22:07)
[2023-01-07] MEDS ORDERED: methaDONE HCL 10 MG TABLET (FOR DETOX USE ONLY) PO ONE (10:00)
[2023-01-07] MEDS: propRANOLol HCL 10 MG TABLET PO SCH ×2 (10:33→21:53)
[2023-01-07] MEDS: PRENATAL VITAMINS W/ FOLIC ACID TABLET (FP) PO SCH (10:33)
[2023-01-07] MEDS: amLODIPine BESYLATE 10 MG TABLET (FP) PO SCH (10:34)
[2023-01-07] MEDS: APIXABAN 5 MG TABLET PO SCH ×2 (10:34→21:53)
[2023-01-07] MEDS: THIAMINE HCL 100 MG TABLET (FP) PO SCH (21:53)
[2023-01-07] MEDS: MELATONIN 5 MG TABLETS PO SCH (21:53)
[2023-01-08] MEDS ORDERED: chlordiazePOXIDE HCL 10 MG CAPSULE PO PRN
[2023-01-08 00:38] LABS: MAGNESIUM 1.3 mg/dL (1.8-2.4)
[2023-01-08 00:41] LABS: PHOSPHOROUS 4.5 mg/dL (2.5-4.9)
[2023-01-08] MEDS ORDERED: chlordiazePOXIDE 5 MG CAPSULE ONE (04:26)
[2023-01-08] MEDS: chlordiazePOXIDE HCL 10 MG CAPSULE PO SCH ×4 (05:46→22:26)
[2023-01-08 10:08] LABS: HEMATOCRIT 30.5 % (35.4-49); HEMOGLOBIN 10.2 GM/dL (11.7-16.9); MCH 35.3 pg (25.7-33.7); MCHC 33.3 g/dl (32.0-35.9); MEAN CELL VOLUME 106.2 fl (80-96); MEAN PLT VOLUME 8.4 fl (7.5-11.1); PLATELET COUNT 168 10^3/uL (134-434); RBC 2.87 M/mm3 (4.00-5.60); WHITE BLOOD COUNT 4.1 K/mm3 (4.0-10.0)
[2023-01-08] MEDS: propRANOLol HCL 10 MG TABLET PO SCH ×2 (10:28→22:22)
[2023-01-08] MEDS: APIXABAN 5 MG TABLET PO SCH ×2 (10:28→22:22)
[2023-01-08] MEDS: amLODIPine BESYLATE 10 MG TABLET (FP) PO SCH (10:28)
[2023-01-08] MEDS: PRENATAL VITAMINS W/ FOLIC ACID TABLET (FP) PO SCH (10:31)
[2023-01-08 12:40] LABS: ALBUMIN 2.9 g/dl (3.4-5.0); CALCIUM 9.3 mg/dL (8.5-10.1)
[2023-01-08 12:43] LABS: CREATININE 1.1 mg/dL (0.55-1.3); PHOSPHOROUS 4.4 mg/dL (2.5-4.9)
[2023-01-08] MEDS: hydrOXYzine PAMOATE 25 MG CAPSULE (FP) PO PRN (17:12)
[2023-01-08] MEDS: MELATONIN 5 MG TABLETS PO SCH (22:22)
[2023-01-08] MEDS: THIAMINE HCL 100 MG TABLET (FP) PO SCH (22:22)
[2023-01-09] MEDS: chlordiazePOXIDE HCL 10 MG CAPSULE PO SCH ×2 (05:54→17:43)
[2023-01-09] MEDS ORDERED: methaDONE HCL 10 MG TABLET (FOR DETOX USE ONLY) PO ONE (10:00)
[2023-01-09] MEDS: APIXABAN 5 MG TABLET PO SCH ×2 (10:29→21:56)
[2023-01-09] MEDS: PRENATAL VITAMINS W/ FOLIC ACID TABLET (FP) PO SCH (10:29)
[2023-01-09] MEDS: propRANOLol HCL 10 MG TABLET PO SCH ×2 (10:33→21:56)
[2023-01-09] MEDS: amLODIPine BESYLATE 10 MG TABLET (FP) PO SCH (10:33)
[2023-01-09] MEDS: MELATONIN 5 MG TABLETS PO SCH (21:56)
[2023-01-09] MEDS: THIAMINE HCL 100 MG TABLET (FP) PO SCH (21:56)
[2023-01-10] MEDS ORDERED: chlordiazePOXIDE HCL 10 MG CAPSULE PO ONE (05:00)
[2023-01-10 10:01] VITALS: BP 110/65; PULSE 93; RESP 18; TEMP 97.3
[2023-01-10] MEDS: APIXABAN 5 MG TABLET PO SCH (10:34)
[2023-01-10] MEDS: amLODIPine BESYLATE 10 MG TABLET (FP) PO SCH (10:34)
[2023-01-10] MEDS: propRANOLol HCL 10 MG TABLET PO SCH (10:34)
[2023-01-10] MEDS: PRENATAL VITAMINS W/ FOLIC ACID TABLET (FP) PO SCH (10:34)
== END 2023-01-10 12:00 | disposition home or self-care (01) | DRG 897 ==
LOC: YASAS 12:08 → Y6N 19:29
PROVIDERS: ADMIT Allergy & Immunology; ATTEND Surgery
PROC: HZ2ZZZZ Detoxification Services for Substance Abuse Treatment (ICD-10-PCS; principal; 2023-01-05)
DX: F10.230 Alcohol dependence with withdrawal, uncomplicated (principal); E78.5 Hyperlipidemia, unspecified; D64.9 Anemia, unspecified; E86.0 Dehydration; I10 Essential (primary) hypertension; N28.9 Disorder of kidney and ureter, unspecified; R79.89 Other specified abnormal findings of blood chemistry; Z86.718 Personal history of other venous thrombosis and embolism; Z79.01 Long term (current) use of anticoagulants; Z86.711 Personal history of pulmonary embolism; Z88.5 Allergy status to narcotic agent
CPT/HCPCS: 36415; 71046-TC-FY; 80053; 80069; 83735; 84100; 85027; 86780; 87811; C9803-CS; U0003; U0005

== ENCOUNTER 2023-01-25 13:32 | Inpatient (IN) | payer OTHER ==
[2023-01-25 13:57] VITALS: BMI 20.6
[2023-01-25] MEDS ORDERED: guaiFENesin 600 MG TABLET.ER (FP) PO PRN (15:45)
[2023-01-25] MEDS ORDERED: ONDANSETRON *ODT* 4 MG TABLET SL PRN (15:45)
[2023-01-25] MEDS ORDERED: NALOXONE HCL (KLOXXADO) 8 MG SPRAY NS PRN (15:45)
[2023-01-25] MEDS ORDERED: IBUPROFEN 600 MG TABLET (FP) PO PRN (15:45)
[2023-01-25] MEDS ORDERED: POLYETHYLENE GLYCOL (HEALTHYLAX) 3350 17 GM PACKET PO PRN (15:45)
[2023-01-25] MEDS ORDERED: DICYCLOMINE HCL 10 MG CAPSULE PO PRN (15:45)
[2023-01-25] MEDS ORDERED: MAG HYDROX/AL HYDROX/SIMETH 30 ML UNIT-DOSE CUP PO PRN (15:45)
[2023-01-25] MEDS ORDERED: NALOXONE HCL 0.4 MG/ML VIAL IM PRN (15:45)
[2023-01-25] MEDS ORDERED: LOPERAMIDE HCL 2 MG CAPSULE PO PRN (15:45)
[2023-01-25] MEDS ORDERED: MAGNESIUM HYDROX 2400MG/30ML ORAL SUSPENSION 30 ML CUP PO PRN (15:45)
[2023-01-25] MEDS ORDERED: BENZOCAINE/MENTHOL (CHLORASEPTIC ) LOZENGE MM PRN (15:45)
[2023-01-25] MEDS ORDERED: BENZONATATE 200 MG CAPSULE PO PRN (15:45)
[2023-01-25] MEDS ORDERED: ACETAMINOPHEN 325 MG TABLET (FP) PO PRN (15:45)
[2023-01-25] MEDS ORDERED: BISMUTH SUBSALICYLATE 524 MG/30 ML PO PRN (15:45)
[2023-01-25] MEDS ORDERED: IBUPROFEN 400 MG TABLET (FP) PO PRN (15:45)
[2023-01-25] MEDS: hydrOXYzine PAMOATE 25 MG CAPSULE (FP) PO PRN (17:18)
[2023-01-25] MEDS: THIAMINE HCL 100 MG TABLET (FP) PO SCH (22:38)
[2023-01-25] MEDS: propRANOLol HCL 10 MG TABLET PO SCH (22:38)
[2023-01-25] MEDS: ATORVASTATIN CA 10 MG TABLET (FP) PO SCH (22:38)
[2023-01-25] MEDS: APIXABAN 5 MG TABLET PO SCH (22:38)
[2023-01-25] MEDS: MELATONIN 5 MG TABLETS PO SCH (22:41)
[2023-01-26] MEDS: PRENATAL VITAMINS W/ FOLIC ACID TABLET (FP) PO SCH (10:23)
[2023-01-26] MEDS: propRANOLol HCL 10 MG TABLET PO SCH ×2 (10:23→22:35)
[2023-01-26] MEDS: APIXABAN 5 MG TABLET PO SCH ×2 (10:24→22:34)
[2023-01-26] MEDS: amLODIPine BESYLATE 10 MG TABLET (FP) PO SCH (10:24)
[2023-01-26] MEDS: hydrOXYzine PAMOATE 25 MG CAPSULE (FP) PO PRN ×2 (10:24→22:34)
[2023-01-26 10:30] LABS: HEMATOCRIT 33.6 % (35.4-49); MCH 34.6 pg (25.7-33.7); MCHC 32.8 g/dl (32.0-35.9); MEAN CELL VOLUME 105.3 fl (80-96); MEAN PLT VOLUME 7.5 fl (7.5-11.1); PLATELET COUNT 259 10^3/uL (134-434); RBC 3.19 M/mm3 (4.00-5.60); RDW 14.5 % (11.9-15.9); WHITE BLOOD COUNT 3.9 K/mm3 (4.0-10.0)
[2023-01-26 10:41] LABS: ALBUMIN 2.8 g/dl (3.4-5.0); BLOOD UREA NITROGEN 16.4 mg/dL (7-18)
[2023-01-26 10:43] LABS: CREATININE 1.4 mg/dL (0.55-1.3)
[2023-01-26 10:45] LABS: TOT PROT 7.1 g/dl (6.4-8.2)
[2023-01-26 10:46] LABS: BILIRUBIN,TOTAL 0.6 mg/dL (0.2-1)
[2023-01-26 20:48] VITALS: RESP 16
[2023-01-26] MEDS: MELATONIN 5 MG TABLETS PO SCH (22:34)
[2023-01-26] MEDS: THIAMINE HCL 100 MG TABLET (FP) PO SCH (22:34)
[2023-01-26] MEDS: ATORVASTATIN CA 10 MG TABLET (FP) PO SCH (22:34)
[2023-01-27 10:11] VITALS: BP 113/49; PULSE 85; TEMP 97.8
[2023-01-27] MEDS: amLODIPine BESYLATE 10 MG TABLET (FP) PO SCH (10:42)
[2023-01-27] MEDS: propRANOLol HCL 10 MG TABLET PO SCH (10:42)
[2023-01-27] MEDS: APIXABAN 5 MG TABLET PO SCH (10:42)
[2023-01-27] MEDS: PRENATAL VITAMINS W/ FOLIC ACID TABLET (FP) PO SCH (10:43)
[2023-01-28] MEDS ORDERED: ERGOCALCIFEROL (VIT D2) 50,000 UNIT (1.25 MG) CAPSULE PO SCH (10:00)
== END 2023-01-27 11:05 | disposition other institution (70) | DRG 897 ==
LOC: YASAS 13:32 → Y6N 15:24 → UNDOADMIN 15:24
PROVIDERS: ADMIT Allergy & Immunology; ATTEND Surgery
PROC: HZ2ZZZZ Detoxification Services for Substance Abuse Treatment (ICD-10-PCS; principal; 2023-01-25)
DX: F11.23 Opioid dependence with withdrawal (principal); F10.230 Alcohol dependence with withdrawal, uncomplicated; E78.5 Hyperlipidemia, unspecified; I10 Essential (primary) hypertension; R25.1 Tremor, unspecified; R60.0 Localized edema; Z86.711 Personal history of pulmonary embolism; Z86.718 Personal history of other venous thrombosis and embolism; Z79.01 Long term (current) use of anticoagulants; Z88.5 Allergy status to narcotic agent
CPT/HCPCS: 36415; 80053; 82140; 85027; 86780; 87811; 93005; 93010; C9803-CS; U0003; U0005

== ENCOUNTER 2023-01-27 11:07 | Inpatient (IN) | payer OTHER ==
[2023-01-27] MEDS ORDERED: LOPERAMIDE HCL 2 MG CAPSULE PO PRN (11:42)
[2023-01-27] MEDS ORDERED: NALOXONE HCL 0.4 MG/ML VIAL IVPUSH PRN (11:42)
[2023-01-27] MEDS ORDERED: NICOTINE POLACRILEX 4 MG GUM BUC PRN (11:42)
[2023-01-27] MEDS ORDERED: MAG HYDROX/AL HYDROX/SIMETH 30 ML UNIT-DOSE CUP PO PRN (11:42)
[2023-01-27] MEDS ORDERED: BENZOCAINE/MENTHOL (CHLORASEPTIC ) LOZENGE MM PRN (11:42)
[2023-01-27] MEDS ORDERED: NICOTINE 10 MG CARTRIDGE (INHALER) IH PRN (11:42)
[2023-01-27] MEDS ORDERED: NICOTINE 14 MG/24 HOURS TOPICAL PATCH TD PRN (11:42)
[2023-01-27] MEDS ORDERED: guaiFENesin 600 MG TABLET.ER (FP) PO PRN (11:42)
[2023-01-27] MEDS ORDERED: ACETAMINOPHEN 325 MG TABLET (FP) PO PRN (11:42)
[2023-01-27] MEDS ORDERED: POLYETHYLENE GLYCOL (HEALTHYLAX) 3350 17 GM PACKET PO PRN (11:42)
[2023-01-27] MEDS ORDERED: IBUPROFEN 600 MG TABLET (FP) PO PRN (11:42)
[2023-01-27] MEDS ORDERED: NALOXONE HCL (KLOXXADO) 8 MG SPRAY NS PRN (11:42)
[2023-01-27] MEDS ORDERED: METHOCARBAMOL 500 MG TABLET PO PRN (11:42)
[2023-01-27] MEDS ORDERED: BENZONATATE 200 MG CAPSULE PO PRN (11:42)
[2023-01-27] MEDS ORDERED: MAGNESIUM HYDROX 2400MG/30ML ORAL SUSPENSION 30 ML CUP PO PRN (11:42)
[2023-01-27] MEDS ORDERED: IBUPROFEN 400 MG TABLET (FP) PO PRN (11:42)
[2023-01-27] MEDS: THIAMINE HCL 100 MG TABLET (FP) PO SCH (21:10)
[2023-01-27] MEDS: MELATONIN 5 MG TABLETS PO SCH (21:10)
[2023-01-27] MEDS: APIXABAN 5 MG TABLET PO SCH (21:12)
[2023-01-27] MEDS: ATORVASTATIN CA 10 MG TABLET (FP) PO SCH (21:12)
[2023-01-27] MEDS: propRANOLol HCL 10 MG TABLET PO SCH (23:48)
[2023-01-28] MEDS: propRANOLol HCL 10 MG TABLET PO SCH ×2 (09:39→21:20)
[2023-01-28] MEDS: APIXABAN 5 MG TABLET PO SCH ×2 (09:39→21:20)
[2023-01-28] MEDS: PRENATAL VITAMINS W/ FOLIC ACID TABLET (FP) PO SCH (09:39)
[2023-01-28] MEDS: amLODIPine BESYLATE 10 MG TABLET (FP) PO SCH (09:39)
[2023-01-28] MEDS ORDERED: ERGOCALCIFEROL (VIT D2) 50,000 UNIT (1.25 MG) CAPSULE PO SCH (10:00)
[2023-01-28] MEDS: ERGOCALCIFEROL (VIT D2) 50,000 UNIT (1.25 MG) CAPSULE PO SCH (11:45)
[2023-01-28] MEDS: MELATONIN 5 MG TABLETS PO SCH (21:20)
[2023-01-28] MEDS: THIAMINE HCL 100 MG TABLET (FP) PO SCH (21:20)
[2023-01-28] MEDS: ATORVASTATIN CA 10 MG TABLET (FP) PO SCH (21:20)
[2023-01-29] MEDS: APIXABAN 5 MG TABLET PO SCH ×2 (09:43→21:13)
[2023-01-29] MEDS: amLODIPine BESYLATE 10 MG TABLET (FP) PO SCH (09:44)
[2023-01-29] MEDS: propRANOLol HCL 10 MG TABLET PO SCH ×2 (09:44→21:13)
[2023-01-29] MEDS: PRENATAL VITAMINS W/ FOLIC ACID TABLET (FP) PO SCH (09:44)
[2023-01-29] MEDS: THIAMINE HCL 100 MG TABLET (FP) PO SCH (21:12)
[2023-01-29] MEDS: MELATONIN 5 MG TABLETS PO SCH (21:13)
[2023-01-29] MEDS: hydrOXYzine PAMOATE 25 MG CAPSULE (FP) PO PRN (21:13)
[2023-01-29] MEDS: ATORVASTATIN CA 10 MG TABLET (FP) PO SCH (21:13)
[2023-01-30] MEDS: amLODIPine BESYLATE 10 MG TABLET (FP) PO SCH (09:29)
[2023-01-30] MEDS: APIXABAN 5 MG TABLET PO SCH ×2 (09:29→21:11)
[2023-01-30] MEDS: propRANOLol HCL 10 MG TABLET PO SCH ×2 (09:29→21:11)
[2023-01-30] MEDS: PRENATAL VITAMINS W/ FOLIC ACID TABLET (FP) PO SCH (09:29)
[2023-01-30] MEDS: THIAMINE HCL 100 MG TABLET (FP) PO SCH (21:10)
[2023-01-30] MEDS: MELATONIN 5 MG TABLETS PO SCH (21:10)
[2023-01-30] MEDS: ATORVASTATIN CA 10 MG TABLET (FP) PO SCH (21:10)
[2023-01-31] MEDS: PRENATAL VITAMINS W/ FOLIC ACID TABLET (FP) PO SCH (09:52)
[2023-01-31] MEDS: amLODIPine BESYLATE 10 MG TABLET (FP) PO SCH (09:52)
[2023-01-31] MEDS: APIXABAN 5 MG TABLET PO SCH ×2 (09:52→21:02)
[2023-01-31] MEDS: propRANOLol HCL 10 MG TABLET PO SCH ×2 (09:52→21:02)
[2023-01-31] MEDS: THIAMINE HCL 100 MG TABLET (FP) PO SCH (21:01)
[2023-01-31] MEDS: MELATONIN 5 MG TABLETS PO SCH (21:02)
[2023-01-31] MEDS: ATORVASTATIN CA 10 MG TABLET (FP) PO SCH (21:02)
[2023-02-01] MEDS ORDERED: ARTIFICIAL TEARS (POLYVINYL ALCOHOL) OPTH DROPS OU PRN (09:46)
[2023-02-01] MEDS ORDERED: COLLOIDAL OATMEAL 1 BAR EACH TP PRN (09:46)
[2023-02-01] MEDS: PRENATAL VITAMINS W/ FOLIC ACID TABLET (FP) PO SCH (09:54)
[2023-02-01] MEDS: propRANOLol HCL 10 MG TABLET PO SCH ×2 (09:55→21:11)
[2023-02-01] MEDS: amLODIPine BESYLATE 10 MG TABLET (FP) PO SCH (09:55)
[2023-02-01] MEDS: APIXABAN 5 MG TABLET PO SCH ×2 (09:55→21:11)
[2023-02-01] MEDS: guaiFENesin 600 MG TABLET.ER (FP) PO SCH ×2 (10:13→21:11)
[2023-02-01] MEDS: THIAMINE HCL 100 MG TABLET (FP) PO SCH (21:10)
[2023-02-01] MEDS: MELATONIN 5 MG TABLETS PO SCH (21:11)
[2023-02-01] MEDS: ATORVASTATIN CA 10 MG TABLET (FP) PO SCH (21:11)
[2023-02-02] MEDS: MULTIVIT-MINERALS ORAL LIQUID PO SCH (09:50)
[2023-02-02] MEDS: propRANOLol HCL 10 MG TABLET PO SCH ×2 (09:51→21:20)
[2023-02-02] MEDS: amLODIPine BESYLATE 10 MG TABLET (FP) PO SCH (09:51)
[2023-02-02] MEDS: APIXABAN 5 MG TABLET PO SCH ×2 (09:51→21:20)
[2023-02-02] MEDS: guaiFENesin 600 MG TABLET.ER (FP) PO SCH ×2 (09:51→21:21)
[2023-02-02] MEDS: ATORVASTATIN CA 10 MG TABLET (FP) PO SCH (21:20)
[2023-02-02] MEDS: MELATONIN 5 MG TABLETS PO SCH (21:20)
[2023-02-02] MEDS: hydrOXYzine PAMOATE 25 MG CAPSULE (FP) PO PRN (21:20)
[2023-02-02] MEDS: THIAMINE HCL 100 MG TABLET (FP) PO SCH (21:20)
[2023-02-03] MEDS: MULTIVIT-MINERALS ORAL LIQUID PO SCH (09:53)
[2023-02-03] MEDS: propRANOLol HCL 10 MG TABLET PO SCH ×2 (09:53→21:24)
[2023-02-03] MEDS: amLODIPine BESYLATE 10 MG TABLET (FP) PO SCH (09:54)
[2023-02-03] MEDS: APIXABAN 5 MG TABLET PO SCH ×2 (09:54→21:23)
[2023-02-03] MEDS: guaiFENesin 600 MG TABLET.ER (FP) PO SCH ×2 (09:54→21:24)
[2023-02-03] MEDS: ATORVASTATIN CA 10 MG TABLET (FP) PO SCH (21:23)
[2023-02-03] MEDS: THIAMINE HCL 100 MG TABLET (FP) PO SCH (21:24)
[2023-02-03] MEDS: MELATONIN 5 MG TABLETS PO SCH (21:24)
[2023-02-04] MEDS: APIXABAN 5 MG TABLET PO SCH ×2 (10:02→21:33)
[2023-02-04] MEDS: MULTIVIT-MINERALS ORAL LIQUID PO SCH (10:02)
[2023-02-04] MEDS: ERGOCALCIFEROL (VIT D2) 50,000 UNIT (1.25 MG) CAPSULE PO SCH (10:02)
[2023-02-04] MEDS: amLODIPine BESYLATE 10 MG TABLET (FP) PO SCH (10:03)
[2023-02-04] MEDS: propRANOLol HCL 10 MG TABLET PO SCH ×2 (10:03→21:33)
[2023-02-04] MEDS: guaiFENesin 600 MG TABLET.ER (FP) PO SCH ×2 (10:03→21:34)
[2023-02-04] MEDS: THIAMINE HCL 100 MG TABLET (FP) PO SCH (21:33)
[2023-02-04] MEDS: MELATONIN 5 MG TABLETS PO SCH (21:33)
[2023-02-04] MEDS: ATORVASTATIN CA 10 MG TABLET (FP) PO SCH (21:33)
[2023-02-05 06:23] VITALS: BP 123/74; PULSE 90; RESP 18; TEMP 96.8
[2023-02-05] MEDS: MULTIVIT-MINERALS ORAL LIQUID PO SCH (09:05)
[2023-02-05] MEDS: APIXABAN 5 MG TABLET PO SCH (09:06)
[2023-02-05] MEDS: amLODIPine BESYLATE 10 MG TABLET (FP) PO SCH (09:06)
[2023-02-05] MEDS: propRANOLol HCL 10 MG TABLET PO SCH (09:06)
[2023-02-05] MEDS: guaiFENesin 600 MG TABLET.ER (FP) PO SCH (09:06)
== END 2023-02-05 09:08 | disposition home or self-care (01) | DRG 895 ==
LOC: YASAS 11:07 → Y3E 11:08
PROVIDERS: ADMIT Allergy & Immunology; ATTEND Psychiatry & Neurology Pain Medicine
PROC: HZ42ZZZ Group Counseling for Substance Abuse Treatment, Cognitive-Behavioral (ICD-10-PCS; principal; 2023-01-27)
DX: F11.20 Opioid dependence, uncomplicated (principal); F10.20 Alcohol dependence, uncomplicated; E78.5 Hyperlipidemia, unspecified; I10 Essential (primary) hypertension; L85.3 Xerosis cutis; H04.123 Dry eye syndrome of bilateral lacrimal glands; R09.81 Nasal congestion; Z86.11 Personal history of tuberculosis; Z86.711 Personal history of pulmonary embolism; Z79.01 Long term (current) use of anticoagulants; Z86.718 Personal history of other venous thrombosis and embolism; Z95.9 Presence of cardiac and vascular implant and graft, unspecified

== ENCOUNTER 2023-08-09 14:04 | Inpatient (IN) | payer OTHER ==
[2023-08-09 15:08] VITALS: BMI 20.9
[2023-08-09] MEDS ORDERED: P-EPHED 60MG/TRIPROLIDI 2.5MG TABLET PO PRN (17:48)
[2023-08-09] MEDS ORDERED: LOPERAMIDE HCL 2 MG CAPSULE PO PRN (17:48)
[2023-08-09] MEDS ORDERED: BENZOCAINE/MENTHOL (CHLORASEPTIC ) LOZENGE MM PRN (17:48)
[2023-08-09] MEDS ORDERED: MAG HYDROX/AL HYDROX/SIMETH 30 ML UNIT-DOSE CUP PO PRN (17:48)
[2023-08-09] MEDS ORDERED: POLYETHYLENE GLYCOL (HEALTHYLAX) 3350 17 GM PACKET PO PRN (17:48)
[2023-08-09] MEDS ORDERED: NALOXONE HCL (KLOXXADO) 8 MG SPRAY NS PRN (17:48)
[2023-08-09] MEDS ORDERED: NALOXONE HCL 0.4 MG/ML VIAL IM PRN (17:48)
[2023-08-09] MEDS ORDERED: BENZONATATE 200 MG CAPSULE PO PRN (17:48)
[2023-08-09] MEDS ORDERED: ONDANSETRON *ODT* 4 MG TABLET SL PRN (17:48)
[2023-08-09] MEDS ORDERED: guaiFENesin 600 MG TABLET.ER (FP) PO PRN (17:48)
[2023-08-09] MEDS ORDERED: ACETAMINOPHEN 325 MG TABLET (FP) PO PRN ×2 (17:48)
[2023-08-09] MEDS ORDERED: MAGNESIUM HYDROX 2400MG/30ML ORAL SUSPENSION 30 ML CUP PO PRN (17:48)
[2023-08-09] MEDS: MELATONIN 5 MG TABLETS PO SCH (22:21)
[2023-08-09] MEDS: THIAMINE HCL 100 MG TABLET (FP) PO SCH (22:22)
[2023-08-09] MEDS: APIXABAN 5 MG TABLET PO SCH (22:22)
[2023-08-09] MEDS: ATORVASTATIN CA 10 MG TABLET (FP) PO SCH (22:22)
[2023-08-09] MEDS: propRANOLol HCL 10 MG TABLET PO SCH (22:22)
[2023-08-09] MEDS ORDERED: methaDONE HCL 10 MG TABLET (FOR DETOX USE ONLY) PO ONE (22:52)
[2023-08-09] MEDS: diazePAM 5 MG TABLET PO SCH (23:09)
[2023-08-10] MEDS: diazePAM 5 MG TABLET PO SCH ×4 (05:06→22:21)
[2023-08-10] MEDS ORDERED: methaDONE HCL 10 MG TABLET (FOR DETOX USE ONLY) PO ONE (10:00)
[2023-08-10] MEDS: PRENATAL VITAMINS W/ FOLIC ACID TABLET (FP) PO SCH (10:15)
[2023-08-10] MEDS: propRANOLol HCL 10 MG TABLET PO SCH ×2 (10:15→22:19)
[2023-08-10] MEDS: APIXABAN 5 MG TABLET PO SCH ×2 (10:16→22:20)
[2023-08-10] MEDS: FOLIC ACID 1 MG TABLET (FP) PO SCH (10:16)
[2023-08-10] MEDS: amLODIPine BESYLATE 5 MG TABLET (FP) PO SCH (10:16)
[2023-08-10 12:15] LABS: MCH 35.4 pg (25.7-33.7); MCHC 33.2 g/dl (32.0-35.9); MEAN CELL VOLUME 106.6 fl (80-96); MEAN PLT VOLUME 8.2 fl (7.5-11.1); PLATELET COUNT 107 10^3/uL (134-434); RBC 3.38 M/mm3 (4.00-5.60); RDW 13.9 % (11.9-15.9); WHITE BLOOD COUNT 2.9 K/mm3 (4.0-10.0)
[2023-08-10 12:27] LABS: POTASSIUM 4.1 mmol/L (3.5-5.1)
[2023-08-10 12:32] LABS: CALCIUM 8.7 mg/dL (8.5-10.1)
[2023-08-10 12:33] LABS: ALBUMIN 3.5 g/dl (3.4-5.0); BLOOD UREA NITROGEN 13.5 mg/dL (7-18)
[2023-08-10 12:36] LABS: CREATININE 0.8 mg/dL (0.55-1.3)
[2023-08-10 12:37] LABS: BILIRUBIN,TOTAL 1.1 mg/dL (0.2-1)
[2023-08-10 12:39] LABS: TOT PROT 7.4 g/dl (6.4-8.2)
[2023-08-10] MEDS: diazePAM 5 MG TABLET PO PRN (13:22)
[2023-08-10] MEDS: MELATONIN 5 MG TABLETS PO SCH (22:18)
[2023-08-10] MEDS: ATORVASTATIN CA 10 MG TABLET (FP) PO SCH (22:19)
[2023-08-10] MEDS: THIAMINE HCL 100 MG TABLET (FP) PO SCH (22:20)
[2023-08-11] MEDS: diazePAM 5 MG TABLET PO SCH ×3 (05:32→21:45)
[2023-08-11] MEDS ORDERED: methaDONE HCL 10 MG TABLET (FOR DETOX USE ONLY) PO ONE (06:00)
[2023-08-11] MEDS: PRENATAL VITAMINS W/ FOLIC ACID TABLET (FP) PO SCH (10:09)
[2023-08-11] MEDS: diazePAM 5 MG TABLET PO PRN ×2 (10:09→17:26)
[2023-08-11] MEDS: FOLIC ACID 1 MG TABLET (FP) PO SCH (10:09)
[2023-08-11] MEDS: APIXABAN 5 MG TABLET PO SCH ×2 (10:09→21:44)
[2023-08-11] MEDS: amLODIPine BESYLATE 5 MG TABLET (FP) PO SCH (10:09)
[2023-08-11] MEDS: propRANOLol HCL 10 MG TABLET PO SCH ×2 (10:09→21:44)
[2023-08-11] MEDS: ATORVASTATIN CA 10 MG TABLET (FP) PO SCH (21:44)
[2023-08-11] MEDS: MELATONIN 5 MG TABLETS PO SCH (21:44)
[2023-08-11] MEDS: THIAMINE HCL 100 MG TABLET (FP) PO SCH (21:44)
[2023-08-12] MEDS: diazePAM 5 MG TABLET PO SCH ×2 (05:23→17:19)
[2023-08-12] MEDS: APIXABAN 5 MG TABLET PO SCH ×2 (09:54→22:12)
[2023-08-12] MEDS: propRANOLol HCL 10 MG TABLET PO SCH ×2 (09:54→22:11)
[2023-08-12] MEDS: FOLIC ACID 1 MG TABLET (FP) PO SCH (09:54)
[2023-08-12] MEDS: amLODIPine BESYLATE 5 MG TABLET (FP) PO SCH (09:54)
[2023-08-12] MEDS: diazePAM 5 MG TABLET PO PRN (09:55)
[2023-08-12] MEDS: PRENATAL VITAMINS W/ FOLIC ACID TABLET (FP) PO SCH (09:55)
[2023-08-12] MEDS: ATORVASTATIN CA 10 MG TABLET (FP) PO SCH (22:11)
[2023-08-12] MEDS: THIAMINE HCL 100 MG TABLET (FP) PO SCH (22:12)
[2023-08-12] MEDS: MELATONIN 5 MG TABLETS PO SCH (22:12)
[2023-08-13] MEDS ORDERED: diazePAM 5 MG TABLET PO ONE (06:00)
[2023-08-13 09:05] VITALS: BP 114/80; PULSE 85; RESP 16; TEMP 96.8
[2023-08-13] MEDS: FOLIC ACID 1 MG TABLET (FP) PO SCH (09:29)
[2023-08-13] MEDS: propRANOLol HCL 10 MG TABLET PO SCH (09:29)
[2023-08-13] MEDS: amLODIPine BESYLATE 5 MG TABLET (FP) PO SCH (09:29)
[2023-08-13] MEDS: APIXABAN 5 MG TABLET PO SCH (09:30)
[2023-08-13] MEDS: PRENATAL VITAMINS W/ FOLIC ACID TABLET (FP) PO SCH (09:31)
== END 2023-08-13 09:38 | disposition home or self-care (01) | DRG 897 ==
LOC: YASAS 14:04 → Y3N 18:14
PROVIDERS: ADMIT Allergy & Immunology; ATTEND Surgery
PROC: HZ2ZZZZ Detoxification Services for Substance Abuse Treatment (ICD-10-PCS; principal; 2023-08-09)
DX: F11.23 Opioid dependence with withdrawal (principal); F10.230 Alcohol dependence with withdrawal, uncomplicated; I10 Essential (primary) hypertension; R76.11 Nonspecific reaction to tuberculin skin test without active tuberculosis; Z86.711 Personal history of pulmonary embolism; Z86.718 Personal history of other venous thrombosis and embolism; Z79.01 Long term (current) use of anticoagulants; Z88.5 Allergy status to narcotic agent
CPT/HCPCS: 36415; 80053; 85027; 86780; 87635